=== PATIENT | male | born 1935 | race Caucasian/White ===

== ENCOUNTER 2017-01-22 19:40 | Inpatient (IN) | payer MEDICARE ==
[2017-01-22] MEDS ORDERED: IPRATROPIUM-ALBUTEROL 3 ML NEB INHALATION STA ×2 (20:59→23:43)
[2017-01-22] MEDS ORDERED: methylPREDNISolone SOD SUCCI 125 MG/2 ML VIAL IV STA (21:09)
--- NOTE | 2017-01-22 21:32 | XR ---
EXAMINATION TYPE: XR chest 2V DATE OF EXAM: 01/22/2017 COMPARISON: 09/22/2016 HISTORY: Cough and short of breath TECHNIQUE: Frontal and lateral views of the chest are obtained. FINDINGS: There is extensive diffuse interstitial pulmonary infiltrates. There is poor inspiration. Pulmonary vascularity is difficult to evaluate because of the extensive lung disease. There are chest leads. IMPRESSION: Pulmonary interstitial fibrosis. Heart failure cannot be excluded. I suspect that there is some degree of heart failure. Inspiration is slightly worse than old exam.
[2017-01-22 21:47] LABS: VBG PH 7.48 (7.31-7.41)
[2017-01-22 21:48] LABS: Anisocytosis Slight; CH 38.4; CHCM 34.3; HDW 3.75; MCH 38.2 pg (25.0-35.0); MCV 112.5 fL (80.0-100.0); Macrocytosis Marked; Poikilocytosis Slight; RBC 1.73 m/uL (4.30-5.90); RDW 16.4 % (11.5-15.5); WBC 4.4 k/uL (3.8-10.6); WBC (Perox) 4.28
[2017-01-22 21:57] LABS: INR 1.1 (<1.2); Prothrombin Time 10.8 sec (9.0-12.0)
[2017-01-22 21:58] LABS: HCT 19.4 % (39.0-53.0); HGB 6.6 gm/dL (13.0-17.5)
[2017-01-22 22:04] LABS: Partial Thromboplastin Time 22.4 sec (22.0-30.0)
[2017-01-22 22:06] LABS: Add Differential Manual Differential
[2017-01-22 22:07] LABS: Manual Review Performed
[2017-01-22 22:09] LABS: Creatine Kinase <20 U/L (55-170)
[2017-01-22 22:11] LABS: Band Neutrophils % 9 %; Metamyelocytes % 2 %; Nucleated Red Blood Cells 0 /100 WBC (0-0); Total Cells Counted 100
[2017-01-22 22:12] LABS: Polychromasia Present
[2017-01-22 22:13] LABS: ALT 27 U/L (21-72); AST 22 U/L (17-59); Alkaline Phosphatase 61 U/L (38-126); Blood Urea Nitrogen 18 mg/dL (9-20); Calcium 9.5 mg/dL (8.4-10.2); Chloride 88 mmol/L (98-107); Glucose 103 mg/dL (74-99); Magnesium 1.5 mg/dL (1.6-2.3); Non-African American GFR(MDRD) >60 (>60 ml/min/1.73 sqM); Potassium 3.8 mmol/L (3.5-5.1); Sodium 143 mmol/L (137-145); Total Bilirubin 0.9 mg/dL (0.2-1.3); Total Protein 6.1 g/dL (6.3-8.2)
[2017-01-22 22:19] LABS: Anion Gap 10 mmol/L
[2017-01-22] MEDS ORDERED: FUROSEMIDE 10 MG/ML 2 ML VIAL IV ONE (22:20)
[2017-01-22 22:21] LABS: Creatine Kinase MB 0.3 ng/mL (0.0-2.4); Troponin I <0.012 ng/mL (0.000-0.034)
[2017-01-22 22:24] LABS: Carbon Dioxide 45 mmol/L (22-30)
[2017-01-22] MEDS ORDERED: ONDANSETRON 4 MG/2 ML VIAL IVP PRN (23:13)
[2017-01-22] MEDS ORDERED: NALOXONE 0.4 MG/ML 1 ML VIAL IV PRN (23:13)
[2017-01-22] MEDS ORDERED: ACETAMINOPHEN TAB 325 MG TAB PO PRN (23:13)
[2017-01-22] MEDS ORDERED: SODIUM CHLORIDE 0.9% 1,000 ML IV SCH (23:15)
--- NOTE | 2017-01-22 23:27 | ED ---
General Adult HPI - General Chief complaint: Shortness of Breath Stated complaint: sob Time Seen by Provider: 01/22/17 21:05 Source: patient, family, RN notes reviewed, old records reviewed Mode of arrival: wheelchair Limitations: no limitations - History of Present Illness Initial comments: 82-year-old male with history of pulmonary fibrosis on home O2, hypertension, and thrombocytopenia presents with a three-day history of worsening dyspnea. Shortness of breath is worse with exertion. Patient denies any increase in his baseline cough. Denies fever. Denies chest pain. He is on 2 L home O2. He has a history of bilateral pneumonia which is what prompted his presentation for evaluation. Denies any rectal bleeding. - Related Data Home Medications Medication Instructions Recorded Confirmed Levothyroxine Sodium [Synthroid] 25 mcg PO DAILY 10/22/14 01/22/17 Simvastatin [Zocor] 40 mg PO HS 10/22/14 01/22/17 Etodolac [Lodine] 400 mg PO BID 01/22/17 01/22/17 Lisinopril-Hctz 20-25 mg 1 tab PO DAILY 01/22/17 01/22/17 [Zestoretic 20-25] Previous Rx's Medication Instructions Recorded Furosemide [Lasix] 40 mg PO DAILY #30 tab 10/28/14 Potassium Chloride ER [K-Dur 20] 40 meq PO DAILY #30 tab 10/29/14 Allergies Allergy/AdvReac Type Severity Reaction Status Date / Time No Known Allergies Allergy Verified 01/22/17 20:49 Review of Systems ROS Statement: Those systems with pertinent positive or pertinent negative responses have been documented in the HPI. ROS Other: All systems not noted in ROS Statement are negative. Past Medical History Past Medical History: Hyperlipidemia, Hypertension, Osteoarthritis (OA), Thyroid Disorder Additional Past Medical History / Comment(s): 10/22/14 Pt presented to [facility] ER via EMS. found pt unresponsive this AM and called EMS. Pt has had a cough and congestion for the past 2 weeks. [facility] [place] [facility] was given a [facility]er and mucinex. states pt was very weak last nite. EMS was unable to intubate so pt arrived to ER with bipap and was intubated here. Pt was sent immediately to the cath labfor STEMI and hypoxia. Other HX: L knee pain, hypothyroidism. Family deny hx of COPD. History of Any Multi-Drug Resistant Organisms: None Reported Past Surgical History: Heart Catheterization Additional Past Surgical History / Comment(s): 10/22/14 ccath- EF 65-70%. PTO injury to groin/perineal area with surgical repair. Past Anesthesia/Blood Transfusion Reactions: No Reported Reaction Additional Past Anesthesia/Blood Transfusion Reaction / Comment(s): Pt hs never recieved blood. Past Psychological History: No Psychological Hx Reported Smoking Status: Never smoker - Past Family History Father Family Medical History: No Reported History Additional Family Medical History / Comment(s): Father was healthy until his at age 81yrs old. Mother Family Medical History: CVA/TIA Additional Family Medical History / Comment(s): Mother at age 84yr old. She had a CVA at age 82or 83yrs. General Exam Limitations: no limitations General appearance: alert, in distress Head exam: Present: atraumatic, normocephalic Eye exam: Present: normal appearance, PERRL, other (Conjunctiva pale) ENT exam: Present: normal exam, mucous membranes moist Neck exam: Present: normal inspection. Absent: tenderness, meningismus Respiratory exam: Present: other (Good air entry, breath sounds, no wheezing). Absent: wheezes, rales Cardiovascular Exam: Present: normal rhythm, tachycardia GI/Abdominal exam: Present: soft. Absent: distended, tenderness, guarding Rectal exam: Present: normal inspection, normal rectal tone, heme (-) stool Extremities exam: Present: normal inspection Back exam: Present: normal inspection, full ROM. Absent: tenderness Neurological exam: Present: alert, oriented X3, CN II-XII intact. Absent: motor sensory deficit Psychiatric exam: Present: normal affect, normal mood Skin exam: Present: warm, dry, pallor. Absent: cyanosis, diaphoretic Course Vital Signs 01/22/17 01/22/17 01/22/17 19:44 20:41 21:22 Temperature 98.9 F Pulse Rate 104 H 105 H 96 Respiratory 24 24 17 Rate Blood Pressure 110/57 114/56 O2 Sat by Pulse 83 L 80 L 95 Oximetry 01/22/17 01/22/17 01/22/17 21:27 21:37 22:16 Temperature Pulse Rate 97 93 91 Respiratory 17 Rate Blood Pressure 135/60 O2 Sat by Pulse 93 L Oximetry - Reevaluation(s) Reevaluation #1: 01/22/17 23:21 Patient and family are updated on laboratory results EKG Findings - EKG Comments: EKG Findings:: EKG shows sinus rhythm with first-degree AV block, ventricular rate of 94. Her Voltaren 58, QRS 86, QTC is 447, Medical Decision Making - Medical Decision Making 81-year-old male presents with 3 days of worsening dyspnea. According the patient's family member his dyspnea has worsened over the past several months. Lungs reveal good air entry, no wheezing, there is tubular breath sounds present. No retractions. Patient is found to have a hemoglobin of 6.0, most recent baseline hemoglobin is 12. Denies any rectal bleeding. Patient is also found to be thrombocytopenic with a platelet count of 25. He does have known history of thrombocytopenia. Patient is severely symptomatic. He is unable to lie flat or even mildly reclined. Blood pressure and heart rate are stable. Patient will be transfused 2 units and given a dose of Lasix. Chest x-ray shows pulmonary fibrosis with some concern for pulmonary edema. Patient is on Lasix at home. He will be continued on this. EKG is nonischemic. Hematology is placed on consult. Diagnosis: Symptomatic anemia, thrombocytopenia - Lab Data Result diagrams: 01/22/17 21:30 01/22/17 21:30 Lab Results 01/22/17 01/22/17 01/22/17 Range/Units 21:30 21:30 21:30 WBC 4.4 (3.8-10.6) k/uL RBC 1.73 L (4.30-5.90) m/uL Hgb 6.6 L* (13.0-17.5) gm/dL Hct 19.4 L* (39.0-53.0) % MCV 112.5 H (80.0-100.0) fL MCH 38.2 H (25.0-35.0) pg MCHC 34.0 (31.0-37.0) g/dL RDW 16.4 H (11.5-15.5) % Plt Count 25 L* (150-450) k/uL Neutrophils % (Manual) 44 % Band Neutrophils % 9 % Lymphocytes % (Manual) 40 % Monocytes % (Manual) 5 % Metamyelocytes % 2 % Neutrophils # (Manual) 2.30 (1.3-7.7) k/uL Lymphocytes # (Manual) 1.76 (1.0-4.8) k/uL Monocytes # (Manual) 0.22 (0-1.0) k/uL Metamyelocytes # (Man) 0.09 H (0) k/uL Nucleated RBCs 0 (0-0) /100 WBC Manual Slide Review Performed Polychromasia Present Poikilocytosis Slight Anisocytosis Slight Anisocytosis (manual) Present Macrocytosis Marked PT (9.0-12.0) sec INR (<1.2) APTT (22.0-30.0) sec VBG pH (7.31-7.41) VBG pCO2 (37-51) mmHg VBG HCO3 (24-28) mmol/L Sodium 143 (137-145) mmol/L Potassium 3.8 (3.5-5.1) mmol/L Chloride 88 L (98-107) mmol/L Carbon Dioxide 45 H* (22-30) mmol/L Anion Gap 10 mmol/L BUN 18 (9-20) mg/dL Creatinine 0.70 (0.66-1.25) mg/dL Est GFR (MDRD) Af Amer >60 (>60 ml/min/1.73 sqM) Est GFR (MDRD) Non-Af >60 (>60 ml/min/1.73 sqM) Glucose 103 H (74-99) mg/dL Plasma Lactic Acid Theo (0.7-2.0) mmol/L Calcium 9.5 (8.4-10.2) mg/dL Magnesium 1.5 L (1.6-2.3) mg/dL Total Bilirubin 0.9 (0.2-1.3) mg/dL AST 22 (17-59) U/L ALT 27 (21-72) U/L Alkaline Phosphatase 61 (38-126) U/L Total Creatine Kinase <20 L (55-170) U/L CK-MB (CK-2) 0.3 (0.0-2.4) ng/mL CK-MB (CK-2) Rel Index 0.0 Troponin I <0.012 (0.000-0.034) ng/mL NT-Pro-B Natriuret Pep pg/mL Total Protein 6.1 L (6.3-8.2) g/dL Albumin 3.3 L (3.5-5.0) g/dL Stool Occult Blood (Negative) Blood Type Blood Type Recheck Antibody Screen Spec Expiration Date 01/22/17 01/22/17 01/22/17 Range/Units 21:30 21:30 21:30 WBC (3.8-10.6) k/uL RBC (4.30-5.90) m/uL Hgb (13.0-17.5) gm/dL Hct (39.0-53.0) % MCV (80.0-100.0) fL MCH (25.0-35.0) pg MCHC (31.0-37.0) g/dL RDW (11.5-15.5) % Plt Count (150-450) k/uL Neutrophils % (Manual) % Band Neutrophils % % Lymphocytes % (Manual) % Monocytes % (Manual) % Metamyelocytes % % Neutrophils # (Manual) (1.3-7.7) k/uL Lymphocytes # (Manual) (1.0-4.8) k/uL Monocytes # (Manual) (0-1.0) k/uL Metamyelocytes # (Man) (0) k/uL Nucleated RBCs (0-0) /100 WBC Manual Slide Review Polychromasia Poikilocytosis Anisocytosis Anisocytosis (manual) Macrocytosis PT 10.8 (9.0-12.0) sec INR 1.1 (<1.2) APTT 22.4 (22.0-30.0) sec VBG pH (7.31-7.41) VBG pCO2 (37-51) mmHg VBG HCO3 (24-28) mmol/L Sodium (137-145) mmol/L Potassium (3.5-5.1) mmol/L Chloride (98-107) mmol/L Carbon Dioxide (22-30) mmol/L Anion Gap mmol/L BUN (9-20) mg/dL Creatinine (0.66-1.25) mg/dL Est GFR (MDRD) Af Amer (>60 ml/min/1.73 sqM) Est GFR (MDRD) Non-Af (>60 ml/min/1.73 sqM) Glucose (74-99) mg/dL Plasma Lactic Acid Theo 1.4 (0.7-2.0) mmol/L Calcium (8.4-10.2) mg/dL Magnesium (1.6-2.3) mg/dL Total Bilirubin (0.2-1.3) mg/dL AST (17-59) U/L ALT (21-72) U/L Alkaline Phosphatase (38-126) U/L Total Creatine Kinase (55-170) U/L CK-MB (CK-2) (0.0-2.4) ng/mL CK-MB (CK-2) Rel Index Troponin I (0.000-0.034) ng/mL NT-Pro-B Natriuret Pep 322 pg/mL Total Protein (6.3-8.2) g/dL Albumin (3.5-5.0) g/dL Stool Occult Blood (Negative) Blood Type Blood Type Recheck Antibody Screen Spec Expiration Date 01/22/17 01/22/17 01/22/17 Range/Units 21:30 21:30 22:12 WBC (3.8-10.6) k/uL RBC (4.30-5.90) m/uL Hgb (13.0-17.5) gm/dL Hct (39.0-53.0) % MCV (80.0-100.0) fL MCH (25.0-35.0) pg MCHC (31.0-37.0) g/dL RDW (11.5-15.5) % Plt Count (150-450) k/uL Neutrophils % (Manual) % Band Neutrophils % % Lymphocytes % (Manual) % Monocytes % (Manual) % Metamyelocytes % % Neutrophils # (Manual) (1.3-7.7) k/uL Lymphocytes # (Manual) (1.0-4.8) k/uL Monocytes # (Manual) (0-1.0) k/uL Metamyelocytes # (Man) (0) k/uL Nucleated RBCs (0-0) /100 WBC Manual Slide Review Polychromasia Poikilocytosis Anisocytosis Anisocytosis (manual) Macrocytosis PT (9.0-12.0) sec INR (<1.2) APTT (22.0-30.0) sec VBG pH 7.48 H (7.31-7.41) VBG pCO2 68 H (37-51) mmHg VBG HCO3 49 H (24-28) mmol/L Sodium (137-145) mmol/L Potassium (3.5-5.1) mmol/L Chloride (98-107) mmol/L Carbon Dioxide (22-30) mmol/L Anion Gap mmol/L BUN (9-20) mg/dL Creatinine (0.66-1.25) mg/dL Est GFR (MDRD) Af Amer (>60 ml/min/1.73 sqM) Est GFR (MDRD) Non-Af (>60 ml/min/1.73 sqM) Glucose (74-99) mg/dL Plasma Lactic Acid Theo (0.7-2.0) mmol/L Calcium (8.4-10.2) mg/dL Magnesium (1.6-2.3) mg/dL Total Bilirubin (0.2-1.3) mg/dL AST (17-59) U/L ALT (21-72) U/L Alkaline Phosphatase (38-126) U/L Total Creatine Kinase (55-170) U/L CK-MB (CK-2) (0.0-2.4) ng/mL CK-MB (CK-2) Rel Index Troponin I (0.000-0.034) ng/mL NT-Pro-B Natriuret Pep pg/mL Total Protein (6.3-8.2) g/dL Albumin (3.5-5.0) g/dL Stool Occult Blood Negative (Negative) Blood Type A Positive Blood Type Recheck CABO Indicated Antibody Screen NEGATIVE Spec Expiration Date 01/25/20172329 Disposition Clinical Impression: Symptomatic anemia Disposition: ADMITTED IP TO THIS [facility] Condition: Stable Referrals: Adiel Benz MD [Primary Care Provider] - 1-2 days Decision to Admit Reason: Admit from EC Decision Date: 01/22/17 Decision Time: 22:41
[2017-01-23] MEDS: IPRATROPIUM-ALBUTEROL 3 ML NEB INHALATION SCH ×7 (02:50→19:55)
[2017-01-23] MEDS ORDERED: FUROSEMIDE 10 MG/ML 4 ML VIAL IV STA (05:14)
[2017-01-23 06:18] LABS: Anisocytosis Moderate; Basophils % (A) 0 %; CH 36.4; CHCM 34.2; Eosinophils % (A) 0 %; HDW 3.63; HGB 7.8 gm/dL (13.0-17.5); Luc # (Auto) 0.02; Luc % (Auto) 1; Lymphocytes # (A) 0.5 k/uL (1.0-4.8); Lymphocytes % (A) 25 %; MCH 36.3 pg (25.0-35.0); MCHC 33.8 g/dL (31.0-37.0); Macrocytosis Marked; Mean Platelet Volume 7.9; Monocytes # (A) 0.2 k/uL (0-1.0); Monocytes % (A) 9 %; Neutrophils # (A) 1.4 k/uL (1.3-7.7); Neutrophils % (A) 65 %; Poikilocytosis Slight; RBC 2.14 m/uL (4.30-5.90); RDW 20.4 % (11.5-15.5); WBC 2.2 k/uL (3.8-10.6); WBC (Perox) 2.28
[2017-01-23 06:25] LABS: ALT 26 U/L (21-72); AST 21 U/L (17-59); Alkaline Phosphatase 56 U/L (38-126); Blood Urea Nitrogen 19 mg/dL (9-20); Calcium 9.3 mg/dL (8.4-10.2); Chloride 86 mmol/L (98-107); Glucose 159 mg/dL (74-99); Non-African American GFR(MDRD) >60 (>60 ml/min/1.73 sqM); Potassium 3.5 mmol/L (3.5-5.1); Sodium 141 mmol/L (137-145); Total Bilirubin 1.5 mg/dL (0.2-1.3)
[2017-01-23 06:26] LABS: MCV 107.5 fL (80.0-100.0)
[2017-01-23 06:40] LABS: Manual Review Performed
[2017-01-23 06:46] LABS: Anion Gap 12 mmol/L; Carbon Dioxide 43 mmol/L (22-30)
[2017-01-23 08:43] LABS: Reticulocyte % 1.4 % (0.5-2.0)
[2017-01-23] MEDS: LISINOPRIL-HCTZ 20-25 MG 1 EACH TAB PO SCH ×2 (09:13→09:18)
[2017-01-23] MEDS: FUROSEMIDE 40 MG TAB PO SCH (09:13)
[2017-01-23] MEDS: LEVOTHYROXINE 25 MCG TAB PO SCH (09:13)
[2017-01-23 10:36] LABS: Iron 193 ug/dL (49-181)
[2017-01-23 10:49] LABS: Rheumatoid Factor, Qnt <9 IU/mL (<12); Total Iron Binding Capacity 199 ug/dL (261-462)
[2017-01-23] MEDS: POTASSIUM CHLORIDE ER 20 MEQ TAB.ER PO SCH (11:10)
--- NOTE | 2017-01-23 12:03 | P.CNPUL ---
History of Present Illness Consult date: 01/23/17 Reason for consult: dyspnea, cough, hypoxemia, pulmonary fibrosis, other Chief complaint: Shortness of breath, anemia History of present illness: Consult dated 01/23/2017 This is an 81-year-old male with a known history of pulmonary fibrosis. Sees my partner for his pulmonary fibrosis. Was seen a couple weeks ago was given a "" clean bill of health. The patient is chronically on home oxygen . Has a history of hypertension and chronic thrombocytopenia. He was found also be anemic. Denies any blood in his stools blood in his urine black tarry stools coughing up blood or vomiting blood. The patient does have a baseline chronic dry cough secondary to his pulmonary fibrosis. The patient has a history of hypothyroidism hyperlipidemia and degenerative joint disease and hypertension. Review of Systems 12 point review of system is positive for chronic cough and shortness of breath. Talking to his family members, the shortness of breath was worse in prior. He is always chronically short of breath because of his pulmonary fibrosis. The shortness of breath was even in addition to his baseline shortness of breath. Past Medical History Past Medical History: Hyperlipidemia, Hypertension, Osteoarthritis (OA), Thyroid Disorder Additional Past Medical History / Comment(s): 10/22/14 Pt presented to [facility] ER via EMS. found pt unresponsive this AM and called EMS. Pt has had a cough and congestion for the past 2 weeks. [facility] [place] and was given a inhaler and mucinex. states pt was very weak last nite. EMS was unable to intubate so pt arrived to ER with bipap and was intubated here. Pt was sent immediately to the cath labfor STEMI and hypoxia. Other HX: L knee pain, hypothyroidism. Family deny hx of COPD. 01/23/17 states shortness of breath ongoing for 2 days History of Any Multi-Drug Resistant Organisms: None Reported Past Surgical History: Heart Catheterization Additional Past Surgical History / Comment(s): 10/22/14 ccath- EF 65-70%. PTO injury to groin/perineal area with surgical repair. Past Anesthesia/Blood Transfusion Reactions: No Reported Reaction Additional Past Anesthesia/Blood Transfusion Reaction / Comment(s): Pt hs never recieved blood. Past Psychological History: No Psychological Hx Reported Additional Psychological History / Comment(s): Pt resides with his spouse. He is normally independent. He drives. Smoking Status: Never smoker Past Alcohol Use History: None Reported Additional Past Alcohol Use History / Comment(s): Pt chews tobacco boyle. He has been chewing tobacco since a teenager. Past Drug Use History: None Reported - Past Family History Father Family Medical History: No Reported History Additional Family Medical History / Comment(s): Father was healthy until his at age 81yrs old. Mother Family Medical History: CVA/TIA Additional Family Medical History / Comment(s): Mother at age 84yr old. She had a CVA at age 82or 83yrs. Medications and Allergies Home Medications Medication Instructions Recorded Confirmed Type Levothyroxine Sodium [Synthroid] 25 mcg PO DAILY 10/22/14 01/22/17 History Simvastatin [Zocor] 40 mg PO HS 10/22/14 01/22/17 History Allergies Allergy/AdvReac Type Severity Reaction Status Date / Time No Known Allergies Allergy Verified 01/22/17 20:49 Physical Exam Osteopathic Statement: *. No significant issues noted on an osteopathic structural exam other than those noted in the History and Physical/Consult. Vitals: Vital Signs Temp Pulse Pulse Resp BP BP Pulse Ox 01/23/17 08:38 98 01/23/17 08:27 96 91 L 01/23/17 08:00 96.6 F L 94 18 108/61 90 L 01/23/17 04:58 97.3 F L 92 18 125/70 90 L 01/23/17 04:00 97.3 F L 92 18 125/71 90 L 01/23/17 03:02 96 01/23/17 02:50 90 98 01/23/17 01:56 97.3 F L 89 18 133/70 01/23/17 01:26 97.7 F 96 18 121/68 01/23/17 01:16 97.3 F L 97 18 120/61 96 01/23/17 01:13 97.3 F L 97 18 120/61 91 L 01/23/17 00:30 96 18 01/23/17 00:16 101 H 01/23/17 00:15 93 L 01/23/17 00:05 105 H 01/22/17 23:42 97.5 F L 93 20 132/61 83 L 01/22/17 22:16 91 17 135/60 93 L 01/22/17 21:37 93 01/22/17 21:27 97 01/22/17 21:22 96 17 114/56 95 01/22/17 20:41 105 H 24 80 L 01/22/17 19:44 98.9 F 104 H 24 110/57 83 L Intake and Output 01/22/17 01/23/17 01/23/17 22:59 06:59 14:59 Intake Total 310 Balance 310 Intake: IV 0 Sodium Chloride 0.9% 1, 0 000 ml @ 20 mls/hr IV . Q24H [facility] Rx#:[id number] Blood Product 310 Rc As-1 Unit 310 [id number] Other: Voiding Method Toilet Toilet # Voids 2 1 Weight 85.729 kg 83.7 kg No acute distress, oriented 3. Wearing oxygen therapy. Family at the bedside. HEENT examination is grossly unremarkable. Mucous membranes are moist. No oral lesions. Nasal O2 in place. Supple. Full range of motion. No adenopathy or thyromegaly. Neck veins are flat. Cardiovascular examination reveals distant heart sounds. S1-S2 normal. No S3- S4 or murmur. Lungs reveal some bibasilar crackles. There are Velcro nature. They're heard throughout the mid to end inspiration. Abdomen soft bowel sounds are heard. No masses or tenderness. Extremities are intact. No cyanosis clubbing or edema. Skin without rash. Neurologic examination is nonfocal. Results - Laboratory Findings CBC and BMP: 01/23/17 05:53 01/23/17 05:50 PT/INR, D-dimer PT 10.8 sec (9.0-12.0) 01/22/17 21:30 INR 1.1 (<1.2) 01/22/17 21:30 Abnormal lab findings: Abnormal Labs 01/22/17 01/22/17 01/22/17 21:30 21:30 21:30 WBC RBC 1.73 L Hgb 6.6 L* Hct 19.4 L* MCV 112.5 H MCH 38.2 H RDW 16.4 H Plt Count 25 L* Lymphocytes # Metamyelocytes # (Man) 0.09 H VBG pH VBG pCO2 VBG HCO3 Chloride 88 L Carbon Dioxide 45 H* Creatinine Glucose 103 H Magnesium 1.5 L Iron TIBC % Saturation Ferritin Total Bilirubin Total Creatine Kinase <20 L Total Protein 6.1 L Albumin 3.3 L Crossmatch 01/22/17 01/22/17 01/23/17 21:30 21:30 05:50 WBC RBC Hgb Hct MCV MCH RDW Plt Count Lymphocytes # Metamyelocytes # (Man) VBG pH 7.48 H VBG pCO2 68 H VBG HCO3 49 H Chloride 86 L Carbon Dioxide 43 H* Creatinine 0.60 L Glucose 159 H Magnesium Iron TIBC % Saturation Ferritin Total Bilirubin 1.5 H Total Creatine Kinase Total Protein 6.0 L Albumin 3.4 L Crossmatch See Detail 01/23/17 01/23/17 05:53 05:53 WBC 2.2 L RBC 2.14 L Hgb 7.8 L Hct 23.0 L MCV 107.5 H D MCH 36.3 H RDW 20.4 H Plt Count 22 L* Lymphocytes # 0.5 L Metamyelocytes # (Man) VBG pH VBG pCO2 VBG HCO3 Chloride Carbon Dioxide Creatinine Glucose Magnesium Iron 193 H TIBC 199 L % Saturation 97.0 H Ferritin >1000 H Total Bilirubin Total Creatine Kinase Total Protein Albumin Crossmatch - Diagnostic Findings Chest x-ray: image reviewed (Chest x-rays labs and medications are all reviewed. ) Assessment and Plan (1) Hypertension Status: Acute (2) Pulmonary fibrosis Status: Acute (3) Chronic hypoxemic respiratory failure Status: Acute (4) Hyperlipidemia Status: Acute (5) Hypothyroidism Status: Acute (6) Pancytopenia Status: Acute (7) Symptomatic anemia Status: Acute (8) Hypoxia Status: Acute (9) STEMI (ST elevation myocardial infarction) Status: Acute Plan: Plan dated 01/23/2017 I think it is good that he is going to have a hematology consult. This is for pancytopenia. He may have myelodysplastic syndrome or preleukemia. He does have a history of pulmonary fibrosis and is chronically hypoxemic. He does wear oxygen 26/12. The patient otherwise is doing better. Feels better after the blood transfusion. We'll await the input from hematology. Prognosis is guarded. He denies any blood in his stools black tarry stools hematuria hematemesis or hematochezia. Time with Patient: Greater than 30
[2017-01-23 15:07] VITALS: BMI 28.0
--- NOTE | 2017-01-23 15:30 | P.HPIM ---
History of Present Illness H&P Date: 01/23/17 Chief Complaint: Difficulty breathing 79-year-old gentleman with a history of pulmonary fibrosis who is on chronic oxygen at home comes in the hospital with worsening in difficulty breathing for the last 3 days. Patient was seen in emergency room was noted to have significant anemia with other laboratory abnormalities Patient apparently was supposed to see Dr. Rico in about 2 weeks Patient was given 1 unit of PRBC. Denies having any blood in his urine dark stools in the recent times. Patient denies having any change in his appetite no weight loss in the recent times States that he was in good health until 3 days prior to admission to the hospital No recent URIs are reported. Patient also denies any change in his medication in the recent times as well Review of systems a 14 point review of systems was done nonpertinent was mentioned above. Past Medical History Past Medical History: Hyperlipidemia, Hypertension, Osteoarthritis (OA), Thyroid Disorder Additional Past Medical History / Comment(s): 10/22/14 Pt presented to [facility] ER via EMS. found pt unresponsive this AM and called EMS. Pt has had a cough and congestion for the past 2 weeks. [facility] [place] and was given a inhaler and mucinex. states pt was very weak last nite. EMS was unable to intubate so pt arrived to ER with bipap and was intubated here. Pt was sent immediately to the cath labfor STEMI and hypoxia. Other HX: L knee pain, hypothyroidism. Family deny hx of COPD. 01/23/17 states shortness of breath ongoing for 2 days History of Any Multi-Drug Resistant Organisms: None Reported Past Surgical History: Heart Catheterization Additional Past Surgical History / Comment(s): 10/22/14 ccath- EF 65-70%. PTO injury to groin/perineal area with surgical repair. Past Anesthesia/Blood Transfusion Reactions: No Reported Reaction Additional Past Anesthesia/Blood Transfusion Reaction / Comment(s): Pt hs never recieved blood. Past Psychological History: No Psychological Hx Reported Additional Psychological History / Comment(s): Pt resides with his spouse. He is normally independent. He drives. Smoking Status: Never smoker Past Alcohol Use History: None Reported Additional Past Alcohol Use History / Comment(s): Pt chews tobacco boyle. He has been chewing tobacco since a teenager. Past Drug Use History: None Reported - Past Family History Father Family Medical History: No Reported History Additional Family Medical History / Comment(s): Father was healthy until his at age 81yrs old. Mother Family Medical History: CVA/TIA Additional Family Medical History / Comment(s): Mother at age 84yr old. She had a CVA at age 82or 83yrs. Medications and Allergies Home Medications Medication Instructions Recorded Confirmed Type Levothyroxine Sodium [Synthroid] 25 mcg PO DAILY 10/22/14 01/22/17 History Simvastatin [Zocor] 40 mg PO HS 10/22/14 01/22/17 History Allergies Allergy/AdvReac Type Severity Reaction Status Date / Time No Known Allergies Allergy Verified 01/22/17 20:49 Physical Exam Vitals: Vital Signs Temp Pulse Pulse Resp BP BP Pulse Ox 01/23/17 12:49 96 01/23/17 12:39 102 H 01/23/17 12:00 96.6 F L 90 18 115/67 94 L 01/23/17 08:38 98 01/23/17 08:27 96 91 L 01/23/17 08:00 96.6 F L 94 18 108/61 90 L 01/23/17 04:58 97.3 F L 92 18 125/70 90 L 01/23/17 04:00 97.3 F L 92 18 125/71 90 L 01/23/17 03:02 96 01/23/17 02:50 90 98 01/23/17 01:56 97.3 F L 89 18 133/70 01/23/17 01:26 97.7 F 96 18 121/68 01/23/17 01:16 97.3 F L 97 18 120/61 96 01/23/17 01:13 97.3 F L 97 18 120/61 91 L 01/23/17 00:30 96 18 01/23/17 00:16 101 H 01/23/17 00:15 93 L 01/23/17 00:05 105 H 01/22/17 23:42 97.5 F L 93 20 132/61 83 L 01/22/17 22:16 91 17 135/60 93 L 01/22/17 21:37 93 01/22/17 21:27 97 01/22/17 21:22 96 17 114/56 95 01/22/17 20:41 105 H 24 80 L 01/22/17 19:44 98.9 F 104 H 24 110/57 83 L Intake and Output 01/23/17 01/23/17 01/23/17 06:59 14:59 22:59 Intake Total 310 60 Balance 310 60 Intake: IV 0 Sodium Chloride 0.9% 1, 0 000 ml @ 20 mls/hr IV . Q24H [facility] Rx#:[id number] Oral 60 Blood Product 310 Rc As-1 Unit 310 [id number] Other: Voiding Method Toilet Toilet # Voids 2 1 Weight 83.7 kg 83.7 kg Patient Weight 01/24/17 06:59 Weight 83.7 kg Physical exam Gen. appearance oriented 3 in no distress Neck is supple no JVD Lungs breath sounds coarse crackles at the bases. No rhonchi or wheezing Heart S1-S2 heard regular rate and rhythm no murmurs appreciated Abdomen is soft nontender no organomegaly bowel sounds are intact Neurologically cranial nerves II-12 grossly intact no focal motor or sensory deficits noted Skin no abnormalities appreciated Results CBC & Chem 7: 01/23/17 05:53 01/23/17 05:50 Labs: Abnormal Lab Results - Last 24 Hours (Table) 01/22/17 01/22/17 01/22/17 Range/Units 21:30 21:30 21:30 WBC (3.8-10.6) k/uL RBC 1.73 L (4.30-5.90) m/uL Hgb 6.6 L* (13.0-17.5) gm/dL Hct 19.4 L* (39.0-53.0) % MCV 112.5 H (80.0-100.0) fL MCH 38.2 H (25.0-35.0) pg RDW 16.4 H (11.5-15.5) % Plt Count 25 L* (150-450) k/uL Lymphocytes # (1.0-4.8) k/uL Metamyelocytes # (Man) 0.09 H (0) k/uL VBG pH (7.31-7.41) VBG pCO2 (37-51) mmHg VBG HCO3 (24-28) mmol/L Chloride 88 L (98-107) mmol/L Carbon Dioxide 45 H* (22-30) mmol/L Creatinine (0.66-1.25) mg/dL Glucose 103 H (74-99) mg/dL Magnesium 1.5 L (1.6-2.3) mg/dL Iron (49-181) ug/dL TIBC (261-462) ug/dL % Saturation (20-50) % Ferritin (18-464) ng/mL Total Bilirubin (0.2-1.3) mg/dL Total Creatine Kinase <20 L (55-170) U/L Total Protein 6.1 L (6.3-8.2) g/dL Albumin 3.3 L (3.5-5.0) g/dL Crossmatch 01/22/17 01/22/17 01/23/17 Range/Units 21:30 21:30 05:50 WBC (3.8-10.6) k/uL RBC (4.30-5.90) m/uL Hgb (13.0-17.5) gm/dL Hct (39.0-53.0) % MCV (80.0-100.0) fL MCH (25.0-35.0) pg RDW (11.5-15.5) % Plt Count (150-450) k/uL Lymphocytes # (1.0-4.8) k/uL Metamyelocytes # (Man) (0) k/uL VBG pH 7.48 H (7.31-7.41) VBG pCO2 68 H (37-51) mmHg VBG HCO3 49 H (24-28) mmol/L Chloride 86 L (98-107) mmol/L Carbon Dioxide 43 H* (22-30) mmol/L Creatinine 0.60 L (0.66-1.25) mg/dL Glucose 159 H (74-99) mg/dL Magnesium (1.6-2.3) mg/dL Iron (49-181) ug/dL TIBC (261-462) ug/dL % Saturation (20-50) % Ferritin (18-464) ng/mL Total Bilirubin 1.5 H (0.2-1.3) mg/dL Total Creatine Kinase (55-170) U/L Total Protein 6.0 L (6.3-8.2) g/dL Albumin 3.4 L (3.5-5.0) g/dL Crossmatch See Detail 01/23/17 01/23/17 Range/Units 05:53 05:53 WBC 2.2 L (3.8-10.6) k/uL RBC 2.14 L (4.30-5.90) m/uL Hgb 7.8 L (13.0-17.5) gm/dL Hct 23.0 L (39.0-53.0) % MCV 107.5 H D (80.0-100.0) fL MCH 36.3 H (25.0-35.0) pg RDW 20.4 H (11.5-15.5) % Plt Count 22 L* (150-450) k/uL Lymphocytes # 0.5 L (1.0-4.8) k/uL Metamyelocytes # (Man) (0) k/uL VBG pH (7.31-7.41) VBG pCO2 (37-51) mmHg VBG HCO3 (24-28) mmol/L Chloride (98-107) mmol/L Carbon Dioxide (22-30) mmol/L Creatinine (0.66-1.25) mg/dL Glucose (74-99) mg/dL Magnesium (1.6-2.3) mg/dL Iron 193 H (49-181) ug/dL TIBC 199 L (261-462) ug/dL % Saturation 97.0 H (20-50) % Ferritin 985 H (18-464) ng/mL Total Bilirubin (0.2-1.3) mg/dL Total Creatine Kinase (55-170) U/L Total Protein (6.3-8.2) g/dL Albumin (3.5-5.0) g/dL Crossmatch Assessment and Plan Plan: #1 pancytopenia suspect underlying MDS #2 history of pulmonary fibrosis. #3 acute on chronic hypoxemic respiratory failure #4 hypothyroidism #5 osteoarthritis #6 essential hypertension. #7 dyslipidemia #8 CAD. Plan Continue monitoring laboratory data Patient is asymptomatic at this time support intermittently if symptomatic May need a bone marrow biopsy depending on if all other laboratory values are negative Patient profile does not appear to have any additional answers. Patient's reticulocyte count is normal low which is suggestive of a production problem
[2017-01-23] MEDS ORDERED: Magnesium Replacement Protocol 1 EACH MISC MISCELLANE PRN (16:02)
[2017-01-23] MEDS: MAGNESIUM SULFATE-D5W PMX 1 GM in DEXTROSE/WATER 1 100ML.BAG IVPB SCH ×2 (17:13→18:04)
--- NOTE | 2017-01-23 17:43 | P.CONS ---
History of Present Illness - Reason for Consult Consult date: 01/23/17 pancytopenia Requesting physician: Tereso Jiang - Chief Complaint SOB - History of Present Illness Mr. Parker is a very pleasant male pt of [facility] who has known for several years that he has low platelets, he was told it was not severe enough to treat at the time. Pt noted that the last 2 weeks that he had less energy and stamina, did not want to do much other then sit around, his breathing became more labored and he was needing more O2 to feel comfortable. Pt denies weight loss, MS pain, joint swelling, fevers, dysphagia, nausea or vomiting, chest pain, abd pain, indigestion, dysuria, hematuria, diarrhea or constipation , bleeding, easy bruising or swelling. He dose not recall being told he had any other low blood counts. Denies recent or frequent illness. Review of Systems All systems: negative Constitutional: Reports as per HPI Past Medical History Past Medical History: Blood Disorder (thrombocytopenia, never worked up), Hyperlipidemia, Hypertension, Osteoarthritis (OA), Thyroid Disorder Additional Past Medical History / Comment(s): 10/22/14 Pt presented to [facility] ER via EMS. found pt unresponsive this AM and called EMS. Pt has had a cough and congestion for the past 2 weeks. [facility] [place] and was given a inhaler and mucinex. states pt was very weak last nite. EMS was unable to intubate so pt arrived to ER with bipap and was intubated here. Pt was sent immediately to the cath labfor STEMI and hypoxia. Other HX: L knee pain, hypothyroidism. Family deny hx of COPD. 01/23/17 states shortness of breath ongoing for 2 days History of Any Multi-Drug Resistant Organisms: None Reported Past Surgical History: Heart Catheterization Additional Past Surgical History / Comment(s): 10/22/14 ccath- EF 65-70%. PTO injury to groin/perineal area with surgical repair. Past Anesthesia/Blood Transfusion Reactions: No Reported Reaction Additional Past Anesthesia/Blood Transfusion Reaction / Comm: Pt hs never recieved blood. Past Psychological History: No Psychological Hx Reported Additional Psychological History / Comment(s): Pt resides with his spouse. He is normally independent. He drives. Smoking Status: Never smoker Past Alcohol Use History: None Reported Additional Past Alcohol Use History / Comment(s): Pt chews tobacco boyle. He has been chewing tobacco since a teenager. Past Drug Use History: None Reported - Past Family History Father Family Medical History: No Reported History Additional Family Medical History / Comment(s): Father was healthy until his at age 81yrs old. Mother Family Medical History: CVA/TIA Additional Family Medical History / Comment(s): Mother at age 84yr old. She had a CVA at age 82or 83yrs. Medications and Allergies Home Medications Medication Instructions Recorded Confirmed Type Levothyroxine Sodium [Synthroid] 25 mcg PO DAILY 10/22/14 01/22/17 History Simvastatin [Zocor] 40 mg PO HS 10/22/14 01/22/17 History Allergies Allergy/AdvReac Type Severity Reaction Status Date / Time No Known Allergies Allergy Verified 01/22/17 20:49 Physical Exam Vitals: Vital Signs Temp Pulse Pulse Resp BP BP Pulse Ox 01/23/17 15:57 97.2 F L 84 18 114/61 99 01/23/17 15:40 94 01/23/17 15:30 96 96 01/23/17 12:49 96 01/23/17 12:39 102 H 01/23/17 12:00 96.6 F L 90 18 115/67 94 L 01/23/17 08:38 98 01/23/17 08:27 96 91 L 01/23/17 08:00 96.6 F L 94 18 108/61 90 L 01/23/17 04:58 97.3 F L 92 18 125/70 90 L 01/23/17 04:00 97.3 F L 92 18 125/71 90 L 01/23/17 03:02 96 01/23/17 02:50 90 98 01/23/17 01:56 97.3 F L 89 18 133/70 01/23/17 01:26 97.7 F 96 18 121/68 01/23/17 01:16 97.3 F L 97 18 120/61 96 01/23/17 01:13 97.3 F L 97 18 120/61 91 L 01/23/17 00:30 96 18 01/23/17 00:16 101 H 01/23/17 00:15 93 L 01/23/17 00:05 105 H 01/22/17 23:42 97.5 F L 93 20 132/61 83 L 01/22/17 22:16 91 17 135/60 93 L 01/22/17 21:37 93 01/22/17 21:27 97 01/22/17 21:22 96 17 114/56 95 01/22/17 20:41 105 H 24 80 L 01/22/17 19:44 98.9 F 104 H 24 110/57 83 L Intake and Output 01/23/17 01/23/17 01/23/17 06:59 14:59 22:59 Intake Total 310 60 Balance 310 60 Intake: IV 0 Sodium Chloride 0.9% 1, 0 000 ml @ 20 mls/hr IV . [facility]H [facility] Rx#:[id number] Oral 60 Blood Product 310 Rc As-1 Unit 310 [id number] Other: Voiding Method Toilet Toilet Toilet # Voids 2 1 Weight 83.7 kg 83.7 kg Patient Weight 01/24/17 06:59 Weight 83.7 kg - Constitutional General appearance: average body habitus, cooperative, no acute distress - EENT Eyes: anicteric sclerae, EOMI, PERRLA, normal appearance ENT: normal oropharynx - Neck Neck: no lymphadenopathy - Respiratory Respiratory: bilateral: CTA - Cardiovascular Rhythm: regular Heart sounds: normal: S1, S2 leg Peripheral Edema: bilateral: None - Gastrointestinal General gastrointestinal: normal bowel sounds, soft - Integumentary Integumentary: pale - Neurologic Neurologic: CNII-XII intact - Musculoskeletal Musculoskeletal: strength equal bilaterally - Psychiatric Psychiatric: A&O x's 3, appropriate affect, intact judgment & insight Results CBC & Chem 7: 01/23/17 05:53 01/23/17 05:50 Labs: Abnormal Lab Results - Last 24 Hours (Table) 01/22/17 01/22/17 01/22/17 Range/Units 21:30 21:30 21:30 WBC (3.8-10.6) k/uL RBC 1.73 L (4.30-5.90) m/uL Hgb 6.6 L* (13.0-17.5) gm/dL Hct 19.4 L* (39.0-53.0) % MCV 112.5 H (80.0-100.0) fL MCH 38.2 H (25.0-35.0) pg RDW 16.4 H (11.5-15.5) % Plt Count 25 L* (150-450) k/uL Lymphocytes # (1.0-4.8) k/uL Metamyelocytes # (Man) 0.09 H (0) k/uL VBG pH (7.31-7.41) VBG pCO2 (37-51) mmHg VBG HCO3 (24-28) mmol/L Chloride 88 L (98-107) mmol/L Carbon Dioxide 45 H* (22-30) mmol/L Creatinine (0.66-1.25) mg/dL Glucose 103 H (74-99) mg/dL Magnesium 1.5 L (1.6-2.3) mg/dL Iron (49-181) ug/dL TIBC (261-462) ug/dL % Saturation (20-50) % Ferritin (18-464) ng/mL Total Bilirubin (0.2-1.3) mg/dL Total Creatine Kinase <20 L (55-170) U/L Total Protein 6.1 L (6.3-8.2) g/dL Albumin 3.3 L (3.5-5.0) g/dL Crossmatch 01/22/17 01/22/17 01/23/17 Range/Units 21:30 21:30 05:50 WBC (3.8-10.6) k/uL RBC (4.30-5.90) m/uL Hgb (13.0-17.5) gm/dL Hct (39.0-53.0) % MCV (80.0-100.0) fL MCH (25.0-35.0) pg RDW (11.5-15.5) % Plt Count (150-450) k/uL Lymphocytes # (1.0-4.8) k/uL Metamyelocytes # (Man) (0) k/uL VBG pH 7.48 H (7.31-7.41) VBG pCO2 68 H (37-51) mmHg VBG HCO3 49 H (24-28) mmol/L Chloride 86 L (98-107) mmol/L Carbon Dioxide 43 H* (22-30) mmol/L Creatinine 0.60 L (0.66-1.25) mg/dL Glucose 159 H (74-99) mg/dL Magnesium (1.6-2.3) mg/dL Iron (49-181) ug/dL TIBC (261-462) ug/dL % Saturation (20-50) % Ferritin (18-464) ng/mL Total Bilirubin 1.5 H (0.2-1.3) mg/dL Total Creatine Kinase (55-170) U/L Total Protein 6.0 L (6.3-8.2) g/dL Albumin 3.4 L (3.5-5.0) g/dL Crossmatch See Detail 01/23/17 01/23/17 01/23/17 Range/Units 05:53 05:53 05:53 WBC 2.2 L (3.8-10.6) k/uL RBC 2.14 L (4.30-5.90) m/uL Hgb 7.8 L (13.0-17.5) gm/dL Hct 23.0 L (39.0-53.0) % MCV 107.5 H D (80.0-100.0) fL MCH 36.3 H (25.0-35.0) pg RDW 20.4 H (11.5-15.5) % Plt Count 22 L* (150-450) k/uL Lymphocytes # 0.5 L (1.0-4.8) k/uL Metamyelocytes # (Man) (0) k/uL VBG pH (7.31-7.41) VBG pCO2 (37-51) mmHg VBG HCO3 (24-28) mmol/L Chloride (98-107) mmol/L Carbon Dioxide (22-30) mmol/L Creatinine (0.66-1.25) mg/dL Glucose (74-99) mg/dL Magnesium 1.4 L (1.6-2.3) mg/dL Iron 193 H (49-181) ug/dL TIBC 199 L (261-462) ug/dL % Saturation 97.0 H (20-50) % Ferritin 985 H (18-464) ng/mL Total Bilirubin (0.2-1.3) mg/dL Total Creatine Kinase (55-170) U/L Total Protein (6.3-8.2) g/dL Albumin (3.5-5.0) g/dL Crossmatch Chest x-ray: report reviewed Assessment and Plan (1) Pancytopenia Narrative/Plan: Pt pancytopenia is noted in labs from 10/17 admission, he was septic and required mechanical ventilation at that time so that is likely what caused pancytopenia at that time. Multiple labs have been ordered for evaluation of paraproteinemia and nutritional deficiencies. Pt gave me [facility] so I will contact them and update them on pt condition. I will have labs forwarded to them as well. Agree with transfusion to keep Hgb abound 7 with pt history of pulm disease. Platelets do not require intervention at this time-NO asa, NSAIDs, or anticoagulation. ANC 1400 which is adequate, no GCSF. Pt states no history of colonoscopy or EGD. Will see if iron deficient anemia, may have to pursue GI work up. Status: Acute
[2017-01-23] MEDS ORDERED: MAGNESIUM SULFATE-D5W PMX 1 GM in DEXTROSE/WATER 1 100ML.BAG IVPB ONE (19:00)
[2017-01-23] MEDS: ATORVASTATIN 20 MG TAB PO SCH (20:51)
[2017-01-24 06:53] LABS: Anisocytosis Slight; CH 36.8; CHCM 33.6; HCT 22.8 % (39.0-53.0); HDW 3.62; HGB 7.4 gm/dL (13.0-17.5); MCH 35.9 pg (25.0-35.0); MCHC 32.5 g/dL (31.0-37.0); MCV 110.6 fL (80.0-100.0); Macrocytosis Marked; Mean Platelet Volume 8.9; Poikilocytosis Slight; RBC 2.07 m/uL (4.30-5.90); RDW 19.9 % (11.5-15.5); WBC 2.9 k/uL (3.8-10.6)
[2017-01-24 07:00] LABS: Anion Gap 15 mmol/L; Blood Urea Nitrogen 24 mg/dL (9-20); Calcium 8.7 mg/dL (8.4-10.2); Chloride 86 mmol/L (98-107); Glucose 92 mg/dL (74-99); Magnesium 2.1 mg/dL (1.6-2.3); Non-African American GFR(MDRD) >60 (>60 ml/min/1.73 sqM); Potassium 3.9 mmol/L (3.5-5.1); Sodium 141 mmol/L (137-145)
[2017-01-24 07:10] LABS: Carbon Dioxide 53 mmol/L (22-30)
[2017-01-24] MEDS: IPRATROPIUM-ALBUTEROL 3 ML NEB INHALATION SCH ×4 (07:24→19:12)
[2017-01-24] MEDS: POTASSIUM CHLORIDE ER 20 MEQ TAB.ER PO SCH (08:42)
[2017-01-24] MEDS: FUROSEMIDE 40 MG TAB PO SCH (08:43)
[2017-01-24] MEDS: LEVOTHYROXINE 25 MCG TAB PO SCH (08:43)
--- NOTE | 2017-01-24 11:16 | CDI ---
In responding to this query, please exercise your independent professional judgment. The [facility] Coding Staff and Clinical Documentation Specialists appreciate your assistance in clarifying documentation, maintaining compliance with coding guidelines, accurately documenting patients condition and capturing severity of illness. The fact that a question is asked does not imply that any particular answer is desired or expected. Communication forms are a method of clarifying documentation and are not made part of the Legal Health Record. Thank you in advance for your clarification. Last Revision, April 2015 Anthony Flanagan [address] [facility] [place] [address] Documentation Clarification Form Date: 01/24/2017 10:38:00 AM From: Nathalygeorgina Godfrey Admit Date: 01/22/2017 11:13:00 PM Patient Name: Jibmo Parker Visit Number: [id number] Discharge Date: Dr. Tereso Ayers STEMI (ST elevation myocardial infraction) is in your assessment and plan on Patient history/risk factors: Hypertension, Chronic hypoxemic respiratory failure, Pancytopenia, STEMI (10/22/2014), Chews tobacco daily, Pulmonary fibrosis Clinical Indicators: Present with a complaint of shortness of breath and cough. Lab findings: Troponin <0.012, WBC 2.9, HGB 7.4, HCT 22.8 PLT 23 EKG: Sinus rhythm with 1st degree AV block with fusion complexes, Nonspecific T wave abnormality Vital Signs: 110/57 104 24 98.9 83 % 2/L NC Treatment: Retail Link Analyst/Telemetry per protocol In your professional opinion, can you please clarify STEMI, Acute, or History of STEMI Other Unable to determine Please document in your progress notes in order to capture severity of illness and risk of mortality. Include clinical findings that support your diagnosis. FYI: Press F11 to launch patient chart. LESLIE
--- NOTE | 2017-01-24 12:48 | P.PN ---
Subjective Progress note dated 01/24/2017 81-year-old male with a history of pulmonary fibrosis. The patient sees my partner. The patient apparently was seen about 2 weeks ago was doing well. He is on oxygen 24 7 at home. The patient has a history of hypertension chronic thrombocytopenia was also found to be recently anemic with thrombocytopenia. He denies any blood in his stools blood in his urine black tarry stools coughing up blood or vomiting blood. The patient does have a baseline chronic cough secondary to his pulmonary fibrosis as well as chronic shortness of breath on exertion. The patient also suffers from hypothyroidism hyperlipidemia and degenerative joint disease as well as hypertension. Patient is doing better today. Would like to be discharged home. I did ask hematology to see the patient to evaluate his pancytopenia as I was concerned about myelodysplastic syndrome and pre-leukemia. Objective - Vital Signs Vital signs: Vital Signs Temp 97.3 F L 01/24/17 08:00 Pulse 72 01/24/17 11:36 Resp 14 01/24/17 11:36 BP 96/56 01/24/17 08:00 Pulse Ox 93 L 01/24/17 08:00 Intake & Output 01/23/17 01/24/17 01/24/17 18:59 06:59 18:59 Intake Total 296 220 240 Output Total 600 Balance 296 220 -360 Weight 83.7 kg 81.7 kg Intake: Intake, IV Titration 220 Amount Magnesium Sulfate-D5w Pmx 100 1 gm In Dextrose/Water 1 100ml.bag @ 100 mls/hr IVPB Q1H [facility] Rx#: [id number] Sodium Chloride 0.9% 1, 120 000 ml @ 20 mls/hr IV . Q24H [facility] Rx#:[id number] Oral 296 240 Output: Urine 600 Other: Voiding Method Toilet Toilet Toilet # Voids 1 - Exam No acute distress, oriented 3, Wearing nasal O2. HEENT examination is grossly unremarkable. Mucous membranes are moist. No oral lesions. Neck supple. Full range of motion. No adenopathy or thyromegaly. Cardiovascular examination reveals regular rhythm rate. S1-S2 normal. No murmur. Lungs reveal bibasilar Velcro crackles. He is mildly mildly to moderately restricted in his breathing. Abdomen soft bowel sounds are heard. Extremities are intact. Skin without rash. Neurologic examination is nonfocal. - Labs CBC & Chem 7: 01/24/17 06:11 01/24/17 06:11 Labs: Abnormal Lab Results - Last 24 Hours (Table) 01/22/17 01/23/17 01/23/17 Range/Units 21:30 05:53 05:53 WBC (3.8-10.6) k/uL RBC (4.30-5.90) m/uL Hgb (13.0-17.5) gm/dL Hct (39.0-53.0) % MCV (80.0-100.0) fL MCH (25.0-35.0) pg RDW (11.5-15.5) % Plt Count (150-450) k/uL Chloride (98-107) mmol/L Carbon Dioxide (22-30) mmol/L BUN (9-20) mg/dL Magnesium 1.4 L (1.6-2.3) mg/dL RBC Folate 1,096 H (280 - 791) ng/mL Crossmatch See Detail 01/24/17 01/24/17 Range/Units 06:11 06:11 WBC 2.9 L (3.8-10.6) k/uL RBC 2.07 L (4.30-5.90) m/uL Hgb 7.4 L (13.0-17.5) gm/dL Hct 22.8 L (39.0-53.0) % MCV 110.6 H (80.0-100.0) fL MCH 35.9 H (25.0-35.0) pg RDW 19.9 H (11.5-15.5) % Plt Count 23 L* (150-450) k/uL Chloride 86 L (98-107) mmol/L Carbon Dioxide 53 H* (22-30) mmol/L BUN 24 H (9-20) mg/dL Magnesium (1.6-2.3) mg/dL RBC Folate (280 - 791) ng/mL Crossmatch Microbiology - Last 24 Hours (Table) 01/22/17 21:30 Blood Culture - Preliminary Blood No Growth after 24 hours Assessment and Plan (1) Hypertension Status: Acute (2) Pulmonary fibrosis Status: Acute (3) Chronic hypoxemic respiratory failure Status: Acute (4) Hyperlipidemia Status: Acute (5) Hypothyroidism Status: Acute (6) Pancytopenia Status: Acute (7) Symptomatic anemia Status: Acute (8) Hypoxia Status: Acute (9) STEMI (ST elevation myocardial infarction) Status: Acute Plan: Plan dated 01/23/2017 I think it is good that he is going to have a hematology consult. This is for pancytopenia. He may have myelodysplastic syndrome or preleukemia. He does have a history of pulmonary fibrosis and is chronically hypoxemic. He does wear oxygen 24/. The patient otherwise is doing better. Feels better after the blood transfusion. We'll await the input from hematology. Prognosis is guarded. He denies any blood in his stools black tarry stools hematuria hematemesis or hematochezia. Plan dated 01/24/2017 We'll await input from hematology. The patient may benefit from bone marrow biopsy. We'll continue to follow. Apparently hematology has seen the patient. The patient's pulmonary fibrosis as a baseline. No additional recommendations are made from the pulmonary standpoint. He should follow with my partner in the office. Time with Patient: Less than 30
[2017-01-24 15:18] LABS: Free Kappa Lt Chain Qnt, Serum 2.55 mg/dL (0.33-1.94)
[2017-01-24] MEDS: ATORVASTATIN 20 MG TAB PO SCH (21:19)
[2017-01-24 23:50] LABS: Blood Urea Nitrogen 26 mg/dL (9-20); Calcium 9.1 mg/dL (8.4-10.2); Chloride 87 mmol/L (98-107); Glucose 96 mg/dL (74-99); Magnesium 1.8 mg/dL (1.6-2.3); Non-African American GFR(MDRD) >60 (>60 ml/min/1.73 sqM); Potassium 3.9 mmol/L (3.5-5.1); Sodium 139 mmol/L (137-145)
[2017-01-24 23:57] LABS: Anion Gap 5 mmol/L; Carbon Dioxide 47 mmol/L (22-30)
[2017-01-25] MEDS: MAGNESIUM SULFATE-D5W PMX 1 GM in DEXTROSE/WATER 1 100ML.BAG IVPB SCH ×2 (01:44→03:33)
[2017-01-25 06:14] LABS: Anisocytosis Slight; CH 35.9; CHCM 33.3; HCT 21.2 % (39.0-53.0); HDW 3.59; HGB 7.1 gm/dL (13.0-17.5); MCH 36.1 pg (25.0-35.0); MCHC 33.2 g/dL (31.0-37.0); MCV 108.6 fL (80.0-100.0); Macrocytosis Marked; Mean Platelet Volume 8.1; Poikilocytosis Slight; RBC 1.95 m/uL (4.30-5.90); RDW 19.3 % (11.5-15.5); WBC 3.3 k/uL (3.8-10.6)
[2017-01-25] MEDS ORDERED: LEVOTHYROXINE 25 MCG TAB PO SCH (06:30)
[2017-01-25 07:15] LABS: Blood Urea Nitrogen 23 mg/dL (9-20); Calcium 9.1 mg/dL (8.4-10.2); Chloride 88 mmol/L (98-107); Glucose 99 mg/dL (74-99); Magnesium 2.4 mg/dL (1.6-2.3); Non-African American GFR(MDRD) >60 (>60 ml/min/1.73 sqM); Sodium 138 mmol/L (137-145)
[2017-01-25 07:35] LABS: Anion Gap 5 mmol/L
[2017-01-25 07:55] LABS: Carbon Dioxide 45 mmol/L (22-30)
[2017-01-25] MEDS: FUROSEMIDE 40 MG TAB PO SCH (08:15)
[2017-01-25] MEDS: POTASSIUM CHLORIDE ER 20 MEQ TAB.ER PO SCH (08:15)
--- NOTE | 2017-01-25 08:19 | P.PN ---
Subjective Progress note being dictated for Dr. Fofana Interval history: This is a 81-year-old gentleman with a history of pulmonary fibrosis who is on chronic oxygen at home comes in the hospital with worsening in difficulty breathing for the last 3 days. Patient was seen in emergency room was noted to have significant anemia with other laboratory abnormalities Patient apparently was supposed to see Dr. Rico in about 2 weeks Patient was given 1 unit of PRBC. Denies having any blood in his urine dark stools in the recent times. Patient denies having any change in his appetite no weight loss in the recent times States that he was in good health until 3 days prior to admission to the hospital No recent URIs are reported. Patient also denies any change in his medication in the recent times as well 01/24/2017: Hemoglobin 7.4, platelets 23, No melena, no black stools, no hematemesis no hemoptysis. Evaluated by oncology, recommendations noted. Objective - Vital Signs Vital signs: Vital Signs Temp 97 F L 01/25/17 04:00 Pulse 94 01/25/17 04:00 Resp 18 01/25/17 04:00 BP 122/61 01/25/17 04:00 Pulse Ox 93 L 01/25/17 04:00 Intake & Output 01/24/17 01/25/17 01/25/17 18:59 06:59 18:59 Intake Total 840 200 Output Total 600 Balance 240 200 Weight 81.9 kg Intake: Intake, IV Titration 200 Amount Magnesium Sulfate-D5w Pmx 200 1 gm In Dextrose/Water 1 100ml.bag @ 100 mls/hr IVPB Q1H PHIL Rx#: [id number] Oral 840 Output: Urine 600 Other: Voiding Method Toilet # Voids 4 - Exam Gen. appearance : Alert,oriented 3 in no acute distress Neck is supple no JVD, oral mucosa moist Lungs coarse crackles at the bases. No rhonchi or wheezing Heart S1-S2 heard regular rate and rhythm no murmurs, rubs or gallops Abdomen is soft nontender no organomegaly bowel sounds are intact Neurologically cranial nerves II-12 grossly intact no focal motor or sensory deficits noted Skin no abnormalities appreciated - Labs CBC & Chem 7: 01/25/17 06:00 01/25/17 05:43 Labs: Abnormal Lab Results - Last 24 Hours (Table) 01/22/17 01/23/17 01/23/17 Range/Units 21:30 05:53 05:53 WBC (3.8-10.6) k/uL RBC (4.30-5.90) m/uL Hgb (13.0-17.5) gm/dL Hct (39.0-53.0) % MCV (80.0-100.0) fL MCH (25.0-35.0) pg RDW (11.5-15.5) % Plt Count (150-450) k/uL Chloride (98-107) mmol/L Carbon Dioxide (22-30) mmol/L BUN (9-20) mg/dL Creatinine (0.66-1.25) mg/dL Magnesium (1.6-2.3) mg/dL RBC Folate (280 - 791) ng/mL IgM 32.5 L (40.0-280.0) mg/dL Free [place] LC, Quant 2.55 H (0.33-1.94) mg/dL Crossmatch See Detail 01/23/17 01/24/17 01/25/17 Range/Units 05:53 23:17 05:43 WBC (3.8-10.6) k/uL RBC (4.30-5.90) m/uL Hgb (13.0-17.5) gm/dL Hct (39.0-53.0) % MCV (80.0-100.0) fL MCH (25.0-35.0) pg RDW (11.5-15.5) % Plt Count (150-450) k/uL Chloride 87 L 88 L (98-107) mmol/L Carbon Dioxide 47 H* 45 H* (22-30) mmol/L BUN 26 H 23 H (9-20) mg/dL Creatinine 0.60 L 0.60 L (0.66-1.25) mg/dL Magnesium 2.4 H (1.6-2.3) mg/dL RBC Folate 1,096 H (280 - 791) ng/mL IgM (40.0-280.0) mg/dL Free [place] LC, Quant (0.33-1.94) mg/dL Crossmatch 01/25/17 Range/Units 06:00 WBC 3.3 L (3.8-10.6) k/uL RBC 1.95 L (4.30-5.90) m/uL Hgb 7.1 L (13.0-17.5) gm/dL Hct 21.2 L (39.0-53.0) % MCV 108.6 H (80.0-100.0) fL MCH 36.1 H (25.0-35.0) pg RDW 19.3 H (11.5-15.5) % Plt Count 24 L* (150-450) k/uL Chloride (98-107) mmol/L Carbon Dioxide (22-30) mmol/L BUN (9-20) mg/dL Creatinine (0.66-1.25) mg/dL Magnesium (1.6-2.3) mg/dL RBC Folate (280 - 791) ng/mL IgM (40.0-280.0) mg/dL Free [place] LC, Quant (0.33-1.94) mg/dL Crossmatch Microbiology - Last 24 Hours (Table) 01/22/17 21:30 Blood Culture - Preliminary Blood No Growth after 48 hours Assessment and Plan Plan: #1 pancytopenia suspect underlying MDS #2 history of pulmonary fibrosis. #3 acute on chronic hypoxemic respiratory failure #4 hypothyroidism #5 osteoarthritis #6 essential hypertension. #7 dyslipidemia #8 CAD. Plan: Continue current medication regime ,monitoring and symptomatic treatment. Follow closely with oncology. Possible bone marrow biopsy-defer to oncology. Further recommendations pending from oncology. Discharge planning in progress for tomorrow, pending oncology clearance and final recommendation. The impression and plan of care has been dictated as directed. : I performed a H&P examination of this patient and discussed the same with the dictator. I agree with the dictator's note. Any additional findings/opinions/ etc. will be noted.
[2017-01-25] MEDS: IPRATROPIUM-ALBUTEROL 3 ML NEB INHALATION SCH ×2 (08:47→13:14)
--- NOTE | 2017-01-25 14:26 | P.PN ---
Subjective Progress note dated 01/24/2017 81-year-old male with a history of pulmonary fibrosis. The patient sees my partner. The patient apparently was seen about 2 weeks ago was doing well. He is on oxygen 24 7 at home. The patient has a history of hypertension chronic thrombocytopenia was also found to be recently anemic with thrombocytopenia. He denies any blood in his stools blood in his urine black tarry stools coughing up blood or vomiting blood. The patient does have a baseline chronic cough secondary to his pulmonary fibrosis as well as chronic shortness of breath on exertion. The patient also suffers from hypothyroidism hyperlipidemia and degenerative joint disease as well as hypertension. Patient is doing better today. Would like to be discharged home. I did ask hematology to see the patient to evaluate his pancytopenia as I was concerned about myelodysplastic syndrome and pre-leukemia. Progress note dated 01/25/2017 81-year-old male with a history of pulmonary fibrosis. The patient sees my partner for his primary pulmonary care. The patient was seen about 2 weeks ago in the office and apparently was doing well. He does wear oxygen 24 7. The patient does have a history of hypertension chronic thrombocytopenia and was recently found to be anemic with thrombocytopenia and leukopenia. The patient does have a baseline chronic cough secondary to his pulmonary fibrosis and does have shortness of breath on exertion. More recently he was found to be anemic. I'm concerned about where his anemia is coming from and given the fact that he is both leukopenic and thrombocytopenic, myelodysplastic syndrome have to be considered. Objective - Vital Signs Vital signs: Vital Signs Temp 98.8 F 01/25/17 12:04 Pulse 71 01/25/17 12:04 Resp 20 01/25/17 12:04 BP 124/62 01/25/17 12:04 Pulse Ox 93 L 01/25/17 12:04 Intake & Output 01/24/17 01/25/17 01/25/17 18:59 06:59 18:59 Intake Total 840 200 760 Output Total 600 350 Balance 240 200 410 Weight 81.9 kg Intake: Intake, IV Titration 200 Amount Magnesium Sulfate-D5w Pmx 200 1 gm In Dextrose/Water 1 100ml.bag @ 100 mls/hr IVPB Q1H PHIL Rx#: [id number] Oral 840 760 Blood Product 0 Rc As-1 Unit 0 [id number] Output: Urine 600 350 Other: Voiding Method Toilet Toilet # Voids 4 2 - Exam No acute distress, oriented 3, Wearing nasal O2. HEENT examination is grossly unremarkable. Mucous membranes are moist. No oral lesions. Neck supple. Full range of motion. No adenopathy or thyromegaly. Cardiovascular examination reveals regular rhythm rate. S1-S2 normal. No murmur. Lungs reveal bibasilar Velcro crackles. He is mildly mildly to moderately restricted in his breathing. Abdomen soft bowel sounds are heard. Extremities are intact. Skin without rash. Neurologic examination is nonfocal. - Labs CBC & Chem 7: 01/25/17 06:00 01/25/17 05:43 Labs: Abnormal Lab Results - Last 24 Hours (Table) 01/22/17 01/23/17 01/23/17 Range/Units 21:30 05:53 05:53 WBC (3.8-10.6) k/uL RBC (4.30-5.90) m/uL Hgb (13.0-17.5) gm/dL Hct (39.0-53.0) % MCV (80.0-100.0) fL MCH (25.0-35.0) pg RDW (11.5-15.5) % Plt Count (150-450) k/uL Chloride (98-107) mmol/L Carbon Dioxide (22-30) mmol/L BUN (9-20) mg/dL Creatinine (0.66-1.25) mg/dL Magnesium (1.6-2.3) mg/dL Albumin (PEP) 3.43 L (3.80-4.90) g/dL IgM 32.5 L (40.0-280.0) mg/dL Free [place] LC, Quant 2.55 H (0.33-1.94) mg/dL Crossmatch See Detail 01/24/17 01/25/17 01/25/17 Range/Units : 05:43 06:00 WBC 3.3 L (3.8-10.6) k/uL RBC 1.95 L (4.30-5.90) m/uL Hgb 7.1 L (13.0-17.5) gm/dL Hct 21.2 L (39.0-53.0) % MCV 108.6 H (80.0-100.0) fL MCH 36.1 H (25.0-35.0) pg RDW 19.3 H (11.5-15.5) % Plt Count 24 L* (150-450) k/uL Chloride 87 L 88 L (98-107) mmol/L Carbon Dioxide 47 H* 45 H* (22-30) mmol/L BUN 26 H 23 H (9-20) mg/dL Creatinine 0.60 L 0.60 L (0.66-1.25) mg/dL Magnesium 2.4 H (1.6-2.3) mg/dL Albumin (PEP) (3.80-4.90) g/dL IgM (40.0-280.0) mg/dL Free [place] LC, Quant (0.33-1.94) mg/dL Crossmatch Microbiology - Last 24 Hours (Table) 01/22/17 21:30 Blood Culture - Preliminary Blood No Growth after 48 hours Assessment and Plan (1) Hypertension Status: Acute (2) Pulmonary fibrosis Status: Acute (3) Chronic hypoxemic respiratory failure Status: Acute (4) Hyperlipidemia Status: Acute (5) Hypothyroidism Status: Acute (6) Pancytopenia Status: Acute (7) Symptomatic anemia Status: Acute (8) Hypoxia Status: Acute (9) STEMI (ST elevation myocardial infarction) Status: Acute Plan: Plan dated 01/23/2017 I think it is good that he is going to have a hematology consult. This is for pancytopenia. He may have myelodysplastic syndrome or preleukemia. He does have a history of pulmonary fibrosis and is chronically hypoxemic. He does wear oxygen 26/12. The patient otherwise is doing better. Feels better after the blood transfusion. We'll await the input from hematology. Prognosis is guarded. He denies any blood in his stools black tarry stools hematuria hematemesis or hematochezia. Plan dated 01/24/2017 We'll await input from hematology. The patient may benefit from bone marrow biopsy. We'll continue to follow. Apparently hematology has seen the patient. The patient's pulmonary fibrosis as a baseline. No additional recommendations are made from the pulmonary standpoint. He should follow with my partner in the office. Plan dated 01/25/2017 Appreciate input by hematology. The patient is at baseline from his pulmonary standpoint. We'll need to be worked up for his anemia. No additional recommendations are made. The patient should follow-up with his primary court reporter after discharge. Additional recommendations suggestions are forthcoming. Time with Patient: Less than 30
--- NOTE | 2017-01-25 15:36 | P.DS ---
Providers Date of admission: 01/22/17 23:13 Expected date of discharge: 01/25/17 Attending physician: Moisés Fofana Consults: 01/22/17 23:14 Consult Physician Urgent Consulting Provider: Adiel Benz Consult Reason/Comments: Patient known to physician Do you want consulting provider notified?: Yes Consult Physician Urgent Consulting Provider: Sierra Luz Consult Reason/Comments: Anemia, thrombocytopenia Do you want consulting provider notified?: Yes, Notify in am Primary care physician: Adiel Thomas, [facility] Course: Final Diagnoses: #1 pancytopenia suspect underlying MDS #2 history of pulmonary fibrosis. #3 acute on chronic hypoxemic respiratory failure #4 hypothyroidism #5 osteoarthritis #6 essential hypertension. #7 dyslipidemia #8 CAD. Hospital course:This is a 81-year-old gentleman with a history of pulmonary fibrosis who is on chronic oxygen at home comes in the hospital with worsening in difficulty breathing for the last 3 days, significant anemia with other laboratory abnormalities. Patient apparently was supposed to see Dr. Rico in about 2 weeks. Evaluated by oncology, pulmonary. Patient was transfused with packed RBCs. Significant clinical improvement. Labs currently revealing light chain hyperglobulinemia. Reticulocyte count normal, indicative of a production problem. Workup regarding pancytopenia pending, suspect early MDS, may benefit from potential bone marrow biopsy, dependent on lab findings. Case management assisting patient with insurance forms, this patient will need to follow-up with oncology outpatient. Patient has been cleared for discharge by both consults. Patient is being discharged home in a stable condition with guarded prognosis. The impression and plan of care has been dictated as directed as a scribe. : I performed a H&P examination of this patient and discussed the same with the dictator. I agree with the dictator's note. Any additional findings/opinions/ etc. will be noted. Patient Condition at Discharge: Stable Plan - Discharge Summary New Discharge Prescriptions: New Acetaminophen Tab [Tylenol] 650 mg PO Q6HR PRN tab PRN Reason: Mild Pain Or Fever > 100.5 Continue Simvastatin [Zocor] 40 mg PO HS Levothyroxine Sodium [Synthroid] 25 mcg PO DAILY Furosemide [Lasix] 40 mg PO DAILY #30 tab Potassium Chloride ER [K-Dur 20] 40 meq PO DAILY #30 tab Discharge Medication List Levothyroxine Sodium [Synthroid] 25 mcg PO DAILY 10/22/14 [History] Simvastatin [Zocor] 40 mg PO HS 10/22/14 [History] Furosemide [Lasix] 40 mg PO DAILY #30 tab 10/28/14 [Rx] Potassium Chloride ER [K-Dur 20] 40 meq PO DAILY #30 tab 10/29/14 [Rx] Acetaminophen Tab [Tylenol] 650 mg PO Q6HR PRN tab 01/25/17 [Rx] Follow up Appointment(s)/Referral(s): [facility]Other[facility] - 3 Days (Patient will make follow up APT.) Adiel Benz MD [Primary Care Provider] - 02/14/17 3:15 pm () Sierra Luz MD [STAFF PHYSICIAN] - 1 Week (all information given to patient for follow up apt.) Ambulatory/Diagnostic Orders: Complete Blood Count w/diff [LAB.AMB] Time Frame: 3 Days, Location: Determined By Patient Activity/Diet/Wound Care/Special Instructions: 2lNC O2 No aspirin, no NSAIDs, no blood thinners
[2017-01-25 16:04] VITALS: BP 109/54; PULSE 81; RESP 18; TEMP 98.4
[2017-01-26 04:48] LABS: Methylmalonic Acid 0.22 umol/L (<0.40)
== END 2017-01-25 16:50 | disposition home or self-care (01) | DRG 811 ==
LOC: EC 19:40 → 6SEL 23:13
PROVIDERS: ADMIT Hospitalist; ATTEND Hospitalist
PROC: 30233N1 Transfusion of Nonautologous Red Blood Cells into Peripheral Vein, Percutaneous Approach (ICD-10-PCS; principal; 2017-01-23)
DX: D46.9 Myelodysplastic syndrome, unspecified (principal); J96.21 Acute and chronic respiratory failure with hypoxia; D61.818 Other pancytopenia; Z99.81 Dependence on supplemental oxygen; J84.10 Pulmonary fibrosis, unspecified; E78.5 Hyperlipidemia, unspecified; I10 Essential (primary) hypertension; R77.1 Abnormality of globulin; I44.0 Atrioventricular block, first degree; R53.1 Weakness; I25.2 Old myocardial infarction; I25.10 Atherosclerotic heart disease of native coronary artery without angina pectoris; M19.90 Unspecified osteoarthritis, unspecified site; E03.9 Hypothyroidism, unspecified; F17.220 Nicotine dependence, chewing tobacco, uncomplicated; Z79.899 Other long term (current) drug therapy; Z71.3 Dietary counseling and surveillance; Z82.3 Family history of stroke; Z86.19 Personal history of other infectious and parasitic diseases; Z87.828 Personal history of other (healed) physical injury and trauma; Z87.01 Personal history of pneumonia (recurrent)
CPT/HCPCS: 36415; 71020; 80048; 80053; 82272; 82550; 82553; 82728; 82747; 82784; 82803; 83540; 83550; 83605; 83735; 83880; 83883; 83921; 84165; 84484; 85025; 85027; 85045; 85610; 85730; 86038; 86334; 86431; 86850; 86900; 86901; 86920; 87040; 94640; 94760; 96374; 99285

== ENCOUNTER 2017-02-13 07:01 | Day surgery (SDC) | payer MEDICARE ==
[2017-02-10 09:28] VITALS: BMI 28.1
[~2017-02-13 07:01] MED LIST: LACTATED RINGERS 1,000 ML IV SCH
[2017-02-13 07:20] VITALS: RESP 20; TEMP 96.8
[2017-02-13] MEDS ORDERED: LACTATED RINGERS 1,000 ML IV ONE (07:23)
[2017-02-13] MEDS ORDERED: LIDOCAINE 2% INJ 20 MG/ML SQ ONE ×2 (07:23→07:51)
[2017-02-13] MEDS ORDERED: LIDOCAINE 1% INJ 10MG/ML (20 ML MDV) ONE (07:33)
[2017-02-13] MEDS ORDERED: PROPOFOL 10 MG/ML 20 ML VIAL IV ONE (07:33)
[2017-02-13 08:29] LABS: Anisocytosis Moderate; Basophils # (A) 0.1 k/uL (0-0.2); Basophils % (A) 1 %; CH 34.2; CHCM 33.6; Eosinophils % (A) 1 %; HCT 28.2 % (39.0-53.0); HDW 3.17; Luc # (Auto) 0.07; Luc % (Auto) 1; Lymphocytes # (A) 1.6 k/uL (1.0-4.8); Lymphocytes % (A) 31 %; MCH 33.5 pg (25.0-35.0); MCHC 32.8 g/dL (31.0-37.0); Macrocytosis Moderate; Mean Platelet Volume 8.8; Monocytes # (A) 0.5 k/uL (0-1.0); Monocytes % (A) 9 %; Neutrophils # (A) 3.1 k/uL (1.3-7.7); Neutrophils % (A) 58 %; RBC 2.77 m/uL (4.30-5.90); RDW 20.2 % (11.5-15.5); WBC 5.3 k/uL (3.8-10.6); WBC (Perox) 5.59
[2017-02-13 08:32] LABS: HGB 9.3 gm/dL (13.0-17.5)
[2017-02-13 08:33] LABS: MCV 102.1 fL (80.0-100.0)
--- NOTE | 2017-02-13 08:34 | PCN ---
PROCEDURE NOTE PROCEDURE: Bone marrow aspirate and biopsy. INDICATION: Pancytopenia. After obtaining consent from the patient, the procedure was performed in the endoscopy suite under general anesthesia performed by the anesthesia team. The patient was put in the left lateral decubitus position. The right posterior superior iliac crest was localized. Skin was prepped with ChloraPrep. Sterile procedure was followed and 2% Xylocaine was used for local anesthetic. Jamshidi needle was inserted and about 10 mL aspirate and 1.5 cm core biopsy was obtained without any difficulties. Pressure applied afterwards. There was negligible blood loss. Patient tolerated procedure very well without any immediate complications. MMODL / IJN: [id number] /
[2017-02-13 08:45] VITALS: BP 114/58; PULSE 78
== END 2017-02-13 09:09 | disposition home or self-care (01) ==
LOC: OR 07:01
PROVIDERS: ATTEND Internal Medicine Hematology & Oncology
DX: D61.818 Other pancytopenia (principal); E03.9 Hypothyroidism, unspecified; I10 Essential (primary) hypertension; J44.9 Chronic obstructive pulmonary disease, unspecified; E78.5 Hyperlipidemia, unspecified; Z80.52 Family history of malignant neoplasm of bladder; Z80.3 Family history of malignant neoplasm of breast; Z80.1 Family history of malignant neoplasm of trachea, bronchus and lung; Z79.899 Other long term (current) drug therapy
CPT/HCPCS: 85025; 38221; J2001 ×2; J2704; G0364

== ENCOUNTER 2017-02-14 18:16 | Inpatient (IN) | payer MEDICARE ==
[2017-02-14] MEDS ORDERED: IPRATROPIUM-ALBUTEROL 3 ML NEB INHALATION STA (19:06)
[2017-02-14 19:17] LABS: Anisocytosis Slight; Basophils % (A) 0 %; CH 33.7; CHCM 32.9; Eosinophils % (A) 1 %; HCT 26.9 % (39.0-53.0); HDW 3.32; HGB 8.9 gm/dL (13.0-17.5); Luc # (Auto) 0.08; Luc % (Auto) 1; Lymphocytes # (A) 1.6 k/uL (1.0-4.8); Lymphocytes % (A) 26 %; MCHC 33.1 g/dL (31.0-37.0); MCV 102.7 fL (80.0-100.0); Macrocytosis Moderate; Mean Platelet Volume 8.7; Monocytes # (A) 0.4 k/uL (0-1.0); Monocytes % (A) 6 %; Neutrophils % (A) 66 %; RBC 2.62 m/uL (4.30-5.90); RDW 19.4 % (11.5-15.5); WBC 6.2 k/uL (3.8-10.6); WBC (Perox) 6.42
[2017-02-14 19:31] LABS: Partial Thromboplastin Time 22.9 sec (22.0-30.0); Prothrombin Time 10.5 sec (9.0-12.0)
[2017-02-14 19:33] LABS: ALT 28 U/L (21-72); AST 25 U/L (17-59); Alkaline Phosphatase 57 U/L (38-126); Blood Urea Nitrogen 20 mg/dL (9-20); Calcium 8.8 mg/dL (8.4-10.2); Chloride 94 mmol/L (98-107); Glucose 115 mg/dL (74-99); Magnesium 1.6 mg/dL (1.6-2.3); Non-African American GFR(MDRD) >60 (>60 ml/min/1.73 sqM); Potassium 4.1 mmol/L (3.5-5.1); Sodium 141 mmol/L (137-145); Total Bilirubin 0.7 mg/dL (0.2-1.3); Total Protein 6.1 g/dL (6.3-8.2)
[2017-02-14 19:39] LABS: Anion Gap 7 mmol/L
[2017-02-14 19:42] LABS: Carbon Dioxide 40 mmol/L (22-30)
[2017-02-14 19:43] LABS: Creatine Kinase <20 U/L (55-170)
[2017-02-14 19:55] LABS: Creatine Kinase MB 0.5 ng/mL (0.0-2.4); Troponin I <0.012 ng/mL (0.000-0.034)
--- NOTE | 2017-02-14 19:56 | XR ---
EXAMINATION TYPE: XR chest 2V DATE OF EXAM: 02/14/2017 COMPARISON: 01/22/2017 HISTORY: Short of breath TECHNIQUE: Frontal and lateral views of the chest are obtained. FINDINGS: There is diffuse pulmonary edema. There is poor inspiration. Thoracic aorta is atheromatou s. Heart size cannot be evaluated. IMPRESSION: There is bilateral pulmonary edema and poor inspiration. This appears worse than last ex am. I would consider combined RDS and congestive heart failure.
--- NOTE | 2017-02-14 21:07 | ED ---
SOB HPI - General Chief Complaint: Shortness of Breath Stated Complaint: COLE Time Seen by Provider: 02/14/17 19:00 Source: patient, family, RN notes reviewed Mode of arrival: wheelchair Limitations: no limitations - History of Present Illness Initial Comments: This is a 1-year-old male with a history of lung disease who was brought in for evaluation for shortness of breath and anemia. He does have a history of has a having hemoglobin 6.0 he does have a history of a transfusion. Yesterday the hemoglobin was 9.3 is complaining shortness of breath though however he's had decreased oral intake. He was found on arrival here to have hypoxemia. He denies any overt chest pain fevers or chills. No chest pain with exertion or deep breathing. MD Complaint: shortness of breath - Related Data Home Medications Medication Instructions Recorded Confirmed Levothyroxine Sodium [Synthroid] 25 mcg PO DAILY 10/22/14 02/14/17 Simvastatin [Zocor] 40 mg PO HS 10/22/14 02/14/17 Furosemide [Lasix] 20 mg PO DAILY 02/08/17 02/14/17 Previous Rx's Medication Instructions Recorded Potassium Chloride ER [K-Dur 20] 40 meq PO DAILY #30 tab 10/29/14 Allergies Allergy/AdvReac Type Severity Reaction Status Date / Time No Known Allergies Allergy Verified 02/14/17 19:38 Review of Systems ROS Statement: Those systems with pertinent positive or pertinent negative responses have been documented in the HPI. ROS Other: All systems not noted in ROS Statement are negative. Past Medical History Past Medical History: Blood Disorder, Hyperlipidemia, Hypertension, Osteoarthritis (OA), Thyroid Disorder Additional Past Medical History / Comment(s): 10/22/14 Pt presented to [facility] ER via EMS. found pt unresponsive this AM and called EMS. Pt has had a cough and congestion for the past 2 weeks. [facility] [place] and was given a inhaler and mucinex. states pt was very weak last nite. EMS was unable to intubate so pt arrived to ER with bipap and was intubated here. Pt was sent immediately to the cath labfor STEMI and hypoxia. Other HX: L knee pain, hypothyroidism. Family deny hx of COPD. 01/23/17 states shortness of breath ongoing for 2 days History of Any Multi-Drug Resistant Organisms: None Reported Past Surgical History: Heart Catheterization Additional Past Surgical History / Comment(s): 10/22/14 ccath- EF 65-70%. PTO injury to groin/perineal area with surgical repair. Past Anesthesia/Blood Transfusion Reactions: No Reported Reaction Additional Past Anesthesia/Blood Transfusion Reaction / Comment(s): Pt hs never recieved blood. Past Psychological History: No Psychological Hx Reported Smoking Status: Never smoker Past Alcohol Use History: None Reported Past Drug Use History: None Reported - Past Family History Father Family Medical History: No Reported History Additional Family Medical History / Comment(s): Father was healthy until his at age 81yrs old. Mother Family Medical History: CVA/TIA Additional Family Medical History / Comment(s): Mother at age 84yr old. She had a CVA at age 82or 83yrs. General Exam - General Exam Comments Initial Comments: This is a well-developed well-nourished awake alert oriented 3 male Limitations: no limitations General appearance: alert, anxious Head exam: Present: atraumatic, normocephalic, normal inspection Eye exam: Present: normal appearance, PERRL, EOMI. Absent: scleral icterus, conjunctival injection, periorbital swelling ENT exam: Present: mucous membranes dry Neck exam: Present: normal inspection. Absent: tenderness, meningismus, lymphadenopathy Respiratory exam: Present: wheezes, rales, decreased breath sounds, other (Ms. breath sounds bilaterally with less breath sounds on the left compared to the right). Absent: respiratory distress, rhonchi, stridor Cardiovascular Exam: Present: normal rhythm, tachycardia, normal heart sounds. Absent: systolic murmur, diastolic murmur, rubs, gallop, clicks GI/Abdominal exam: Present: soft, normal bowel sounds. Absent: distended, tenderness, guarding, rebound, rigid Extremities exam: Present: normal inspection, full ROM, normal capillary refill. Absent: tenderness, pedal edema, joint swelling, calf tenderness Back exam: Present: normal inspection Neurological exam: Present: alert, oriented X3, CN II-XII intact Psychiatric exam: Present: normal affect, normal mood Skin exam: Present: warm, dry, intact, pallor. Absent: normal color, rash Course Vital Signs 02/14/17 02/14/17 02/14/17 18:41 19:09 19:26 Temperature 97.8 F Pulse Rate 126 H 114 H 110 H Respiratory 24 28 H 26 H Rate Blood Pressure 106/54 114/55 102/55 O2 Sat by Pulse 79 L 98 98 Oximetry 02/14/17 02/14/17 02/14/17 19:45 19:54 19:55 Temperature Pulse Rate 96 100 114 H Respiratory 26 H Rate Blood Pressure 124/60 O2 Sat by Pulse 99 Oximetry 02/14/17 02/14/17 02/14/17 20:25 20:39 20:55 Temperature 97.4 F L Pulse Rate 116 H 112 H 108 H Respiratory 26 H 20 26 H Rate Blood Pressure 103/57 99/55 110/58 O2 Sat by Pulse 97 96 98 Oximetry - Reevaluation(s) Reevaluation #1: 02/14/17 22:10 Reevaluation patient reveals he does feel improved his saturations improved. Medical Decision Making - Medical Decision Making I did discuss findings with patient family members. I also discussed case with the admitting service patient will be admitted with consultation by pulmonary medicine. The x-ray shows evidence of pulmonary edema though the patient does have pulmonary fibrosis and a BNP is markedly within normal limits. - Lab Data Result diagrams: 02/14/17 19:05 02/14/17 19:05 Lab Results 02/14/17 02/14/17 02/14/17 Range/Units 19:05 19:05 19:05 WBC 6.2 (3.8-10.6) k/uL RBC 2.62 L (4.30-5.90) m/uL Hgb 8.9 L (13.0-17.5) gm/dL Hct 26.9 L (39.0-53.0) % MCV 102.7 H (80.0-100.0) fL MCH 34.0 (25.0-35.0) pg MCHC 33.1 (31.0-37.0) g/dL RDW 19.4 H (11.5-15.5) % Plt Count 26 L* (150-450) k/uL Neutrophils % 66 % Lymphocytes % 26 % Monocytes % 6 % Eosinophils % 1 % Basophils % 0 % Neutrophils # 4.0 (1.3-7.7) k/uL Lymphocytes # 1.6 (1.0-4.8) k/uL Monocytes # 0.4 (0-1.0) k/uL Eosinophils # 0.0 (0-0.7) k/uL Basophils # 0.0 (0-0.2) k/uL Anisocytosis Slight Macrocytosis Moderate PT (9.0-12.0) sec INR (<1.2) APTT (22.0-30.0) sec Sodium (137-145) mmol/L Potassium (3.5-5.1) mmol/L Chloride (98-107) mmol/L Carbon Dioxide (22-30) mmol/L Anion Gap mmol/L BUN (9-20) mg/dL Creatinine (0.66-1.25) mg/dL Est GFR (MDRD) Af Amer (>60 ml/min/1.73 sqM) Est GFR (MDRD) Non-Af (>60 ml/min/1.73 sqM) Glucose (74-99) mg/dL Calcium (8.4-10.2) mg/dL Magnesium (1.6-2.3) mg/dL Total Bilirubin (0.2-1.3) mg/dL AST (17-59) U/L ALT (21-72) U/L Alkaline Phosphatase (38-126) U/L Total Creatine Kinase <20 L (55-170) U/L CK-MB (CK-2) 0.5 (0.0-2.4) ng/mL CK-MB (CK-2) Rel Index Troponin I <0.012 (0.000-0.034) ng/mL NT-Pro-B Natriuret Pep pg/mL Total Protein (6.3-8.2) g/dL Albumin (3.5-5.0) g/dL Blood Type A Positive Blood Type Recheck No Antibody Screen NEGATIVE Spec Expiration Date 02/17/2017 - 230402/14/17 02/14/17 02/14/17 Range/Units 19:05 19:05 19:05 WBC (3.8-10.6) k/uL RBC (4.30-5.90) m/uL Hgb (13.0-17.5) gm/dL Hct (39.0-53.0) % MCV (80.0-100.0) fL MCH (25.0-35.0) pg MCHC (31.0-37.0) g/dL RDW (11.5-15.5) % Plt Count (150-450) k/uL Neutrophils % % Lymphocytes % % Monocytes % % Eosinophils % % Basophils % % Neutrophils # (1.3-7.7) k/uL Lymphocytes # (1.0-4.8) k/uL Monocytes # (0-1.0) k/uL Eosinophils # (0-0.7) k/uL Basophils # (0-0.2) k/uL Anisocytosis Macrocytosis PT 10.5 (9.0-12.0) sec INR 1.0 (<1.2) APTT 22.9 (22.0-30.0) sec Sodium 141 (137-145) mmol/L Potassium 4.1 (3.5-5.1) mmol/L Chloride 94 L (98-107) mmol/L Carbon Dioxide 40 H* (22-30) mmol/L Anion Gap 7 mmol/L BUN 20 (9-20) mg/dL Creatinine 0.73 (0.66-1.25) mg/dL Est GFR (MDRD) Af Amer >60 (>60 ml/min/1.73 sqM) Est GFR (MDRD) Non-Af >60 (>60 ml/min/1.73 sqM) Glucose 115 H (74-99) mg/dL Calcium 8.8 (8.4-10.2) mg/dL Magnesium 1.6 (1.6-2.3) mg/dL Total Bilirubin 0.7 (0.2-1.3) mg/dL AST 25 (17-59) U/L ALT 28 (21-72) U/L Alkaline Phosphatase 57 (38-126) U/L Total Creatine Kinase (55-170) U/L CK-MB (CK-2) (0.0-2.4) ng/mL CK-MB (CK-2) Rel Index Troponin I (0.000-0.034) ng/mL NT-Pro-B Natriuret Pep 443 pg/mL Total Protein 6.1 L (6.3-8.2) g/dL Albumin 3.2 L (3.5-5.0) g/dL Blood Type Blood Type Recheck Antibody Screen Spec Expiration Date - EKG Data -: EKG Interpreted by Ca EKG shows normal: sinus rhythm (Tachycardia of the evidence of effusion be the rate was 1:15We'll 206 QRS 84 QT since QTC at 290/412 left exodeviation PVCs are present) - Radiology Data Radiology results: report reviewed (I did review the imaging and reports are is evidence of increased pulmonary markings pulmonary edema as suspected), image reviewed Critical Care Time Critical Care Time: Yes Critical Care Time: 31 minutes of critical care time which includes initial monitoring of the patient with history physical labs x-rays reevaluation patient response to therapy. Discussed with patient family regarding findings review of old charting that was available. Discussion with the admitting service admission orders and documentation of the above. Disposition Clinical Impression: Acute exacerbation of chronic obstructive airways disease, Adult respiratory distress syndrome, Hypoxemia, Anemia Disposition: ADMITTED IP TO THIS HOSP Condition: Stable Referrals: Gene Lucero DO [Primary Care Provider] - 1-2 days
[2017-02-14] MEDS ORDERED: methylPREDNISolone SOD SUCCI 125 MG/2 ML VIAL IV STA (22:12)
[2017-02-14] MEDS ORDERED: FUROSEMIDE 10 MG/ML 4 ML VIAL IV STA (22:17)
[2017-02-14] MEDS: SODIUM CHLORIDE 0.9% 1,000 ML IV SCH (22:37)
[2017-02-14 23:22] VITALS: BMI 28.8
[2017-02-14] MEDS: IPRATROPIUM-ALBUTEROL 3 ML NEB INHALATION SCH (23:50)
[2017-02-15] MEDS: IPRATROPIUM-ALBUTEROL 3 ML NEB INHALATION SCH ×6 (04:45→23:30)
[2017-02-15] MEDS: methylPREDNISolone SOD SUCCI 125 MG/2 ML VIAL IV SCH ×3 (06:30→17:44)
[2017-02-15 06:31] LABS: Glucose,Whole Blood 141 mg/dL (75-99)
[2017-02-15] MEDS: FUROSEMIDE 20 MG TAB PO SCH (08:58)
[2017-02-15] MEDS: LEVOTHYROXINE 25 MCG TAB PO SCH (08:58)
[2017-02-15] MEDS: INSULIN LISPRO (humaLOG) 300 UNIT/3 ML VIAL SQ SCH ×4 (09:03→21:51)
[2017-02-15 10:23] LABS: Glucose,Whole Blood 261 mg/dL (75-99)
[2017-02-15] MEDS ORDERED: RX INFO: IV CONTRAST WAS GIVEN 1 EACH MISC MISCELLANE PRN (10:42)
[2017-02-15] MEDS ORDERED: FUROSEMIDE 10 MG/ML 4 ML VIAL IV STA (10:51)
[2017-02-15 11:06] LABS: ABG PH 7.15 (7.35-7.45)
[2017-02-15 11:07] LABS: ABG HCO3 43 mmol/L (21-25); ABG PCO2 >125 mmHg (35-45); ABG PO2 99 mmHg (83-108)
[2017-02-15 11:08] LABS: ABG Base Excess 13.7 mmol/L; ABG TCO2 47 mmol/L (19-24)
--- NOTE | 2017-02-15 11:14 | CT ---
EXAMINATION TYPE: CT brain wo con for TPA DATE OF EXAM: 02/15/2017 COMPARISON: Prior CT brain 10/22/2014 HISTORY: code stroke CT DLP: 1133.30 mGycm Automated exposure control for dose reduction was used. Helical acquisition through the brain. FINDINGS: Cerebral vascular calcifications are present. There is no hemorrhage or hydrocephalus. Cortical atrop hy is present. White matter demyelination changes are present in the deep white matter and possibly w ithin the colton. Inflammatory change noted in the sphenoid sinus with some local sclerosis, correlate for chronic sphenoid sinusitis. IMPRESSION: PROBABLE CHRONIC SMALL VESSEL ISCHEMIA, AGE RELATED ATROPHY. Correlate for chronic sphenoid sinusitis .
[2017-02-15 11:32] LABS: Anisocytosis Slight; CH 33.9; CHCM 31.9; HCT 26.1 % (39.0-53.0); HDW 3.22; HGB 8.4 gm/dL (13.0-17.5); Hypochromasia Slight; MCH 34.4 pg (25.0-35.0); MCHC 32.3 g/dL (31.0-37.0); MCV 106.6 fL (80.0-100.0); Macrocytosis Marked; Mean Platelet Volume 9.9; RBC 2.45 m/uL (4.30-5.90); RDW 19.8 % (11.5-15.5); WBC 3.7 k/uL (3.8-10.6); WBC (Perox) 3.88
[2017-02-15 11:41] LABS: ALT 32 U/L (21-72); AST 34 U/L (17-59); Alkaline Phosphatase 60 U/L (38-126); Blood Urea Nitrogen 24 mg/dL (9-20); Calcium 8.7 mg/dL (8.4-10.2); Chloride 89 mmol/L (98-107); Glucose 203 mg/dL (74-99); Magnesium 1.6 mg/dL (1.6-2.3); Non-African American GFR(MDRD) >60 (>60 ml/min/1.73 sqM); Potassium 4.7 mmol/L (3.5-5.1); Sodium 141 mmol/L (137-145); Total Protein 6.2 g/dL (6.3-8.2)
--- NOTE | 2017-02-15 11:45 | CT ---
EXAMINATION TYPE: CT angio head neck DATE OF EXAM: 02/15/2017 COMPARISON: Correlation CT brain same day HISTORY: 81-year-old male with weakness, CVA TECHNIQUE: Contiguous axial scanning of the neck and head performed with IV Contrast, patient injecte d with 65 mL of Omnipaque 350. Coronal/sagittal MIP reconstructions performed. 3-D reconstructions ge nerated on a dedicated independent workstation. CT DLP: 387.6 mGycm Automated exposure control for dose reduction was used. FINDINGS: NECK: The contrast bolus is suboptimal probably due to the patient's diffuse pulmonary disease. There is en largement of the main pulmonary arteries are 3.2 cm suggesting pulmonary arterial hypertension. Distended jugular veins. There is conventional arch vessel branching anatomy. The right common carotid artery appears grossly patent. There is atelectatic calcification mildly francisca rowing the right carotid bulb. Tortuous upper cervical ICA. The left common carotid artery is tortuous but appears grossly patent. Petrous carotid calcifications minimally narrowing the left carotid bulb. Tortuous upper cervical ICA. Contrast bolus is suboptimal for adequate assessment of the vertebral arteries. Head: Suboptimal contrast bolus for adequate assessment of the intracranial vasculature. Especially the pet melissa internal carotid arteries, particularly on the left. No obvious occlusion of the M1 segments of the middle cerebral arteries or anterior cerebral arteries. The basilar artery appears patent. The left vertebral artery appears patent. Right vertebral artery n ot adequately assessed, probably nondominant. IMPRESSION: 1. Suboptimal contrast bolus and suboptimal exam. Allowing for exam limitations, there is mild athero sclerotic narrowing in the right carotid bulb and minimal on the left. No significant ICA stenosis ap preciated. 2. Suboptimal assessment of the intracranial arterial system, especially the left petrous segment ICA and right vertebral artery. 3. Suboptimal contrast bolus probably due to the patient's diffuse lung disease and pulmonary arteria l hypertension. Correlate for severe CHF.
[2017-02-15 11:47] LABS: Anion Gap 10 mmol/L
[2017-02-15 11:48] LABS: Carbon Dioxide 42 mmol/L (22-30)
[2017-02-15 11:54] LABS: Creatine Kinase <20 U/L (55-170)
[2017-02-15 12:07] LABS: Creatine Kinase MB 0.8 ng/mL (0.0-2.4); Troponin I <0.012 ng/mL (0.000-0.034)
[2017-02-15 12:19] LABS: Hemoglobin A1C 5.8 % (4.2-6.1)
[2017-02-15 12:19] LABS: INR 1.1 (<1.2); Partial Thromboplastin Time 23.6 sec (22.0-30.0); Prothrombin Time 10.6 sec (9.0-12.0)
[2017-02-15 12:29] LABS: Add Differential Manual Differential
[2017-02-15 12:53] LABS: Band Neutrophils % 6 %; Metamyelocytes % 2 %; Myelocytes % 3 %; Nucleated Red Blood Cells 0 /100 WBC (0-0); Total Cells Counted 200
[2017-02-15 12:56] LABS: Manual Review Performed
--- NOTE | 2017-02-15 13:13 | P.CNPUL ---
History of Present Illness Consult date: 02/15/17 Reason for consult: dyspnea, hypoxemia, abnormal CXR/CT, other Chief complaint: Shortness of breath History of present illness: Consult dated 02/15/2017 81-year-old patient who is a DO NOT RESUSCITATE. Has a history of chronic lung disease. Brought in for evaluation of shortness of breath and anemia. The patient apparently has a low hemoglobin of around 6. The patient complained of shortness of breath in the emergency room. Also found to be very weak with poor oral intake both food and fluids. He apparently denied any chest pain or fever or chills. Not coughing. Not producing any phlegm. The patient was evaluated in the emergency room. Earlier today, the patient was a code stroke. The patient was sent down for CT of the brain which I believe did not show anything acute. We were consulted at that time. Saturations were poor on 10 L high flow. He was quite hypercapnic and the patient has had a severe respiratory acidosis. We decided to put the patient on BiPAP at 12 and 5 and 50 %. The patient apparently has a history of hyperlipidemia hypertension hypothyroidism and a blood disorder. It mentions here in the ER raysa that the family denied any history of COPD. He apparently has no history of previous tobacco use according to the ER raysa. Review of Systems ROS unobtainable: due to mental status Past Medical History Past Medical History: Blood Disorder, Hyperlipidemia, Hypertension, Osteoarthritis (OA), Thyroid Disorder Additional Past Medical History / Comment(s): 10/22/14 Pt presented to [facility] ER via EMS. found pt unresponsive this AM and called EMS. Pt has had a cough and congestion for the past 2 weeks. [facility] [place] and was given a inhaler and mucinex. states pt was very weak last nite. EMS was unable to intubate so pt arrived to ER with bipap and was intubated here. Pt was sent immediately to the cath labfor STEMI and hypoxia. Other HX: L knee pain, hypothyroidism. Family deny hx of COPD. 01/23/17 states shortness of breath ongoing for 2 days History of Any Multi-Drug Resistant Organisms: None Reported Past Surgical History: Heart Catheterization Additional Past Surgical History / Comment(s): 10/22/14 ccath- EF 65-70%. PTO injury to groin/perineal area with surgical repair. 9/11/17 bone marrow biopsy done Past Anesthesia/Blood Transfusion Reactions: No Reported Reaction Additional Past Anesthesia/Blood Transfusion Reaction / Comment(s): Pt hs never recieved blood. Past Psychological History: No Psychological Hx Reported Additional Psychological History / Comment(s): Pt resides with his spouse. He is normally independent. He drives. Smoking Status: Never smoker Past Alcohol Use History: None Reported Additional Past Alcohol Use History / Comment(s): Pt chews tobacco boyle. He has been chewing tobacco since a teenager. Past Drug Use History: None Reported - Past Family History Father Family Medical History: No Reported History Additional Family Medical History / Comment(s): Father was healthy until his at age 81yrs old. Mother Family Medical History: CVA/TIA Additional Family Medical History / Comment(s): Mother at age 84yr old. She had a CVA at age 82or 83yrs. Medications and Allergies Home Medications Medication Instructions Recorded Confirmed Type Levothyroxine Sodium [Synthroid] 25 mcg PO DAILY 10/22/14 02/14/17 History Simvastatin [Zocor] 40 mg PO HS 10/22/14 02/14/17 History Potassium Chloride ER [K-Dur 20] 40 meq PO DAILY #30 tab 10/29/14 02/14/17 Rx Furosemide [Lasix] 20 mg PO DAILY 02/08/17 02/14/17 History Allergies Allergy/AdvReac Type Severity Reaction Status Date / Time No Known Allergies Allergy Verified 02/14/17 19:38 Physical Exam Osteopathic Statement: *. No significant issues noted on an osteopathic structural exam other than those noted in the History and Physical/Consult. Vitals: Vital Signs Temp Pulse Pulse Resp BP BP Pulse Ox 02/15/17 12:27 92 02/15/17 12:18 92 02/15/17 08:36 88 02/15/17 08:24 84 02/15/17 08:00 97.8 F 68 18 116/83 95 02/15/17 04:59 100 02/15/17 04:45 96 02/15/17 04:00 97.5 F L 84 18 114/60 97 02/15/17 00:00 98.1 F 99 18 118/72 95 02/14/17 23:58 92 02/14/17 23:50 97 02/14/17 23:46 97 02/14/17 22:27 97.6 F 101 H 20 116/57 98 02/14/17 22:26 98.1 F 99 18 118/72 98 02/14/17 21:55 104 H 26 H 114/57 95 02/14/17 21:25 104 H 26 H 111/58 96 02/14/17 20:55 108 H 26 H 110/58 98 02/14/17 20:39 97.4 F L 112 H 20 99/55 96 02/14/17 20:25 116 H 26 H 103/57 97 02/14/17 19:55 114 H 26 H 124/60 99 02/14/17 19:54 100 02/14/17 19:45 96 02/14/17 19:26 110 H 26 H 102/55 98 02/14/17 19:09 114 H 28 H 114/55 98 02/14/17 18:41 97.8 F 126 H 24 106/54 79 L Intake and Output 02/14/17 02/15/17 02/15/17 22:59 06:59 14:59 Intake Total 140 0 Output Total 600 Balance -460 0 Intake: IV 140 Sodium Chloride 0.9% 1, 140 000 ml @ 20 mls/hr IV . Q24H [facility] Rx#:[id number] Oral 0 Output: Urine 600 Other: Voiding Method Toilet Toilet Urinal Urinal # Voids 2 Weight 85.8 kg 85.8 kg No acute distress. BiPAP mask in place. The patient is lethargic and somnolent. Does not really give any history. HEENT examination is difficult to evaluate given the BiPAP device. Neck supple. Full range of motion. No adenopathy. Cardiovascular examination reveals distant heart sounds. Heart rate about 90. S1-S2 normal. No distinct murmur noted. Heart sounds are distant. Lungs reveal a few scattered rhonchi. No wheezes. No crackles. Breath sounds equal. Abdomen soft bowel sounds are heard. Extremities are intact. No edema. Skin without rash. Neurologic examination cannot be adequately evaluated. Results - Laboratory Findings CBC and BMP: 02/15/17 11:09 02/15/17 11:09 ABG ABG pH 7.15 (7.35-7.45) L* 02/15/17 10:35 ABG pCO2 >125 mmHg (35-45) H* 02/15/17 10:35 ABG pO2 99 mmHg (83-108) 02/15/17 10:35 ABG O2 Saturation 94.0 % (94-97) 02/15/17 10:35 PT/INR, D-dimer PT 10.6 sec (9.0-12.0) 02/15/17 11:09 INR 1.1 (<1.2) 02/15/17 11:09 Abnormal lab findings: Abnormal Labs 02/14/17 02/14/17 02/14/17 19:05 19:05 19:05 WBC RBC 2.62 L Hgb 8.9 L Hct 26.9 L MCV 102.7 H RDW 19.4 H Plt Count 26 L* Lymphocytes # (Manual) Metamyelocytes # (Man) Myelocytes # (Manual) ABG pH ABG pCO2 ABG HCO3 ABG Total CO2 Chloride 94 L Carbon Dioxide 40 H* BUN Glucose 115 H POC Glucose (mg/dL) Total Creatine Kinase <20 L Total Protein 6.1 L Albumin 3.2 L 02/15/17 02/15/17 02/15/17 06:30 10:22 10:35 WBC RBC Hgb Hct MCV RDW Plt Count Lymphocytes # (Manual) Metamyelocytes # (Man) Myelocytes # (Manual) ABG pH 7.15 L* ABG pCO2 >125 H* ABG HCO3 43 H* ABG Total CO2 47 H Chloride Carbon Dioxide BUN Glucose POC Glucose (mg/dL) 141 H 261 H Total Creatine Kinase Total Protein Albumin 02/15/17 02/15/17 02/15/17 11:09 11:09 11:09 WBC 3.7 L RBC 2.45 L Hgb 8.4 L Hct 26.1 L MCV 106.6 H RDW 19.8 H Plt Count 22 L* Lymphocytes # (Manual) 0.30 L Metamyelocytes # (Man) 0.07 H Myelocytes # (Manual) 0.11 H ABG pH ABG pCO2 ABG HCO3 ABG Total CO2 Chloride 89 L Carbon Dioxide 42 H* BUN 24 H Glucose 203 H POC Glucose (mg/dL) Total Creatine Kinase <20 L Total Protein 6.2 L Albumin 3.3 L - Diagnostic Findings Chest x-ray: image reviewed (Labs x-rays a medications are all reviewed.) Assessment and Plan (1) Anemia Status: Acute (2) Hypoxemia Status: Acute (3) Chronic hypoxemic respiratory failure Status: Acute (4) Hyperlipidemia Status: Acute (5) Hypertension Status: Acute (6) Hypothyroidism Status: Acute (7) Pancytopenia Status: Acute (8) Pulmonary fibrosis Status: Acute (9) STEMI (ST elevation myocardial infarction) Status: Acute (10) Symptomatic anemia Status: Acute Plan: Plan dated 02/15/2017 I gave the nurses and the respiratory therapist orders for BiPAP. His saturations are barely acceptable on 50%. Unfortunately we bump of the FiO2, the patient become more hypercarbic. The patient's BiPAP settings are 12 and 5 and 50%. We'll continue to follow. The patient is a DO NOT RESUSCITATE. Prognosis is very poor. Meds labs and x-rays are all reviewed. Time with Patient: Greater than 30
--- NOTE | 2017-02-15 15:08 | P.HPIM ---
History of Present Illness 81-year-old the gentleman with known history of hypoxic respiratory failure secondary to pulmonary fibrosis came in with complaints of shortness of breath found to be hypoxic was on BiPAP. Patient is found to have hypercapnic respiratory failure from the ABG that is often patient is anemic patient is being evaluated with a bone marrow biopsy for either myelodysplastic syndrome R chronic metastatic leukemia. And patient received 2 units of blood transfusion after which his short of breath improved patient was also given Lasix because of the CT angio of the chest findings which was suspicious for pulmonary edema although patient mostly has pulmonary fibrosis suspicion for pulmonary edema is low BNP is not very high patient previous ejection fraction is essentially within normal lives patient is feeling much better now patient that normally is a 3 to solids and now we're able to wean down to 4 L of oxygen here. Patient also has secondary pulmonary hypertension with RVSP of around 60 from his previous echocardiogram patient denied any cough denied any fever chills and chest CT is not consistent with pneumonia at this time. Pulmonary embolism was ruled out as well. Review of Systems REVIEW OF SYSTEMS: CONSTITUTIONAL: No fever, no malaise, no fatigue. HEENT: No recent visual problems or hearing problems. Denied any sore throat. CARDIOVASCULAR: No chest pain, orthopnea, PND, no palpitations, no syncope. PULMONARY: As mentioned in HPI GASTROINTESTINAL: No diarrhea, no nausea, no vomiting, no abdominal pain. Normoactive bowel sounds. NEUROLOGICAL: No headaches, no weakness, no numbness. HEMATOLOGICAL: Denies any bleeding or petechiae. GENITOURINARY: Denies any burning micturition, frequency, or urgency. MUSCULOSKELETAL/RHEUMATOLOGICAL: Denies any joint pain, swelling, or any muscle pain. ENDOCRINE: Denies any polyuria or polydipsia. The rest of the 14-point review of systems is negative. Past Medical History Past Medical History: Blood Disorder, Hyperlipidemia, Hypertension, Osteoarthritis (OA), Thyroid Disorder Additional Past Medical History / Comment(s): 10/22/14 Pt presented to [facility] ER via EMS. found pt unresponsive this AM and called EMS. Pt has had a cough and congestion for the past 2 weeks. [facility] [place] and was given a inhaler and mucinex. states pt was very weak last nite. EMS was unable to intubate so pt arrived to ER with bipap and was intubated here. Pt was sent immediately to the cath labfor STEMI and hypoxia. Other HX: L knee pain, hypothyroidism. Family deny hx of COPD. 01/23/17 states shortness of breath ongoing for 2 days History of Any Multi-Drug Resistant Organisms: None Reported Past Surgical History: Heart Catheterization Additional Past Surgical History / Comment(s): 10/22/14 ccath- EF 65-70%. PTO injury to groin/perineal area with surgical repair. 02/13/17 bone marrow biopsy done Past Anesthesia/Blood Transfusion Reactions: No Reported Reaction Additional Past Anesthesia/Blood Transfusion Reaction / Comment(s): Pt hs never recieved blood. Past Psychological History: No Psychological Hx Reported Additional Psychological History / Comment(s): Pt resides with his spouse. He is normally independent. He drives. Smoking Status: Never smoker Past Alcohol Use History: None Reported Additional Past Alcohol Use History / Comment(s): Pt chews tobacco boyle. He has been chewing tobacco since a teenager. Past Drug Use History: None Reported - Past Family History Father Family Medical History: No Reported History Additional Family Medical History / Comment(s): Father was healthy until his at age 81yrs old. Mother Family Medical History: CVA/TIA Additional Family Medical History / Comment(s): Mother at age 84yr old. She had a CVA at age 82or 83yrs. Medications and Allergies Home Medications Medication Instructions Recorded Confirmed Type Levothyroxine Sodium [Synthroid] 25 mcg PO DAILY 10/22/14 02/14/17 History Simvastatin [Zocor] 40 mg PO HS 10/22/14 02/14/17 History Potassium Chloride ER [K-Dur 20] 40 meq PO DAILY #30 tab 10/29/14 02/14/17 Rx Furosemide [Lasix] 20 mg PO DAILY 02/08/17 02/14/17 History Allergies Allergy/AdvReac Type Severity Reaction Status Date / Time No Known Allergies Allergy Verified 02/14/17 19:38 Physical Exam Vitals: Vital Signs Temp Pulse Pulse Resp BP BP Pulse Ox 02/15/17 12:27 92 02/15/17 12:18 92 02/15/17 08:36 88 02/15/17 08:24 84 02/15/17 08:00 97.8 F 68 18 116/83 95 02/15/17 04:59 100 02/15/17 04:45 96 02/15/17 04:00 97.5 F L 84 18 114/60 97 02/15/17 00:00 98.1 F 99 18 118/72 95 02/14/17 23:58 92 02/14/17 23:50 97 02/14/17 23:46 97 02/14/17 22:27 97.6 F 101 H 20 116/57 98 02/14/17 22:26 98.1 F 99 18 118/72 98 02/14/17 21:55 104 H 26 H 114/57 95 02/14/17 21:25 104 H 26 H 111/58 96 02/14/17 20:55 108 H 26 H 110/58 98 02/14/17 20:39 97.4 F L 112 H 20 99/55 96 02/14/17 20:25 116 H 26 H 103/57 97 02/14/17 19:55 114 H 26 H 124/60 99 02/14/17 19:54 100 02/14/17 19:45 96 02/14/17 19:26 110 H 26 H 102/55 98 02/14/17 19:09 114 H 28 H 114/55 98 02/14/17 18:41 97.8 F 126 H 24 106/54 79 L Intake and Output 02/15/17 02/15/17 02/15/17 06:59 14:59 22:59 Intake Total 140 0 Output Total 600 Balance -460 0 Intake: IV 140 Sodium Chloride 0.9% 1, 140 000 ml @ 20 mls/hr IV . Q24H [facility] Rx#:[id number] Oral 0 Output: Urine 600 Other: Voiding Method Toilet Toilet Urinal Urinal # Voids 2 Weight 85.8 kg PHYSICAL EXAMINATION: GENERAL: The patient is alert and oriented x3, not in any acute distress. Well developed, well nourished. HEENT: Pupils are round and equally reacting to light. EOMI. No scleral icterus. No conjunctival pallor. Normocephalic, atraumatic. No pharyngeal erythema. No thyromegaly. CARDIOVASCULAR: S1 and S2 present. No murmurs, rubs, or gallops. PULMONARY: Chest is clear to auscultation, no wheezing or crackles. ABDOMEN: Soft, nontender, nondistended, normoactive bowel sounds. No palpable organomegaly. MUSCULOSKELETAL: No joint swelling or deformity. EXTREMITIES: No cyanosis, clubbing, or pedal edema. NEUROLOGICAL: Gross neurological examination did not reveal any focal deficits. SKIN: No rashes. Results CBC & Chem 7: 02/15/17 11:09 02/15/17 11:09 Labs: Abnormal Lab Results - Last 24 Hours (Table) 02/14/17 02/14/17 02/14/17 Range/Units 19:05 19:05 19:05 WBC (3.8-10.6) k/uL RBC 2.62 L (4.30-5.90) m/uL Hgb 8.9 L (13.0-17.5) gm/dL Hct 26.9 L (39.0-53.0) % MCV 102.7 H (80.0-100.0) fL RDW 19.4 H (11.5-15.5) % Plt Count 26 L* (150-450) k/uL Lymphocytes # (Manual) (1.0-4.8) k/uL Metamyelocytes # (Man) (0) k/uL Myelocytes # (Manual) (0) k/uL ABG pH (7.35-7.45) ABG pCO2 (35-45) mmHg ABG HCO3 (21-25) mmol/L ABG Total CO2 (19-24) mmol/L Chloride 94 L (98-107) mmol/L Carbon Dioxide 40 H* (22-30) mmol/L BUN (9-20) mg/dL Glucose 115 H (74-99) mg/dL POC Glucose (mg/dL) (75-99) mg/dL Total Creatine Kinase <20 L (55-170) U/L Total Protein 6.1 L (6.3-8.2) g/dL Albumin 3.2 L (3.5-5.0) g/dL 02/15/17 02/15/17 02/15/17 Range/Units 06:30 10:22 10:35 WBC (3.8-10.6) k/uL RBC (4.30-5.90) m/uL Hgb (13.0-17.5) gm/dL Hct (39.0-53.0) % MCV (80.0-100.0) fL RDW (11.5-15.5) % Plt Count (150-450) k/uL Lymphocytes # (Manual) (1.0-4.8) k/uL Metamyelocytes # (Man) (0) k/uL Myelocytes # (Manual) (0) k/uL ABG pH 7.15 L* (7.35-7.45) ABG pCO2 >125 H* (35-45) mmHg ABG HCO3 43 H* (21-25) mmol/L ABG Total CO2 47 H (19-24) mmol/L Chloride (98-107) mmol/L Carbon Dioxide (22-30) mmol/L BUN (9-20) mg/dL Glucose (74-99) mg/dL POC Glucose (mg/dL) 141 H 261 H (75-99) mg/dL Total Creatine Kinase (55-170) U/L Total Protein (6.3-8.2) g/dL Albumin (3.5-5.0) g/dL 02/15/17 02/15/17 02/15/17 Range/Units 11:09 11:09 11:09 WBC 3.7 L (3.8-10.6) k/uL RBC 2.45 L (4.30-5.90) m/uL Hgb 8.4 L (13.0-17.5) gm/dL Hct 26.1 L (39.0-53.0) % MCV 106.6 H (80.0-100.0) fL RDW 19.8 H (11.5-15.5) % Plt Count 22 L* (150-450) k/uL Lymphocytes # (Manual) 0.30 L (1.0-4.8) k/uL Metamyelocytes # (Man) 0.07 H (0) k/uL Myelocytes # (Manual) 0.11 H (0) k/uL ABG pH (7.35-7.45) ABG pCO2 (35-45) mmHg ABG HCO3 (21-25) mmol/L ABG Total CO2 (19-24) mmol/L Chloride 89 L (98-107) mmol/L Carbon Dioxide 42 H* (22-30) mmol/L BUN 24 H (9-20) mg/dL Glucose 203 H (74-99) mg/dL POC Glucose (mg/dL) (75-99) mg/dL Total Creatine Kinase <20 L (55-170) U/L Total Protein 6.2 L (6.3-8.2) g/dL Albumin 3.3 L (3.5-5.0) g/dL Thrombosis Risk Factor Assmnt - Choose All That Apply Other Risk Factors: No Other congenital or acquired thrombophilia - If yes, enter type in comment: No Assessment and Plan Plan: #1 acute hypercapnic respiratory failure: Secondary to severe anemia and decrease the cause and carrying capacity most probably. Patient does not appear to have COPD exacerbation at this point of time. # chronic hypoxic respiratory failure: Secondary to pulmonary fibrosis patient uses 3 L of oxygen and which will be continued. Patient the present respiratory failure is multifactorial with contribution from anemia, pulmonary fibrosis and pulmonary hypertension. #3 secondary pulmonary hypertension next and #4 for fibrosis: For which patient is on systemic steroids at this point of time. #5 pancytopenia with symptomatic anemia: Pancytopenia is probably secondary to myelodysplastic syndrome are myelocytic leukemia patient underwent recent bone marrow biopsy #6 hypothyroidism: Continue with levothyroxine #7 hyperlipidemia continue with the statin. Will obtain PT and OT consultation, if patient has clinical improvement by tomorrow patient can be discharged tomorrow. Patient will not need any IV Lasix at this time.
[2017-02-15 16:36] LABS: Glucose,Whole Blood 171 mg/dL (75-99)
[2017-02-15 20:46] LABS: Glucose,Whole Blood 125 mg/dL (75-99)
[2017-02-15] MEDS: ATORVASTATIN 20 MG TAB PO SCH (21:53)
[2017-02-15 22:07] LABS: Glucose,Whole Blood 153 mg/dL (75-99)
[2017-02-15] MEDS: SODIUM CHLORIDE 0.9% 1,000 ML IV SCH (22:20)
[2017-02-15 23:39] LABS: ABG PCO2 85 mmHg (35-45); ABG PH 7.36 (7.35-7.45); ABG PO2 69 mmHg (83-108)
[2017-02-15 23:40] LABS: ABG Base Excess 20.4 mmol/L; ABG HCO3 47 mmol/L (21-25); ABG TCO2 50 mmol/L (19-24)
[2017-02-16] MEDS: methylPREDNISolone SOD SUCCI 125 MG/2 ML VIAL IV SCH ×4 (00:29→17:53)
[2017-02-16] MEDS: IPRATROPIUM-ALBUTEROL 3 ML NEB INHALATION SCH ×6 (03:21→23:39)
[2017-02-16 07:50] LABS: Glucose,Whole Blood 154 mg/dL (75-99)
[2017-02-16] MEDS: INSULIN LISPRO (humaLOG) 300 UNIT/3 ML VIAL SQ SCH ×4 (07:56→21:01)
[2017-02-16] MEDS: FUROSEMIDE 20 MG TAB PO SCH (08:03)
[2017-02-16] MEDS: LEVOTHYROXINE 25 MCG TAB PO SCH (08:03)
[2017-02-16 11:53] LABS: Glucose,Whole Blood 139 mg/dL (75-99)
--- NOTE | 2017-02-16 12:19 | XR ---
EXAMINATION TYPE: XR chest 1V DATE OF EXAM: 02/16/2017 COMPARISON: 02/14/2017 HISTORY: Shortness of breath TECHNIQUE: Single frontal view of the chest is obtained. FINDINGS: Diffuse bilateral predominantly interstitial infiltrates with elevated hemidiaphragms and reduced inspiration. Scoliotic curvature and mild degenerative change seen. Arthropathy shoulders. At herosclerotic change aorta. IMPRESSION: 1. Diffuse bilateral airspace disease is stable correlate for CHF or interstitial pneumonitis. Underl shanta pneumonia not excluded.
[2017-02-16] MEDS ORDERED: FUROSEMIDE 10 MG/ML 4 ML VIAL IV STA (14:41)
--- NOTE | 2017-02-16 14:44 | P.PN ---
Subjective 81-year-old male came in with complaints of shortness of breath etiology is multifactorial which will be discussed below. Patient's oxygen saturations are low because of which I often the chest x-ray which was suspicious for pulmonary edema because of which I'll go head and give a dose of Lasix C that he bruises respiratory status. Patient although denied any chest pain, shortness of breath, nausea, vomiting, abdominal pain. Objective - Vital Signs Vital signs: Vital Signs Temp 97.5 F L 02/16/17 08:00 Pulse 100 02/16/17 11:56 Resp 22 02/16/17 08:00 BP 113/57 02/16/17 08:00 Pulse Ox 88 L 02/16/17 08:00 Intake & Output 02/15/17 02/16/17 02/16/17 18:59 06:59 18:59 Intake Total 325 120 Output Total 400 400 300 Balance -75 -400 -180 Weight 81.1 kg Intake: Oral 325 120 Output: Urine 400 400 300 Other: Voiding Method Toilet Toilet Urinal Urinal Urinal Incontinent # Voids 3 1 - Exam PHYSICAL EXAMINATION: GENERAL: The patient is alert and oriented x3, not in any acute distress. Well developed, well nourished. HEENT: Pupils are round and equally reacting to light. EOMI. No scleral icterus. No conjunctival pallor. Normocephalic, atraumatic. No pharyngeal erythema. No thyromegaly. CARDIOVASCULAR: S1 and S2 present. No murmurs, rubs, or gallops. PULMONARY: Chest is clear to auscultation, no wheezing patient does have crackles in bilateral lower lung bases ABDOMEN: Soft, nontender, nondistended, normoactive bowel sounds. No palpable organomegaly. MUSCULOSKELETAL: No joint swelling or deformity. EXTREMITIES: No cyanosis, clubbing, or pedal edema. NEUROLOGICAL: Gross neurological examination did not reveal any focal deficits. SKIN: No rashes. - Labs CBC & Chem 7: 02/15/17 11:09 02/15/17 11:09 Labs: Abnormal Lab Results - Last 24 Hours (Table) 02/15/17 02/15/17 02/15/17 Range/Units 11:46 16:47 20:43 ABG pCO2 (35-45) mmHg ABG pO2 (83-108) mmHg ABG HCO3 (21-25) mmol/L ABG Total CO2 (19-24) mmol/L ABG O2 Saturation (94-97) % POC Glucose (mg/dL) 171 H 153 H 125 H (75-99) mg/dL 02/15/17 02/16/17 02/16/17 Range/Units 23:35 06:01 11:21 ABG pCO2 85 H* (35-45) mmHg ABG pO2 69 L (83-108) mmHg ABG HCO3 47 H* (21-25) mmol/L ABG Total CO2 50 H (19-24) mmol/L ABG O2 Saturation 91.0 L (94-97) % POC Glucose (mg/dL) 154 H 139 H (75-99) mg/dL Assessment and Plan Plan: #1 acute hypercapnic respiratory failure: Secondary to severe anemia and decrease the cause and carrying capacity most probably. Patient does not appear to have COPD exacerbation at this point of time. Patient is also on systemic steroids for pulmonary fibrosis. And giving a dose of Lasix because of bilateral crackles and worsening respiratory status # chronic hypoxic respiratory failure: Secondary to pulmonary fibrosis patient uses 3 L of oxygen and which will be continued. Patient the present respiratory failure is multifactorial with contribution from anemia, pulmonary fibrosis and pulmonary hypertension. #3 secondary pulmonary hypertension #4 pulmonary fibrosis fibrosis: For which patient is on systemic steroids at this point of time. #5 pancytopenia with symptomatic anemia: Pancytopenia is probably secondary to myelodysplastic syndrome are myelocytic leukemia patient underwent recent bone marrow biopsy, pathology reports are pending #6 hypothyroidism: Continue with levothyroxine #7 hyperlipidemia continue with the statin.
--- NOTE | 2017-02-16 15:49 | P.PN ---
Subjective 81-year-old patient who is a DO NOT RESUSCITATE. Has a history of chronic lung disease. Brought in for evaluation of shortness of breath and anemia. The patient apparently has a low hemoglobin of around 6. The patient complained of shortness of breath in the emergency room. Also found to be very weak with poor oral intake both food and fluids. He apparently denied any chest pain or fever or chills. Not coughing. Not producing any phlegm. The patient was evaluated in the emergency room. Earlier today, the patient was a code stroke. The patient was sent down for CT of the brain which I believe did not show anything acute. We were consulted at that time. Saturations were poor on 10 L high flow. He was quite hypercapnic and the patient has had a severe respiratory acidosis. We decided to put the patient on BiPAP at 12 and 5 and 50 %. The patient apparently has a history of hyperlipidemia hypertension hypothyroidism and a blood disorder. It mentions here in the [facility] that the family denied any history of COPD. He apparently has no history of previous tobacco use according to the [facility]. The patient is seen again today 02/16/2017 in follow-up in the selective care unit. He is much more awake and alert today as compared to yesterday. He did tolerate the BiPAP for quite some time. He is currently maintaining O2 saturations in the upper 80s on 4 L/m per nasal cannula. He is afebrile. Hemodynamically stable. Objective - Vital Signs Vital signs: Vital Signs Temp 97.5 F L 02/16/17 08:00 Pulse 100 02/16/17 11:56 Resp 22 02/16/17 08:00 BP 113/57 02/16/17 08:00 Pulse Ox 88 L 02/16/17 08:00 Intake & Output 02/15/17 02/16/17 02/16/17 18:59 06:59 18:59 Intake Total 325 120 Output Total 400 400 300 Balance -75 -400 -180 Weight 81.1 kg Intake: Oral 325 120 Output: Urine 400 400 300 Other: Voiding Method Toilet Toilet Urinal Urinal Urinal Incontinent # Voids 3 1 - Exam No acute distress. The patient is awake and alert today doing quite well. HEENT within normal limits. Neck supple. Full range of motion. No adenopathy. Cardiovascular examination reveals distant heart sounds. Heart rate about 90. S1-S2 normal. No distinct murmur noted. Heart sounds are distant. Lungs reveal a few scattered rhonchi. No wheezes. No crackles. Breath sounds equal. Abdomen soft bowel sounds are heard. Extremities are intact. No edema. Skin without rash. Neurologic examination cannot be adequately evaluated. - Labs CBC & Chem 7: 02/15/17 11:09 02/15/17 11:09 Labs: Abnormal Lab Results - Last 24 Hours (Table) 02/15/17 02/15/17 02/15/17 Range/Units 11:46 16:47 20:43 ABG pCO2 (35-45) mmHg ABG pO2 (83-108) mmHg ABG HCO3 (21-25) mmol/L ABG Total CO2 (19-24) mmol/L ABG O2 Saturation (94-97) % POC Glucose (mg/dL) 171 H 153 H 125 H (75-99) mg/dL 02/15/17 02/16/17 02/16/17 Range/Units 23:35 06:01 11:21 ABG pCO2 85 H* (35-45) mmHg ABG pO2 69 L (83-108) mmHg ABG HCO3 47 H* (21-25) mmol/L ABG Total CO2 50 H (19-24) mmol/L ABG O2 Saturation 91.0 L (94-97) % POC Glucose (mg/dL) 154 H 139 H (75-99) mg/dL Assessment and Plan Plan: Impression: #1 Acute on chronic hypercapnic respiratory failure in a patient found to have severe anemia, fluid volume overload, possible interstitial pneumonitis. Improved significantly following BiPAP support. #2 Acute on chronic hypoxic respiratory failure secondary to above. #3 Hyperlipidemia. #4 Hypertension. #5 Hypothyroidism. #6 Non-ST segment elevation myocardial infarction. Plan: The patient was seen and evaluated by Dr. Ayers. The patient did improve significantly following BiPAP support. Mainly hypercapnic respiratory failure. His chest x-ray was reviewed. We'll continue with his current medications. We will increase his activity as tolerated. We'll continue to follow. DNP note has been reviewed, I agree with the documented findings and plan of care. Patient was seen and examined.
[2017-02-16 17:12] LABS: Glucose,Whole Blood 134 mg/dL (75-99)
[2017-02-16 20:50] LABS: Glucose,Whole Blood 172 mg/dL (75-99)
[2017-02-16] MEDS: ATORVASTATIN 20 MG TAB PO SCH (21:01)
[2017-02-17] MEDS: SODIUM CHLORIDE 0.9% 1,000 ML IV SCH ×2 (00:11→23:03)
[2017-02-17] MEDS: methylPREDNISolone SOD SUCCI 125 MG/2 ML VIAL IV SCH ×4 (00:14→18:12)
[2017-02-17] MEDS: IPRATROPIUM-ALBUTEROL 3 ML NEB INHALATION SCH ×6 (03:37→20:32)
[2017-02-17 05:48] LABS: Glucose,Whole Blood 134 mg/dL (75-99)
[2017-02-17 06:37] LABS: Anisocytosis Moderate; CH 33.7; CHCM 33.2; HCT 21.5 % (39.0-53.0); HDW 3.18; HGB 7.3 gm/dL (13.0-17.5); MCH 34.7 pg (25.0-35.0); MCV 101.9 fL (80.0-100.0); Macrocytosis Moderate; Mean Platelet Volume 8.5; RBC 2.11 m/uL (4.30-5.90); WBC 3.9 k/uL (3.8-10.6)
[2017-02-17 06:50] LABS: Blood Urea Nitrogen 44 mg/dL (9-20); Calcium 9.1 mg/dL (8.4-10.2); Chloride 83 mmol/L (98-107); Glucose 132 mg/dL (74-99); Non-African American GFR(MDRD) >60 (>60 ml/min/1.73 sqM); Potassium 4.4 mmol/L (3.5-5.1); Sodium 136 mmol/L (137-145)
[2017-02-17 06:57] LABS: Anion Gap 4 mmol/L
[2017-02-17 07:12] LABS: Carbon Dioxide 49 mmol/L (22-30)
[2017-02-17] MEDS: INSULIN LISPRO (humaLOG) 300 UNIT/3 ML VIAL SQ SCH ×4 (07:46→22:40)
[2017-02-17] MEDS: FUROSEMIDE 20 MG TAB PO SCH (08:16)
[2017-02-17] MEDS: LEVOTHYROXINE 25 MCG TAB PO SCH (08:16)
[2017-02-17 11:42] LABS: Glucose,Whole Blood 153 mg/dL (75-99)
--- NOTE | 2017-02-17 11:44 | P.PN ---
Subjective Progress note dated 02/17/2017 This is a 81-year-old male who was initially admitted with a diagnosis of acute hypoxemic respiratory failure as well as acute on chronic hypercapnic respiratory failure. BiPAP, save the day. The patient is doing much better. Looking much better both today and yesterday. The patient also had a component of fluid overload as well as possible pneumonitis. Feeling much better. Much for awake and alert. We did encourage the patient to use of BiPAP during the daytime when he naps and certainly at nighttime for at least 4-6 hours or longer. He probably would be a good candidate for Trilogy ventilator or a average volume assured pressure support machine at home. We can discuss that with him in the future. Currently is on highly 5 L high flow. Saturations are high. Should be titrated down. In addition, his a history of hyperlipidemia hypertension hypothyroidism and non-ST segment elevation myocardial infarction. Objective - Vital Signs Vital signs: Vital Signs Temp 97.5 F L 02/17/17 08:00 Pulse 92 02/17/17 11:22 Resp 20 02/17/17 08:00 BP 115/56 02/17/17 08:00 Pulse Ox 92 L 02/17/17 08:00 Intake & Output 02/16/17 02/17/17 02/17/17 18:59 06:59 18:59 Intake Total 480 120 240 Output Total 1100 200 1 Balance -620 -80 239 Weight 79.3 kg Intake: Oral 480 120 240 Output: Urine 1100 200 1 Other: Voiding Method Urinal Urinal Incontinent # Voids 1 # Bowel Movements 1 - Exam No acute distress, oriented 3. Much more awake and alert. Nasal O2 in place. HEENT examination is grossly unremarkable. Neck supple. Full range of motion. No adenopathy. Cardiovascular examination reveals distant heart sounds. Heart rate below 100. S1-S2 normal. No murmur noted. Lungs reveal few scattered rhonchi. No wheezes or crackles. Abdomen soft. Extremities are intact. No cyanosis clubbing or edema. Skin without rash. - Labs CBC & Chem 7: 02/17/17 05:48 02/17/17 05:48 Labs: Abnormal Lab Results - Last 24 Hours (Table) 02/16/17 02/16/17 02/16/17 Range/Units 11:21 16:57 20:48 RBC (4.30-5.90) m/uL Hgb (13.0-17.5) gm/dL Hct (39.0-53.0) % MCV (80.0-100.0) fL RDW (11.5-15.5) % Plt Count (150-450) k/uL Sodium (137-145) mmol/L Chloride (98-107) mmol/L Carbon Dioxide (22-30) mmol/L BUN (9-20) mg/dL Glucose (74-99) mg/dL POC Glucose (mg/dL) 139 H 134 H 172 H (75-99) mg/dL 02/17/17 02/17/17 02/17/17 Range/Units 05:46 05:48 05:48 RBC 2.11 L (4.30-5.90) m/uL Hgb 7.3 L (13.0-17.5) gm/dL Hct 21.5 L (39.0-53.0) % MCV 101.9 H (80.0-100.0) fL RDW 20.0 H (11.5-15.5) % Plt Count 25 L* (150-450) k/uL Sodium 136 L (137-145) mmol/L Chloride 83 L (98-107) mmol/L Carbon Dioxide 49 H* (22-30) mmol/L BUN 44 H (9-20) mg/dL Glucose 132 H (74-99) mg/dL POC Glucose (mg/dL) 134 H (75-99) mg/dL Assessment and Plan (1) Anemia Status: Acute (2) Hypoxemia Status: Acute (3) Chronic hypoxemic respiratory failure Status: Acute (4) Hyperlipidemia Status: Acute (5) Hypertension Status: Acute (6) Hypothyroidism Status: Acute (7) Pancytopenia Status: Acute (8) Pulmonary fibrosis Status: Acute (9) STEMI (ST elevation myocardial infarction) Status: Acute (10) Symptomatic anemia Status: Acute (11) Hypercapnic respiratory failure Status: Acute Plan: Plan dated 02/15/2017 I gave the nurses and the respiratory therapist orders for BiPAP. His saturations are barely acceptable on 50%. Unfortunately we bump of the FiO2, the patient become more hypercarbic. The patient's BiPAP settings are 12 and 5 and 50%. We'll continue to follow. The patient is a DO NOT RESUSCITATE. Prognosis is very poor. Meds labs and x-rays are all reviewed. Plan dated 02/17/2017 We'll encourage the patient use BiPAP due to type daytime when he naps. In addition, she is use of BiPAP at nighttime at least 4-6 hours. Again, the patient should be considered for either a Trilogy ventilator at home or a AVAPS machine. This can be discussed with him in the outpatient setting. The patient 's looking much better. 5 L high flow. That should be titrated down. Saturations on him are acceptable between 88-92% and her actually preferred. This will prevent a further episode or worsening of his PaCO2 and hypercapnic respiratory failure. Time with Patient: Less than 30
[2017-02-17 16:38] LABS: Glucose,Whole Blood 127 mg/dL (75-99)
--- NOTE | 2017-02-17 19:44 | P.PN ---
Subjective Progress note being dictated for Dr. Joseph Interval history: 81-year-old male came in with complaints of shortness of breath etiology is multifactorial which will be discussed below. Patient's oxygen saturations are low because of which I often the chest x-ray which was suspicious for pulmonary edema because of which I'll go head and give a dose of Lasix C that he bruises respiratory status. Patient although denied any chest pain, shortness of breath, nausea, vomiting, abdominal pain. 02/17/2017: Maintained on Lasix IV with breathing improving. Intermittent use of BiPAP during rest /naps.Diuresed well with 24-hour I&O reflecting a negative fluid balance. Ambulating with in room, to bathroom with exertional shortness of breath. Good diet intake with no nausea vomiting or diarrhea. O2 saturations currently in the 90s on 5 L nasal cannula high flow. Discussed with staff to titrate down as patient is a CO2 retainer. Per pulmonary maintain O2 sats between 88 and 92%. Denies chest pain, palpitations. Hemoglobin down to 7.3. Objective - Vital Signs Vital signs: Vital Signs Temp 97.5 F L 02/17/17 08:00 Pulse 88 02/17/17 08:33 Resp 20 02/17/17 08:00 BP 115/56 02/17/17 08:00 Pulse Ox 92 L 02/17/17 08:00 Intake & Output 02/16/17 02/17/17 02/17/17 18:59 06:59 18:59 Intake Total 480 120 240 Output Total 1100 200 1 Balance -620 -80 239 Weight 79.3 kg Intake: Oral 480 120 240 Output: Urine 1100 200 1 Other: Voiding Method Urinal Urinal Incontinent # Voids 1 # Bowel Movements 1 - Exam GENERAL: The patient is alert and oriented x3, not in any acute distress. Well developed, well nourished. HEENT: Pupils are round and equally reacting to light. EOMI. No scleral icterus. No conjunctival pallor. Normocephalic, atraumatic. No pharyngeal erythema. No thyromegaly. CARDIOVASCULAR: S1 and S2 present. No murmurs, rubs, or gallops. PULMONARY: Chest is clear to auscultation, no wheezing patient does have crackles in bilateral lower lung bases, scattered rhonchi ABDOMEN: Soft, nontender, nondistended, normoactive bowel sounds. No palpable organomegaly. MUSCULOSKELETAL: No joint swelling or deformity. EXTREMITIES: No cyanosis, clubbing, or pedal edema. NEUROLOGICAL: Gross neurological examination did not reveal any focal deficits. SKIN: No rashes. - Labs CBC & Chem 7: 02/17/17 05:48 02/17/17 05:48 Labs: Abnormal Lab Results - Last 24 Hours (Table) 02/16/17 02/16/17 02/16/17 Range/Units 11:21 16:57 20:48 RBC (4.30-5.90) m/uL Hgb (13.0-17.5) gm/dL Hct (39.0-53.0) % MCV (80.0-100.0) fL RDW (11.5-15.5) % Plt Count (150-450) k/uL Sodium (137-145) mmol/L Chloride (98-107) mmol/L Carbon Dioxide (22-30) mmol/L BUN (9-20) mg/dL Glucose (74-99) mg/dL POC Glucose (mg/dL) 139 H 134 H 172 H (75-99) mg/dL 02/17/17 02/17/17 02/17/17 Range/Units 05:46 05:48 05:48 RBC 2.11 L (4.30-5.90) m/uL Hgb 7.3 L (13.0-17.5) gm/dL Hct 21.5 L (39.0-53.0) % MCV 101.9 H (80.0-100.0) fL RDW 20.0 H (11.5-15.5) % Plt Count 25 L* (150-450) k/uL Sodium 136 L (137-145) mmol/L Chloride 83 L (98-107) mmol/L Carbon Dioxide 49 H* (22-30) mmol/L BUN 44 H (9-20) mg/dL Glucose 132 H (74-99) mg/dL POC Glucose (mg/dL) 134 H (75-99) mg/dL Assessment and Plan Plan: #1 acute hypercapnic respiratory failure: Secondary to severe anemia.Patient does not appear to have COPD exacerbation at this point of time. Patient is also on systemic steroids for pulmonary fibrosis. And giving Lasix because of bilateral crackles and worsening respiratory status # chronic hypoxic respiratory failure: Secondary to pulmonary fibrosis patient uses 3 L of oxygen and which will be continued. Patient the present respiratory failure is multifactorial with contribution from anemia, pulmonary fibrosis and pulmonary hypertension. #3 secondary pulmonary hypertension #4 pulmonary fibrosis fibrosis: For which patient is on systemic steroids at this point of time. #5 pancytopenia with symptomatic anemia: Pancytopenia is probably secondary to myelodysplastic syndrome are myelocytic leukemia patient underwent recent bone marrow biopsy, pathology reports are pending #6 hypothyroidism: Continue with levothyroxine #7 hyperlipidemia continue with the statin. Plan: Continue on current medication regime ,monitoring and symptomatic treatment. Requesting Outpatient bone marrow biopsy/pathology report, staff attempting to retrieve. One unit of packed RBCs followed by Lasix 20 IV push. Close monitoring of CBC with Repeat labs ordered for a.m. Discharge planning in progress for tomorrow. As mentioned above oxygen needs to be titrated down. Prognosis guarded given multiple complex medical issues.. The impression and plan of care has been dictated as directed. : I performed a H&P examination of this patient and discussed the same with the dictator. I agree with the dictator's note. Any additional findings/opinions/ etc. will be noted.
[2017-02-17] MEDS ORDERED: FUROSEMIDE 10 MG/ML 2 ML VIAL IV ONE (20:13)
[2017-02-17] MEDS ORDERED: IPRATROPIUM-ALBUTEROL 3 ML NEB INHALATION PRN (20:33)
[2017-02-17] MEDS: ATORVASTATIN 20 MG TAB PO SCH (20:37)
[2017-02-17 21:09] LABS: Glucose,Whole Blood 148 mg/dL (75-99)
[2017-02-18] MEDS: methylPREDNISolone SOD SUCCI 125 MG/2 ML VIAL IV SCH ×3 (02:09→11:18)
[2017-02-18 06:05] LABS: Anisocytosis Moderate; Basophils % (A) 0 %; CH 33.8; CHCM 34.5; Eosinophils % (A) 0 %; HCT 25.8 % (39.0-53.0); HDW 3.47; HGB 8.7 gm/dL (13.0-17.5); Luc # (Auto) 0.02; Luc % (Auto) 1; Lymphocytes # (A) 0.7 k/uL (1.0-4.8); Lymphocytes % (A) 26 %; MCH 33.3 pg (25.0-35.0); MCHC 33.7 g/dL (31.0-37.0); MCV 98.7 fL (80.0-100.0); Macrocytosis Moderate; Mean Platelet Volume 7.5; Monocytes # (A) 0.2 k/uL (0-1.0); Monocytes % (A) 6 %; Neutrophils # (A) 1.8 k/uL (1.3-7.7); Neutrophils % (A) 66 %; Poikilocytosis Slight; RBC 2.61 m/uL (4.30-5.90); RDW 20.8 % (11.5-15.5); WBC 2.8 k/uL (3.8-10.6); WBC (Perox) 2.92
[2017-02-18 06:15] LABS: Blood Urea Nitrogen 47 mg/dL (9-20); Calcium 8.9 mg/dL (8.4-10.2); Chloride 82 mmol/L (98-107); Glucose 123 mg/dL (74-99); INR 1.1 (<1.2); Non-African American GFR(MDRD) >60 (>60 ml/min/1.73 sqM); Potassium 4.5 mmol/L (3.5-5.1); Prothrombin Time 11.2 sec (9.0-12.0); Sodium 139 mmol/L (137-145)
[2017-02-18 06:20] LABS: Glucose,Whole Blood 134 mg/dL (75-99)
[2017-02-18 06:22] LABS: Anion Gap 6 mmol/L
[2017-02-18 06:32] LABS: Carbon Dioxide 51 mmol/L (22-30)
[2017-02-18] MEDS: INSULIN LISPRO (humaLOG) 300 UNIT/3 ML VIAL SQ SCH ×2 (06:33→12:36)
[2017-02-18] MEDS: IPRATROPIUM-ALBUTEROL 3 ML NEB INHALATION SCH ×3 (08:03→16:32)
[2017-02-18] MEDS: LEVOTHYROXINE 25 MCG TAB PO SCH (09:32)
[2017-02-18] MEDS: FUROSEMIDE 20 MG TAB PO SCH (09:32)
[2017-02-18 12:00] LABS: Glucose,Whole Blood 131 mg/dL (75-99)
--- NOTE | 2017-02-18 12:38 | P.PN ---
Subjective Progress note dated 02/17/2017 This is a 81-year-old male who was initially admitted with a diagnosis of acute hypoxemic respiratory failure as well as acute on chronic hypercapnic respiratory failure. BiPAP, save the day. The patient is doing much better. Looking much better both today and yesterday. The patient also had a component of fluid overload as well as possible pneumonitis. Feeling much better. Much for awake and alert. We did encourage the patient to use of BiPAP during the daytime when he naps and certainly at nighttime for at least 4-6 hours or longer. He probably would be a good candidate for Trilogy ventilator or a average volume assured pressure support machine at home. We can discuss that with him in the future. Currently is on highly 5 L high flow. Saturations are high. Should be titrated down. In addition, his a history of hyperlipidemia hypertension hypothyroidism and non-ST segment elevation myocardial infarction. Progress note dated 02/18/2017 This is an 81-year-old male who was initially admitted with a diagnosis of acute hypoxemic respiratory failure acute as well as acute on chronic hypercapnic respiratory failure. The patient is doing well. He use BiPAP was able get through this episode. At one point his PaCO2 was 1 27 mmHg. There is also component of fluid overload which is been treated with diuretics. Feeling much better. Much more alert and awake. The patient has a history of hyperlipidemia hypertension hypothyroidism and non-ST segment elevation myocardial infarction. Objective - Vital Signs Vital signs: Vital Signs Temp 97.4 F L 02/18/17 08:00 Pulse 84 02/18/17 11:40 Resp 18 02/18/17 08:00 BP 112/51 02/18/17 08:00 Pulse Ox 95 02/18/17 08:00 Intake & Output 02/17/17 02/18/17 02/18/17 18:59 06:59 18:59 Intake Total 570 310 120 Output Total 576 400 Balance -6 -90 120 Weight 80.1 kg Intake: Oral 570 120 Blood Product 310 Rc As-1 Unit 310 [id number] Output: Urine 576 400 Other: Voiding Method Urinal # Voids 1 # Bowel Movements 1 - Exam No acute distress, oriented 3. Much more awake and alert. Nasal O2 in place. HEENT examination is grossly unremarkable. Neck supple. Full range of motion. No adenopathy. Cardiovascular examination reveals distant heart sounds. Heart rate below 100. S1-S2 normal. No murmur noted. Lungs reveal few scattered rhonchi. No wheezes or crackles. Abdomen soft. Extremities are intact. No cyanosis clubbing or edema. Skin without rash. Neurologic examination is brief but nonfocal. - Labs CBC & Chem 7: 02/18/17 05:33 02/18/17 05:33 Labs: Abnormal Lab Results - Last 24 Hours (Table) 02/17/17 02/17/17 02/17/17 Range/Units 16:34 20:30 21:06 WBC (3.8-10.6) k/uL RBC (4.30-5.90) m/uL Hgb (13.0-17.5) gm/dL Hct (39.0-53.0) % RDW (11.5-15.5) % Plt Count (150-450) k/uL Lymphocytes # (1.0-4.8) k/uL Chloride (98-107) mmol/L Carbon Dioxide (22-30) mmol/L BUN (9-20) mg/dL Glucose (74-99) mg/dL POC Glucose (mg/dL) 127 H 148 H (75-99) mg/dL Crossmatch See Detail 02/18/17 02/18/17 02/18/17 Range/Units 05:33 05:33 06:17 WBC 2.8 L (3.8-10.6) k/uL RBC 2.61 L (4.30-5.90) m/uL Hgb 8.7 L (13.0-17.5) gm/dL Hct 25.8 L (39.0-53.0) % RDW 20.8 H (11.5-15.5) % Plt Count 31 L* (150-450) k/uL Lymphocytes # 0.7 L (1.0-4.8) k/uL Chloride 82 L (98-107) mmol/L Carbon Dioxide 51 H* (22-30) mmol/L BUN 47 H (9-20) mg/dL Glucose 123 H (74-99) mg/dL POC Glucose (mg/dL) 134 H (75-99) mg/dL Crossmatch 02/18/17 Range/Units 11:49 WBC (3.8-10.6) k/uL RBC (4.30-5.90) m/uL Hgb (13.0-17.5) gm/dL Hct (39.0-53.0) % RDW (11.5-15.5) % Plt Count (150-450) k/uL Lymphocytes # (1.0-4.8) k/uL Chloride (98-107) mmol/L Carbon Dioxide (22-30) mmol/L BUN (9-20) mg/dL Glucose (74-99) mg/dL POC Glucose (mg/dL) 131 H (75-99) mg/dL Crossmatch Assessment and Plan (1) Anemia Status: Acute (2) Hypoxemia Status: Acute (3) Chronic hypoxemic respiratory failure Status: Acute (4) Hyperlipidemia Status: Acute (5) Hypertension Status: Acute (6) Hypothyroidism Status: Acute (7) Pancytopenia Status: Acute (8) Pulmonary fibrosis Status: Acute (9) STEMI (ST elevation myocardial infarction) Status: Acute (10) Symptomatic anemia Status: Acute (11) Hypercapnic respiratory failure Status: Acute Plan: Plan dated 02/15/2017 I gave the nurses and the respiratory therapist orders for BiPAP. His saturations are barely acceptable on 50%. Unfortunately we bump of the FiO2, the patient become more hypercarbic. The patient's BiPAP settings are 12 and 5 and 50%. We'll continue to follow. The patient is a DO NOT RESUSCITATE. Prognosis is very poor. Meds labs and x-rays are all reviewed. Plan dated 02/17/2017 We'll encourage the patient use BiPAP due to type daytime when he naps. In addition, she is use of BiPAP at nighttime at least 4-6 hours. Again, the patient should be considered for either a Trilogy ventilator at home or a AVAPS machine. This can be discussed with him in the outpatient setting. The patient 's looking much better. 5 L high flow. That should be titrated down. Saturations on him are acceptable between 88-92% and her actually preferred. This will prevent a further episode or worsening of his PaCO2 and hypercapnic respiratory failure. Plan dated 02/18/2017 We'll encourage the patient take a deep breathing coughing clearing his secretions and use of incentive spirometer every hour. In addition, we will encourage the patient use of BiPAP device during the daytime when he naps and certainly at nighttime for about 4-6 hours or longer. The patient may be a candidate for noninvasive ventilation when he gets home. We'll continue to follow. Prognosis is guarded. No additional recommendations are made. Labs x- rays a medications are all reviewed. Time with Patient: Less than 30
--- NOTE | 2017-02-18 15:01 | P.DS ---
Providers Date of admission: 02/14/17 22:13 Attending physician: Maria E Joseph Consults: 02/14/17 22:12 Consult Physician Routine Consulting Provider: Adiel Benz Consult Reason/Comments: Pulmonary fibrosis, COPD, hypoxemia Do you want consulting provider notified?: Yes Primary care physician: [facility] Course: Patient's oxygen saturations are low because of which I often the chest x-ray which was suspicious for pulmonary edema because of which I'll go head and give a dose of Lasix C that he bruises respiratory status. Patient although denied any chest pain, shortness of breath, nausea, vomiting, abdominal pain. 02/17/2017: Maintained on Lasix IV with breathing improving. Intermittent use of BiPAP during rest /naps.Diuresed well with 24-hour I&O reflecting a negative fluid balance. Ambulating with in room, to bathroom with exertional shortness of breath. Good diet intake with no nausea vomiting or diarrhea. O2 saturations currently in the 90s on 5 L nasal cannula high flow. Discussed with staff to titrate down as patient is a CO2 retainer. Per pulmonary maintain O2 sats between 88 and 92%. Denies chest pain, palpitations. Hemoglobin down to 7.3. 02/18/2017 Patient is on 4 L of oxygen, Can wean it down to 2 or 3 days before discharge and the hemoglobin is around 8.1. 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 Patient is fairly well and make is pretty status significant improved will be discharged today although his overall prognosis is poor because of pulmonary fibrosis, myelodysplasia COPD. PHYSICAL EXAMINATION: GENERAL: The patient is alert and oriented x3, not in any acute distress. Well developed, well nourished. HEENT: Pupils are round and equally reacting to light. EOMI. No scleral icterus. No conjunctival pallor. Normocephalic, atraumatic. No pharyngeal erythema. No thyromegaly. CARDIOVASCULAR: S1 and S2 present. No murmurs, rubs, or gallops. PULMONARY: Chest is clear to auscultation, no wheezing fine bibasilar crackles are appreciated probably secondary to pulmonary fibrosis ABDOMEN: Soft, nontender, nondistended, normoactive bowel sounds. No palpable organomegaly. MUSCULOSKELETAL: No joint swelling or deformity. EXTREMITIES: No cyanosis, clubbing, or pedal edema. NEUROLOGICAL: Gross neurological examination did not reveal any focal deficits. SKIN: No rashes. #1 acute hypercapnic respiratory failure: Secondary to severe anemia.Patient does not appear to have COPD exacerbation at this point of time. Patient is also on systemic steroids for pulmonary fibrosis. # chronic hypoxic respiratory failure: Secondary to pulmonary fibrosis patient uses 3 L of oxygen and which will be continued. Patient the present respiratory failure is multifactorial with contribution from anemia, pulmonary fibrosis and pulmonary hypertension. #3 secondary pulmonary hypertension #4 pulmonary fibrosis fibrosis: For which patient is on systemic steroids at this point of time. #5 pancytopenia with symptomatic anemia: Pancytopenia is probably secondary to myelodysplastic syndrome are myelocytic leukemia patient underwent recent bone marrow biopsy, pathology reports are pending #6 hypothyroidism: Continue with levothyroxine #7 hyperlipidemia continue with the statin. Patient Condition at Discharge: Stable Plan - Discharge Summary New Discharge Prescriptions: New Albuterol Inhaler [Ventolin Hfa Inhaler] 1 - 2 puff INHALATION Q6HR PRN #1 inhaler PRN Reason: Shortness Of Breath Or Wheezing predniSONE 10 mg PO DAILY #30 tab No Action Simvastatin [Zocor] 40 mg PO HS Levothyroxine Sodium [Synthroid] 25 mcg PO DAILY Potassium Chloride ER [K-Dur 20] 40 meq PO DAILY #30 tab Furosemide [Lasix] 20 mg PO DAILY Discharge Medication List Levothyroxine Sodium [Synthroid] 25 mcg PO DAILY 10/22/14 [History] Simvastatin [Zocor] 40 mg PO HS 10/22/14 [History] Potassium Chloride ER [K-Dur 20] 40 meq PO DAILY #30 tab 10/29/14 [Rx] Furosemide [Lasix] 20 mg PO DAILY 02/08/17 [History] Albuterol Inhaler [Ventolin Hfa Inhaler] 1 - 2 puff INHALATION Q6HR PRN #1 inhaler 02/18/17 [Rx] predniSONE 10 mg PO DAILY #30 tab 02/18/17 [Rx] Follow up Appointment(s)/Referral(s): Adiel Benz MD [STAFF PHYSICIAN] - 1 Week Chucky Gonzalez MD [STAFF PHYSICIAN] - 1 Week Gene Lucero DO [Primary Care Provider] - 3 Days Sierra Luz MD [STAFF PHYSICIAN] - 1 Week Discharge Disposition: HOME WITH HOME HEALTH SERVICES
[2017-02-18 15:53] VITALS: BP 116/56; PULSE 80; RESP 16; TEMP 97.9
== END 2017-02-18 16:51 | disposition home health service (06) | DRG 811 ==
LOC: EC 18:16 → 6SEL 22:13
PROVIDERS: ADMIT Internal Medicine; ATTEND Internal Medicine
PROC: 5A09457 Assistance with Respiratory Ventilation, 24-96 Consecutive Hours, Continuous Positive Airway Pressure (ICD-10-PCS; 2017-02-15)
PROC: 30230N1 Transfusion of Nonautologous Red Blood Cells into Peripheral Vein, Open Approach (ICD-10-PCS; principal; 2017-02-17)
DX: D46.9 Myelodysplastic syndrome, unspecified (principal); I21.4 Non-ST elevation (NSTEMI) myocardial infarction; J96.21 Acute and chronic respiratory failure with hypoxia; J18.9 Pneumonia, unspecified organism; J96.22 Acute and chronic respiratory failure with hypercapnia; D61.818 Other pancytopenia; I27.2 Other secondary pulmonary hypertension; J84.10 Pulmonary fibrosis, unspecified; Z99.81 Dependence on supplemental oxygen; J44.9 Chronic obstructive pulmonary disease, unspecified; E87.70 Fluid overload, unspecified; F17.220 Nicotine dependence, chewing tobacco, uncomplicated; E03.9 Hypothyroidism, unspecified; E78.5 Hyperlipidemia, unspecified; I10 Essential (primary) hypertension; M19.90 Unspecified osteoarthritis, unspecified site; R32 Unspecified urinary incontinence; Z66 Do not resuscitate; Z79.899 Other long term (current) drug therapy
CPT/HCPCS: 36415; 36600; 38221; 70450; 70496; 70498; 71010; 71020; 80048; 80053; 82550; 82553; 82805; 83036; 83735; 83880; 84484; 85025; 85027; 85610; 85730; 86850; 86900; 86901; 86920; 93005; 94640; 94660; 94760; 96374; 96375; 99291

== ENCOUNTER 2017-02-24 16:19 | Inpatient (IN) | payer MEDICARE ==
[2017-02-24] MEDS ORDERED: ALBUTEROL NEBULIZED 2.5 MG/3 ML INHALATION STA (16:31)
[2017-02-24] MEDS ORDERED: IPRATROPIUM 0.5 MG/2.5 ML NEBU INHALATION STA (16:31)
--- NOTE | 2017-02-24 16:34 | ED ---
General Adult HPI - General Stated complaint: weakness Time Seen by Provider: 02/24/17 16:23 Source: patient, EMS, RN notes reviewed, old records reviewed - History of Present Illness Initial comments: 81-year-old male presents for evaluation of increasing dyspnea. Patient has past medical history of primary fibrosis as well as anemia. The patient no known history of heart failure. Patient was never a smoker. He was recently admitted for breathing difficulties and hypoxia. His been home for approximately one week. Patient's symptoms have failed to improve at home. He is currently on steroids. He's had severe exertional dyspnea. He normally has 2 L of home O2, he has been using 3 L over the past several days. Denies chest pain. Denies fever or chills. Denies productive cough. - Related Data Home Medications Medication Instructions Recorded Confirmed Levothyroxine Sodium [Synthroid] 25 mcg PO DAILY 10/22/14 02/24/17 Furosemide [Lasix] 20 mg PO DAILY 02/08/17 02/24/17 Albuterol Inhaler [Ventolin Hfa 1 - 2 puff INHALATION RT-Q6H PRN 02/24/17 Inhaler] Simvastatin [Zocor] 40 mg PO HS 02/24/17 02/24/17 predniSONE See Taper PO DAILY 02/24/17 02/24/17 Previous Rx's Medication Instructions Recorded Potassium Chloride ER [K-Dur 20] 40 meq PO DAILY #30 tab 10/29/14 Allergies Allergy/AdvReac Type Severity Reaction Status Date / Time No Known Allergies Allergy Verified 02/24/17 16:33 Review of Systems ROS Statement: Those systems with pertinent positive or pertinent negative responses have been documented in the HPI. ROS Other: All systems not noted in ROS Statement are negative. Past Medical History Past Medical History: Blood Disorder, Hyperlipidemia, Hypertension, Osteoarthritis (OA), Thyroid Disorder Additional Past Medical History / Comment(s): 10/22/14 Pt presented to [facility] ER via EMS. found pt unresponsive this AM and called EMS. Pt has had a cough and congestion for the past 2 weeks. [facility] [place] [facility] was given a inhaler and mucinex. states pt was very weak last nite. EMS was unable to intubate so pt arrived to ER with bipap and was intubated here. Pt was sent immediately to the cath labfor STEMI and hypoxia. Other HX: L knee pain, hypothyroidism. Family deny hx of COPD. 01/23/17 states shortness of breath ongoing for 2 days History of Any Multi-Drug Resistant Organisms: None Reported Past Surgical History: Heart Catheterization Additional Past Surgical History / Comment(s): 10/22/14 ccath- EF 65-70%. PTO injury to groin/perineal area with surgical repair. 02/13/17 bone marrow biopsy done Past Anesthesia/Blood Transfusion Reactions: No Reported Reaction Additional Past Anesthesia/Blood Transfusion Reaction / Comment(s): Pt hs never recieved blood. Past Psychological History: No Psychological Hx Reported Additional Psychological History / Comment(s): Pt resides with his spouse. He is normally independent. He drives. Smoking Status: Never smoker Past Alcohol Use History: None Reported Additional Past Alcohol Use History / Comment(s): Pt chews tobacco boyle. He has been chewing tobacco since a teenager. Past Drug Use History: None Reported - Past Family History Father Family Medical History: No Reported History Additional Family Medical History / Comment(s): Father was healthy until his at age 81yrs old. Mother Family Medical History: CVA/TIA Additional Family Medical History / Comment(s): Mother at age 84yr old. She had a CVA at age 82or 83yrs. General Exam General appearance: alert, in distress Head exam: Present: atraumatic, normocephalic Eye exam: Present: normal appearance, PERRL ENT exam: Present: normal exam, mucous membranes moist Neck exam: Present: normal inspection Respiratory exam: Present: respiratory distress, rhonchi (Bilateral rhonchi and crackles), decreased breath sounds Cardiovascular Exam: Present: regular rate, normal rhythm GI/Abdominal exam: Present: soft. Absent: distended, tenderness Extremities exam: Present: normal inspection, normal capillary refill. Absent: pedal edema Back exam: Present: normal inspection, full ROM Neurological exam: Present: alert, oriented X3 Psychiatric exam: Present: normal affect, normal mood Skin exam: Present: warm, dry. 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 Patient does have history of anemia and is undergoing workup by hematology. Patient is quite dyspneic on examination. Requiring 3 L of oxygen with pulse ox ranging from 90-94. Laboratory studies are obtained, he is pancytopenic, hemoglobin 8.1 which appears stable from previous admission. Venous blood gas reveals CO2 of 54, patient does have signs of chronic CO2 retention. Troponin is negative. BNP noncontributory. Chest x-ray shows lung disease consistent with bulbar fibrosis. Patient is given albuterol Atrovent with minimal improvement. Although the patient's condition is chronic in nature. He believe he would benefit from 24 hours of contined nebulized albuterol and IV steroids. Patient and family are agreeable with this plan Diagnosis: Pulmonary fibrosis, hypoxia, pancytopenia - Lab Data Result diagrams: 02/24/17 16:45 02/24/17 16:45 Lab Results 02/24/17 02/24/17 02/24/17 Range/Units 16:45 16:45 16:45 WBC 3.4 L (3.8-10.6) k/uL RBC 2.37 L (4.30-5.90) m/uL Hgb 8.1 L (13.0-17.5) gm/dL Hct 23.9 L (39.0-53.0) % MCV 101.0 H (80.0-100.0) fL MCH 34.0 (25.0-35.0) pg MCHC 33.7 (31.0-37.0) g/dL RDW 20.1 H (11.5-15.5) % Plt Count 35 L* (150-450) k/uL Neutrophils % (Manual) 14 % Band Neutrophils % 4 % Lymphocytes % (Manual) 77 % Monocytes % (Manual) 5 % Neutrophils # (Manual) 0.60 L (1.3-7.7) k/uL Lymphocytes # (Manual) 2.62 (1.0-4.8) k/uL Monocytes # (Manual) 0.17 (0-1.0) k/uL Nucleated RBCs 0 (0-0) /100 WBC Manual Slide Review Performed Polychromasia Present Anisocytosis Moderate Macrocytosis Moderate Ovalocytes Present PT (9.0-12.0) sec INR (<1.2) APTT (22.0-30.0) sec VBG pH (7.31-7.41) VBG pCO2 (37-51) mmHg VBG HCO3 (24-28) mmol/L Sodium 137 (137-145) mmol/L Potassium 4.1 (3.5-5.1) mmol/L Chloride 94 L (98-107) mmol/L Carbon Dioxide 39 H (22-30) mmol/L Anion Gap 4 mmol/L BUN 24 H (9-20) mg/dL Creatinine 0.70 (0.66-1.25) mg/dL Est GFR (MDRD) Af Amer >60 (>60 ml/min/1.73 sqM) Est GFR (MDRD) Non-Af >60 (>60 ml/min/1.73 sqM) Glucose 85 (74-99) mg/dL Plasma Lactic Acid Theo (0.7-2.0) mmol/L Calcium 9.1 (8.4-10.2) mg/dL Magnesium 1.5 L (1.6-2.3) mg/dL Total Bilirubin 0.9 (0.2-1.3) mg/dL AST 44 (17-59) U/L ALT 80 H (21-72) U/L Alkaline Phosphatase 57 (38-126) U/L Total Creatine Kinase <20 L (55-170) U/L CK-MB (CK-2) <0.2 (0.0-2.4) ng/mL CK-MB (CK-2) Rel Index Troponin I <0.012 (0.000-0.034) ng/mL NT-Pro-B Natriuret Pep pg/mL Total Protein 5.4 L (6.3-8.2) g/dL Albumin 3.0 L (3.5-5.0) g/dL 02/24/17 02/24/17 02/24/17 Range/Units 16:45 16:45 16:45 WBC (3.8-10.6) k/uL RBC (4.30-5.90) m/uL Hgb (13.0-17.5) gm/dL Hct (39.0-53.0) % MCV (80.0-100.0) fL MCH (25.0-35.0) pg MCHC (31.0-37.0) g/dL RDW (11.5-15.5) % Plt Count (150-450) k/uL Neutrophils % (Manual) % Band Neutrophils % % Lymphocytes % (Manual) % Monocytes % (Manual) % Neutrophils # (Manual) (1.3-7.7) k/uL Lymphocytes # (Manual) (1.0-4.8) k/uL Monocytes # (Manual) (0-1.0) k/uL Nucleated RBCs (0-0) /100 WBC Manual Slide Review Polychromasia Anisocytosis Macrocytosis Ovalocytes PT 10.8 (9.0-12.0) sec INR 1.1 (<1.2) APTT 20.2 L (22.0-30.0) sec VBG pH (7.31-7.41) VBG pCO2 (37-51) mmHg VBG HCO3 (24-28) mmol/L Sodium (137-145) mmol/L Potassium (3.5-5.1) mmol/L Chloride (98-107) mmol/L Carbon Dioxide (22-30) mmol/L Anion Gap mmol/L BUN (9-20) mg/dL Creatinine (0.66-1.25) mg/dL Est GFR (MDRD) Af Amer (>60 ml/min/1.73 sqM) Est GFR (MDRD) Non-Af (>60 ml/min/1.73 sqM) Glucose (74-99) mg/dL Plasma Lactic Acid Theo 1.0 (0.7-2.0) mmol/L Calcium (8.4-10.2) mg/dL Magnesium (1.6-2.3) mg/dL Total Bilirubin (0.2-1.3) mg/dL AST (17-59) U/L ALT (21-72) U/L Alkaline Phosphatase (38-126) U/L Total Creatine Kinase (55-170) U/L CK-MB (CK-2) (0.0-2.4) ng/mL CK-MB (CK-2) Rel Index Troponin I (0.000-0.034) ng/mL NT-Pro-B Natriuret Pep 251 pg/mL Total Protein (6.3-8.2) g/dL Albumin (3.5-5.0) g/dL 02/24/17 Range/Units 16:45 WBC (3.8-10.6) k/uL RBC (4.30-5.90) m/uL Hgb (13.0-17.5) gm/dL Hct (39.0-53.0) % MCV (80.0-100.0) fL MCH (25.0-35.0) pg MCHC (31.0-37.0) g/dL RDW (11.5-15.5) % Plt Count (150-450) k/uL Neutrophils % (Manual) % Band Neutrophils % % Lymphocytes % (Manual) % Monocytes % (Manual) % Neutrophils # (Manual) (1.3-7.7) k/uL Lymphocytes # (Manual) (1.0-4.8) k/uL Monocytes # (Manual) (0-1.0) k/uL Nucleated RBCs (0-0) /100 WBC Manual Slide Review Polychromasia Anisocytosis Macrocytosis Ovalocytes PT (9.0-12.0) sec INR (<1.2) APTT (22.0-30.0) sec VBG pH 7.50 H (7.31-7.41) VBG pCO2 54 H (37-51) mmHg VBG HCO3 41 H (24-28) mmol/L Sodium (137-145) mmol/L Potassium (3.5-5.1) mmol/L Chloride (98-107) mmol/L Carbon Dioxide (22-30) mmol/L Anion Gap mmol/L BUN (9-20) mg/dL Creatinine (0.66-1.25) mg/dL Est GFR (MDRD) Af Amer (>60 ml/min/1.73 sqM) Est GFR (MDRD) Non-Af (>60 ml/min/1.73 sqM) Glucose (74-99) mg/dL Plasma Lactic Acid Theo (0.7-2.0) mmol/L Calcium (8.4-10.2) mg/dL Magnesium (1.6-2.3) mg/dL Total Bilirubin (0.2-1.3) mg/dL AST (17-59) U/L ALT (21-72) U/L Alkaline Phosphatase (38-126) U/L Total Creatine Kinase (55-170) U/L CK-MB (CK-2) (0.0-2.4) ng/mL CK-MB (CK-2) Rel Index Troponin I (0.000-0.034) ng/mL NT-Pro-B Natriuret Pep pg/mL Total Protein (6.3-8.2) g/dL Albumin (3.5-5.0) g/dL Disposition Clinical Impression: Pulmonary fibrosis, Pancytopenia Disposition: ADMITTED IP TO THIS [facility] Condition: Stable Referrals: Gene Lucero DO [Primary Care Provider] - 1-2 days Decision to Admit Reason: Admit from EC Decision Date: 02/24/17 Decision Time: 19:11
[2017-02-24 17:05] LABS: VBG PH 7.5 (7.31-7.41)
[2017-02-24 17:06] LABS: Anisocytosis Moderate; CH 33.3; CHCM 33.2; HCT 23.9 % (39.0-53.0); HDW 3.06; HGB 8.1 gm/dL (13.0-17.5); MCHC 33.7 g/dL (31.0-37.0); Macrocytosis Moderate; Mean Platelet Volume 8.3; RBC 2.37 m/uL (4.30-5.90); RDW 20.1 % (11.5-15.5); WBC 3.4 k/uL (3.8-10.6); WBC (Perox) 3.37
[2017-02-24 17:20] LABS: ALT 80 U/L (21-72); AST 44 U/L (17-59); Alkaline Phosphatase 57 U/L (38-126); Anion Gap 4 mmol/L; Blood Urea Nitrogen 24 mg/dL (9-20); Calcium 9.1 mg/dL (8.4-10.2); Carbon Dioxide 39 mmol/L (22-30); Chloride 94 mmol/L (98-107); Glucose 85 mg/dL (74-99); Magnesium 1.5 mg/dL (1.6-2.3); Non-African American GFR(MDRD) >60 (>60 ml/min/1.73 sqM); Potassium 4.1 mmol/L (3.5-5.1); Sodium 137 mmol/L (137-145); Total Bilirubin 0.9 mg/dL (0.2-1.3); Total Protein 5.4 g/dL (6.3-8.2)
[2017-02-24 17:21] LABS: INR 1.1 (<1.2); Prothrombin Time 10.8 sec (9.0-12.0)
[2017-02-24 17:24] LABS: Partial Thromboplastin Time 20.2 sec (22.0-30.0)
[2017-02-24 17:25] LABS: Creatine Kinase <20 U/L (55-170)
[2017-02-24 17:37] LABS: Add Differential Manual Differential
[2017-02-24] MEDS ORDERED: MAGNESIUM SULFATE-D5W PMX 1 GM in DEXTROSE/WATER 1 100ML.BAG IVPB ONE (17:37)
[2017-02-24 17:38] LABS: Creatine Kinase MB <0.2 ng/mL (0.0-2.4); Troponin I <0.012 ng/mL (0.000-0.034)
[2017-02-24 17:40] LABS: Band Neutrophils % 4 %; Manual Review Performed; Nucleated Red Blood Cells 0 /100 WBC (0-0); Total Cells Counted 100
[2017-02-24 17:42] LABS: Ovalocytes Present; Polychromasia Present
--- NOTE | 2017-02-24 18:50 | XR ---
EXAMINATION TYPE: XR chest 2V DATE OF EXAM: 02/24/2017 COMPARISON: 02/16/2017 HISTORY: Dyspnea TECHNIQUE: Frontal and lateral views of the chest are obtained. FINDINGS: The abnormal lung inflation pattern seen on the prior study is redemonstrated, with mild in terval improvement compared to the prior study. No new findings. No abnormal gas collections. IMPRESSION: Diffuse bilateral airspace disease is somewhat improved when compared to the prior study.
[2017-02-25] MEDS: IPRATROPIUM-ALBUTEROL 3 ML NEB INHALATION PRN ×4 (07:44→20:38)
[2017-02-25] MEDS ORDERED: predniSONE 20 MG TAB PO SCH (09:00)
[2017-02-25 09:23] LABS: Anisocytosis Slight; CH 32.7; CHCM 31.7; HDW 2.92; HGB 7.8 gm/dL (13.0-17.5); Hypochromasia Slight; Immature Gran Flag Marked; MCH 33.9 pg (25.0-35.0); MCHC 32.8 g/dL (31.0-37.0); MCV 103.4 fL (80.0-100.0); Macrocytosis Marked; Mean Platelet Volume 7.8; RBC 2.32 m/uL (4.30-5.90); RDW 19.9 % (11.5-15.5); WBC (Perox) 7.15
[2017-02-25 09:41] LABS: ALT 70 U/L (21-72); AST 32 U/L (17-59); Alkaline Phosphatase 53 U/L (38-126); Anion Gap 4 mmol/L; Blood Urea Nitrogen 23 mg/dL (9-20); Carbon Dioxide 39 mmol/L (22-30); Chloride 93 mmol/L (98-107); Glucose 80 mg/dL (74-99); Magnesium 1.5 mg/dL (1.6-2.3); Non-African American GFR(MDRD) >60 (>60 ml/min/1.73 sqM); Potassium 4.5 mmol/L (3.5-5.1); Sodium 136 mmol/L (137-145); Total Bilirubin 1.1 mg/dL (0.2-1.3); Total Protein 5.5 g/dL (6.3-8.2)
[2017-02-25 10:09] LABS: Add Differential Manual Differential
[2017-02-25 10:12] LABS: Band Neutrophils % 8 %; Metamyelocytes % 2 %; Nucleated Red Blood Cells 1 /100 WBC (0-0); Polychromasia Present; Total Cells Counted 200; WBC 6.8 k/uL (3.8-10.6)
[2017-02-25] MEDS: PIPERACILLIN-TAZOBACTAM 3.375 GM in DEXTROSE/WATER 1 50ML.BAG IVPB SCH ×2 (12:49→23:29)
[2017-02-25] MEDS: methylPREDNISolone SOD SUCCI 125 MG/2 ML VIAL IV SCH ×3 (12:49→23:29)
[2017-02-25] MEDS: LEVOFLOXACIN 500 MG TAB PO SCH (12:50)
--- NOTE | 2017-02-25 14:33 | P.CNPUL ---
History of Present Illness Consult date: 02/25/17 Reason for consult: dyspnea History of present illness: 81-year-old male patient, advanced pulmonary fibrosis with an FVC of 42% of the total lung capacity of 43% along with chronic hypoxic respiratory failure maintained on oxygen 3 L/m nasal cannula was had several hospitalizations back- to-back over the past few months. After being discharged, the patient had a recent this with his past and this occurred few days back and currently his son is back in town from [place] making arrangements. The patient meanwhile was found to have worsening shortness of breath and he was unable to tolerate breathing at home as he was having significant respiratory distress, cough and congestion and wheezing and for that reason he presented to the hospital. No chills no fever. No angina no chest pain. Denies having any productive cough. Chest x-ray is consistent with pulmonary fibrosis. Note that during his most recent hospitalization the patient was treated for acute hypoxic and hypercapnic arrest 30 failure. As such an underlying COPD is also suspected. He has also significant abnormalities in his hematologic profile with pancytopenia for which a hematology consultation was obtained and the bone marrow biopsy showed mild dysplasia. Other comorbid conditions include secondary pulmonary hypertension, hypothyroidism and hyperlipidemia. Performance and functional status is poor. Currently is resting comfortably in bed. Review of Systems Constitutional: Reports fatigue, Reports lethargy, Reports poor appetite, Reports weakness Eyes: denies blurred vision, denies bulging eye, denies decreased vision Ears: deny: decreased hearing, ear discharge, earache Ears, nose, mouth and throat: Denies headache, Denies sore throat Cardiovascular: Reports decreased exercise tolerance, Reports dyspnea on exertion, Reports shortness of breath Respiratory: Reports cough, Reports dyspnea, Reports wheezing Gastrointestinal: Denies abdominal pain, Denies diarrhea, Denies nausea, Denies vomiting Musculoskeletal: Reports gait dysfunction, Reports muscle weakness, Reports myalgias Musculoskeletal: bilateral: ankle swelling, absent: ankle pain, ankle stiffness Integumentary: Denies pruritus, Denies rash Neurological: Reports gait dysfunction, Reports numbness, Reports weakness Psychiatric: Denies anxiety, Denies depression Endocrine: Denies fatigue, Denies weight change Past Medical History Past Medical History: Blood Disorder, Hyperlipidemia, Hypertension, Osteoarthritis (OA), Thyroid Disorder Additional Past Medical History / Comment(s): Advanced pulmonary fibrosis with chronic hypoxic and hypercapnic respiratory failure, COPD, secondary pulmonary hypertension, pancytopenia, myelodysplasia, hypothyroidism, hyperlipidemia, obesity, very poor baseline performance and functional status. Osteoarthritis, difficulty mobility and gait and the patient has become profoundly weak. Coronary artery disease with previous non-ST segment elevation myocardial infarction, preserved ejection fraction of 65% with severe pulmonary hypertension based on previous echocardiogram that was done back in 2014 History of Any Multi-Drug Resistant Organisms: None Reported Past Surgical History: Heart Catheterization Additional Past Surgical History / Comment(s): 10/22/14 ccath- EF 65-70%. PTO injury to groin/perineal area with surgical repair. 02/13/17 bone marrow biopsy done Past Anesthesia/Blood Transfusion Reactions: No Reported Reaction Additional Past Anesthesia/Blood Transfusion Reaction / Comment(s): Pt hs never recieved blood. Past Psychological History: No Psychological Hx Reported Additional Psychological History / Comment(s): Spouse recently, is Monday. He is normally independent. Smoking Status: Never smoker Past Alcohol Use History: None Reported Additional Past Alcohol Use History / Comment(s): Pt chews tobacco daily. He has been chewing tobacco since a teenager. Past Drug Use History: None Reported - Past Family History Father Family Medical History: No Reported History Additional Family Medical History / Comment(s): Father was healthy until his at age 81yrs old. Mother Family Medical History: CVA/TIA Additional Family Medical History / Comment(s): Mother at age 84yr old. She had a CVA at age 82or 83yrs. Medications and Allergies Home Medications Medication Instructions Recorded Confirmed Type Levothyroxine Sodium [Synthroid] 25 mcg PO DAILY 10/22/14 02/24/17 History Potassium Chloride ER [K-Dur 20] 40 meq PO DAILY #30 tab 10/29/14 02/24/17 Rx Furosemide [Lasix] 20 mg PO DAILY 02/08/17 02/24/17 History Albuterol Inhaler [Ventolin Hfa 1 - 2 puff INHALATION RT-Q6H PRN 02/24/17 History Inhaler] Simvastatin [Zocor] 40 mg PO HS 02/24/17 02/24/17 History predniSONE See Taper PO DAILY 02/24/17 02/24/17 History Allergies Allergy/AdvReac Type Severity Reaction Status Date / Time No Known Allergies Allergy Verified 02/24/17 16:33 Physical Exam Vitals: Vital Signs Temp Pulse Pulse Resp BP BP Pulse Ox 02/25/17 12:00 20 02/25/17 11:50 104 H 02/25/17 11:35 100 02/25/17 08:00 90 20 02/25/17 07:57 108 H 02/25/17 07:45 104 H 02/25/17 07:00 98.4 F 101 H 18 115/58 87 L 02/24/17 23:50 99 02/24/17 23:30 97.4 F L 53 L 20 93/53 98 02/24/17 20:55 97.8 F 82 18 97/51 96 02/24/17 19:59 99 02/24/17 19:28 77 18 100/54 93 L 02/24/17 18:56 98.2 F 83 18 116/66 96 02/24/17 17:55 87 22 90/58 93 L 02/24/17 17:30 96 22 106/56 94 L 02/24/17 17:12 76 02/24/17 17:01 78 02/24/17 17:00 86 24 91/53 92 L 02/24/17 16:40 64 22 103/68 92 L 02/24/17 16:29 98.2 F 86 22 91/53 95 Intake and Output 02/24/17 02/25/17 02/25/17 22:59 06:59 14:59 Intake Total 400 100 Output Total 125 Balance 400 100 -125 Intake: Oral 400 100 Output: Urine 125 Other: # Voids 1 Weight 80.739 kg Obese, comfortable HEENT mild degree of respiratory distress. Elderly.Head exam was generally normal. There was no scleral icterus or corneal arcus. Mucous membranes were moist. Neck is supple and short and there is significant crowding of the posterior oropharynx. There is no goiter or neck masses. Lungs sounds revealed coarse crackles in the mid and lower lung cash bilaterally along with some scattered rhonchi and scattered expiratory wheezes. Heart sounds are regular, there is accentuation of second heart sound and there is no significant murmurs appreciated.Abdominal exam revealed normal bowel sounds. The abdomen was soft, non-tender, and without masses, organomegaly , or appreciable enlargement of the abdominal aorta. Extremities reveal trace edema and there is no cyanosis or clubbing. Neurologically is awake and alert and following commands and his exam is nonfocal. Skeletal exam shows no active arthritis or joint deformities.Examination of the skin revealed no evidence of significant rashes, suspicious appearing nevi or other concerning lesions. Results - Laboratory Findings CBC and BMP: 02/25/17 08:40 02/25/17 08:40 PT/INR, D-dimer PT 10.8 sec (9.0-12.0) 02/24/17 16:45 INR 1.1 (<1.2) 02/24/17 16:45 D-Dimer 1.11 mg/L FEU (<0.60) H 02/25/17 08:40 Abnormal lab findings: Abnormal Labs 02/24/17 02/24/17 02/24/17 16:45 16:45 16:45 WBC 3.4 L RBC 2.37 L Hgb 8.1 L Hct 23.9 L MCV 101.0 H RDW 20.1 H Plt Count 35 L* Neutrophils # (Manual) 0.60 L Metamyelocytes # (Man) Nucleated RBCs APTT D-Dimer VBG pH VBG pCO2 VBG HCO3 Sodium Chloride 94 L Carbon Dioxide 39 H BUN 24 H Magnesium 1.5 L ALT 80 H Total Creatine Kinase <20 L Total Protein 5.4 L Albumin 3.0 L 02/24/17 02/24/17 02/25/17 16:45 16:45 08:40 WBC RBC 2.32 L Hgb 7.8 L Hct 24.0 L MCV 103.4 H RDW 19.9 H Plt Count 33 L* Neutrophils # (Manual) Metamyelocytes # (Man) 0.14 H Nucleated RBCs 1 H APTT 20.2 L D-Dimer VBG pH 7.50 H VBG pCO2 54 H VBG HCO3 41 H Sodium Chloride Carbon Dioxide BUN Magnesium ALT Total Creatine Kinase Total Protein Albumin 02/25/17 02/25/17 08:40 08:40 WBC RBC Hgb Hct MCV RDW Plt Count Neutrophils # (Manual) Metamyelocytes # (Man) Nucleated RBCs APTT D-Dimer 1.11 H VBG pH VBG pCO2 VBG HCO3 Sodium 136 L Chloride 93 L Carbon Dioxide 39 H BUN 23 H Magnesium 1.5 L ALT Total Creatine Kinase Total Protein 5.5 L Albumin 3.0 L - Diagnostic Findings Chest x-ray: image reviewed Assessment and Plan Plan: Assessment 1 severe pulmonary fibrosis with severe restrictive lung disease based on his baseline pulmonary function test 2 COPD 3 chronic hypoxic and hypercapnic respiratory failure 4 chronic dyspnea with interval worsening shortness of breath. The exact cause is not clear. Rule out superimposed pneumonia. Rule out superimposed CHF 5 pancytopenia related to mild dysplasia 6 coronary artery disease with previous non-ST segment elevation myocardial infarction 7 severe pulmonary hypertension probably related to his chronic lung disease 8 hypertension 9 hypothyroidism 10 obesity 11 impaired performance and functional status secondary to above-mentioned comorbidities. Plan Put the patient on DuoNeb about treatments around the clock. IV Zosyn. IV Solu -Medrol. 40 mg of Lasix IV push 1. Repeat echocardiogram. Performance and functional status is extremely poor. May need placement to a jail. Based on my assessment, the patient's lung disease is quite advanced if not end- stage. We'll follow. SCD for DVT prophylaxis.
[2017-02-25] MEDS ORDERED: FUROSEMIDE 10 MG/ML 4 ML VIAL IV STA (14:37)
[2017-02-25 15:22] LABS: Glucose,Whole Blood 131 mg/dL (75-99)
[2017-02-25] MEDS ORDERED: HEPARIN SODIUM,PORCINE 5,000 UNIT/ML 1 ML VIAL SQ SCH (16:00)
[2017-02-25 17:07] LABS: Glucose,Whole Blood 132 mg/dL (75-99)
[2017-02-25] MEDS: INSULIN LISPRO (humaLOG) 300 UNIT/3 ML VIAL SQ SCH ×2 (17:30→21:45)
[2017-02-25 17:33] LABS: Hemoglobin A1C 5.9 % (4.2-6.1)
--- NOTE | 2017-02-25 19:32 | HP ---
HISTORY AND PHYSICAL CHIEF COMPLAINT: Weakness. HISTORY OF PRESENT ILLNESS: This 81-year-old, gentleman with a past medical history of multiple medical problems such as COPD, pulmonary fibrosis, hypothyroidism, recently admitted with acute hypercapnic respiratory failure. The patient was sent home with home health but subsequently patient readmitted with shortness of breath and multiple other medical issues. Apparently the recently after suffering a fall also. The patient has significant respiratory distress and also had complaints of weakness also. There is no history of fever, rigors. No headache, loss of consciousness or seizures. PAST MEDICAL HISTORY: History of pulmonary fibrosis, history hypertension, hyperlipidemia, history of DJD. MEDICATIONS: Prior to admission include home medications are: 1. Prednisone taper. 2. Zocor 40 mg q.h.s. 3. K-Dur 40 mg p.o. daily. 4. Synthroid 25 mcg. 5. Lasix 20 mg p.o. daily. 6. Ventolin HFA 1 to 2 puffs q.6 p.r.n. ALLERGIES: Allergies are none. FAMILY HISTORY: No history of heart disease or strokes in the family. SOCIAL HISTORY: No history of smoking. No history of alcohol intake. REVIEW OF SYSTEMS: ENT: Diminished hearing and vision. CARDIOVASCULAR: No angina. RESPIRATORY: As mentioned earlier. GI: No nausea. : No dysuria. NERVOUS SYSTEM: No numbness or weakness. Generalized weakness. ALLERGY/IMMUNOLOGY: No asthma or hayfever. MUSCULOSKELETAL: As mentioned earlier. HEMATOLOGY/ONCOLOGY: No history of anemia. ENDOCRINE: No history of diabetes or hypothyroidism. CONSTITUTIONAL: As mentioned earlier. DERMATOLOGY: Negative. RHEUMATOLOGY: Negative. PSYCHIATRY: As mentioned earlier. PHYSICAL EXAMINATION: Alert and oriented x3. Pulse 90, blood pressure 77/42, respirations 16, temperature 97.9, pulse ox 99% on 3 L. HEENT: Conjunctivae normal. Oral mucosa moist. NECK: No jugular venous distention. No carotid bruit. No lymph node enlargement. CARDIOVASCULAR: S1, S2. No S3, no S4. RESPIRATORY: Breath sounds diminished at the bases. A few scattered rhonchi and crackles and expiratory wheezing also present. ABDOMEN: Soft, nontender. No mass palpable. LEGS: No edema. No swelling. NERVOUS SYSTEM: Higher functions as mentioned earlier. Moves all four limbs. No focal deficits. LYMPHATICS: No lymphadenopathy in the neck, axillae or groin. SKIN: No rash, ulcer bleeding. LABS: At this time shows WBC 6.8, hemoglobin 7.8, and platelets are 33. d-dimer is 1.1. ASSESSMENT: 1. Acute hypoxic respiratory failure with acute on chronic changes secondary to pulmonary fibrosis acute exacerbation. 2. Chronic obstructive pulmonary disease. 3. Anemia. 4. Thrombocytopenia. 5. Hyponatremia. 6. Gait dysfunction. 7. History of hyperlipidemia. 8. Hypertension. 9. Hypothyroidism. 10.History of degenerative joint disease. RECOMMENDATIONS AND DISCUSSION: In this 81-year-old gentleman who presented with multiple complex medical issues, will monitor the patient closely. Continue the current management and symptomatic treatment. Will optimize bronchodilator treatment. Consult Dr. Richardson. Monitor blood pressure closely. Otherwise repeat labs. PT, OT evaluation. Possible ECF rehab. We will also discuss with the son over the phone regarding the home situation. Guarded prognosis. Further recommendations to follow. CHANDLER / JOSEN: [id number] /
[2017-02-25] MEDS: HEPARIN SODIUM,PORCINE 5,000 UNIT/ML 1 ML VIAL SQ SCH (21:42)
[2017-02-25] MEDS: ATORVASTATIN 20 MG TAB PO SCH (21:42)
[2017-02-25 22:00] LABS: Glucose,Whole Blood 179 mg/dL (75-99)
[2017-02-26 01:47] LABS: Appearance,Urine Clear (Clear); Bilirubin,Urine Negative (Negative); Glucose,Urine (UA) Negative (Negative); Ketones,Urine Trace (Negative); Leukocyte Esterase,Urine Negative (Negative); Nitrite,Urine Negative (Negative); Protein,Urine Negative (Negative); Specific Gravity,Urine 1.025 (1.001-1.035); UA Billing (MACRO vs. MICRO) CHEM; Urobilinogen,Urine <2.0 mg/dL (<2.0)
[2017-02-26] MEDS: LEVOTHYROXINE 25 MCG TAB PO SCH (05:21)
[2017-02-26] MEDS: methylPREDNISolone SOD SUCCI 125 MG/2 ML VIAL IV SCH ×3 (05:21→17:51)
[2017-02-26 07:29] LABS: Glucose,Whole Blood 144 mg/dL (75-99)
[2017-02-26] MEDS: POTASSIUM CHLORIDE ER 20 MEQ TAB.ER PO SCH (07:47)
[2017-02-26] MEDS: LEVOFLOXACIN 500 MG TAB PO SCH (07:47)
[2017-02-26] MEDS: INSULIN LISPRO (humaLOG) 300 UNIT/3 ML VIAL SQ SCH ×4 (07:47→21:20)
[2017-02-26] MEDS: PIPERACILLIN-TAZOBACTAM 3.375 GM in DEXTROSE/WATER 1 50ML.BAG IVPB SCH ×3 (07:47→15:29)
[2017-02-26] MEDS: HEPARIN SODIUM,PORCINE 5,000 UNIT/ML 1 ML VIAL SQ SCH ×2 (07:47→21:20)
[2017-02-26] MEDS: IPRATROPIUM-ALBUTEROL 3 ML NEB INHALATION PRN (07:50)
[2017-02-26 09:26] LABS: Anion Gap 8 mmol/L; Blood Urea Nitrogen 30 mg/dL (9-20); Calcium 9.2 mg/dL (8.4-10.2); Carbon Dioxide 34 mmol/L (22-30); Chloride 93 mmol/L (98-107); Glucose 210 mg/dL (74-99); Non-African American GFR(MDRD) >60 (>60 ml/min/1.73 sqM); Potassium 4.2 mmol/L (3.5-5.1); Sodium 135 mmol/L (137-145)
[2017-02-26 09:29] LABS: Anisocytosis Moderate; Basophils % (A) 0 %; CH 32.9; CHCM 31.8; Eosinophils % (A) 0 %; HCT 24.8 % (39.0-53.0); HDW 2.88; HGB 8.1 gm/dL (13.0-17.5); Hypochromasia Slight; Luc # (Auto) 0.02; Luc % (Auto) 0; Lymphocytes # (A) 0.9 k/uL (1.0-4.8); Lymphocytes % (A) 11 %; MCH 33.8 pg (25.0-35.0); MCHC 32.5 g/dL (31.0-37.0); MCV 103.9 fL (80.0-100.0); Macrocytosis Marked; Mean Platelet Volume 8.1; Monocytes # (A) 0.5 k/uL (0-1.0); Monocytes % (A) 6 %; Neutrophils # (A) 6.9 k/uL (1.3-7.7); Neutrophils % (A) 83 %; RBC 2.39 m/uL (4.30-5.90); RDW 20.1 % (11.5-15.5); WBC 8.3 k/uL (3.8-10.6); WBC (Perox) 8.42
[2017-02-26 12:34] LABS: Glucose,Whole Blood 123 mg/dL (75-99)
--- NOTE | 2017-02-26 13:24 | P.PN ---
Subjective 81-year-old male patient, advanced pulmonary fibrosis with an FVC of 42% of the total lung capacity of 43% along with chronic hypoxic respiratory failure maintained on oxygen 3 L/m nasal cannula was had several hospitalizations back- to-back over the past few months. After being discharged, the patient had a recent this with his past and this occurred few days back and currently his son is back in town from [place] making arrangements. The patient meanwhile was found to have worsening shortness of breath and he was unable to tolerate breathing at home as he was having significant respiratory distress, cough and congestion and wheezing and for that reason he presented to the hospital. No chills no fever. No angina no chest pain. Denies having any productive cough. Chest x-ray is consistent with pulmonary fibrosis. Note that during his most recent hospitalization the patient was treated for acute hypoxic and hypercapnic arrest 30 failure. As such an underlying COPD is also suspected. He has also significant abnormalities in his hematologic profile with pancytopenia for which a hematology consultation was obtained and the bone marrow biopsy showed mild dysplasia. Other comorbid conditions include secondary pulmonary hypertension, hypothyroidism and hyperlipidemia. Performance and functional status is poor. Currently is resting comfortably in bed. On the patient is doing better compared to yesterday. Less short of breath. His breathing is less congested and he has limited cough. No chest pain no significant swelling lower extremities. He is able to speak in full sentences and there is been significant improvement in his condition over the past 24 hours. I covered this patient IV Solu-Medrol in addition to bronchodilators. I also covered him with empiric antibiotic and the patient is currently on IV Zosyn and Levaquin. Objective - Vital Signs Vital signs: Vital Signs Temp 96.3 F L 02/26/17 07:00 Pulse 88 02/26/17 07:50 Resp 16 02/26/17 07:00 BP 89/53 02/26/17 07:00 Pulse Ox 98 02/26/17 07:00 Intake & Output 02/25/17 02/26/17 02/26/17 18:59 06:59 18:59 Intake Total 300 Output Total 225 250 200 Balance -225 50 -200 Intake: Oral 300 Output: Urine 225 250 200 Other: Voiding Method Urinal # Voids 1 1 - Exam Obese, comfortable and he is in not in any form of respiratory distress. Elderly.Head exam was generally normal. There was no scleral icterus or corneal arcus. Mucous membranes were moist. Neck is supple and short and there is significant crowding of the posterior oropharynx. There is no goiter or neck masses. Lungs sounds revealed coarse crackles in the mid and lower lung cash bilaterally along with some scattered rhonchi and scattered expiratory wheezes. Heart sounds are regular, there is accentuation of second heart sound and there is no significant murmurs appreciated.Abdominal exam revealed normal bowel sounds. The abdomen was soft, non-tender, and without masses, organomegaly , or appreciable enlargement of the abdominal aorta. Extremities reveal trace edema and there is no cyanosis or clubbing. Neurologically is awake and alert and following commands and his exam is nonfocal. Skeletal exam shows no active arthritis or joint deformities.Examination of the skin revealed no evidence of significant rashes, suspicious appearing nevi or other concerning lesions. - Labs CBC & Chem 7: 02/26/17 08:53 02/26/17 08:53 Labs: Abnormal Lab Results - Last 24 Hours (Table) 02/25/17 02/25/17 02/25/17 Range/Units 15:02 16:55 21:45 RBC (4.30-5.90) m/uL Hgb (13.0-17.5) gm/dL Hct (39.0-53.0) % MCV (80.0-100.0) fL RDW (11.5-15.5) % Plt Count (150-450) k/uL Lymphocytes # (1.0-4.8) k/uL Sodium (137-145) mmol/L Chloride (98-107) mmol/L Carbon Dioxide (22-30) mmol/L BUN (9-20) mg/dL Glucose (74-99) mg/dL POC Glucose (mg/dL) 131 H 132 H 179 H (75-99) mg/dL Urine Ketones (Negative) 02/26/17 02/26/17 02/26/17 Range/Units 01:36 06:57 08:53 RBC 2.39 L (4.30-5.90) m/uL Hgb 8.1 L (13.0-17.5) gm/dL Hct 24.8 L (39.0-53.0) % MCV 103.9 H (80.0-100.0) fL RDW 20.1 H (11.5-15.5) % Plt Count 31 L* (150-450) k/uL Lymphocytes # 0.9 L (1.0-4.8) k/uL Sodium (137-145) mmol/L Chloride (98-107) mmol/L Carbon Dioxide (22-30) mmol/L BUN (9-20) mg/dL Glucose (74-99) mg/dL POC Glucose (mg/dL) 144 H (75-99) mg/dL Urine Ketones Trace H (Negative) 02/26/17 02/26/17 Range/Units 08:53 12:25 RBC (4.30-5.90) m/uL Hgb (13.0-17.5) gm/dL Hct (39.0-53.0) % MCV (80.0-100.0) fL RDW (11.5-15.5) % Plt Count (150-450) k/uL Lymphocytes # (1.0-4.8) k/uL Sodium 135 L (137-145) mmol/L Chloride 93 L (98-107) mmol/L Carbon Dioxide 34 H (22-30) mmol/L BUN 30 H (9-20) mg/dL Glucose 210 H (74-99) mg/dL POC Glucose (mg/dL) 123 H (75-99) mg/dL Urine Ketones (Negative) Assessment and Plan Plan: Assessment 1 severe pulmonary fibrosis with severe restrictive lung disease based on his baseline pulmonary function test 2 COPD 3 chronic hypoxic and hypercapnic respiratory failure 4 chronic dyspnea with interval worsening shortness of breath. The exact cause is not clear. Rule out superimposed pneumonia. Rule out superimposed CHF 5 pancytopenia related to myelodysplasia 6 coronary artery disease with previous non-ST segment elevation myocardial infarction 7 severe pulmonary hypertension probably related to his chronic lung disease 8 hypertension 9 hypothyroidism 10 obesity 11 impaired performance and functional status secondary to above-mentioned comorbidities. Plan Continue same treatment. The patient is improving. Monitor hematologic profile as the patient has an underlying component of myelodysplasia. May leave the hospital briefly to attend his his 's tomorrow. He will need placement monitor the patient's pulmonary fibrosis quite advanced and he will not be able to live independently based on his advanced lung disease and poor performance and functional status. No need for any further diuretics at this point.
[2017-02-26 17:02] LABS: Glucose,Whole Blood 149 mg/dL (75-99)
--- NOTE | 2017-02-26 19:12 | PN ---
PROGRESS NOTE DATE OF SERVICE: 02/26/2017 INTERVAL HISTORY: This 31 -year-old gentleman who was admitted with acute hypoxic respiratory failure secondary to pulmonary fibrosis acute exacerbation being closely monitored. Apparently the patient's also recently tragically after a fall in the parking lot. The is tomorrow. The patient on broad-spectrum IV antibiotics. Also discussed at length with the son over the phone. The patient has significant issues with home situation also. PT/OT as well as public health social worker and showcase trimmer asked to evaluate the patient for possible ECF rehab also at this time. PAST MEDICAL HISTORY: Reviewed. REVIEW OF SYSTEMS: Cardio system: No angina or palpitations. Respiration: As mentioned. GI: As mentioned earlier. : No dysuria, retention. Central nervous system: As mentioned earlier. CURRENT MEDICATIONS: Reviewed and include: 1. DuoNeb q.i.d. and p.r.n. 2. Lipitor 20 mg q.h.s. 3. Heparin 5000 subcu b.i.d. 4. Humalog scale. 5. Levaquin 500 mg daily. 6. Synthroid. 7. Zosyn 3.375 IV q.8h. 8. K-Dur 40 mg p.o. daily. PHYSICAL EXAM: Patient is alert, oriented times two. Pulse 87, blood pressure 119/54, respirations 16, temperature 97.2, pulse ox 97% on 3 L. HEENT: Conjunctivae normal. Oral mucosa moist. Neck is no jugular venous distention. No carotid bruit. No lymph node enlargement. Cardiovascular: S1, S2 muffled. Respiratory: Breath sounds diminished in the bases. A few scattered rhonchi and crackles. Emphysematous. ABDOMEN: Soft, nontender. No mass palpable. Legs no edema. Nervous system: Higher functions as mentioned earlier. Moves all four limbs. No focal motor or sensory deficits. Lymphatics: No lymph nodes palpable in the neck, axillae or groin. Skin: No ulcer, rash, bleeding. LABS: At this time shows WBC 8.2, hemoglobin is 8.1, platelets 131, sodium 135. ASSESSMENT: 1. Acute hypoxic respiratory failure with acute on chronic changes secondary to pulmonary fibrosis acute exacerbation. 2. Chronic obstructive pulmonary disease. 3. Anemia. 4. Thrombocytopenia. 5. Gait dysfunction. 6. History of hyperlipidemia. 7. Hypertension essential. 8. Hypothyroidism. 9. History of degenerative joint disease. RECOMMENDATIONS AND DISCUSSION: Recommend to continue current medications. Continue with monitoring and symptomatic treatment. Otherwise at this time I recommend PT/OT evaluation. Possible ECF rehab. Prognosis guarded which I discussed at length with Zeferino, the son over the phone who understands and agrees. Further recommendations to follow. See orders for details. MMODL / IJN: [id number] /
[2017-02-26 20:20] LABS: Glucose,Whole Blood 146 mg/dL (75-99)
[2017-02-26] MEDS: ATORVASTATIN 20 MG TAB PO SCH (21:19)
[2017-02-27] MEDS: methylPREDNISolone SOD SUCCI 125 MG/2 ML VIAL IV SCH ×4 (00:23→20:54)
[2017-02-27] MEDS: PIPERACILLIN-TAZOBACTAM 3.375 GM in DEXTROSE/WATER 1 50ML.BAG IVPB SCH ×3 (00:23→16:21)
[2017-02-27] MEDS: LEVOTHYROXINE 25 MCG TAB PO SCH (06:06)
[2017-02-27 07:04] LABS: Glucose,Whole Blood 132 mg/dL (75-99)
[2017-02-27] MEDS: INSULIN LISPRO (humaLOG) 300 UNIT/3 ML VIAL SQ SCH ×4 (09:44→20:56)
[2017-02-27] MEDS: HEPARIN SODIUM,PORCINE 5,000 UNIT/ML 1 ML VIAL SQ SCH ×2 (09:44→20:54)
[2017-02-27] MEDS: LEVOFLOXACIN 500 MG TAB PO SCH (09:45)
[2017-02-27] MEDS: POTASSIUM CHLORIDE ER 20 MEQ TAB.ER PO SCH (09:45)
[2017-02-27 09:48] LABS: Anisocytosis Moderate; Basophils % (A) 0 %; CH 33.6; CHCM 32.6; Eosinophils % (A) 0 %; HCT 22.1 % (39.0-53.0); HDW 2.91; HGB 7.1 gm/dL (13.0-17.5); Luc # (Auto) 0.02; Luc % (Auto) 0; Lymphocytes # (A) 0.4 k/uL (1.0-4.8); Lymphocytes % (A) 10 %; MCH 33.3 pg (25.0-35.0); MCHC 32.1 g/dL (31.0-37.0); MCV 103.6 fL (80.0-100.0); Macrocytosis Marked; Mean Platelet Volume 8.5; Monocytes # (A) 0.2 k/uL (0-1.0); Monocytes % (A) 5 %; Neutrophils # (A) 3.5 k/uL (1.3-7.7); Neutrophils % (A) 84 %; RBC 2.13 m/uL (4.30-5.90); RDW 21.2 % (11.5-15.5); WBC 4.2 k/uL (3.8-10.6); WBC (Perox) 4.56
[2017-02-27 10:12] LABS: Anion Gap 4 mmol/L; Blood Urea Nitrogen 31 mg/dL (9-20); Carbon Dioxide 38 mmol/L (22-30); Chloride 95 mmol/L (98-107); Glucose 157 mg/dL (74-99); Non-African American GFR(MDRD) >60 (>60 ml/min/1.73 sqM); Potassium 4.2 mmol/L (3.5-5.1); Sodium 137 mmol/L (137-145)
[2017-02-27 11:26] LABS: Manual Review Performed
[2017-02-27 11:27] LABS: Toxic Granulation Present
--- NOTE | 2017-02-27 16:36 | P.PN ---
Subjective Principal diagnosis: severe pulmonary fibrosis with severe restrictive lung disease based on his baseline pulmonary function test, chronic dyspnea with interval worsening shortness of breath. 81-year-old male patient, advanced pulmonary fibrosis with an FVC of 42% of the total lung capacity of 43% along with chronic hypoxic respiratory failure maintained on oxygen 3 L/m nasal cannula was had several hospitalizations back- to-back over the past few months. After being discharged, the patient had a recent this with his past and this occurred few days back and currently his son is back in town from [place] making arrangements. The patient meanwhile was found to have worsening shortness of breath and he was unable to tolerate breathing at home as he was having significant respiratory distress, cough and congestion and wheezing and for that reason he presented to the hospital. No chills no fever. No angina no chest pain. Denies having any productive cough. Chest x-ray is consistent with pulmonary fibrosis. Note that during his most recent hospitalization the patient was treated for acute hypoxic and hypercapnic arrest 30 failure. As such an underlying COPD is also suspected. He has also significant abnormalities in his hematologic profile with pancytopenia for which a hematology consultation was obtained and the bone marrow biopsy showed mild dysplasia. Other comorbid conditions include secondary pulmonary hypertension, hypothyroidism and hyperlipidemia. Performance and functional status is poor. Currently is resting comfortably in bed. On the patient is doing better compared to yesterday. Less short of breath. His breathing is less congested and he has limited cough. No chest pain no significant swelling lower extremities. He is able to speak in full sentences and there is been significant improvement in his condition over the past 24 hours. I covered this patient IV Solu-Medrol in addition to bronchodilators. I also covered him with empiric antibiotic and the patient is currently on IV Zosyn and Levaquin. 02/27/2017 the patient is being seen in follow-up. He is resting in bed with no signs of acute respiratory distress. He attended his 's today. Patient denies chest pain, chest congestion. On examination lung sounds coarse rales over posterior bases, left greater than the right. He is on 3 L oxygen per nasal cannula, maintaining sats from 91-98%. Afebrile, hemodynamically stable. Continues on IV Zosyn and Levaquin, no significant sputum production. Objective - Vital Signs Vital signs: Vital Signs Temp 96.8 F L 02/27/17 15:00 Pulse 74 02/27/17 15:00 Resp 18 02/27/17 15:00 BP 107/58 02/27/17 15:00 Pulse Ox 97 02/27/17 15:00 Intake & Output 02/26/17 02/27/17 02/27/17 18:59 06:59 18:59 Output Total 400 600 450 Balance -400 -600 -450 Output: Urine 400 600 450 Other: Voiding Method Urinal Urinal # Voids 1 2 # Bowel Movements 1 - Exam Obese, comfortable and he is in not in any form of respiratory distress. Elderly. Head exam was generally normal. There was no scleral icterus or corneal arcus. Mucous membranes were moist. Neck is supple and short and there is significant crowding of the posterior oropharynx. There is no goiter or neck masses. Lungs sounds revealed coarse crackles in the mid and lower lung cash bilaterally along with some scattered rhonchi and scattered expiratory wheezes. Heart sounds are regular, there is accentuation of second heart sound and there is no significant murmurs appreciated. Abdominal exam revealed normal bowel sounds. The abdomen was soft, non-tender, and without masses, organomegaly, or appreciable enlargement of the abdominal aorta. Extremities reveal trace edema and there is no cyanosis or clubbing. Neurologically is awake and alert and following commands and his exam is nonfocal. Skeletal exam shows no active arthritis or joint deformities.Examination of the skin revealed no evidence of significant rashes, suspicious appearing nevi or other concerning lesions. Psychiatric: Affect appropriate. - Labs CBC & Chem 7: 02/27/17 09:27 02/27/17 09:27 Labs: Abnormal Lab Results - Last 24 Hours (Table) 02/26/17 02/26/17 02/27/17 Range/Units 16:58 20:19 07:02 RBC (4.30-5.90) m/uL Hgb (13.0-17.5) gm/dL Hct (39.0-53.0) % MCV (80.0-100.0) fL RDW (11.5-15.5) % Plt Count (150-450) k/uL Lymphocytes # (1.0-4.8) k/uL Chloride (98-107) mmol/L Carbon Dioxide (22-30) mmol/L BUN (9-20) mg/dL Glucose (74-99) mg/dL POC Glucose (mg/dL) 149 H 146 H 132 H (75-99) mg/dL 02/27/17 02/27/17 Range/Units 09:27 09:27 RBC 2.13 L (4.30-5.90) m/uL Hgb 7.1 L (13.0-17.5) gm/dL Hct 22.1 L (39.0-53.0) % MCV 103.6 H (80.0-100.0) fL RDW 21.2 H (11.5-15.5) % Plt Count 32 L* (150-450) k/uL Lymphocytes # 0.4 L (1.0-4.8) k/uL Chloride 95 L (98-107) mmol/L Carbon Dioxide 38 H (22-30) mmol/L BUN 31 H (9-20) mg/dL Glucose 157 H (74-99) mg/dL POC Glucose (mg/dL) (75-99) mg/dL Assessment and Plan Plan: Assessment 1 severe pulmonary fibrosis with severe restrictive lung disease based on his baseline pulmonary function test 2 COPD 3 chronic hypoxic and hypercapnic respiratory failure 4 chronic dyspnea with interval worsening shortness of breath. The exact cause is not clear. Rule out superimposed pneumonia. 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 Plan Continue same treatment. The patient is improving. Monitor hematologic profile as the patient has an underlying component of myelodysplasia. He will need placement monitor the patient's pulmonary fibrosis quite advanced and he will not be able to live independently based on his advanced lung disease and poor performance and functional status. No need for any further diuretics at this point. I performed a history & physical examination of the patient and discussed their management with my nurse practitioner, Katharina Crisostomo. I reviewed the nurse practitioner's note and agree with the documented findings and plan of care.
[2017-02-27 17:19] LABS: Glucose,Whole Blood 155 mg/dL (75-99)
--- NOTE | 2017-02-27 18:15 | P.PN ---
Subjective Date of service 02/27/2017. Progress note being dictated for Dr. Delgado. Interval history: This is a 81-year-old gentleman admitted with acute hypoxic respiratory failure, pulmonary fibrosis and multiple other medical issues. Maintained on IV antibiotics of Zosyn and Levaquin, steroids and nebulized bronchodilators. Breathing improving. Patient attending 's today. PT OT evaluation noted including poor functional endurance, possible subacute rehab at discharge. Denies chest pain, palpitations or increasing shortness of breath. Afebrile. Maintaining O2 sats in the 90s on 3 L nasal cannula. Objective - Vital Signs Vital signs: Vital Signs Temp 96.8 F L 02/27/17 15:00 Pulse 74 02/27/17 15:00 Resp 18 02/27/17 15:00 BP 107/58 02/27/17 15:00 Pulse Ox 97 02/27/17 15:00 Intake & Output 02/26/17 02/27/17 02/27/17 18:59 06:59 18:59 Output Total 400 600 450 Balance -400 -600 -450 Output: Urine 400 600 450 Other: Voiding Method Urinal Urinal # Voids 1 2 # Bowel Movements 1 - Exam PHYSICAL EXAM: VITAL SIGNS: As above GENERAL: Sitting up in bed, no acute distress HEENT: Conjunctivae normal. eyes normal. NECK: No JVD. No thyroid enlargement. No LNs CARDIOVASCULAR: S1, S2 muffled. No murmur RESPIRATION: Breath sounds diminished in the bases. Fine scattered rhonchi and crackles. Emphysematous ABDOMEN: Soft, nontender . No guarding. no masses palpable. No ascites, No hepatosplenomegaly.Bowel sounds heard. LEGS: No edema. no swelling PSYCHIATRY: Alert and oriented -3, mood and affect normal. NERVOUS SYSTEM: Cranial N 2-12 grossly normal. Moves all 4 limbs. Diffuse weakness No focal deficits. No sensory deficit. No signs of cerebellar dysfucntion. Skin: no ulcer no rash Joints: No active swelling. No inflammation. Lymphatic system. No LN neck axilla or groin. - Labs CBC & Chem 7: 02/27/17 09:27 02/27/17 09:27 Labs: Abnormal Lab Results - Last 24 Hours (Table) 02/26/17 02/27/17 02/27/17 Range/Units 20:19 07:02 09:27 RBC 2.13 L (4.30-5.90) m/uL Hgb 7.1 L (13.0-17.5) gm/dL Hct 22.1 L (39.0-53.0) % MCV 103.6 H (80.0-100.0) fL RDW 21.2 H (11.5-15.5) % Plt Count 32 L* (150-450) k/uL Lymphocytes # 0.4 L (1.0-4.8) k/uL Chloride (98-107) mmol/L Carbon Dioxide (22-30) mmol/L BUN (9-20) mg/dL Glucose (74-99) mg/dL POC Glucose (mg/dL) 146 H 132 H (75-99) mg/dL 02/27/17 02/27/17 Range/Units 09:27 17:11 RBC (4.30-5.90) m/uL Hgb (13.0-17.5) gm/dL Hct (39.0-53.0) % MCV (80.0-100.0) fL RDW (11.5-15.5) % Plt Count (150-450) k/uL Lymphocytes # (1.0-4.8) k/uL Chloride 95 L (98-107) mmol/L Carbon Dioxide 38 H (22-30) mmol/L BUN 31 H (9-20) mg/dL Glucose 157 H (74-99) mg/dL POC Glucose (mg/dL) 155 H (75-99) mg/dL Assessment and Plan Plan: 1. [ Acute hypoxic respiratory failure with acute on chronic changes secondary to pulmonary fibrosis acute exacerbation]. 2. [ COPD]. 3. [ Gait dysfunction, degenerative joint disease]. 4. [ Anemia]. 5. [ Essential hypertension]. 6. [ Thrombocytopenia]. Plan: Continue on current medication regime , nebulized bronchodilators, steroids, antibiotics ,monitoring and symptomatic treatment. PT/OT. subacute rehab. At discharge.Follow closely with pulmonary. Further recommendations to follow. The impression and plan of care has been dictated as directed. : I performed a H&P examination of this patient and discussed the same with the dictator. I agree with the dictator's note. Any additional findings/opinions/ etc. will be noted.
[2017-02-27 20:38] LABS: Glucose,Whole Blood 149 mg/dL (75-99)
[2017-02-27] MEDS: ATORVASTATIN 20 MG TAB PO SCH (20:54)
--- NOTE | 2017-02-28 00:20 | P.CONS ---
History of Present Illness - Reason for Consult Consult date: 02/27/17 - History of Present Illness Mr Parker is an 81 ur old WM, who was initially evaluated as inpatient in for pancytopenia and severe anemia,required blood transfusion,on ,his hemoglobin was 6.6gm/dl,MCV 112.5,total wbc were 2.2K and platelets counts were 22K,his serum ferritin was 985,iron saturation of 97%,serum iron 193 ,SPEP and immunofixation revealed hypoalbuninemia,no evidence of monocloncal protein.High RBC folate level,methylmalonic acid was normal,0.22. He had an echocardiogram in which revealed pulmonary hypertension. CBC from 11/26/2014 had revealed macrocytosis,MCV 105.3,hemoglobin was 12.0gm/dl, total wbc,platelets counts were 127K. He had been feeling progressively tired over the last few months,lost about 20 pounds within the last few months,significant exertional dyspnea,has been on home O2 since he was discharged from hospital,no GI or bleed,no epistaxis, has some bruises on both hands.No known history of liver disorders,no ETOH He was seen by Dr Luz for outpt f/u and had a bone marrow on 02/13/17. The patient has known pulmonary fibrosis, and shortness of breath at baseline. He was admitted because of worsening shortness of breath. Consult was placed for further evaluation and recommendations. Review of Systems Constitutional: Reports poor appetite, Reports weakness, Reports weight loss Eyes: denies blurred vision, denies pain Ears: deny: decreased hearing, ear discharge, earache, tinnitus Ears, nose, mouth and throat: Denies headache, Denies sore throat Cardiovascular: Reports dyspnea on exertion Respiratory: Reports dyspnea, Reports home oxygen Gastrointestinal: Denies abdominal pain, Denies diarrhea, Denies nausea, Denies vomiting Genitourinary: Reports urinary frequency Musculoskeletal: Reports muscle weakness Integumentary: Denies pruritus, Denies rash Neurological: Reports weakness Psychiatric: Denies anxiety, Denies depression Endocrine: Reports fatigue, Reports weight change Hematologic/Lymphatic: Reports as per HPI Past Medical History Past Medical History: Blood Disorder, Hyperlipidemia, Hypertension, Osteoarthritis (OA), Thyroid Disorder Additional Past Medical History / Comment(s): Advanced pulmonary fibrosis with chronic hypoxic and hypercapnic respiratory failure, COPD, secondary pulmonary hypertension, pancytopenia, myelodysplasia, hypothyroidism, hyperlipidemia, obesity, very poor baseline performance and functional status. Osteoarthritis, difficulty mobility and gait and the patient has become profoundly weak. Coronary artery disease with previous non-ST segment elevation myocardial infarction, preserved ejection fraction of 65% with severe pulmonary hypertension based on previous echocardiogram that was done back in 2014 History of Any Multi-Drug Resistant Organisms: None Reported Past Surgical History: Heart Catheterization Additional Past Surgical History / Comment(s): 10/22/14 ccath- EF 65-70%. PTO injury to groin/perineal area with surgical repair. 02/13/17 bone marrow biopsy done Past Anesthesia/Blood Transfusion Reactions: No Reported Reaction Additional Past Anesthesia/Blood Transfusion Reaction / Comm: Pt hs never recieved blood. Past Psychological History: No Psychological Hx Reported Additional Psychological History / Comment(s): Spouse recently, is Monday. He is normally independent. Smoking Status: Never smoker Past Alcohol Use History: None Reported Additional Past Alcohol Use History / Comment(s): Pt chews tobacco daily. He has been chewing tobacco since a teenager. Past Drug Use History: None Reported - Past Family History Father Family Medical History: No Reported History Additional Family Medical History / Comment(s): Father was healthy until his at age 81yrs old. Mother Family Medical History: CVA/TIA Additional Family Medical History / Comment(s): Mother at age 84yr old. She had a CVA at age 82or 83yrs. Medications and Allergies Home Medications Medication Instructions Recorded Confirmed Type Levothyroxine Sodium [Synthroid] 25 mcg PO DAILY 10/22/14 02/24/17 History Potassium Chloride ER [K-Dur 20] 40 meq PO DAILY #30 tab 10/29/14 02/24/17 Rx Furosemide [Lasix] 20 mg PO DAILY 02/08/17 02/24/17 History Albuterol Inhaler [Ventolin Hfa 1 - 2 puff INHALATION RT-Q6H PRN 02/24/17 History Inhaler] Simvastatin [Zocor] 40 mg PO HS 02/24/17 02/24/17 History predniSONE See Taper PO DAILY 02/24/17 02/24/17 History Allergies Allergy/AdvReac Type Severity Reaction Status Date / Time No Known Allergies Allergy Verified 02/24/17 16:33 Physical Exam Vitals: Vital Signs Temp Pulse Resp BP BP Pulse Ox 02/27/17 07:00 96.7 F L 77 16 96/62 85/44 100 02/26/17 23:00 96.9 F L 85 22 99/50 91 L 02/26/17 15:00 97.2 F L 87 16 108/54 90 L Intake and Output 02/26/17 02/27/17 02/27/17 22:59 06:59 14:59 Output Total 200 400 450 Balance -200 -400 -450 Output: Urine 200 400 450 Other: Voiding Method Urinal Urinal # Voids 1 1 # Bowel Movements 1 - Constitutional General appearance: mild distress - EENT Eyes: EOMI, PERRLA ENT: hearing grossly normal, normal oropharynx - Neck Neck: no lymphadenopathy - Respiratory Respiratory: bilateral: diminished, prolonged expiration - Cardiovascular Rhythm: regular Heart sounds: normal: S1, S2 - Gastrointestinal General gastrointestinal: normal bowel sounds, soft - Integumentary Integumentary: normal - Neurologic Neurologic: CNII-XII intact - Musculoskeletal Musculoskeletal: generalized weakness, strength equal bilaterally - Psychiatric Psychiatric: A&O x's 3, appropriate affect Results CBC & Chem 7: 02/27/17 09:27 02/27/17 09:27 Labs: Abnormal Lab Results - Last 24 Hours (Table) 02/26/17 02/26/17 02/27/17 Range/Units 16:58 20:19 07:02 RBC (4.30-5.90) m/uL Hgb (13.0-17.5) gm/dL Hct (39.0-53.0) % MCV (80.0-100.0) fL RDW (11.5-15.5) % Plt Count (150-450) k/uL Lymphocytes # (1.0-4.8) k/uL Chloride (98-107) mmol/L Carbon Dioxide (22-30) mmol/L BUN (9-20) mg/dL Glucose (74-99) mg/dL POC Glucose (mg/dL) 149 H 146 H 132 H (75-99) mg/dL 02/27/17 02/27/17 Range/Units 09:27 09:27 RBC 2.13 L (4.30-5.90) m/uL Hgb 7.1 L (13.0-17.5) gm/dL Hct 22.1 L (39.0-53.0) % MCV 103.6 H (80.0-100.0) fL RDW 21.2 H (11.5-15.5) % Plt Count 32 L* (150-450) k/uL Lymphocytes # 0.4 L (1.0-4.8) k/uL Chloride 95 L (98-107) mmol/L Carbon Dioxide 38 H (22-30) mmol/L BUN 31 H (9-20) mg/dL Glucose 157 H (74-99) mg/dL POC Glucose (mg/dL) (75-99) mg/dL Chest x-ray: report reviewed Assessment and Plan (1) Pancytopenia Narrative/Plan: The patient has a recent bone marrow aspiration and biopsy. This showed some hyperplasia, with rare dysplastic and megaloblastic changes. No obvious malignancy was seen . This appears to be most consistent with with an early myelodysplasia. The bone marrow results were discussed with the patient. At this time counts are all in a safe range. He will follow with Dr. Luz in the outpatient setting to discuss treatment options. If his counts are in a safe range, he potentially would be followed with observation. However he has had significant drops in hemoglobin intermittently. Therefore it is likely that he may need some treatment. Status: Acute (2) Acute exacerbation of chronic obstructive airways disease Narrative/Plan: The patient is somewhat improved with ongoing treatment. Defer to the admitting service and other consultants for management of this problem. From our standpoint he can be discharged home whenever felt to be okay with the admitting service and other consultants Status: Acute
[2017-02-28] MEDS: methylPREDNISolone SOD SUCCI 125 MG/2 ML VIAL IV SCH ×3 (00:52→12:02)
[2017-02-28] MEDS: PIPERACILLIN-TAZOBACTAM 3.375 GM in DEXTROSE/WATER 1 50ML.BAG IVPB SCH ×2 (00:52→08:54)
[2017-02-28] MEDS: LEVOTHYROXINE 25 MCG TAB PO SCH (06:26)
[2017-02-28 08:25] LABS: Glucose,Whole Blood 114 mg/dL (75-99)
[2017-02-28] MEDS: INSULIN LISPRO (humaLOG) 300 UNIT/3 ML VIAL SQ SCH ×4 (08:32→21:42)
[2017-02-28] MEDS: POTASSIUM CHLORIDE ER 20 MEQ TAB.ER PO SCH (08:54)
[2017-02-28] MEDS: HEPARIN SODIUM,PORCINE 5,000 UNIT/ML 1 ML VIAL SQ SCH ×2 (08:54→21:42)
[2017-02-28] MEDS: LEVOFLOXACIN 500 MG TAB PO SCH (08:54)
--- NOTE | 2017-02-28 08:54 | US ---
EXAMINATION TYPE: US abdomen complete DATE OF EXAM: 02/28/2017 COMPARISON: NONE CLINICAL HISTORY: Evaluate liver and spleen. Pancytopenia. . Difficult and limited exam. Patient will not allow me to lay him down as he has difficulty breathing. Patient unable to take a deep breath in and hold it. EXAM MEASUREMENTS: Liver Length: 15.6 cm Gallbladder Wall: 0.7 cm CBD: 0.3 cm Spleen: 8.6 cm Right Kidney: 10.9 x 5.9 x 5.2 cm Left Kidney: 10.5 x 6.7 x 7.0 cm Pancreas: Obscured by bowel gas Liver: Limited visualization. Visualized portions are heterogeneous Gallbladder: Gallbladder wall is thickened. Pericholecystic fluid visualized. No shadowing stones vi sualized Evidence for sonographic Mendoza's sign: No CBD: wnl as visualized, distal portion obscured by bowel gas Spleen: wnl Right Kidney: Multiple hypoechoic areas visualized, largest in mid pole measuring 2.3 x 1.7 x 1.4 cm Left Kidney: Hypoechoic area visualized upper pole measuring 2.7 x 2.0 x 2.7 cm. Upper IVC: wnl Abd Aorta: Atherosclerotic changes visualized IMPRESSION: 1. Heterogeneous pattern of liver is nonspecific as hepatitis, hepatocellular disease, or fatty infil tration. 2. Gallbladder wall is thickened with no gallstone. Correlate for acalculous cholecystitis. 3. Multiple hypoechoic lesions within the kidneys do not meet the criteria of simple cyst this may be technical. Granger to most likely represent renal cyst be correlated with CT scan.
[2017-02-28 10:06] LABS: Anion Gap 5 mmol/L; Blood Urea Nitrogen 34 mg/dL (9-20); Calcium 8.9 mg/dL (8.4-10.2); Carbon Dioxide 34 mmol/L (22-30); Chloride 98 mmol/L (98-107); Glucose 172 mg/dL (74-99); Non-African American GFR(MDRD) >60 (>60 ml/min/1.73 sqM); Potassium 4.2 mmol/L (3.5-5.1); Sodium 137 mmol/L (137-145)
[2017-02-28 10:09] LABS: Anisocytosis Moderate; CH 33.3; CHCM 32.4; HCT 22.5 % (39.0-53.0); HDW 2.91; HGB 7.3 gm/dL (13.0-17.5); MCH 33.6 pg (25.0-35.0); MCHC 32.4 g/dL (31.0-37.0); MCV 103.6 fL (80.0-100.0); Macrocytosis Marked; Mean Platelet Volume 8.5; RBC 2.18 m/uL (4.30-5.90); RDW 21.3 % (11.5-15.5); WBC 2.4 k/uL (3.8-10.6)
[2017-02-28 11:06] LABS: Add Differential Manual Differential
[2017-02-28 11:10] LABS: Band Neutrophils % 2 %; Manual Review Performed; Nucleated Red Blood Cells 0 /100 WBC (0-0); Total Cells Counted 100
[2017-02-28 12:26] LABS: Glucose,Whole Blood 158 mg/dL (75-99)
--- NOTE | 2017-02-28 14:40 | P.PN ---
Subjective Principal diagnosis: severe pulmonary fibrosis with severe restrictive lung disease based on his baseline pulmonary function test, chronic dyspnea with interval worsening shortness of breath. 81-year-old male patient, advanced pulmonary fibrosis with an FVC of 42% of the total lung capacity of 43% along with chronic hypoxic respiratory failure maintained on oxygen 3 L/m nasal cannula was had several hospitalizations back- to-back over the past few months. After being discharged, the patient had a recent this with his past and this occurred few days back and currently his son is back in town from [place] making arrangements. The patient meanwhile was found to have worsening shortness of breath and he was unable to tolerate breathing at home as he was having significant respiratory distress, cough and congestion and wheezing and for that reason he presented to the hospital. No chills no fever. No angina no chest pain. Denies having any productive cough. Chest x-ray is consistent with pulmonary fibrosis. Note that during his most recent hospitalization the patient was treated for acute hypoxic and hypercapnic arrest 30 failure. As such an underlying COPD is also suspected. He has also significant abnormalities in his hematologic profile with pancytopenia for which a hematology consultation was obtained and the bone marrow biopsy showed mild dysplasia. Other comorbid conditions include secondary pulmonary hypertension, hypothyroidism and hyperlipidemia. Performance and functional status is poor. Currently is resting comfortably in bed. On the patient is doing better compared to yesterday. Less short of breath. His breathing is less congested and he has limited cough. No chest pain no significant swelling lower extremities. He is able to speak in full sentences and there is been significant improvement in his condition over the past 24 hours. I covered this patient IV Solu-Medrol in addition to bronchodilators. I also covered him with empiric antibiotic and the patient is currently on IV Zosyn and Levaquin. 02/27/2017 the patient is being seen in follow-up. He is resting in bed with no signs of acute respiratory distress. He attended his 's today. Patient denies chest pain, chest congestion. On examination lung sounds coarse rales over posterior bases, left greater than the right. He is on 3 L oxygen per nasal cannula, maintaining sats from 91-98%. Afebrile, hemodynamically stable. Continues on IV Zosyn and Levaquin, no significant sputum production. On 02/28/2017 patient continues to improve from a respiratory standpoint. He is less short of breath, he has been ambulating in the room and oxygen with no significant distress. He continues on 2 L oxygen per high flow nasal cannula, he thinks he could ambulate longer distances with portable oxygen. Lung sounds are diminished, with coarse respiratory crackles over the left lower base, no cough, no wheezing, no chest congestion. Continues on IV Zosyn and Levaquin. Dr. Gonzalez has seen the patient for evaluation of pancytopenia. The results of a recent bone marrow aspiration and biopsy showed some hyperplasia with rare dysplastic and megaloblastic changes, but no obvious malignancy. The patient may follow up with him on an outpatient basis. Today's hemoglobin is up to 7.3 with a platelet count at 32. Patient's respiratory status is slowly improving, increase activity as tolerated with portable oxygen and supervision. No significant sputum production, afebrile. Objective - Vital Signs Vital signs: Vital Signs Temp 96.0 F L 02/28/17 07:00 Pulse 71 02/28/17 07:00 Resp 16 02/28/17 07:00 BP 101/60 02/28/17 07:00 Pulse Ox 94 L 02/28/17 07:00 Intake & Output 02/27/17 02/28/17 02/28/17 18:59 06:59 18:59 Output Total 450 400 300 Balance -450 -400 -300 Output: Urine 450 400 300 Other: Voiding Method Urinal # Voids 2 3 # Bowel Movements 1 - Exam Obese, comfortable and he is in not in any form of respiratory distress. Elderly. Head exam was generally normal. There was no scleral icterus or corneal arcus. Mucous membranes were moist. Neck is supple and short and there is significant crowding of the posterior oropharynx. There is no goiter or neck masses. Lungs sounds revealed coarse crackles in the mid and lower lung cash bilaterally along with some scattered rhonchi and scattered expiratory wheezes. Heart sounds are regular, there is accentuation of second heart sound and there is no significant murmurs appreciated. Abdominal exam revealed normal bowel sounds. The abdomen was soft, non-tender, and without masses, organomegaly, or appreciable enlargement of the abdominal aorta. Extremities reveal trace edema and there is no cyanosis or clubbing. Neurologically is awake and alert and following commands and his exam is nonfocal. Skeletal exam shows no active arthritis or joint deformities.Examination of the skin revealed no evidence of significant rashes, suspicious appearing nevi or other concerning lesions. Psychiatric: Affect appropriate. - Labs CBC & Chem 7: 02/28/17 09:12 02/28/17 09:12 Labs: Abnormal Lab Results - Last 24 Hours (Table) 02/27/17 02/27/17 02/28/17 Range/Units 17:11 20:37 08:23 WBC (3.8-10.6) k/uL RBC (4.30-5.90) m/uL Hgb (13.0-17.5) gm/dL Hct (39.0-53.0) % MCV (80.0-100.0) fL RDW (11.5-15.5) % Plt Count (150-450) k/uL Lymphocytes # (Manual) (1.0-4.8) k/uL Carbon Dioxide (22-30) mmol/L BUN (9-20) mg/dL Glucose (74-99) mg/dL POC Glucose (mg/dL) 155 H 149 H 114 H (75-99) mg/dL 02/28/17 02/28/17 02/28/17 Range/Units 09:12 09:12 12:24 WBC 2.4 L (3.8-10.6) k/uL RBC 2.18 L (4.30-5.90) m/uL Hgb 7.3 L (13.0-17.5) gm/dL Hct 22.5 L (39.0-53.0) % MCV 103.6 H (80.0-100.0) fL RDW 21.3 H (11.5-15.5) % Plt Count 32 L* (150-450) k/uL Lymphocytes # (Manual) 0.41 L (1.0-4.8) k/uL Carbon Dioxide 34 H (22-30) mmol/L BUN 34 H (9-20) mg/dL Glucose 172 H (74-99) mg/dL POC Glucose (mg/dL) 158 H (75-99) mg/dL Assessment and Plan Plan: Assessment 1 severe pulmonary fibrosis with severe restrictive lung disease based on his baseline pulmonary function test 2 COPD 3 chronic hypoxic and hypercapnic respiratory failure 4 chronic dyspnea with interval worsening shortness of breath. The exact cause is not clear. Rule out superimposed pneumonia. 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 Plan Continue same treatment. The patient is improving. Monitor hematologic profile as the patient has an underlying component of myelodysplasia. He will need placement for rehabilitation to monitor the patient's pulmonary fibrosis as it is quite advanced and he will not be able to live independently based on his advanced lung disease and poor performance and functional status. No need for any further diuretics at this point. I performed a history & physical examination of the patient and discussed their management with my nurse practitioner, Katharina Crisostomo. I reviewed the nurse practitioner's note and agree with the documented findings and plan of care.
[2017-02-28] MEDS: predniSONE 10 MG TAB PO SCH (15:56)
--- NOTE | 2017-02-28 16:38 | P.PN ---
Subjective Progress note being dictated for Dr. Delgado. 02/27/2017.Interval history: This is a 81-year-old gentleman admitted with acute hypoxic respiratory failure, pulmonary fibrosis and multiple other medical issues. Maintained on IV antibiotics of Zosyn and Levaquin, steroids and nebulized bronchodilators. Breathing improving. Patient attending 's today. PT OT evaluation noted including poor functional endurance, possible subacute rehab at discharge. Denies chest pain, palpitations or increasing shortness of breath. Afebrile. Maintaining O2 sats in the 90s on 3 L nasal cannula. 02/28/2017 Breathing continues to improve on Levaquin and Zosyn. Maintaining O2 sats in the mid 90s on 3 L nasal cannula. Evaluated by oncology/hematology. Recent bone marrow biopsy suggestive of early myleodysplasia, without obvious malignancy. Platelets 32, hemoglobin 7.3. Afebrile. Objective - Vital Signs Vital signs: Vital Signs Temp 97.5 F L 02/28/17 15:00 Pulse 73 02/28/17 15:00 Resp 18 02/28/17 15:00 BP 119/76 02/28/17 15:00 Pulse Ox 94 L 02/28/17 07:00 Intake & Output 02/27/17 02/28/17 02/28/17 18:59 06:59 18:59 Output Total 450 400 300 Balance -450 -400 -300 Output: Urine 450 400 300 Other: Voiding Method Urinal # Voids 2 3 # Bowel Movements 1 - Exam PHYSICAL EXAM: VITAL SIGNS: As above GENERAL: Sitting up in bed, no acute distress HEENT: Conjunctivae normal. eyes normal. NECK: No JVD. No thyroid enlargement. No LNs CARDIOVASCULAR: S1, S2 muffled. No murmur RESPIRATION: Breath sounds diminished in the bases. Fine scattered rhonchi and crackles. Emphysematous ABDOMEN: Soft, nontender . No guarding. no masses palpable. No ascites, No hepatosplenomegaly.Bowel sounds heard. LEGS: No edema. no swelling PSYCHIATRY: Alert and oriented -3, mood and affect normal. NERVOUS SYSTEM: Cranial N 2-12 grossly normal. Moves all 4 limbs. Diffuse weakness No focal deficits. No sensory deficit. No signs of cerebellar dysfucntion. Skin: no ulcer no rash Joints: No active swelling. No inflammation. - Labs CBC & Chem 7: 02/28/17 09:12 02/28/17 09:12 Labs: Abnormal Lab Results - Last 24 Hours (Table) 02/27/17 02/27/17 02/28/17 Range/Units 17:11 20:37 08:23 WBC (3.8-10.6) k/uL RBC (4.30-5.90) m/uL Hgb (13.0-17.5) gm/dL Hct (39.0-53.0) % MCV (80.0-100.0) fL RDW (11.5-15.5) % Plt Count (150-450) k/uL Lymphocytes # (Manual) (1.0-4.8) k/uL Carbon Dioxide (22-30) mmol/L BUN (9-20) mg/dL Glucose (74-99) mg/dL POC Glucose (mg/dL) 155 H 149 H 114 H (75-99) mg/dL 02/28/17 02/28/17 02/28/17 Range/Units 09:12 09:12 12:24 WBC 2.4 L (3.8-10.6) k/uL RBC 2.18 L (4.30-5.90) m/uL Hgb 7.3 L (13.0-17.5) gm/dL Hct 22.5 L (39.0-53.0) % MCV 103.6 H (80.0-100.0) fL RDW 21.3 H (11.5-15.5) % Plt Count 32 L* (150-450) k/uL Lymphocytes # (Manual) 0.41 L (1.0-4.8) k/uL Carbon Dioxide 34 H (22-30) mmol/L BUN 34 H (9-20) mg/dL Glucose 172 H (74-99) mg/dL POC Glucose (mg/dL) 158 H (75-99) mg/dL Assessment and Plan Plan: 1. [ Acute hypoxic respiratory failure with acute on chronic changes secondary to pulmonary fibrosis acute exacerbation]. 2. [ COPD]. 3. [ Gait dysfunction, degenerative joint disease]. 4. [ Anemia]. 5. [ Essential hypertension]. 6. 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 Plan: Continue on current medication regime , nebulized bronchodilators, steroids, antibiotics ,monitoring and symptomatic treatment. PT/OT. Discharge planning in progress for subacute rehab tomorrow. Patient to follow-up with Dr. Luz outpatient. The impression and plan of care has been dictated as directed. : I performed a H&P examination of this patient and discussed the same with the dictator. I agree with the dictator's note. Any additional findings/opinions/ etc. will be noted.
[2017-02-28 17:20] LABS: Glucose,Whole Blood 195 mg/dL (75-99)
[2017-02-28] MEDS: ATORVASTATIN 20 MG TAB PO SCH (21:42)
[2017-02-28 21:44] LABS: Glucose,Whole Blood 130 mg/dL (75-99)
[2017-03-01] MEDS: LEVOTHYROXINE 25 MCG TAB PO SCH (06:29)
[2017-03-01 07:21] VITALS: BP 106/61; PULSE 74; RESP 18; TEMP 97.2
[2017-03-01] MEDS: INSULIN LISPRO (humaLOG) 300 UNIT/3 ML VIAL SQ SCH ×2 (07:40→12:24)
[2017-03-01] MEDS: POTASSIUM CHLORIDE ER 20 MEQ TAB.ER PO SCH (07:42)
[2017-03-01] MEDS: HEPARIN SODIUM,PORCINE 5,000 UNIT/ML 1 ML VIAL SQ SCH (07:42)
[2017-03-01] MEDS: LEVOFLOXACIN 500 MG TAB PO SCH (07:43)
[2017-03-01] MEDS: predniSONE 10 MG TAB PO SCH (07:43)
[2017-03-01 07:54] LABS: Glucose,Whole Blood 84 mg/dL (75-99)
[2017-03-01 09:27] LABS: Anisocytosis Moderate; Basophils % (A) 0 %; CH 33.5; CHCM 32.1; Eosinophils % (A) 0 %; HDW 2.93; HGB 7.3 gm/dL (13.0-17.5); Luc # (Auto) 0.01; Luc % (Auto) 1; Lymphocytes # (A) 0.8 k/uL (1.0-4.8); Lymphocytes % (A) 37 %; MCH 33.3 pg (25.0-35.0); MCHC 31.7 g/dL (31.0-37.0); MCV 104.9 fL (80.0-100.0); Macrocytosis Marked; Monocytes # (A) 0.1 k/uL (0-1.0); Monocytes % (A) 3 %; Neutrophils # (A) 1.2 k/uL (1.3-7.7); Neutrophils % (A) 59 %; RBC 2.19 m/uL (4.30-5.90); RDW 21.3 % (11.5-15.5); WBC 2.1 k/uL (3.8-10.6); WBC (Perox) 2.11
[2017-03-01 10:20] LABS: Anion Gap 1 mmol/L; Blood Urea Nitrogen 29 mg/dL (9-20); Calcium 9.1 mg/dL (8.4-10.2); Carbon Dioxide 39 mmol/L (22-30); Chloride 99 mmol/L (98-107); Glucose 72 mg/dL (74-99); Non-African American GFR(MDRD) >60 (>60 ml/min/1.73 sqM); Potassium 4.4 mmol/L (3.5-5.1); Sodium 139 mmol/L (137-145)
[2017-03-01 12:05] LABS: Glucose,Whole Blood 115 mg/dL (75-99)
--- NOTE | 2017-03-01 12:33 | P.DS ---
Providers Date of admission: 02/26/17 16:15 Attending physician: Maria E Joseph Consults: 02/24/17 19:22 Consult Physician Routine Consulting Provider: Adiel Benz Consult Reason/Comments: Pulmonary fibrosis Do you want consulting provider notified?: Yes, Notify in am 02/26/17 12:57 Consult Physician Routine Consulting Provider: Chucky Gonzalez Consult Reason/Comments: low platelets Do you want consulting provider notified?: Yes Primary care physician: [facility] Course: This 81-year-old gentleman with a past medical history multiple medical problems was admitted with the pulmonary fibrosis acute exacerbation as well as acute hypoxic respiratory failure to [facility]. Patient was treated with bronchodilators antibiotics and steroids. Patient improved significantly. Patient was seen by Dr. Richardson and as well as Dr. Medley. Patient has also significant weakness and gait dysfunction also. PTOT was evaluated. [facility] rehab is recommended. Patient be discharged in a stable condition with guarded prognosis to [facility] for further evaluation treatment under the care of Dr. Francisco. Total time taken 35 minutes. Patient is also asked to follow-up with the primary physician after discharge from ECF. On exam vitals are stable. Cardio S1 and S2 normal. Respirator system bilateral E crackles in the bases present. Abdomen soft nontender no mass palpable carpal. Nervous system mild diffuse weakness and wasting. Final diagnosis 1. Acute hypoxic respiratory failure with acute on chronic changes secondary to pulmonary fibrosis acute exacerbation. 2. COPD 3. Gait dysfunction DJD. 4. Anemia of chronic disease. 5. Essential hypertension. 6. 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 7. No code no CPR no event Patient Condition at Discharge: Stable Plan - Discharge Summary New Discharge Prescriptions: New Ipratropium-Albuterol Nebulize [Duoneb 0.5 mg-3 mg/3 ml Soln] 3 ml INHALATION QID neb Levofloxacin [Levaquin] 500 mg PO DAILY #5 tab predniSONE 10 mg PO DIRECTED #30 tab traMADol HCL [Ultram] 50 mg PO Q6HR PRN #20 tab PRN Reason: Pain INSULIN LISPRO (HumaLOG) [humaLOG] 0 unit SQ ACHS #1 vial Continue Levothyroxine Sodium [Synthroid] 25 mcg PO DAILY Potassium Chloride ER [K-Dur 20] 40 meq PO DAILY #30 tab Furosemide [Lasix] 20 mg PO DAILY Simvastatin [Zocor] 40 mg PO HS Albuterol Inhaler [Ventolin Hfa Inhaler] 1 - 2 puff INHALATION RT-Q6H PRN PRN Reason: Shortness Of Breath Or Wheezing Discontinued predniSONE See Taper PO DAILY Discharge Medication List Levothyroxine Sodium [Synthroid] 25 mcg PO DAILY 10/22/14 [History] Potassium Chloride ER [K-Dur 20] 40 meq PO DAILY #30 tab 10/29/14 [Rx] Furosemide [Lasix] 20 mg PO DAILY 02/08/17 [History] Albuterol Inhaler [Ventolin Hfa Inhaler] 1 - 2 puff INHALATION RT-Q6H PRN [History] Simvastatin [Zocor] 40 mg PO HS 02/24/17 [History] Ipratropium-Albuterol Nebulize [Duoneb 0.5 mg-3 mg/3 ml Soln] 3 ml INHALATION QID neb 02/28/17 [Rx] Levofloxacin [Levaquin] 500 mg PO DAILY #5 tab 02/28/17 [Rx] predniSONE 10 mg PO DIRECTED #30 tab 02/28/17 [Rx] traMADol HCL [Ultram] 50 mg PO Q6HR PRN #20 tab 02/28/17 [Rx] INSULIN LISPRO (HumaLOG) [humaLOG] 0 unit SQ ACHS #1 vial 03/01/17 [Rx] Follow up Appointment(s)/Referral(s): Adiel Benz MD [STAFF PHYSICIAN] - 1 Week Onesimo Guevara MD [STAFF PHYSICIAN] - 3 Days (at ECF) Gene Lucero DO [Primary Care Provider] - 3 Days Sierra Luz MD [STAFF PHYSICIAN] - 1 Week Activity/Diet/Wound Care/Special Instructions: ECF: CBC,BMP in 3 Days Discharge Disposition: TRANSFER TO SNF/ECF
--- NOTE | 2017-03-01 12:49 | P.PN ---
Subjective Principal diagnosis: severe pulmonary fibrosis with severe restrictive lung disease based on his baseline pulmonary function test, chronic dyspnea with interval worsening shortness of breath. 81-year-old male patient, advanced pulmonary fibrosis with an FVC of 42% of the total lung capacity of 43% along with chronic hypoxic respiratory failure maintained on oxygen 3 L/m nasal cannula was had several hospitalizations back- to-back over the past few months. After being discharged, the patient had a recent this with his past and this occurred few days back and currently his son is back in town from [place] making arrangements. The patient meanwhile was found to have worsening shortness of breath and he was unable to tolerate breathing at home as he was having significant respiratory distress, cough and congestion and wheezing and for that reason he presented to the hospital. No chills no fever. No angina no chest pain. Denies having any productive cough. Chest x-ray is consistent with pulmonary fibrosis. Note that during his most recent hospitalization the patient was treated for acute hypoxic and hypercapnic arrest 30 failure. As such an underlying COPD is also suspected. He has also significant abnormalities in his hematologic profile with pancytopenia for which a hematology consultation was obtained and the bone marrow biopsy showed mild dysplasia. Other comorbid conditions include secondary pulmonary hypertension, hypothyroidism and hyperlipidemia. Performance and functional status is poor. Currently is resting comfortably in bed. On the patient is doing better compared to yesterday. Less short of breath. His breathing is less congested and he has limited cough. No chest pain no significant swelling lower extremities. He is able to speak in full sentences and there is been significant improvement in his condition over the past 24 hours. I covered this patient IV Solu-Medrol in addition to bronchodilators. I also covered him with empiric antibiotic and the patient is currently on IV Zosyn and Levaquin. 02/27/2017 the patient is being seen in follow-up. He is resting in bed with no signs of acute respiratory distress. He attended his 's today. Patient denies chest pain, chest congestion. On examination lung sounds coarse rales over posterior bases, left greater than the right. He is on 3 L oxygen per nasal cannula, maintaining sats from 91-98%. Afebrile, hemodynamically stable. Continues on IV Zosyn and Levaquin, no significant sputum production. On 02/28/2017 patient continues to improve from a respiratory standpoint. He is less short of breath, he has been ambulating in the room and oxygen with no significant distress. He continues on 2 L oxygen per high flow nasal cannula, he thinks he could ambulate longer distances with portable oxygen. Lung sounds are diminished, with coarse respiratory crackles over the left lower base, no cough, no wheezing, no chest congestion. Continues on IV Zosyn and Levaquin. Dr. Gonzalez has seen the patient for evaluation of pancytopenia. The results of a recent bone marrow aspiration and biopsy showed some hyperplasia with rare dysplastic and megaloblastic changes, but no obvious malignancy. The patient may follow up with him on an outpatient basis. Today's hemoglobin is up to 7.3 with a platelet count at 32. Patient's respiratory status is slowly improving, increase activity as tolerated with portable oxygen and supervision. No significant sputum production, afebrile. On 03/01/2017 patient continues to improve. No significant events overnight. Afebrile, vital signs are stable. He has been ambulating with his oxygen. Lung sounds are coarse inspiratory crackles over posterior lower bases. Continues on IV Zosyn and Levaquin. Patient will be discharged tomorrow would for a short term rehab. Follow-up with Dr. Medley in 1-2 weeks Objective - Vital Signs Vital signs: Vital Signs Temp 97.2 F L 03/01/17 08:01 Pulse 74 03/01/17 08:01 Resp 18 03/01/17 08:01 BP 106/61 03/01/17 08:01 Pulse Ox 97 03/01/17 08:01 Intake & Output 02/28/17 03/01/17 03/01/17 18:59 06:59 18:59 Intake Total 300 Output Total 300 Balance -300 300 Intake: Oral 300 Output: Urine 300 Other: Voiding Method Urinal # Voids 3 2 # Bowel Movements 1 - Exam Obese, comfortable and he is in not in any form of respiratory distress. Elderly. Head exam was generally normal. There was no scleral icterus or corneal arcus. Mucous membranes were moist. Neck is supple and short and there is significant crowding of the posterior oropharynx. There is no goiter or neck masses. Lungs sounds revealed coarse crackles in the mid and lower lung cash bilaterally along with some scattered rhonchi and scattered expiratory wheezes. Heart sounds are regular, there is accentuation of second heart sound and there is no significant murmurs appreciated. Abdominal exam revealed normal bowel sounds. The abdomen was soft, non-tender, and without masses, organomegaly, or appreciable enlargement of the abdominal aorta. Extremities reveal trace edema and there is no cyanosis or clubbing. Neurologically is awake and alert and following commands and his exam is nonfocal. Skeletal exam shows no active arthritis or joint deformities.Examination of the skin revealed no evidence of significant rashes, suspicious appearing nevi or other concerning lesions. Psychiatric: Affect appropriate. - Labs CBC & Chem 7: 03/01/17 08:00 03/01/17 08:00 Labs: Abnormal Lab Results - Last 24 Hours (Table) 02/28/17 02/28/17 03/01/17 Range/Units : 21:13 08:00 WBC 2.1 L (3.8-10.6) k/uL RBC 2.19 L (4.30-5.90) m/uL Hgb 7.3 L (13.0-17.5) gm/dL Hct 23.0 L (39.0-53.0) % MCV 104.9 H (80.0-100.0) fL RDW 21.3 H (11.5-15.5) % Plt Count 32 L* (150-450) k/uL Neutrophils # 1.2 L (1.3-7.7) k/uL Lymphocytes # 0.8 L (1.0-4.8) k/uL Carbon Dioxide (22-30) mmol/L BUN (9-20) mg/dL Glucose (74-99) mg/dL POC Glucose (mg/dL) 195 H 130 H (75-99) mg/dL 03/01/17 03/01/17 Range/Units 08:00 12:03 WBC (3.8-10.6) k/uL RBC (4.30-5.90) m/uL Hgb (13.0-17.5) gm/dL Hct (39.0-53.0) % MCV (80.0-100.0) fL RDW (11.5-15.5) % Plt Count (150-450) k/uL Neutrophils # (1.3-7.7) k/uL Lymphocytes # (1.0-4.8) k/uL Carbon Dioxide 39 H (22-30) mmol/L BUN 29 H (9-20) mg/dL Glucose 72 L (74-99) mg/dL POC Glucose (mg/dL) 115 H (75-99) mg/dL Assessment and Plan Plan: Assessment 1 severe pulmonary fibrosis with severe restrictive lung disease based on his baseline pulmonary function test 2 COPD 3 chronic hypoxic and hypercapnic respiratory failure 4 chronic dyspnea with interval worsening shortness of breath. The exact cause is not clear. Rule out superimposed pneumonia. 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 Plan Continue same treatment. The patient is improving. Monitor hematologic profile as the patient has an underlying component of myelodysplasia. He is being discharged to the rehabilitation center today. Follow-up Dr. Benz in the office in 1-2 weeks I performed a history & physical examination of the patient and discussed their management with my nurse practitioner, Katharina Crisostomo. I reviewed the nurse practitioner's note and agree with the documented findings and plan of care.
== END 2017-03-01 15:13 | DRG 196 ==
LOC: EC 16:19 → 4MS4W 19:22 → OBSVTOIN 02-26 16:15
PROVIDERS: ADMIT Internal Medicine; ATTEND Internal Medicine
DX: J84.10 Pulmonary fibrosis, unspecified (principal); J96.21 Acute and chronic respiratory failure with hypoxia; J96.22 Acute and chronic respiratory failure with hypercapnia; D61.818 Other pancytopenia; E87.1 Hypo-osmolality and hyponatremia; J44.1 Chronic obstructive pulmonary disease with (acute) exacerbation; D46.9 Myelodysplastic syndrome, unspecified; I27.2 Other secondary pulmonary hypertension; R26.9 Unspecified abnormalities of gait and mobility; F17.220 Nicotine dependence, chewing tobacco, uncomplicated; I10 Essential (primary) hypertension; E03.9 Hypothyroidism, unspecified; E66.9 Obesity, unspecified; E78.5 Hyperlipidemia, unspecified; I25.10 Atherosclerotic heart disease of native coronary artery without angina pectoris; I25.2 Old myocardial infarction; M19.90 Unspecified osteoarthritis, unspecified site; Z79.899 Other long term (current) drug therapy; Z99.81 Dependence on supplemental oxygen
CPT/HCPCS: 36415; 71020; 76700; 80048; 80053; 81003; 82550; 82553; 82803; 83036; 83605; 83735; 83880; 84484; 85025; 85379; 85610; 85730; 93005; 94640; 94760; 96365; 99285

== ENCOUNTER 2017-03-03 13:31 | Inpatient (IN) | payer MEDICARE ==
[2017-03-03 14:04] LABS: Anisocytosis Moderate; Basophils % (A) 1 %; CH 33.1; CHCM 31.9; Eosinophils % (A) 1 %; HCT 22.7 % (39.0-53.0); HDW 3.06; HGB 7.3 gm/dL (13.0-17.5); Hypochromasia Slight; Luc # (Auto) 0.02; Luc % (Auto) 1; Lymphocytes # (A) 0.5 k/uL (1.0-4.8); Lymphocytes % (A) 22 %; MCH 33.6 pg (25.0-35.0); MCHC 32.2 g/dL (31.0-37.0); MCV 104.2 fL (80.0-100.0); Macrocytosis Marked; Mean Platelet Volume 8.5; Monocytes # (A) 0.1 k/uL (0-1.0); Monocytes % (A) 3 %; Neutrophils # (A) 1.7 k/uL (1.3-7.7); Neutrophils % (A) 73 %; RBC 2.18 m/uL (4.30-5.90); RDW 20.6 % (11.5-15.5); WBC 2.4 k/uL (3.8-10.6); WBC (Perox) 2.38
--- NOTE | 2017-03-03 14:10 | ED ---
Recheck HPI - General Chief Complaint: Recheck/Abnormal Lab/Rx Stated Complaint: LOW HEMOGLOBIN Time Seen by Provider: 03/03/17 13:31 Source: patient, family, EMS, RN notes reviewed, old records reviewed Mode of arrival: EMS Limitations: no limitations - History of Present Illness Initial Comments: This is a 81-year-old male who [facility] for evaluation for anemia. Is reported to have a hemoglobin 6.4. No bleeding is reported. Patient has recently been worked up for mild dysplasia and did have a bone marrow evaluation done recently in the results are pending. Patient denies any headache dizziness blurry vision he has had some shortness of breath he does have a history of pulmonary fibrosis. He denies any abdominal pain chest pain he does state he has some swelling to his lower extremities. No pain in his legs however. No other complaints at this time MD Complaint: abnormal lab - Related Data Home Medications Medication Instructions Recorded Confirmed Levothyroxine Sodium [Synthroid] 25 mcg PO DAILY@0600 10/22/14 03/03/17 Albuterol Inhaler [Ventolin Hfa 1 - 2 puff INHALATION RT-Q6H PRN 02/24/17 Inhaler] Simvastatin [Zocor] 40 mg PO HS@2100 02/24/17 03/03/17 Bisacodyl [Dulcolax] 10 mg RECTAL DAILY PRN 03/03/17 03/03/17 Furosemide [Lasix] 20 mg PO DAILY@0800 03/03/17 03/03/17 INSULIN LISPRO (HumaLOG) [humaLOG] See Protocol SQ ACHS 03/03/17 03/03/17 Ipratropium-Albuterol Nebulize 3 ml INHALATION RT-Q4H PRN 03/03/17 03/03/17 [Duoneb 0.5 mg-3 mg/3 ml Soln] Ipratropium-Albuterol Nebulize 3 ml INHALATION RT-QID@,,,03/03/1703/03 [Duoneb 0.5 mg-3 mg/3 ml Soln] Magnesium Hydroxide [Milk of 2,400 mg PO DAILY PRN 03/03/17 03/03/17 Magnesia] Na Phos,M-B/Na Phos,Di-Ba [Fleet 133 ml RECTAL DAILY PRN 03/03/17 03/03/17 Adult] Potassium Chloride ER [K-Dur 20] 40 meq PO DAILY@1700 03/03/17 03/03/17 predniSONE See Taper PO DAILY@0800 03/03/17 03/03/17 traMADol HCL [Ultram] 50 mg PO Q4HR PRN 03/03/17 03/03/17 Previous Rx's Medication Instructions Recorded Levofloxacin [Levaquin] 500 mg PO DAILY #5 tab 02/28/17 Allergies Allergy/AdvReac Type Severity Reaction Status Date / Time No Known Allergies Allergy Verified 03/03/17 14:39 Review of Systems ROS Statement: Those systems with pertinent positive or pertinent negative responses have been documented in the HPI. ROS Other: All systems not noted in ROS Statement are negative. 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 Osteoarthritis, difficulty mobility and gait and the patient has become profoundly weak. Coronary artery disease with previous non-ST segment elevation myocardial infarction, preserved ejection fraction of 65% with severe pulmonary hypertension based on previous echocardiogram that was done back in 2014 History of Any Multi-Drug Resistant Organisms: None Reported Past Surgical History: Heart Catheterization Additional Past Surgical History / Comment(s): 10/22/14 ccath- EF 65-70%. PTO injury to groin/perineal area with surgical repair. 02/13/17 bone marrow biopsy done Past Anesthesia/Blood Transfusion Reactions: No Reported Reaction Additional Past Anesthesia/Blood Transfusion Reaction / Comment(s): Pt hs never recieved blood. Past Psychological History: No Psychological Hx Reported Smoking Status: Never smoker Past Alcohol Use History: None Reported Past Drug Use History: None Reported - Past Family History Father Family Medical History: No Reported History Additional Family Medical History / Comment(s): Father was healthy until his at age 81yrs old. Mother Family Medical History: CVA/TIA Additional Family Medical History / Comment(s): Mother at age 84yr old. She had a CVA at age 82or 83yrs. General Exam - General Exam Comments Initial Comments: This is a well-developed well-nourished awake alert oriented 3 male Limitations: no limitations General appearance: alert, in no apparent distress Head exam: Present: atraumatic, normocephalic, normal inspection Eye exam: Present: normal appearance, PERRL, EOMI. Absent: scleral icterus, conjunctival injection, periorbital swelling ENT exam: Present: normal exam, mucous membranes moist Neck exam: Present: normal inspection. Absent: tenderness, meningismus, lymphadenopathy Respiratory exam: Present: normal lung sounds bilaterally. Absent: respiratory distress, wheezes, rales, rhonchi, stridor Cardiovascular Exam: Present: regular rate, normal rhythm, normal heart sounds. Absent: systolic murmur, diastolic murmur, rubs, gallop, clicks GI/Abdominal exam: Present: soft, normal bowel sounds. Absent: distended, tenderness, guarding, rebound, rigid Rectal exam: Present: deferred Extremities exam: Present: normal inspection, full ROM, normal capillary refill. Absent: tenderness, pedal edema, joint swelling, calf tenderness Back exam: Present: normal inspection Neurological exam: Present: alert, oriented X3, CN II-XII intact Psychiatric exam: Present: normal affect, normal mood Skin exam: Present: warm, dry, intact, pallor. Absent: rash Course Vital Signs 03/03/17 03/03/17 03/03/17 13:38 14:41 15:54 Temperature 96.9 F L 97.2 F L Pulse Rate 91 74 73 Respiratory 18 18 16 Rate Blood Pressure 98/57 107/50 100/54 O2 Sat by Pulse 95 100 98 Oximetry 03/03/17 16:06 Temperature 97.0 F L Pulse Rate 71 Respiratory 18 Rate Blood Pressure 104/53 O2 Sat by Pulse 98 Oximetry Medical Decision Making - Medical Decision Making I did discuss findings with the patient family members. Patient will be admitted for blood transfusion and rehydration. - Lab Data Result diagrams: 03/03/17 13:47 03/03/17 13:47 Lab Results 03/03/17 03/03/17 03/03/17 Range/Units 13:47 13:47 13:47 WBC 2.4 L (3.8-10.6) k/uL RBC 2.18 L (4.30-5.90) m/uL Hgb 7.3 L (13.0-17.5) gm/dL Hct 22.7 L (39.0-53.0) % MCV 104.2 H (80.0-100.0) fL MCH 33.6 (25.0-35.0) pg MCHC 32.2 (31.0-37.0) g/dL RDW 20.6 H (11.5-15.5) % Plt Count 31 L* (150-450) k/uL Neutrophils % 73 % Lymphocytes % 22 % Monocytes % 3 % Eosinophils % 1 % Basophils % 1 % Neutrophils # 1.7 (1.3-7.7) k/uL Lymphocytes # 0.5 L (1.0-4.8) k/uL Monocytes # 0.1 (0-1.0) k/uL Eosinophils # 0.0 (0-0.7) k/uL Basophils # 0.0 (0-0.2) k/uL Hypochromasia Slight Anisocytosis Moderate Macrocytosis Marked PT 10.5 (9.0-12.0) sec INR 1.0 (<1.2) APTT 20.3 L (22.0-30.0) sec Sodium 137 (137-145) mmol/L Potassium 4.2 (3.5-5.1) mmol/L Chloride 94 L (98-107) mmol/L Carbon Dioxide 39 H (22-30) mmol/L Anion Gap 4 mmol/L BUN 24 H (9-20) mg/dL Creatinine 0.64 L (0.66-1.25) mg/dL Est GFR (MDRD) Af Amer >60 (>60 ml/min/1.73 sqM) Est GFR (MDRD) Non-Af >60 (>60 ml/min/1.73 sqM) Glucose 111 H (74-99) mg/dL Calcium 8.4 (8.4-10.2) mg/dL Total Bilirubin 0.7 (0.2-1.3) mg/dL AST 29 (17-59) U/L ALT 67 (21-72) U/L Alkaline Phosphatase 45 (38-126) U/L Total Protein 5.2 L (6.3-8.2) g/dL Albumin 2.9 L (3.5-5.0) g/dL Blood Type Blood Type Recheck Antibody Screen Crossmatch Spec Expiration Date 03/03/17 Range/Units 14:12 WBC (3.8-10.6) k/uL RBC (4.30-5.90) m/uL Hgb (13.0-17.5) gm/dL Hct (39.0-53.0) % MCV (80.0-100.0) fL MCH (25.0-35.0) pg MCHC (31.0-37.0) g/dL RDW (11.5-15.5) % Plt Count (150-450) k/uL Neutrophils % % Lymphocytes % % Monocytes % % Eosinophils % % Basophils % % Neutrophils # (1.3-7.7) k/uL Lymphocytes # (1.0-4.8) k/uL Monocytes # (0-1.0) k/uL Eosinophils # (0-0.7) k/uL Basophils # (0-0.2) k/uL Hypochromasia Anisocytosis Macrocytosis PT (9.0-12.0) sec INR (<1.2) APTT (22.0-30.0) sec Sodium (137-145) mmol/L Potassium (3.5-5.1) mmol/L Chloride (98-107) mmol/L Carbon Dioxide (22-30) mmol/L Anion Gap mmol/L BUN (9-20) mg/dL Creatinine (0.66-1.25) mg/dL Est GFR (MDRD) Af Amer (>60 ml/min/1.73 sqM) Est GFR (MDRD) Non-Af (>60 ml/min/1.73 sqM) Glucose (74-99) mg/dL Calcium (8.4-10.2) mg/dL Total Bilirubin (0.2-1.3) mg/dL AST (17-59) U/L ALT (21-72) U/L Alkaline Phosphatase (38-126) U/L Total Protein (6.3-8.2) g/dL Albumin (3.5-5.0) g/dL Blood Type A Positive Blood Type Recheck No Antibody Screen NEGATIVE Crossmatch See Detail Spec Expiration Date 03/06/2017 - 0877 - EKG Data -: EKG Interpreted by Mn EKG shows normal: sinus rhythm (Sinus rhythm rate of 81. Interval 196 QRS 88 QT /QTC of 350/46 and will also criteria for LVH occasional PVCs noted.) Disposition Clinical Impression: Symptomatic anemia, Dehydration Disposition: ADMITTED IP TO THIS HOSP Condition: Stable Referrals: Onesimo Guevara MD [Primary Care Provider] - 1-2 days
[2017-03-03 14:11] LABS: Prothrombin Time 10.5 sec (9.0-12.0)
[2017-03-03 14:12] LABS: ALT 67 U/L (21-72); AST 29 U/L (17-59); Alkaline Phosphatase 45 U/L (38-126); Anion Gap 4 mmol/L; Blood Urea Nitrogen 24 mg/dL (9-20); Calcium 8.4 mg/dL (8.4-10.2); Carbon Dioxide 39 mmol/L (22-30); Chloride 94 mmol/L (98-107); Glucose 111 mg/dL (74-99); Non-African American GFR(MDRD) >60 (>60 ml/min/1.73 sqM); Potassium 4.2 mmol/L (3.5-5.1); Sodium 137 mmol/L (137-145); Total Bilirubin 0.7 mg/dL (0.2-1.3); Total Protein 5.2 g/dL (6.3-8.2)
[2017-03-03 14:15] LABS: Partial Thromboplastin Time 20.3 sec (22.0-30.0)
[2017-03-03] MEDS ORDERED: NALOXONE 0.4 MG/ML 1 ML VIAL IV PRN (16:21)
[2017-03-03] MEDS ORDERED: ALBUTEROL NEBULIZED 2.5 MG/3 ML INHALATION PRN (16:23)
[2017-03-03] MEDS ORDERED: IPRATROPIUM-ALBUTEROL 3 ML NEB INHALATION PRN (16:23)
[2017-03-03] MEDS ORDERED: traMADol 50 MG TAB PO PRN (16:23)
[2017-03-03] MEDS ORDERED: BISACODYL 10 MG SUPP RECTAL PRN (16:23)
[2017-03-03] MEDS ORDERED: MAGNESIUM HYDROXIDE 2,400 MG/10 ML CUP PO PRN (16:23)
[2017-03-03] MEDS ORDERED: NA PHOS,M-B/NA PHOS,DI-BA 133 ML ENEMA RECTAL PRN (16:23)
[2017-03-03] MEDS ORDERED: POTASSIUM CHLORIDE ER 20 MEQ TAB.ER PO SCH (17:00)
[2017-03-03 18:12] VITALS: BMI 28.1
[2017-03-03] MEDS ORDERED: FUROSEMIDE 10 MG/ML 4 ML VIAL IV STA (19:19)
[2017-03-03] MEDS: IPRATROPIUM-ALBUTEROL 3 ML NEB INHALATION SCH (20:20)
[2017-03-03 20:34] LABS: Glucose,Whole Blood 143 mg/dL (75-99)
[2017-03-03] MEDS ORDERED: ATORVASTATIN 20 MG TAB PO SCH (21:00)
[2017-03-03 21:12] LABS: Appearance,Urine Clear (Clear); Bilirubin,Urine Negative (Negative); Glucose,Urine (UA) Negative (Negative); Ketones,Urine Negative (Negative); Leukocyte Esterase,Urine Negative (Negative); Nitrite,Urine Negative (Negative); PH, Urine 5.5 (5.0-8.0); Protein,Urine Negative (Negative); Specific Gravity,Urine 1.017 (1.001-1.035); UA Billing (MACRO vs. MICRO) CHEM; Urobilinogen,Urine <2.0 mg/dL (<2.0)
--- NOTE | 2017-03-03 21:17 | HP ---
HISTORY AND PHYSICAL DATE OF SERVICE: 03/03/2017 CHIEF COMPLAINT: Anemia. HISTORY OF PRESENT ILLNESS: This 81-year-old gentleman with a past medical history of multiple medical problems, including significant pulmonary fibrosis, was admitted with acute hypoxic respiratory failure. The patient was treated symptomatically. Patient went to [facility] under the care of Dr. Guevara. The patient was followed by Dr. Lucero in the outpatient setting. The patient also was recently diagnosed to have myelodysplastic syndrome as per bone marrow biopsy from Dr. Mcgregor. The hemoglobin was found to be 6.4 and the patient was taken to [facility]. The repeat hemoglobin was found to be 7.3. The most recent hemoglobin during the last admission was 7.3 also. The patient is being transfused 1 unit and is being monitored closely. There is no history of any fever, rigor or chills. No history of headache, loss of consciousness, seizures. PAST MEDICAL HISTORY: 1. History of recent admission for respiratory failure. 2. Hyperlipidemia. 3. Hypertension. 4. Myelodysplastic syndrome. HOME MEDICATIONS: 1. Ultram 50 mg q.4 p.r.n. 2. Prednisone taper daily. 3. Zocor 40 mg at bedtime. 4. K-Dur 40 mEq p.o. daily. 5. Fleet p.r.n. 6. Milk of Magnesia 2.4 daily p.r.n. 7. Synthroid 25 mcg p.o. daily. 8. Levaquin 500 mg p.o. daily. 9. DuoNeb q.i.d. and p.r.n. 10.Humalog before meals and at bedtime. 11.Lasix 20 mg daily. 12.Dulcolax 10 mg daily p.r.n. 13.Ventolin HFA 1-2 puffs q.6 p.r.n. ALLERGIES: 1. NONE. FAMILY HISTORY: No history of heart disease or strokes in the family. SOCIAL HISTORY: No history of smoking. No history of alcohol intake. REVIEW OF SYSTEMS: ENT: Diminished hearing. Diminished vision. CARDIOVASCULAR SYSTEM: As mentioned earlier. RESPIRATORY SYSTEM: As mentioned earlier. GI: No nausea, vomiting. : No dysuria or retention. NERVOUS SYSTEM: No numbness, weakness. ALLERGY/IMMUNOLOGY: No asthma, hayfever. MUSCULOSKELETAL: As mentioned earlier. HEMATOLOGY/ONCOLOGY: No history of anemia. ENDOCRINE: Hypothyroidism. CONSTITUTIONAL: As mentioned earlier. DERMATOLOGY: Negative. RHEUMATOLOGY: Negative. PSYCHIATRY: As mentioned earlier. PHYSICAL EXAMINATION: Patient is alert and oriented x3. Pulse is 71, blood pressure 104/53, respiration 18, temperature 97 degrees, pulse ox 98% on 3 L. HEENT: Conjunctivae pale. NECK: No jugular venous distention. No carotid bruit. No lymph node enlargement. CARDIOVASCULAR: S1, S2 muffled. No S3. No S4. RESPIRATORY: Breath sounds diminished at the bases. Bilateral scattered rhonchi and basal crackles. ABDOMEN: Soft, nontender. LEGS: No edema. No swelling. NERVOUS SYSTEM: Higher functions as mentioned earlier. Moves all 4 limbs. No focal motor or sensory deficit. LYMPHATICS: No lymph node palpable in neck, axillae or groin. SKIN: No ulcer, rash, bleeding. moist. Neck is no jugular venous distention. No carotid no lymph nodes LABS: WBC 2.8, hemoglobin 7.3. Platelets are 31. ASSESSMENT: 1. Acute on chronic anemia secondary to myelodysplastic syndrome. 2. Pancytopenia secondary to myelodysplastic syndrome. 3. History of recent acute respiratory failure secondary to pulmonary fibrosis exacerbation. 4. Chronic obstructive pulmonary disease. 5. Gait dysfunction. 6. Hypertension. 7. NO CODE, NO CPR, NO VENT. RECOMMENDATIONS AND DISCUSSION: In this 81-year-old gentleman who presented with multiple complex medical issues., we will monitor the patient closely, continue the current medications, continue with symptomatic treatment. I would recommend 1 unit transfusion with the Lasix and repeat labs in the morning. Resume the home medications. Continue with PT/OT evaluation. Prognosis is guarded because of multiple complex medical issues. Further recommendations to follow. We will also provide Accu-Cheks as well as insulin scale. Continue with PT/OT with rehab also. Discussed with the patient. MMODL / IJN: [id number] / LESLIE
[2017-03-03] MEDS: INSULIN LISPRO (humaLOG) 300 UNIT/3 ML VIAL SQ SCH (21:19)
[2017-03-04 00:08] VITALS: RESP 16
[2017-03-04] MEDS ORDERED: LEVOTHYROXINE 25 MCG TAB PO SCH (06:00)
[2017-03-04 07:29] LABS: Anisocytosis Slight; Basophils % (A) 0 %; CH 33.1; Eosinophils % (A) 1 %; HCT 23.5 % (39.0-53.0); HDW 3.32; HGB 7.6 gm/dL (13.0-17.5); Hypochromasia Slight; Luc # (Auto) 0.03; Luc % (Auto) 2; Lymphocytes % (A) 63 %; MCH 33.6 pg (25.0-35.0); MCHC 32.4 g/dL (31.0-37.0); MCV 103.7 fL (80.0-100.0); Macrocytosis Moderate; Mean Platelet Volume 7.3; Monocytes # (A) 0.1 k/uL (0-1.0); Monocytes % (A) 7 %; Neutrophils # (A) 0.5 k/uL (1.3-7.7); Neutrophils % (A) 27 %; RBC 2.27 m/uL (4.30-5.90); RDW 19.6 % (11.5-15.5)
[2017-03-04] MEDS: IPRATROPIUM-ALBUTEROL 3 ML NEB INHALATION SCH ×2 (07:29→11:44)
[2017-03-04 07:54] LABS: Blood Urea Nitrogen 23 mg/dL (9-20); Calcium 8.3 mg/dL (8.4-10.2); Chloride 91 mmol/L (98-107); Glucose 70 mg/dL (74-99); Non-African American GFR(MDRD) >60 (>60 ml/min/1.73 sqM); Potassium 4.3 mmol/L (3.5-5.1); Sodium 136 mmol/L (137-145)
[2017-03-04] MEDS ORDERED: predniSONE 10 MG TAB PO SCH (08:00)
[2017-03-04 08:01] LABS: Anion Gap 3 mmol/L
[2017-03-04 08:07] LABS: Carbon Dioxide 42 mmol/L (22-30)
[2017-03-04 08:28] LABS: WBC 1.7 k/uL (3.8-10.6)
[2017-03-04 08:51] LABS: Glucose,Whole Blood 89 mg/dL (75-99)
[2017-03-04] MEDS ORDERED: LEVOFLOXACIN 500 MG TAB PO SCH (09:00)
[2017-03-04] MEDS: INSULIN LISPRO (humaLOG) 300 UNIT/3 ML VIAL SQ SCH ×2 (09:01→14:28)
[2017-03-04] MEDS: FUROSEMIDE 20 MG TAB PO SCH ×2 (09:03→09:04)
[2017-03-04 09:07] VITALS: BP 104/54; TEMP 97.4
[2017-03-04 10:09] LABS: Manual Review Performed
[2017-03-04 12:02] VITALS: PULSE 63
[2017-03-04 12:26] LABS: Glucose,Whole Blood 106 mg/dL (75-99)
--- NOTE | 2017-03-04 13:52 | P.DS ---
Providers Date of admission: 03/03/17 16:25 Attending physician: Moisés Delgado Primary care physician: Onesimo Guevara [facility] Course: This 81-year-old gentleman with a past medical history multiple medical problems including pulmonary fibrosis and the pancytopenia possibly secondary to myelodysplastic syndrome was recently admitted to [facility] for rehab under Dr. Guevara. The patient was found to have hemoglobin of 6.4. The patient was transferred to [facility]. Patient transfused. Hemoglobin improved to 7.6. Patient is stable at this time. Patient does have an appointment with Dr. Rico for further follow-up with the myelodysplastic syndrome. Anemia is thought to be mainly secondary to myelodysplastic syndrome. I recommended close follow-up in the outpatient setting and as well as some periodic hemoglobin and the transfusions on a when necessary basis. Stable at this time. Overall prognosis guarded. Discussed with family and the patient understands and agrees. Patient be discharged in a stable condition with guarded prognosis and back to [facility] today. Total time taken 35 minutes. On exam vitals stable. Cardio S1 and S2 normal. Respiratory system few scattered rhonchi and crackles suggestive of pulmonary fibrosis. Abdomen soft obese. Nervous system mild diffuse weakness. Final diagnosis 1. Acute on chronic anemia secondary to myelodysplastic syndrome. 2. Pancytopenia secondary to myelodysplastic syndrome. 3. History of recent acute respiratory failure secondary to pulmonary fibrosis exacerbation. 4. COPD. 5. Gait dysfunction. 6. Hypertension. 7. No code no CPR no event. Patient Condition at Discharge: Stable Plan - Discharge Summary New Discharge Prescriptions: Continue Levothyroxine Sodium [Synthroid] 25 mcg PO DAILY@0600 Simvastatin [Zocor] 40 mg PO HS@2100 Albuterol Inhaler [Ventolin Hfa Inhaler] 1 - 2 puff INHALATION RT-Q6H PRN PRN Reason: Shortness Of Breath Or Wheezing Levofloxacin [Levaquin] 500 mg PO DAILY #5 tab Bisacodyl [Dulcolax] 10 mg RECTAL DAILY PRN PRN Reason: Constipation Furosemide [Lasix] 20 mg PO DAILY@0800 INSULIN LISPRO (HumaLOG) [humaLOG] See Protocol SQ ACHS Ipratropium-Albuterol Nebulize [Duoneb 0.5 mg-3 mg/3 ml Soln] 3 ml INHALATION RT-Q4H PRN PRN Reason: Shortness Of Breath Ipratropium-Albuterol Nebulize [Duoneb 0.5 mg-3 mg/3 ml Soln] 3 ml INHALATION RT-QID@,,, Magnesium Hydroxide [Milk of Magnesia] 2,400 mg PO DAILY PRN PRN Reason: Constipation Na Phos,M-B/Na Phos,Di-Ba [Fleet Adult] 133 ml RECTAL DAILY PRN PRN Reason: Constipation Potassium Chloride ER [K-Dur 20] 40 meq PO DAILY@1700 predniSONE See Taper PO DAILY@0800 traMADol HCL [Ultram] 50 mg PO Q4HR PRN PRN Reason: Pain Discharge Medication List Levothyroxine Sodium [Synthroid] 25 mcg PO DAILY@0600 10/22/14 [History] Albuterol Inhaler [Ventolin Hfa Inhaler] 1 - 2 puff INHALATION RT-Q6H PRN [History] Simvastatin [Zocor] 40 mg PO HS@2100 02/24/17 [History] Levofloxacin [Levaquin] 500 mg PO DAILY #5 tab 02/28/17 [Rx] Bisacodyl [Dulcolax] 10 mg RECTAL DAILY PRN 03/03/17 [History] Furosemide [Lasix] 20 mg PO DAILY@0800 03/03/17 [History] INSULIN LISPRO (HumaLOG) [humaLOG] See Protocol SQ ACHS 03/03/17 [History] Ipratropium-Albuterol Nebulize [Duoneb 0.5 mg-3 mg/3 ml Soln] 3 ml INHALATION RT -Q4H PRN 03/03/17 [History] Ipratropium-Albuterol Nebulize [Duoneb 0.5 mg-3 mg/3 ml Soln] 3 ml INHALATION RT -QID@,,,03/03/17 [History] Magnesium Hydroxide [Milk of Magnesia] 2,400 mg PO DAILY PRN 03/03/17 [History] Na Phos,M-B/Na Phos,Di-Ba [Fleet Adult] 133 ml RECTAL DAILY PRN 03/03/17 [ History] Potassium Chloride ER [K-Dur 20] 40 meq PO DAILY@1700 03/03/17 [History] predniSONE See Taper PO DAILY@0800 03/03/17 [History] traMADol HCL [Ultram] 50 mg PO Q4HR PRN 03/03/17 [History] Follow up Appointment(s)/Referral(s): Onesimo Guevara MD [Primary Care Provider] - 1-2 days Sierra Luz MD [STAFF PHYSICIAN] - 1 Week Discharge Disposition: TRANSFER TO SNF/ECF
== END 2017-03-04 15:47 | DRG 812 ==
LOC: EC 13:31 → 5MS5E 16:25
PROVIDERS: ADMIT Hospitalist; ATTEND Hospitalist
PROC: 30233N1 Transfusion of Nonautologous Red Blood Cells into Peripheral Vein, Percutaneous Approach (ICD-10-PCS; principal; 2017-03-03)
DX: D46.9 Myelodysplastic syndrome, unspecified (principal); D61.818 Other pancytopenia; J84.10 Pulmonary fibrosis, unspecified; J44.9 Chronic obstructive pulmonary disease, unspecified; D63.8 Anemia in other chronic diseases classified elsewhere; E66.9 Obesity, unspecified; E78.5 Hyperlipidemia, unspecified; I10 Essential (primary) hypertension; Z79.899 Other long term (current) drug therapy; I25.10 Atherosclerotic heart disease of native coronary artery without angina pectoris; I25.2 Old myocardial infarction; E86.0 Dehydration; E03.9 Hypothyroidism, unspecified
CPT/HCPCS: 36415; 80048; 80053; 81003; 83036; 85025; 85610; 85730; 86850; 86900; 86901; 86920; 93005; 94640; 99285

== ENCOUNTER 2017-03-21 14:05 | Inpatient (IN) | payer MEDICARE ==
[2017-03-21] MEDS ORDERED: IPRATROPIUM 0.5 MG/2.5 ML NEBU INHALATION STA (14:43)
[2017-03-21] MEDS ORDERED: ALBUTEROL NEBULIZED 2.5 MG/3 ML INHALATION STA (14:43)
--- NOTE | 2017-03-21 14:48 | ED ---
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 Patient most recently had blood transfusion 5 days ago. Patient has also noted bilateral lower extremity swelling. Patient does admit having cough which is productive. According to the patient's family he has had a slightly elevated temperature over the past several days as well. Patient denies chest pain. Denies nausea or vomiting. Denies diarrhea. Denies rectal bleeding. - Related Data Home Medications Medication Instructions Recorded Confirmed Levothyroxine Sodium [Synthroid] 25 mcg PO DAILY@0600 10/22/14 03/21/17 Albuterol Inhaler [Ventolin Hfa 1 - 2 puff INHALATION RT-Q6H PRN 02/24/17 Inhaler] Simvastatin [Zocor] 40 mg PO HS@2100 02/24/17 03/21/17 Furosemide [Lasix] 20 mg PO DAILY@0800 03/03/17 03/21/17 Potassium Chloride ER [K-Dur 20] 40 meq PO DAILY@1700 03/03/17 03/21/17 Allergies Allergy/AdvReac Type Severity Reaction Status Date / Time No Known Allergies Allergy Verified 03/21/17 14:48 Review of Systems ROS Statement: Those systems with pertinent positive or pertinent negative responses have been documented in the HPI. ROS Other: All systems not noted in ROS Statement are negative. 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 Osteoarthritis, difficulty mobility and gait and the patient has become profoundly weak. Coronary artery disease with previous non-ST segment elevation myocardial infarction, preserved ejection fraction of 65% with severe pulmonary hypertension based on previous echocardiogram that was done back in 2014 History of Any Multi-Drug Resistant Organisms: None Reported Past Surgical History: Heart Catheterization Additional Past Surgical History / Comment(s): 10/22/14 ccath- EF 65-70%. PTO injury to groin/perineal area with surgical repair. 02/13/17 bone marrow biopsy done Past Anesthesia/Blood Transfusion Reactions: No Reported Reaction Additional Past Anesthesia/Blood Transfusion Reaction / Comment(s): Pt hs never recieved blood. Past Psychological History: No Psychological Hx Reported Smoking Status: Never smoker Past Alcohol Use History: None Reported Past Drug Use History: None Reported - Past Family History Father Family Medical History: No Reported History Additional Family Medical History / Comment(s): Father was healthy until his at age 81yrs old. Mother Family Medical History: CVA/TIA Additional Family Medical History / Comment(s): Mother at age 84yr old. She had a CVA at age 82or 83yrs. General Exam Limitations: no limitations General appearance: alert, in no apparent distress Head exam: Present: atraumatic, normocephalic Eye exam: Present: normal appearance, PERRL Neck exam: Present: normal inspection. Absent: tenderness Respiratory exam: Present: normal lung sounds bilaterally, respiratory distress Cardiovascular Exam: Present: normal rhythm, tachycardia GI/Abdominal exam: Present: soft. Absent: distended, tenderness Extremities exam: Present: normal capillary refill, pedal edema (2+ pitting edema bilaterally.) Neurological exam: Present: alert, oriented X3. Absent: motor sensory deficit Psychiatric exam: Present: normal affect, normal mood Skin exam: Present: warm, dry, intact. Absent: cyanosis, diaphoretic Course Vital Signs 03/21/17 03/21/17 03/21/17 14:08 15:00 15:03 Temperature 99.2 F Pulse Rate 99 100 Respiratory 24 24 Rate Blood Pressure 112/56 O2 Sat by Pulse 75 L Oximetry 03/21/17 03/21/17 03/21/17 15:11 15:12 15:13 Temperature Pulse Rate 106 H 100 100 Respiratory 24 Rate Blood Pressure 108/55 O2 Sat by Pulse 100 Oximetry 03/21/17 03/21/17 15:25 16:07 Temperature 99.4 F Pulse Rate 115 H 108 H Respiratory 20 Rate Blood Pressure 107/53 O2 Sat by Pulse Oximetry EKG Findings - EKG Comments: EKG Findings:: EKG shows sinus tachycardia with first-degree AV block, ventricular 104, OR interval 236, QRS duration 72, QTC 420, no ST segment elevation or depression Medical Decision Making - Medical Decision Making 81-year-old male with history of ulnar fibrosis and 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 Patient has had a direct of cough for the past days, according to family members he has had an elevated temperature as well on examination patient has scattered end expiratory wheezes as well as rhonchi, he also has 1-2+ pitting edema in the lower extremities. Chest x-ray shows concern for multifocal pneumonia versus pulmonary edema. With blood cell count 2.1, hemoglobin is improved at 8.1. Platelet count is 20. These findings are consistent with pancytopenia. Venous blood gas reveals pCO2 of 72, patient does have chronic CO2 retention. Albumin low at 3.0, creatinine normal 0.60. Patient requires of low oxygen while the emergency department. This is improved with nonrebreather, 100%. Patient will be admitted for diuresis as well as treatment for healthcare associated pneumonia. - Lab Data Result diagrams: 03/21/17 14:40 03/21/17 14:40 Lab Results 03/21/17 03/21/17 03/21/17 Range/Units 14:40 14:40 14:40 WBC 2.1 L (3.8-10.6) k/uL RBC 2.38 L (4.30-5.90) m/uL Hgb 8.1 L D (13.0-17.5) gm/dL Hct 24.7 L (39.0-53.0) % MCV 103.8 H (80.0-100.0) fL MCH 33.9 (25.0-35.0) pg MCHC 32.6 (31.0-37.0) g/dL RDW 19.6 H (11.5-15.5) % Plt Count 20 L* (150-450) k/uL Neutrophils % (Manual) 27 % Band Neutrophils % 22 % Lymphocytes % (Manual) 45 % Monocytes % (Manual) 5 % Eosinophils % (Manual) 1 % Metamyelocytes % 2 % Neutrophils # (Manual) 1.00 L (1.3-7.7) k/uL Lymphocytes # (Manual) 0.95 L (1.0-4.8) k/uL Monocytes # (Manual) 0.11 (0-1.0) k/uL Eosinophils # (Manual) 0.02 (0-0.7) k/uL Metamyelocytes # (Man) 0.04 H (0) k/uL Nucleated RBCs 0 (0-0) /100 WBC Manual Slide Review Performed Reactive Lymphocytes Present Toxic Vacuolation Present Anisocytosis Slight Anisocytosis (manual) Present Macrocytosis Moderate PT (9.0-12.0) sec INR (<1.2) APTT (22.0-30.0) sec VBG pH (7.31-7.41) VBG pCO2 (37-51) mmHg VBG HCO3 (24-28) mmol/L Sodium 139 (137-145) mmol/L Potassium 4.5 (3.5-5.1) mmol/L Chloride 90 L (98-107) mmol/L Carbon Dioxide 45 H* (22-30) mmol/L Anion Gap 4 mmol/L BUN 16 (9-20) mg/dL Creatinine 0.60 L (0.66-1.25) mg/dL Est GFR (MDRD) Af Amer >60 (>60 ml/min/1.73 sqM) Est GFR (MDRD) Non-Af >60 (>60 ml/min/1.73 sqM) Glucose 102 H (74-99) mg/dL Plasma Lactic Acid Theo (0.7-2.0) mmol/L Calcium 9.0 (8.4-10.2) mg/dL Magnesium 1.6 (1.6-2.3) mg/dL Total Bilirubin 0.9 (0.2-1.3) mg/dL AST 25 (17-59) U/L ALT 44 (21-72) U/L Alkaline Phosphatase 55 (38-126) U/L Total Creatine Kinase <20 L (55-170) U/L CK-MB (CK-2) 0.8 (0.0-2.4) ng/mL CK-MB (CK-2) Rel Index Troponin I <0.012 (0.000-0.034) ng/mL Total Protein 5.4 L (6.3-8.2) g/dL Albumin 3.0 L (3.5-5.0) g/dL 03/21/17 03/21/17 03/21/17 Range/Units 14:40 14:40 14:40 WBC (3.8-10.6) k/uL RBC (4.30-5.90) m/uL Hgb (13.0-17.5) gm/dL Hct (39.0-53.0) % MCV (80.0-100.0) fL MCH (25.0-35.0) pg MCHC (31.0-37.0) g/dL RDW (11.5-15.5) % Plt Count (150-450) k/uL Neutrophils % (Manual) % Band Neutrophils % % Lymphocytes % (Manual) % Monocytes % (Manual) % Eosinophils % (Manual) % Metamyelocytes % % Neutrophils # (Manual) (1.3-7.7) k/uL Lymphocytes # (Manual) (1.0-4.8) k/uL Monocytes # (Manual) (0-1.0) k/uL Eosinophils # (Manual) (0-0.7) k/uL Metamyelocytes # (Man) (0) k/uL Nucleated RBCs (0-0) /100 WBC Manual Slide Review Reactive Lymphocytes Toxic Vacuolation Anisocytosis Anisocytosis (manual) Macrocytosis PT 9.9 (9.0-12.0) sec INR 1.0 (<1.2) APTT 23.0 (22.0-30.0) sec VBG pH 7.42 H (7.31-7.41) VBG pCO2 72 H* (37-51) mmHg VBG HCO3 46 H (24-28) mmol/L Sodium (137-145) mmol/L Potassium (3.5-5.1) mmol/L Chloride (98-107) mmol/L Carbon Dioxide (22-30) mmol/L Anion Gap mmol/L BUN (9-20) mg/dL Creatinine (0.66-1.25) mg/dL Est GFR (MDRD) Af Amer (>60 ml/min/1.73 sqM) Est GFR (MDRD) Non-Af (>60 ml/min/1.73 sqM) Glucose (74-99) mg/dL Plasma Lactic Acid Theo 1.8 (0.7-2.0) mmol/L Calcium (8.4-10.2) mg/dL Magnesium (1.6-2.3) mg/dL Total Bilirubin (0.2-1.3) mg/dL AST (17-59) U/L ALT (21-72) U/L Alkaline Phosphatase (38-126) U/L Total Creatine Kinase (55-170) U/L CK-MB (CK-2) (0.0-2.4) ng/mL CK-MB (CK-2) Rel Index Troponin I (0.000-0.034) ng/mL Total Protein (6.3-8.2) g/dL Albumin (3.5-5.0) g/dL Disposition Clinical Impression: Healthcare-associated pneumonia, Pulmonary fibrosis, Pancytopenia Disposition: ADMITTED IP TO THIS [facility] Condition: Stable Referrals: Gene Lucero DO [Primary Care Provider] - 1-2 days Decision to Admit Reason: Admit from [facility] Decision Date: 03/21/17 Decision Time: 16:37
[2017-03-21 15:14] LABS: Anisocytosis Slight; CH 33.6; CHCM 32.5; HCT 24.7 % (39.0-53.0); MCH 33.9 pg (25.0-35.0); MCHC 32.6 g/dL (31.0-37.0); MCV 103.8 fL (80.0-100.0); Macrocytosis Moderate; Mean Platelet Volume 8.1; RBC 2.38 m/uL (4.30-5.90); RDW 19.6 % (11.5-15.5); WBC 2.1 k/uL (3.8-10.6); WBC (Perox) 2.09
[2017-03-21 15:16] LABS: Prothrombin Time 9.9 sec (9.0-12.0)
[2017-03-21 15:18] LABS: ALT 44 U/L (21-72); AST 25 U/L (17-59); Alkaline Phosphatase 55 U/L (38-126); Blood Urea Nitrogen 16 mg/dL (9-20); Chloride 90 mmol/L (98-107); Glucose 102 mg/dL (74-99); Magnesium 1.6 mg/dL (1.6-2.3); Non-African American GFR(MDRD) >60 (>60 ml/min/1.73 sqM); Potassium 4.5 mmol/L (3.5-5.1); Sodium 139 mmol/L (137-145); Total Bilirubin 0.9 mg/dL (0.2-1.3); Total Protein 5.4 g/dL (6.3-8.2)
[2017-03-21 15:19] LABS: HGB 8.1 gm/dL (13.0-17.5)
[2017-03-21 15:22] LABS: VBG PH 7.42 (7.31-7.41)
[2017-03-21 15:24] LABS: Anion Gap 4 mmol/L
[2017-03-21 15:27] LABS: Creatine Kinase <20 U/L (55-170)
[2017-03-21 15:28] LABS: Add Differential Manual Differential
[2017-03-21 15:30] LABS: Carbon Dioxide 45 mmol/L (22-30)
[2017-03-21 15:40] LABS: Band Neutrophils % 22 %; Creatine Kinase MB 0.8 ng/mL (0.0-2.4); Manual Review Performed; Metamyelocytes % 2 %; Nucleated Red Blood Cells 0 /100 WBC (0-0); Reactive Lymphocytes Present; Total Cells Counted 200; Toxic Vacuolation Present; Troponin I <0.012 ng/mL (0.000-0.034)
--- NOTE | 2017-03-21 16:01 | XR ---
EXAMINATION TYPE: XR chest 2V DATE OF EXAM: 03/21/2017 COMPARISON: 02/22/2017 HISTORY: Shortness of breath and hypoxemia. History of COPD and heart catheterization. Prior NM TECHNIQUE: Frontal and lateral views of the chest are obtained. FINDINGS: There are multifocal opacities most confluent within the right midlung and retrocardiac ai rspace with low lung volumes and chronic left hemidiaphragm elevation. Cardia mediastinal silhouette is obscured but appears enlarged. Moderate pulmonary vascular congestion and interstitial edema is ag ain appreciated, progressed from the prior. Mild degenerative changes of the thoracic spine and acrom ioclavicular joints are noted. IMPRESSION: Multifocal airspace disease and may represent confluent pulmonary edema in the setting o f moderate pulmonary vascular congestion favored to represent cardiogenic fluid overload. Alternative ly multifocal pneumonia is a possibility in the appropriate clinical setting.
[2017-03-21] MEDS ORDERED: FUROSEMIDE 10 MG/ML 2 ML VIAL IV ONE (16:05)
[2017-03-21] MEDS ORDERED: IV VANCOMYCIN PER PHARMACY 1 EACH MISC MISCELLANE PRN (16:10)
[2017-03-21] MEDS ORDERED: CEFEPIME 2 GM in SODIUM CHLORIDE 0.9% 50 ML IVPB ONE (16:15)
[2017-03-21] MEDS: VANCOMYCIN 1,500 MG in SODIUM CHLORIDE 0.9% 250 ML IVPB SCH (17:45)
[2017-03-21] MEDS: IPRATROPIUM-ALBUTEROL 3 ML NEB INHALATION PRN (20:34)
[2017-03-21] MEDS: FUROSEMIDE 10 MG/ML 2 ML VIAL IV SCH (21:10)
[2017-03-21 21:12] LABS: Glucose,Whole Blood 184 mg/dL (75-99)
--- NOTE | 2017-03-21 22:17 | P.HPIM ---
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 Patient most recently had blood transfusion 5 days ago. Patient has also noted bilateral lower extremity swelling. Patient does admit having cough which is productive. According to the patient's family he has had a slightly elevated temperature over the past several days as well. Patient denies chest pain. Denies nausea or vomiting. Denies diarrhea. Denies rectal bleeding. Pulse ox was 75 percent on nasal cannula on admission. Chest x-ray showed multifocal pneumonia and may represent confluent pulmonary edema Patient was pancytopenic. Patient is a chronic CO2 retainer. Review of Systems Constitutional: Patient denies any fever or chills . No generalized weakness or weight loss. Abdomen: Patient denied nausea vomiting and diarrhea and abdominal pain. Cardiovascular: Patient denies any chest pain . Patient does have shortness of breath and leg swelling. Orthopnea. Respiratory: Patient does have cough with whitish sputum production and shortness of breath. Neurologic: Patient denied any numbness or tingling headache. Musculoskeletal: Patient denies any complaints of joint swelling or deformity. Skin: Negative Psychiatric: Negative Endocrine: No heat or cold intolerance. No recent weight gain. Genitourinary: No dysuria or hematuria. 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 Osteoarthritis, difficulty mobility and gait and the patient has become profoundly weak. Coronary artery disease with previous non-ST segment elevation myocardial infarction, preserved ejection fraction of 65% with severe pulmonary hypertension based on previous echocardiogram that was done back in 2014, O2 2- 3 LITERS ATC History of Any Multi-Drug Resistant Organisms: None Reported Past Surgical History: Heart Catheterization Additional Past Surgical History / Comment(s): 10/22/14 ccath- EF 65-70%. PTO injury to groin/perineal area with surgical repair. 02/13/17 bone marrow biopsy done Past Anesthesia/Blood Transfusion Reactions: No Reported Reaction Additional Past Anesthesia/Blood Transfusion Reaction / Comment(s): Pt hs never recieved blood. Smoking Status: Never smoker - Past Family History Father Family Medical History: No Reported History Additional Family Medical History / Comment(s): Father was healthy until his at age 81yrs old. Mother Family Medical History: CVA/TIA Additional Family Medical History / Comment(s): Mother at age 84yr old. She had a CVA at age 82or 83yrs. Medications and Allergies Home Medications Medication Instructions Recorded Confirmed Type Levothyroxine Sodium [Synthroid] 25 mcg PO DAILY@0600 10/22/14 03/21/17 History Albuterol Inhaler [Ventolin Hfa 1 - 2 puff INHALATION RT-Q6H PRN 02/24/17 History Inhaler] Simvastatin [Zocor] 40 mg PO HS@2100 02/24/17 03/21/17 History Furosemide [Lasix] 20 mg PO DAILY@0800 03/03/17 03/21/17 History Potassium Chloride ER [K-Dur 20] 40 meq PO DAILY@1700 03/03/17 03/21/17 History Allergies Allergy/AdvReac Type Severity Reaction Status Date / Time No Known Allergies Allergy Verified 03/21/17 14:48 Physical Exam Vitals: Vital Signs Temp Pulse Pulse Resp BP BP Pulse Ox 03/21/17 20:50 115 H 03/21/17 20:29 108 H 03/21/17 18:53 106 H 18 03/21/17 17:30 96.8 F L 106 H 18 117/54 93 L 03/21/17 16:41 98.5 F 102 H 22 121/58 96 03/21/17 16:07 99.4 F 108 H 20 107/53 03/21/17 15:25 115 H 03/21/17 15:13 100 03/21/17 15:12 100 03/21/17 15:11 106 H 24 108/55 100 03/21/17 15:03 100 03/21/17 15:00 24 03/21/17 14:08 99.2 F 99 24 112/56 75 L Intake and Output 03/21/17 03/21/17 03/21/17 06:59 14:59 22:59 Other: Weight 83.007 kg Patient Weight 03/22/17 06:59 Weight 83.007 kg PHYSICAL EXAMINATION: Patient is lying in the bed comfortably, mild acute distress, awake alert and oriented.. HEENT: Normocephalic. Neck is supple. Pupils reactive. Nostrils clear. Oral cavity is moist. Ears reveal no drainage. Neck reveals no JVD, carotid bruits, or thyromegaly. CHEST EXAMINATION: Trachea is central. Symmetrical expansion. Bilateral diffuse rhonchi and expiratory wheezing positive. CARDIAC: Normal S1, S2 with no gallops. No murmurs tachycardia ABDOMEN: Soft. Obese. Bowel sounds normal. No organomegaly. No abdominal bruits. Extremities: 2+ edema. No clubbing or cyanosis Neurologically awake, alert, oriented x3 with well-coordinated movements. No focal deficits noted Skin: No rash or skin lesions. Psychiatric: Operative. Nonsuicidal Musculoskeletal: No joint swelling or deformity. Normal range of motion. Results CBC & Chem 7: 03/21/17 14:40 03/21/17 14:40 Labs: Abnormal Lab Results - Last 24 Hours (Table) 03/21/17 03/21/17 03/21/17 Range/Units 14:40 14:40 14:40 WBC 2.1 L (3.8-10.6) k/uL RBC 2.38 L (4.30-5.90) m/uL Hgb 8.1 L D (13.0-17.5) gm/dL Hct 24.7 L (39.0-53.0) % MCV 103.8 H (80.0-100.0) fL RDW 19.6 H (11.5-15.5) % Plt Count 20 L* (150-450) k/uL Neutrophils # (Manual) 1.00 L (1.3-7.7) k/uL Lymphocytes # (Manual) 0.95 L (1.0-4.8) k/uL Metamyelocytes # (Man) 0.04 H (0) k/uL VBG pH (7.31-7.41) VBG pCO2 (37-51) mmHg VBG HCO3 (24-28) mmol/L Chloride 90 L (98-107) mmol/L Carbon Dioxide 45 H* (22-30) mmol/L Creatinine 0.60 L (0.66-1.25) mg/dL Glucose 102 H (74-99) mg/dL POC Glucose (mg/dL) (75-99) mg/dL Total Creatine Kinase <20 L (55-170) U/L Total Protein 5.4 L (6.3-8.2) g/dL Albumin 3.0 L (3.5-5.0) g/dL 03/21/17 03/21/17 Range/Units 14:40 20:39 WBC (3.8-10.6) k/uL RBC (4.30-5.90) m/uL Hgb (13.0-17.5) gm/dL Hct (39.0-53.0) % MCV (80.0-100.0) fL RDW (11.5-15.5) % Plt Count (150-450) k/uL Neutrophils # (Manual) (1.3-7.7) k/uL Lymphocytes # (Manual) (1.0-4.8) k/uL Metamyelocytes # (Man) (0) k/uL VBG pH 7.42 H (7.31-7.41) VBG pCO2 72 H* (37-51) mmHg VBG HCO3 46 H (24-28) mmol/L Chloride (98-107) mmol/L Carbon Dioxide (22-30) mmol/L Creatinine (0.66-1.25) mg/dL Glucose (74-99) mg/dL POC Glucose (mg/dL) 184 H (75-99) mg/dL Total Creatine Kinase (55-170) U/L Total Protein (6.3-8.2) g/dL Albumin (3.5-5.0) g/dL Thrombosis Risk Factor Assmnt - DVT/VTE Prophylaxis DVT/VTE Prophylaxis: Pharmacologic Prophylaxis ordered Assessment and Plan Assessment: #1 acute hypoxic and hypercapnic respiratory failure due to multifactorial etiology due to CHF and pulmonary fibrosis and pneumonia #2 healthcare associated pneumonia #2 acute COPD exacerbation with history of pulmonary fibrosis #2 acute on chronic CHF with diastolic dysfunction #4 chronic hypoxic and hypercapnic respiratory failure due to pulmonary fibrosis #5 obesity with BMI 27.8 #6 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 Continue with breathing treatments along with steroids and IV diuresis with Lasix as blood pressure tolerates. Continue to monitor CBC and transfuse as needed. No signs of active bleeding. Hemoglobin is at 8.1. We will continue to follow closely. Prognosis is guarded with multiple medical problems and comorbid conditions. Further recommendations based on the clinical course.
[2017-03-21] MEDS: CEFEPIME 2 GM in SODIUM CHLORIDE 0.9% 50 ML IVPB SCH (23:41)
[2017-03-22 05:55] LABS: Glucose,Whole Blood 104 mg/dL (75-99)
[2017-03-22 06:23] LABS: Anisocytosis Slight; Basophils % (A) 0 %; CH 32.7; Eosinophils % (A) 1 %; HDW 3.11; HGB 7.7 gm/dL (13.0-17.5); Hypochromasia Slight; Luc # (Auto) 0.08; Luc % (Auto) 4; Lymphocytes # (A) 0.7 k/uL (1.0-4.8); Lymphocytes % (A) 35 %; MCH 32.6 pg (25.0-35.0); MCHC 31.8 g/dL (31.0-37.0); MCV 102.4 fL (80.0-100.0); Macrocytosis Moderate; Mean Platelet Volume 6.8; Monocytes # (A) 0.1 k/uL (0-1.0); Monocytes % (A) 5 %; Neutrophils # (A) 1.1 k/uL (1.3-7.7); Neutrophils % (A) 55 %; RBC 2.35 m/uL (4.30-5.90); RDW 18.6 % (11.5-15.5); WBC 2.1 k/uL (3.8-10.6); WBC (Perox) 2.23
[2017-03-22] MEDS: VANCOMYCIN 1,500 MG in SODIUM CHLORIDE 0.9% 250 ML IVPB SCH ×2 (06:30→21:10)
[2017-03-22] MEDS: LEVOTHYROXINE 25 MCG TAB PO SCH (06:31)
[2017-03-22 06:34] LABS: Blood Urea Nitrogen 17 mg/dL (9-20); Calcium 8.8 mg/dL (8.4-10.2); Chloride 87 mmol/L (98-107); Glucose 106 mg/dL (74-99); Non-African American GFR(MDRD) >60 (>60 ml/min/1.73 sqM); Potassium 4.1 mmol/L (3.5-5.1); Sodium 138 mmol/L (137-145)
[2017-03-22 06:41] LABS: Anion Gap 4 mmol/L
[2017-03-22 06:55] LABS: Carbon Dioxide 47 mmol/L (22-30)
[2017-03-22] MEDS: IPRATROPIUM-ALBUTEROL 3 ML NEB INHALATION PRN (08:03)
[2017-03-22] MEDS: predniSONE 20 MG TAB PO SCH (08:03)
[2017-03-22] MEDS: FUROSEMIDE 10 MG/ML 2 ML VIAL IV SCH ×2 (08:03→21:10)
[2017-03-22] MEDS: CEFEPIME 2 GM in SODIUM CHLORIDE 0.9% 50 ML IVPB SCH ×3 (09:22→23:40)
--- NOTE | 2017-03-22 10:23 | P.CNPUL ---
History of Present Illness Consult date: 03/22/17 Requesting physician: Kemar Park Reason for consult: dyspnea, abnormal CXR/CT Chief complaint: Shortness of breath History of present illness: This is a pleasant 81-year-old gentleman who has a significant past medical history of myelodysplasia with pancytopenia and anemia. He was recently discharged from here on 03/04/2017 to [facility] for inpatient rehabilitation. He also has a history of advanced pulmonary fibrosis with FVC of 42% and a total lung capacity of 43% with chronic hypoxic and hypercapnic respiratory failure, chronic obstructive pulmonary disease with secondary pulmonary hypertension. He is oxygen dependent maintained on 3 L/m per nasal cannula in the outpatient setting. He follows with our group for the same. He also has a history of hypothyroidism, hyperlipidemia, osteoarthritis with gait mobility issues, coronary artery disease. He has very poor overall functional performance based on his multiple comorbidities. He was readmitted again yesterday with increasing shortness of breath cough and congestion. He had bilateral lower extremity edema as well. The patient had received a blood transfusion approximately 5-6 days ago. The patient's chest x-ray does reveal evidence of fluid volume overload. There is also some patchy opacities that were similar compared to the previous one in February. White count 2.1. Hemoglobin 7.7. Platelet count 21,000. Creatinine 0.62. CO2 level 47 and it is noted the patient runs in the high 30s to low 40s on previous admissions as well. He is currently maintaining O2 saturations in the high 90s on 4 L/m per nasal cannula. He is afebrile. Hemodynamically stable. He has been initiated on bronchodilators, prednisone along with cefepime and vancomycin. He is being diuresed with Lasix 20 mg IV every 12 hours. He is seen today in consultation on the selective care unit. Currently he is awake and alert in no acute distress. He is somewhat of a poor historian unclear as to why he is here. He does admit to having some shortness of breath with exertion. Loose nonproductive cough. Review of Systems 14 point review of system was conducted. All negative other than as mentioned in the HPI. 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 Osteoarthritis, difficulty mobility and gait and the patient has become profoundly weak. Coronary artery disease with previous non-ST segment elevation myocardial infarction, preserved ejection fraction of 65% with severe pulmonary hypertension based on previous echocardiogram that was done back in 2014, O2 2- 3 LITERS ATC History of Any Multi-Drug Resistant Organisms: None Reported Past Surgical History: Heart Catheterization Additional Past Surgical History / Comment(s): 10/22/14 ccath- EF 65-70%. PTO injury to groin/perineal area with surgical repair. 02/13/17 bone marrow biopsy done Past Anesthesia/Blood Transfusion Reactions: No Reported Reaction Additional Past Anesthesia/Blood Transfusion Reaction / Comment(s): Pt hs never recieved blood. Smoking Status: Never smoker - Past Family History Father Family Medical History: No Reported History Additional Family Medical History / Comment(s): Father was healthy until his at age 81yrs old. Mother Family Medical History: CVA/TIA Additional Family Medical History / Comment(s): Mother at age 84yr old. She had a CVA at age 82or 83yrs. Medications and Allergies Home Medications Medication Instructions Recorded Confirmed Type Levothyroxine Sodium [Synthroid] 25 mcg PO DAILY@0600 10/22/14 03/21/17 History Albuterol Inhaler [Ventolin Hfa 1 - 2 puff INHALATION RT-Q6H PRN 02/24/17 History Inhaler] Simvastatin [Zocor] 40 mg PO HS@2100 02/24/17 03/21/17 History Furosemide [Lasix] 20 mg PO DAILY@0800 03/03/17 03/21/17 History Potassium Chloride ER [K-Dur 20] 40 meq PO DAILY@1700 03/03/17 03/21/17 History Allergies Allergy/AdvReac Type Severity Reaction Status Date / Time No Known Allergies Allergy Verified 03/21/17 14:48 Physical Exam Vitals: Vital Signs Temp Pulse Pulse Resp BP BP Pulse Ox 03/22/17 08:15 100 03/22/17 08:05 97 99 03/22/17 08:00 97.4 F L 96 22 133/61 99 03/22/17 04:00 97.3 F L 110 H 20 116/53 96 03/22/17 00:00 98 22 116/58 97 03/21/17 20:50 115 H 03/21/17 20:29 108 H 03/21/17 20:00 97.2 F L 110 H 22 116/59 97 03/21/17 18:53 106 H 18 03/21/17 17:30 96.8 F L 106 H 18 117/54 93 L 03/21/17 16:41 98.5 F 102 H 22 121/58 96 03/21/17 16:07 99.4 F 108 H 20 107/53 03/21/17 15:25 115 H 03/21/17 15:13 100 03/21/17 15:12 100 03/21/17 15:11 106 H 24 108/55 100 03/21/17 15:03 100 03/21/17 15:00 24 03/21/17 14:08 99.2 F 99 24 112/56 75 L Intake and Output 03/21/17 03/22/17 03/22/17 22:59 06:59 14:59 Output Total 600 Balance -600 Output: Urine 600 Other: Voiding Method Urinal Urinal Weight 82.3 kg GENERAL EXAM: Alert, comfortable in no apparent distress. HEAD: Normocephalic. EYES: Normal reaction of pupils, equal size. NOSE: Clear with pink turbinates. THROAT: No erythema or exudates. NECK: No masses, slight JVD. CHEST: No chest wall deformity. LUNGS: Equal air entry with scattered rhonchi, crackles in the posterior bases. Diminished.. CVS: S1 and S2 normal with no audible murmur, regular rhythm. ABDOMEN: No hepatosplenomegaly, normal bowel sounds, no guarding or rigidity. SPINE: No scoliosis or deformity SKIN: No rashes CENTRAL NERVOUS SYSTEM: No focal deficits, tone is normal in all 4 extremities. EXTREMITIES: There is 1+ peripheral edema. No clubbing, no cyanosis. Peripheral pulses are intact. Results - Laboratory Findings CBC and BMP: 03/22/17 05:26 03/22/17 05:26 PT/INR, D-dimer PT 9.9 sec (9.0-12.0) 03/21/17 14:40 INR 1.0 (<1.2) 03/21/17 14:40 Abnormal lab findings: Abnormal Labs 03/21/17 03/21/17 03/21/17 14:40 14:40 14:40 WBC 2.1 L RBC 2.38 L Hgb 8.1 L D Hct 24.7 L MCV 103.8 H RDW 19.6 H Plt Count 20 L* Neutrophils # Neutrophils # (Manual) 1.00 L Lymphocytes # Lymphocytes # (Manual) 0.95 L Metamyelocytes # (Man) 0.04 H VBG pH VBG pCO2 VBG HCO3 Chloride 90 L Carbon Dioxide 45 H* Creatinine 0.60 L Glucose 102 H POC Glucose (mg/dL) Total Creatine Kinase <20 L Total Protein 5.4 L Albumin 3.0 L 03/21/17 03/21/17 03/22/17 14:40 20:39 05:26 WBC RBC Hgb Hct MCV RDW Plt Count Neutrophils # Neutrophils # (Manual) Lymphocytes # Lymphocytes # (Manual) Metamyelocytes # (Man) VBG pH 7.42 H VBG pCO2 72 H* VBG HCO3 46 H Chloride 87 L Carbon Dioxide 47 H* Creatinine 0.62 L Glucose 106 H POC Glucose (mg/dL) 184 H Total Creatine Kinase Total Protein Albumin 03/22/17 03/22/17 05:26 05:53 WBC 2.1 L RBC 2.35 L Hgb 7.7 L Hct 24.0 L MCV 102.4 H RDW 18.6 H Plt Count 21 L* Neutrophils # 1.1 L Neutrophils # (Manual) Lymphocytes # 0.7 L Lymphocytes # (Manual) Metamyelocytes # (Man) VBG pH VBG pCO2 VBG HCO3 Chloride Carbon Dioxide Creatinine Glucose POC Glucose (mg/dL) 104 H Total Creatine Kinase Total Protein Albumin - Diagnostic Findings Chest x-ray: image reviewed Assessment and Plan Assessment: Impression: #1 Acute exacerbation of severe oxygen dependent chronic obstructive pulmonary disease. #2 Acute exacerbation of severe pulmonary fibrosis with restrictive lung disease with a forced vital capacity 42%, total lung capacity 43%. #3 Severe pulmonary hypertension secondary to chronic lung disease with RVSP 60 mmHg. #4 Acute on chronic diastolic congestive heart failure. #5 Acute on chronic hypoxic respiratory failure secondary to above. #6 Acute on chronic hypercapnic respiratory failure secondary to above. #7 Pancytopenia secondary to myelodysplasia. #8 History of coronary disease with previous non-ST segment elevation myocardial infarction. #9 Hypertension. #10 Hyperlipidemia. #11 Overall poor functional performance based on the above-mentioned comorbidities. Plan: The patient was seen and evaluated by Dr. Benz. His chest x-ray and labs were reviewed. We'll continue with his current treatment including IV diuretics , bronchodilators, steroids, antibiotics. Await culture results. We will repeat his chest x-ray in the a.m. The patient's overall prognosis remains quite poor. We will continue to follow and make further recommendations based on his clinical status. I, the cosigning physician, have performed a history and physical examination on the patient. Lung sounds with scattered rhonchi, crackles in the posterior bases. Diminished throughout. I have discussed the assessment and plan of care with my nurse practitioner, Sheyla Leyva. I attest the above documented note as dictated by her. Time with Patient: Greater than 30
[2017-03-22 12:14] LABS: Glucose,Whole Blood 115 mg/dL (75-99)
[2017-03-22 16:42] LABS: Glucose,Whole Blood 137 mg/dL (75-99)
[2017-03-22] MEDS: POTASSIUM CHLORIDE ER 20 MEQ TAB.ER PO SCH (16:52)
[2017-03-22 17:41] LABS: Cholesterol 140 mg/dL (<200); HDL Cholesterol 52 mg/dL (40-60)
--- NOTE | 2017-03-22 18:30 | CT ---
EXAMINATION TYPE: CT brain wo con DATE OF EXAM: 03/22/2017 COMPARISON: 02/15/2017 HISTORY: Patient poor historian; mental status changes. CT DLP: 1317 mGycm Automated exposure control for dose reduction was used. FINDINGS: There is no fracture or hemorrhage. No mass or mass effect or definite new attenuation defect. Orbits are negative. Visualized paranasal sinuses and middle ear cavities and mastoid sinus air cells are c lear. IMPRESSION: NO ACUTE PROCESS.
[2017-03-22 20:55] LABS: Glucose,Whole Blood 184 mg/dL (75-99)
[2017-03-22] MEDS: ATORVASTATIN 20 MG TAB PO SCH (21:09)
--- NOTE | 2017-03-22 23:21 | P.CNNES ---
History of Present Illness Consult date: 03/22/17 Reason for Consult: Patient with altered mental status and confusion. History of Present Illness: This patient is a 81-year-old right-handed white male who was admitted to hospital for evaluation and treatment as severe or shortness of breath. Patient has a history of moderate to severe pulmonary fibrosis as well as chronic hypoxic and hypercapnic respiratory failure. 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 He was having increasing shortness of breath for 2 days and was admitted to Hospital. Today he showed signs of increasing confusion. He was sent for a computed tomography scan of the brain which revealed no acute abnormalities. He is resting comfortably and does have nasal oxygen on at this time. He is being treated for his acute respiratory failure and is on several bronchodilators and inhalers. The patient is able to follow simple commands. He is currently being maintained on 3 L nasal cannula with fairly good response. The patient is able to answer all questions appropriately. He can name the name of the hospital as well as his mailing address and telephone number at home. He does seem to be appropriate in terms of his mental status is evening. Neurology is now been consulted for further evaluation and recommendations. Review of Systems Constitutional: Denies chills, Denies fever Eyes: denies blurred vision, denies pain Ears, nose, mouth and throat: Denies headache, Denies sore throat Cardiovascular: Denies chest pain, Denies shortness of breath Respiratory: Denies cough Gastrointestinal: Denies abdominal pain, Denies diarrhea, Denies nausea, Denies vomiting Musculoskeletal: Denies myalgias Integumentary: Denies pruritus, Denies rash Neurological: Reports change in mentation, Reports confusion, Reports memory loss, Denies numbness, Denies weakness Psychiatric: Denies anxiety, Denies depression Endocrine: Denies fatigue, Denies weight change Past Medical History Past Medical History: Blood Disorder, Hyperlipidemia, Hypertension, Osteoarthritis (OA), Thyroid Disorder Additional Past Medical History / Comment(s): Advanced pulmonary fibrosis with chronic hypoxic and hypercapnic respiratory failure, COPD, secondary pulmonary hypertension, pancytopenia, myelodysplasia, hypothyroidism, hyperlipidemia, obesity, very poor baseline performance and functional status. Osteoarthritis, difficulty mobility and gait and the patient has become profoundly weak. Coronary artery disease with previous non-ST segment elevation myocardial infarction, preserved ejection fraction of 65% with severe pulmonary hypertension based on previous echocardiogram that was done back in 2014, O2 2- 3 LITERS ATC History of Any Multi-Drug Resistant Organisms: None Reported Past Surgical History: Heart Catheterization Additional Past Surgical History / Comment(s): 10/22/14 ccath- EF 65-70%. PTO injury to groin/perineal area with surgical repair. 02/13/17 bone marrow biopsy done Past Anesthesia/Blood Transfusion Reactions: No Reported Reaction Additional Past Anesthesia/Blood Transfusion Reaction / Comment(s): Pt hs never recieved blood. Smoking Status: Never smoker - Past Family History Father Family Medical History: No Reported History Additional Family Medical History / Comment(s): Father was healthy until his at age 81yrs old. Mother Family Medical History: CVA/TIA Additional Family Medical History / Comment(s): Mother at age 84yr old. She had a CVA at age 82or 83yrs. Medications and Allergies Home Medications Medication Instructions Recorded Confirmed Type Levothyroxine Sodium [Synthroid] 25 mcg PO DAILY@0600 10/22/14 03/21/17 History Albuterol Inhaler [Ventolin Hfa 1 - 2 puff INHALATION RT-Q6H PRN 02/24/17 History Inhaler] Simvastatin [Zocor] 40 mg PO HS@2100 02/24/17 03/21/17 History Furosemide [Lasix] 20 mg PO DAILY@0800 03/03/17 03/21/17 History Potassium Chloride ER [K-Dur 20] 40 meq PO DAILY@1700 03/03/17 03/21/17 History Allergies Allergy/AdvReac Type Severity Reaction Status Date / Time No Known Allergies Allergy Verified 03/21/17 14:48 Physical Examination - Vital Signs Vital Signs: Vital Signs Temp Pulse Pulse Resp BP Pulse Ox 03/22/17 16:02 18 98 03/22/17 15:23 97.4 F L 90 139/75 03/22/17 11:30 98.3 F 103 H 20 141/73 96 03/22/17 08:15 100 03/22/17 08:05 97 99 03/22/17 08:00 97.4 F L 96 22 133/61 99 03/22/17 04:00 97.3 F L 110 H 20 116/53 96 03/22/17 00:00 98 22 116/58 97 03/21/17 20:50 115 H 03/21/17 20:29 108 H Intake and Output 03/22/17 03/22/17 03/22/17 06:59 14:59 22:59 Intake Total 330 250 Output Total 600 700 Balance -600 -370 250 Intake: Intake, IV Titration 50 250 Amount Cefepime 2 gm In Sodium 50 Chloride 0.9% 50 ml @ 100 mls/hr IVPB ONCE ONE Rx# :[id number] Cefepime 2 gm In Sodium 0 Chloride 0.9% 50 ml @ 100 mls/hr IVPB Q8HR ON LICENSE OF [facility] Rx# :[id number] Vancomycin 1,500 mg In 250 Sodium Chloride 0.9% 250 ml @ 125 mls/hr IVPB BID ON LICENSE OF [facility] Rx#:[id number] Oral 280 Output: Urine 600 700 Other: Voiding Method Urinal Urinal Weight 82.3 kg - Constitutional General appearance: average body habitus, cooperative - EENT EENT: PERRL, mucous membranes moist - Respiratory Respiratory: lungs clear, normal breath sounds - Cardiovascular Cardiovascular: regular rate, normal S1, normal S2 Extremities: no peripheral edema bilaterally - Gastrointestinal Gastrointestinal: normoactive bowel sounds - Integumentary Integumentary: normal - Neurologic Cranial nerve examination: PERRL, EOMI, VFF, V1/V2/V3 grossly intact, face symmetric, tongue midline, intact gag reflex, intact corneal reflex, normal palatal elevation Speech examination: intact Sensorimotor examination: intact Motor examination - right side: 4/5: biceps, triceps, wrist flexion, wrist extension, end finder forming department, hip flexors, knee extensors, dorsiflexion, toe extension (EHL) , plantarflexion Motor examination - left side: 4/5: biceps, triceps, wrist flexion, wrist extension, end finder forming department, hip flexors, knee extensors, dorsiflexion, toe extension (EHL) , plantarflexion Detailed sensory examination: intact Reflex and gait examination: intact Reflexes: 1+: ankle, bicep, knee, tricep - Musculoskeletal Musculoskeletal: no pain - Psychiatric Psychiatric: mood/affect appropriate, cooperative Results - Laboratory Findings CBC and BMP: 03/22/17 05:26 03/22/17 05:26 Abnormal Lab Findings: Abnormal Labs 03/21/17 03/21/17 03/21/17 14:40 14:40 14:40 WBC 2.1 L RBC 2.38 L Hgb 8.1 L D Hct 24.7 L MCV 103.8 H RDW 19.6 H Plt Count 20 L* Neutrophils # Neutrophils # (Manual) 1.00 L Lymphocytes # Lymphocytes # (Manual) 0.95 L Metamyelocytes # (Man) 0.04 H VBG pH VBG pCO2 VBG HCO3 Chloride 90 L Carbon Dioxide 45 H* Creatinine 0.60 L Glucose 102 H POC Glucose (mg/dL) Total Creatine Kinase <20 L Total Protein 5.4 L Albumin 3.0 L 03/21/17 03/21/17 03/22/17 14:40 20:39 05:26 WBC RBC Hgb Hct MCV RDW Plt Count Neutrophils # Neutrophils # (Manual) Lymphocytes # Lymphocytes # (Manual) Metamyelocytes # (Man) VBG pH 7.42 H VBG pCO2 72 H* VBG HCO3 46 H Chloride 87 L Carbon Dioxide 47 H* Creatinine 0.62 L Glucose 106 H POC Glucose (mg/dL) 184 H Total Creatine Kinase Total Protein Albumin 03/22/17 03/22/17 03/22/17 05:26 05:53 11:45 WBC 2.1 L RBC 2.35 L Hgb 7.7 L Hct 24.0 L MCV 102.4 H RDW 18.6 H Plt Count 21 L* Neutrophils # 1.1 L Neutrophils # (Manual) Lymphocytes # 0.7 L Lymphocytes # (Manual) Metamyelocytes # (Man) VBG pH VBG pCO2 VBG HCO3 Chloride Carbon Dioxide Creatinine Glucose POC Glucose (mg/dL) 104 H 115 H Total Creatine Kinase Total Protein Albumin 03/22/17 16:24 WBC RBC Hgb Hct MCV RDW Plt Count Neutrophils # Neutrophils # (Manual) Lymphocytes # Lymphocytes # (Manual) Metamyelocytes # (Man) VBG pH VBG pCO2 VBG HCO3 Chloride Carbon Dioxide Creatinine Glucose POC Glucose (mg/dL) 137 H Total Creatine Kinase Total Protein Albumin Assessment and Plan (1) Hypoxic encephalopathy Current Visit: Yes Status: Acute SNOMED Code(s): 991264715 (2) Pancytopenia Current Visit: Yes Status: Acute SNOMED Code(s): 496800639 (3) Anemia Current Visit: No Status: Acute SNOMED Code(s): 260810593 (4) Chronic hypoxemic respiratory failure Current Visit: No Status: Acute SNOMED Code(s): 823657036 (5) Pulmonary fibrosis Current Visit: No Status: Acute SNOMED Code(s): 92763982 Plan: This patient is a 81-year-old male with history of chronic pulmonary fibrosis and chronic hypoxic and hypercapnic respiratory failure. He was admitted to hospital with increasing shortness of breath. He was showing increased mental status changes earlier today and for this reason neurology was consulted. He underwent a computed tomography scan of the brain which was negative for any acute changes. He is able to follow simple commands at this time. His recent mental status changes are felt to be secondary to his severe respiratory difficulties from pulmonary fibrosis and hypoxic and hypercapnic respiratory failure. We will obtain a routine EEG for further evaluation for this patient. He is to continue with all current treatment plans as per pulmonary medicine. His overall prognosis at this time remains very guarded. We will continue close neurological follow-up for this patient during this admission. Time with Patient: Greater than 30
--- NOTE | 2017-03-23 00:03 | P.PN ---
Subjective Progress Note Date: 03/22/17 Principal diagnosis: Acute hypoxic and hypercapnic respiratory failure 81-year-old male with history of pulmonary fibrosis, chronic hypoxic and hypercapnic respiratory failure, anemia secondary to bone marrow failure, pancytopenia presents with 2 days of worsening dyspnea. Patient most recently had blood transfusion 5 days ago. Patient has also noted bilateral lower extremity swelling. Patient does admit having cough which is productive. According to the patient's family he has had a slightly elevated temperature over the past several days as well. Patient denies chest pain. Denies nausea or vomiting. Denies diarrhea. Denies rectal bleeding. Pulse ox was 75 percent on nasal cannula on admission. Chest x-ray showed multifocal pneumonia and may represent confluent pulmonary edema Patient was pancytopenic. Patient is a chronic CO2 retainer. On 03/22/2017 Patient did improve symptomatically. Patient still hypercarbic. No complaints of chest pain. Mental status improved as well patient still feels drowsy. No fever overnight. No acute issues at this time. All other review of systems negative except the above Current medications reviewed Objective - Vital Signs Vital signs: Vital Signs Temp 97.4 F L 03/22/17 15:23 Pulse 90 03/22/17 15:23 Resp 18 03/22/17 16:02 BP 139/75 03/22/17 15:23 Pulse Ox 98 03/22/17 16:02 Intake & Output 03/22/17 03/22/17 03/23/17 06:59 18:59 06:59 Intake Total 580 Output Total 600 700 25 Balance -600 -120 -25 Weight 82.3 kg Intake: Intake, IV Titration 300 Amount Cefepime 2 gm In Sodium 50 Chloride 0.9% 50 ml @ 100 mls/hr IVPB ONCE ONE Rx# :[id number] Cefepime 2 gm In Sodium 0 Chloride 0.9% 50 ml @ 100 mls/hr IVPB Q8HR [facility] Rx# :[id number] Vancomycin 1,500 mg In 250 Sodium Chloride 0.9% 250 ml @ 125 mls/hr IVPB BID [facility] Rx#:[id number] Oral 280 Output: Urine 600 700 25 Other: Voiding Method Urinal Urinal # Voids 1 - Exam Patient is lying in the bed comfortably, mild acute distress, awake alert and oriented.. HEENT: Normocephalic. Neck is supple. Pupils reactive. Nostrils clear. Oral cavity is moist. Ears reveal no drainage. Neck reveals no JVD, carotid bruits, or thyromegaly. CHEST EXAMINATION: Trachea is central. Symmetrical expansion. Bilateral diffuse rhonchi and minimal wheezing positive. CARDIAC: Normal S1, S2 with no gallops. No murmurs tachycardia ABDOMEN: Soft. Obese. Bowel sounds normal. No organomegaly. No abdominal bruits. Extremities: 2+ edema. No clubbing or cyanosis Neurologically awake, alert, oriented x3 with well-coordinated movements. No focal deficits noted Skin: No rash or skin lesions. Psychiatric: Operative. Nonsuicidal Musculoskeletal: No joint swelling or deformity. Normal range of motion. - Labs CBC & Chem 7: 03/22/17 05:26 03/22/17 05:26 Labs: Abnormal Lab Results - Last 24 Hours (Table) 03/22/17 03/22/17 03/22/17 Range/Units 05:26 05:26 05:53 WBC 2.1 L (3.8-10.6) k/uL RBC 2.35 L (4.30-5.90) m/uL Hgb 7.7 L (13.0-17.5) gm/dL Hct 24.0 L (39.0-53.0) % MCV 102.4 H (80.0-100.0) fL RDW 18.6 H (11.5-15.5) % Plt Count 21 L* (150-450) k/uL Neutrophils # 1.1 L (1.3-7.7) k/uL Lymphocytes # 0.7 L (1.0-4.8) k/uL Chloride 87 L (98-107) mmol/L Carbon Dioxide 47 H* (22-30) mmol/L Creatinine 0.62 L (0.66-1.25) mg/dL Glucose 106 H (74-99) mg/dL POC Glucose (mg/dL) 104 H (75-99) mg/dL 03/22/17 03/22/17 03/22/17 Range/Units 11:45 16:24 20:50 WBC (3.8-10.6) k/uL RBC (4.30-5.90) m/uL Hgb (13.0-17.5) gm/dL Hct (39.0-53.0) % MCV (80.0-100.0) fL RDW (11.5-15.5) % Plt Count (150-450) k/uL Neutrophils # (1.3-7.7) k/uL Lymphocytes # (1.0-4.8) k/uL Chloride (98-107) mmol/L Carbon Dioxide (22-30) mmol/L Creatinine (0.66-1.25) mg/dL Glucose (74-99) mg/dL POC Glucose (mg/dL) 115 H 137 H 184 H (75-99) mg/dL Microbiology - Last 24 Hours (Table) 03/21/17 14:40 Blood Culture - Preliminary Blood No Growth after 24 hours Assessment and Plan Assessment: #1 acute hypoxic and hypercapnic respiratory failure due to multifactorial etiology due to CHF and pulmonary fibrosis and pneumonia #2 healthcare associated pneumonia #2 acute COPD exacerbation with history of pulmonary fibrosis #2 acute on chronic CHF with diastolic dysfunction #4 chronic hypoxic and hypercapnic respiratory failure due to pulmonary fibrosis #5 obesity with BMI 27.8 #6 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 Improved CT negative Plan: Patient will be continued on broad-spectrum antibiotics in the form of vancomycin and cefepime. Continue with breathing treatments along with steroids and IV diuresis with Lasix as blood pressure tolerates. Continue to monitor CBC and transfuse as needed. No signs of active bleeding. Hemoglobin is at 8.1. We will continue to follow closely. Prognosis is guarded with multiple medical problems and comorbid conditions. Further recommendations based on the clinical course.
[2017-03-23] MEDS ORDERED: FUROSEMIDE 10 MG/ML 4 ML VIAL IV STA (02:15)
[2017-03-23] MEDS: IPRATROPIUM-ALBUTEROL 3 ML NEB INHALATION PRN ×3 (02:19→20:09)
[2017-03-23] MEDS: LEVOTHYROXINE 25 MCG TAB PO SCH (05:57)
[2017-03-23 06:05] LABS: Glucose,Whole Blood 101 mg/dL (75-99)
[2017-03-23] MEDS: INSULIN LISPRO (humaLOG) 300 UNIT/3 ML VIAL SQ SCH ×4 (06:06→21:13)
[2017-03-23 06:20] LABS: Anisocytosis Slight; CH 34.1; CHCM 33.1; HCT 21.9 % (39.0-53.0); HDW 3.08; HGB 7.1 gm/dL (13.0-17.5); Immature Gran Flag Moderate; MCH 33.5 pg (25.0-35.0); MCHC 32.4 g/dL (31.0-37.0); MCV 103.4 fL (80.0-100.0); Macrocytosis Moderate; Mean Platelet Volume 7.7; RBC 2.12 m/uL (4.30-5.90); RDW 19.9 % (11.5-15.5); WBC (Perox) 1.77
[2017-03-23 06:24] LABS: WBC 1.7 k/uL (3.8-10.6)
[2017-03-23 06:34] LABS: Blood Urea Nitrogen 21 mg/dL (9-20); Calcium 8.8 mg/dL (8.4-10.2); Chloride 82 mmol/L (98-107); Glucose 96 mg/dL (74-99); Non-African American GFR(MDRD) >60 (>60 ml/min/1.73 sqM); Potassium 3.6 mmol/L (3.5-5.1); Sodium 137 mmol/L (137-145)
[2017-03-23 06:41] LABS: Anion Gap 2 mmol/L
[2017-03-23 06:50] LABS: Add Differential Manual Differential
[2017-03-23 06:57] LABS: Band Neutrophils % 19 %; Manual Review Performed; Metamyelocytes % 1 %; Nucleated Red Blood Cells 0 /100 WBC (0-0); Total Cells Counted 200
[2017-03-23 07:00] LABS: Carbon Dioxide 53 mmol/L (22-30)
[2017-03-23] MEDS ORDERED: FUROSEMIDE 10 MG/ML 2 ML VIAL IV ONE (07:19)
[2017-03-23 07:48] LABS: Hemoglobin A1C 5.9 % (4.2-6.1)
[2017-03-23] MEDS: predniSONE 20 MG TAB PO SCH (08:23)
[2017-03-23] MEDS: FUROSEMIDE 10 MG/ML 2 ML VIAL IV SCH ×2 (08:23→20:12)
[2017-03-23] MEDS: CEFEPIME 2 GM in SODIUM CHLORIDE 0.9% 50 ML IVPB SCH ×3 (08:28→23:14)
[2017-03-23] MEDS: VANCOMYCIN 1,500 MG in SODIUM CHLORIDE 0.9% 250 ML IVPB SCH ×2 (09:44→20:17)
--- NOTE | 2017-03-23 11:04 | P.PN ---
Subjective Progress Note Date: 03/23/17 Principal diagnosis: This is a pleasant 81-year-old gentleman who has a significant past medical history of myelodysplasia with pancytopenia and anemia. He was recently discharged from here on 03/04/2017 to [facility] for inpatient rehabilitation. He also has a history of advanced pulmonary fibrosis with FVC of 42% and a total lung capacity of 43% with chronic hypoxic and hypercapnic respiratory failure, chronic obstructive pulmonary disease with secondary pulmonary hypertension. He is oxygen dependent maintained on 3 L/m per nasal cannula in the outpatient setting. He follows with our group for the same. He also has a history of hypothyroidism, hyperlipidemia, osteoarthritis with gait mobility issues, coronary artery disease. He has very poor overall functional performance based on his multiple comorbidities. He was readmitted again yesterday with increasing shortness of breath cough and congestion. He had bilateral lower extremity edema as well. The patient had received a blood transfusion approximately 5-6 days ago. The patient's chest x-ray does reveal evidence of fluid volume overload. There is also some patchy opacities that were similar compared to the previous one in February. White count 2.1. Hemoglobin 7.7. Platelet count 21,000. Creatinine 0.62. CO2 level 47 and it is noted the patient runs in the high 30s to low 40s on previous admissions as well. He is currently maintaining O2 saturations in the high 90s on 4 L/m per nasal cannula. He is afebrile. Hemodynamically stable. He has been initiated on bronchodilators, prednisone along with cefepime and vancomycin. He is being diuresed with Lasix 20 mg IV every 12 hours. He is seen today in consultation on the selective care unit. Currently he is awake and alert in no acute distress. He is somewhat of a poor historian unclear as to why he is here. He does admit to having some shortness of breath with exertion. Loose nonproductive cough. The patient was seen again today 03/23/2017 in follow-up on the selective care unit. He is currently maintaining O2 saturations in the mid 90s on 5 L/m per nasal cannula. He's been afebrile. He has a loose nonproductive cough. He remains on vancomycin and cefepime. He did have issues with low saturations last evening. He was given additional Lasix 40 mg IV push. He is more awake and alert today as compared to yesterday. He did have issues with mental status changes last evening as well and neurology has been consulted. A computed tomography scan of the brain revealed no acute process. EEG is pending. Current white count 1.7, hemoglobin 7.1, platelet count 19,000. He is due for 1 unit of packed red blood cells today. Objective - Vital Signs Vital signs: Vital Signs Temp 97.1 F L 03/23/17 08:23 Pulse 97 03/23/17 08:23 Resp 20 03/23/17 08:23 BP 108/50 03/23/17 08:23 Pulse Ox 96 03/23/17 08:23 Intake & Output 03/22/17 03/23/17 03/23/17 18:59 06:59 18:59 Intake Total 580 700 240 Output Total 700 750 Balance -120 -50 240 Weight 81.5 kg Intake: Intake, IV Titration 300 300 Amount Cefepime 2 gm In Sodium 50 Chloride 0.9% 50 ml @ 100 mls/hr IVPB ONCE ONE Rx# :[id number] Cefepime 2 gm In Sodium 0 50 Chloride 0.9% 50 ml @ 100 mls/hr IVPB Q8HR [facility] Rx# :[id number] Vancomycin 1,500 mg In 250 250 Sodium Chloride 0.9% 250 ml @ 125 mls/hr IVPB BID [facility] Rx#:[id number] Oral 280 400 240 Output: Urine 700 750 Other: Voiding Method Urinal Urinal Urinal # Voids 1 - Exam GENERAL EXAM: More alert today, comfortable in no apparent distress. HEAD: Normocephalic. EYES: Normal reaction of pupils, equal size. NOSE: Clear with pink turbinates. THROAT: No erythema or exudates. NECK: No masses, no JVD. CHEST: No chest wall deformity. LUNGS: Equal air entry with us in the bilateral posterior bases. Diminished. CVS: S1 and S2 normal with no audible murmur, regular rhythm. ABDOMEN: No hepatosplenomegaly, normal bowel sounds, no guarding or rigidity. SPINE: Kyphoscoliosis. SKIN: No rashes CENTRAL NERVOUS SYSTEM: No focal deficits, tone is normal in all 4 extremities. EXTREMITIES: There is no peripheral edema. No clubbing, no cyanosis. Peripheral pulses are intact. - Labs CBC & Chem 7: 03/23/17 05:17 03/23/17 05:17 Labs: Abnormal Lab Results - Last 24 Hours (Table) 03/22/17 03/22/17 03/22/17 Range/Units 11:45 16:24 20:50 WBC (3.8-10.6) k/uL RBC (4.30-5.90) m/uL Hgb (13.0-17.5) gm/dL Hct (39.0-53.0) % MCV (80.0-100.0) fL RDW (11.5-15.5) % Plt Count (150-450) k/uL Neutrophils # (Manual) (1.3-7.7) k/uL Lymphocytes # (Manual) (1.0-4.8) k/uL Metamyelocytes # (Man) (0) k/uL Chloride (98-107) mmol/L Carbon Dioxide (22-30) mmol/L BUN (9-20) mg/dL Creatinine (0.66-1.25) mg/dL POC Glucose (mg/dL) 115 H 137 H 184 H (75-99) mg/dL Crossmatch 03/23/17 03/23/17 03/23/17 Range/Units 05:17 05:17 06:03 WBC 1.7 L* (3.8-10.6) k/uL RBC 2.12 L (4.30-5.90) m/uL Hgb 7.1 L (13.0-17.5) gm/dL Hct 21.9 L (39.0-53.0) % MCV 103.4 H (80.0-100.0) fL RDW 19.9 H (11.5-15.5) % Plt Count 19 L* (150-450) k/uL Neutrophils # (Manual) 0.90 L (1.3-7.7) k/uL Lymphocytes # (Manual) 0.39 L (1.0-4.8) k/uL Metamyelocytes # (Man) 0.02 H (0) k/uL Chloride 82 L (98-107) mmol/L Carbon Dioxide 53 H* (22-30) mmol/L BUN 21 H (9-20) mg/dL Creatinine 0.56 L (0.66-1.25) mg/dL POC Glucose (mg/dL) 101 H (75-99) mg/dL Crossmatch 03/23/17 Range/Units 07:37 WBC (3.8-10.6) k/uL RBC (4.30-5.90) m/uL Hgb (13.0-17.5) gm/dL Hct (39.0-53.0) % MCV (80.0-100.0) fL RDW (11.5-15.5) % Plt Count (150-450) k/uL Neutrophils # (Manual) (1.3-7.7) k/uL Lymphocytes # (Manual) (1.0-4.8) k/uL Metamyelocytes # (Man) (0) k/uL Chloride (98-107) mmol/L Carbon Dioxide (22-30) mmol/L BUN (9-20) mg/dL Creatinine (0.66-1.25) mg/dL POC Glucose (mg/dL) (75-99) mg/dL Crossmatch See Detail Microbiology - Last 24 Hours (Table) 03/21/17 14:40 Blood Culture - Preliminary Blood No Growth after 24 hours Assessment and Plan Assessment: Impression: #1 Acute exacerbation of severe oxygen dependent chronic obstructive pulmonary disease. #2 Acute exacerbation of severe pulmonary fibrosis with restrictive lung disease with a forced vital capacity 42%, total lung capacity 43%. #3 Severe pulmonary hypertension secondary to chronic lung disease with RVSP 60 mmHg. #4 Acute on chronic diastolic congestive heart failure. #5 Acute on chronic hypoxic respiratory failure secondary to above. #6 Acute on chronic hypercapnic respiratory failure secondary to above. #7 Pancytopenia secondary to myelodysplasia. #8 History of coronary disease with previous non-ST segment elevation myocardial infarction. #9 Hypertension. #10 Hyperlipidemia. #11 Overall poor functional performance based on the above-mentioned comorbidities. Plan: The patient was seen and evaluated by Dr. Benz. We'll continue with his current treatment including IV diuretics, bronchodilators, steroids, antibiotics. Await culture results. Chest x-ray is pending. He may benefit from BiPAP in the evenings if he has recurrent issues with low O2 saturations at night. The patient's overall prognosis remains quite poor. He is a DO NOT RESUSCITATE/DO NOT INTUBATE CODE STATUS We will continue to follow and make further recommendations based on his clinical status. I, the cosigning physician, have performed a history and physical examination on the patient. Lung sounds with scattered rhonchi, crackles in the posterior bases. Diminished throughout. I have discussed the assessment and plan of care with my nurse practitioner, Sheyla Leyva. I attest the above documented note as dictated by her.
[2017-03-23 11:49] LABS: Glucose,Whole Blood 145 mg/dL (75-99)
[2017-03-23 16:38] LABS: Glucose,Whole Blood 152 mg/dL (75-99)
[2017-03-23] MEDS: POTASSIUM CHLORIDE ER 20 MEQ TAB.ER PO SCH (16:50)
--- NOTE | 2017-03-23 17:02 | XR ---
EXAMINATION TYPE: XR chest 2V DATE OF EXAM: 03/23/2017 COMPARISON: 03/21/2017 HISTORY: 81-year-old male with lung congestion TECHNIQUE: Frontal and lateral views FINDINGS: Low lung volumes with elevation of the hemidiaphragms obscuring the base of the heart making accurate assessment of cardiac size difficult. Continued perihilar and diffuse interstitial and airspace opac ities. No significant pleural effusion seen. Appearance not significantly changed from prior. IMPRESSION: Hypoventilatory changes with continued diffuse interstitial and airspace disease. No significant pleu ral effusion seen on the lateral view. Correlate for possible etiologies including atypical infection s, interstitial pneumonitis, DAH, and cardiogenic/noncardiogenic pulmonary edema. ARDS considered les s likely as the patient is not intubated.
[2017-03-23] MEDS: ATORVASTATIN 20 MG TAB PO SCH (20:10)
[2017-03-23 21:08] LABS: Glucose,Whole Blood 108 mg/dL (75-99)
[2017-03-23] MEDS: acetaZOLAMIDE 250 MG TAB PO SCH ×2 (21:48→22:00)
--- NOTE | 2017-03-23 22:26 | EEG ---
ELECTROENCEPHALOGRAM REPORT INTERPRETING PHYSICIAN: Brittny Glasgow INDICATION FOR EXAMINATION: This patient is an 81-year-old male being evaluated for altered mental status and hypoxemia. AGE: 81. EEG FINDINGS: A routine 21-channel awake digital EEG recording was accomplished utilizing the 10-20 international system with bipolar and referential montages. The background activity in the most alert resting state consists of a low to medium amplitude, poorly developed and poorly sustained 5-6 Hertz activity over the posterior head regions. This posterior rhythm attenuates minimally to eye opening. There is a moderate amount of low amplitude 18-20 Hertz beta activity seen in a generalized fashion. Muscle and movement artifact was observed on a few occasions during the tracing. Hyperventilation was not performed. Photic stimulation at flash frequencies of 2-30 Hertz produced a minimal occipital driving response. No epileptiform discharges were seen. IMPRESSION: This EEG gives evidence of a severe widespread diffuse disturbance in cerebral function. The EEG failed to reveal any focal, lateralized, or epileptiform abnormalities. Clinical correlation is recommended. MMSANTANAL / JOSEN: [id number] /
--- NOTE | 2017-03-23 23:54 | P.PN ---
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 Patient most recently had blood transfusion 5 days ago. Patient has also noted bilateral lower extremity swelling. Patient does admit having cough which is productive. According to the patient's family he has had a slightly elevated temperature over the past several days as well. Patient denies chest pain. Denies nausea or vomiting. Denies diarrhea. Denies rectal bleeding. Pulse ox was 75 percent on nasal cannula on admission. Chest x-ray showed multifocal pneumonia and may represent confluent pulmonary edema Patient was pancytopenic. Patient is a chronic CO2 retainer. On 03/22/2017 Patient did improve symptomatically. Patient still hypercarbic. No complaints of chest pain. Mental status improved as well patient still feels drowsy. No fever overnight. No acute issues at this time. On 03/23/2017 Patient had worsening short of breath this morning and was given extra dose of Lasix. Patient was confused last night and neurology was consulted. CT head showed no acute process. Patient is still having significant hypercapnia. Increased bicarbonate level could be due to diuresis as well. Hemoglobin dropped to 7.1 today and is getting 1 unit of PRBC. Currently saturating well on file at another cannula. No fever no chills. Patient still seems to be confused and lethargic. Planning for starting on BiPAP. All other review of systems negative except the above. Current medications reviewed Objective - Vital Signs Vital signs: Vital Signs Temp 97.6 F 03/23/17 20:00 Pulse 88 03/23/17 20:20 Resp 24 03/23/17 20:00 BP 107/54 03/23/17 20:00 Pulse Ox 98 03/23/17 20:10 Intake & Output 03/23/17 03/23/17 03/24/17 06:59 18:59 06:59 Intake Total 700 675 Output Total 750 495 200 Balance -50 180 -200 Weight 81.5 kg Intake: Intake, IV Titration 300 Amount Cefepime 2 gm In Sodium 50 Chloride 0.9% 50 ml @ 100 mls/hr IVPB Q8HR [facility] Rx# :[id number] Vancomycin 1,500 mg In 250 Sodium Chloride 0.9% 250 ml @ 125 mls/hr IVPB BID [facility] Rx#:[id number] Oral 400 365 Blood Product 310 Rc As-1 Unit 310 [id number] Output: Urine 750 495 200 Other: Voiding Method Urinal Urinal # Voids 1 2 1 # Bowel Movements 2 - Exam Patient is lying in the bed comfortably, mild acute distress, awake alert and oriented.. HEENT: Normocephalic. Neck is supple. Pupils reactive. Nostrils clear. Oral cavity is moist. Ears reveal no drainage. Neck reveals no JVD, carotid bruits, or thyromegaly. CHEST EXAMINATION: Trachea is central. Symmetrical expansion. Bilateral diffuse rhonchi and minimal wheezing positive. CARDIAC: Normal S1, S2 with no gallops. No murmurs tachycardia ABDOMEN: Soft. Obese. Bowel sounds normal. No organomegaly. No abdominal bruits. Extremities: 2+ edema. No clubbing or cyanosis Neurologically awake, alert, oriented x3 with well-coordinated movements. No focal deficits noted Skin: No rash or skin lesions. Psychiatric: Operative. Nonsuicidal Musculoskeletal: No joint swelling or deformity. Normal range of motion. - Labs CBC & Chem 7: 03/23/17 05:17 03/23/17 05:17 Labs: Abnormal Lab Results - Last 24 Hours (Table) 03/23/17 03/23/17 03/23/17 Range/Units 05:17 05:17 06:03 WBC 1.7 L* (3.8-10.6) k/uL RBC 2.12 L (4.30-5.90) m/uL Hgb 7.1 L (13.0-17.5) gm/dL Hct 21.9 L (39.0-53.0) % MCV 103.4 H (80.0-100.0) fL RDW 19.9 H (11.5-15.5) % Plt Count 19 L* (150-450) k/uL Neutrophils # (Manual) 0.90 L (1.3-7.7) k/uL Lymphocytes # (Manual) 0.39 L (1.0-4.8) k/uL Metamyelocytes # (Man) 0.02 H (0) k/uL Chloride 82 L (98-107) mmol/L Carbon Dioxide 53 H* (22-30) mmol/L BUN 21 H (9-20) mg/dL Creatinine 0.56 L (0.66-1.25) mg/dL POC Glucose (mg/dL) 101 H (75-99) mg/dL Crossmatch 03/23/17 03/23/17 03/23/17 Range/Units 07:37 11:42 16:36 WBC (3.8-10.6) k/uL RBC (4.30-5.90) m/uL Hgb (13.0-17.5) gm/dL Hct (39.0-53.0) % MCV (80.0-100.0) fL RDW (11.5-15.5) % Plt Count (150-450) k/uL Neutrophils # (Manual) (1.3-7.7) k/uL Lymphocytes # (Manual) (1.0-4.8) k/uL Metamyelocytes # (Man) (0) k/uL Chloride (98-107) mmol/L Carbon Dioxide (22-30) mmol/L BUN (9-20) mg/dL Creatinine (0.66-1.25) mg/dL POC Glucose (mg/dL) 145 H 152 H (75-99) mg/dL Crossmatch See Detail 03/23/17 Range/Units 21:05 WBC (3.8-10.6) k/uL RBC (4.30-5.90) m/uL Hgb (13.0-17.5) gm/dL Hct (39.0-53.0) % MCV (80.0-100.0) fL RDW (11.5-15.5) % Plt Count (150-450) k/uL Neutrophils # (Manual) (1.3-7.7) k/uL Lymphocytes # (Manual) (1.0-4.8) k/uL Metamyelocytes # (Man) (0) k/uL Chloride (98-107) mmol/L Carbon Dioxide (22-30) mmol/L BUN (9-20) mg/dL Creatinine (0.66-1.25) mg/dL POC Glucose (mg/dL) 108 H (75-99) mg/dL Crossmatch Microbiology - Last 24 Hours (Table) 03/21/17 14:40 Blood Culture - Preliminary Blood No Growth after 48 hours Assessment and Plan Assessment: #1 acute hypoxic and hypercapnic respiratory failure due to multifactorial etiology due to CHF and pulmonary fibrosis and pneumonia #2 healthcare associated pneumonia #2 acute COPD exacerbation with history of pulmonary fibrosis #2 acute on chronic CHF with diastolic dysfunction #4 chronic hypoxic and hypercapnic respiratory failure due to pulmonary fibrosis #5 obesity with BMI 27.8 #6 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 Improved CT negative Plan: Patient will be continued on broad-spectrum antibiotics in the form of vancomycin and cefepime. Continue with breathing treatments along with steroids and IV diuresis with Lasix as blood pressure tolerates. Continue to monitor CBC and transfuse as needed. No signs of active bleeding. Hemoglobin is at 8.1. We will continue to follow closely. Prognosis is guarded with multiple medical problems and comorbid conditions. Further recommendations based on the clinical course. Time with Patient: Greater than 30
--- NOTE | 2017-03-24 00:20 | P.PN ---
Subjective Progress Note Date: 03/23/17 This patient is a 81 year old being followed of mental status changes secondary to respiratory difficulties. The patient has a history of advanced pulmonary fibrosis. He was started on BiPAP this evening for further treatment of this underlying condition. He was able to complete a routine EEG today which is reviewed and is moderately slow. According to the nursing staff he is also been lethargic and slow in his activities today. As noted he has a chronic hypercapnic respiratory failure. Pulmonary medicine is monitoring him closely. He also has underlying COPD and is oxygen dependent. He also has underlying myelodysplasia as well. His overall prognosis remains poor. He has been made a DO NOT RESUSCITATE and we will need to continue close monitoring. His overall prognosis at this time remains guarded. Objective - Vital Signs Vital signs: Vital Signs Temp 98.1 F 03/23/17 14:30 Pulse 103 H 03/23/17 14:30 Resp 20 03/23/17 14:30 BP 123/61 03/23/17 14:30 Pulse Ox 95 03/23/17 14:30 Intake & Output 03/22/17 03/23/17 03/23/17 18:59 06:59 18:59 Intake Total 580 700 365 Output Total 700 750 495 Balance -120 -50 -130 Weight 81.5 kg Intake: Intake, IV Titration 300 300 Amount Cefepime 2 gm In Sodium 50 Chloride 0.9% 50 ml @ 100 mls/hr IVPB ONCE ONE Rx# :[id number] Cefepime 2 gm In Sodium 0 50 Chloride 0.9% 50 ml @ 100 mls/hr IVPB Q8HR [facility] Rx# :[id number] Vancomycin 1,500 mg In 250 250 Sodium Chloride 0.9% 250 ml @ 125 mls/hr IVPB BID [facility] Rx#:[id number] Oral 280 400 365 Blood Product 0 Rc As-1 Unit 0 [id number] Output: Urine 700 750 495 Other: Voiding Method Urinal Urinal Urinal # Voids 1 2 # Bowel Movements 2 - Exam Physical examination: PHYSICAL EXAMINATION: Patient is resting comfortably in bed. VITAL SIGNS: Blood pressure is [119/64]. Heart rate is [98]. Respiration is [18] . Temperature is [97.3]. HEENT: Head is atraumatic, neck is supple, there were no carotid bruits. CHEST: Lungs are clear to auscultation and percussion. CARDIAC: S1, S2 normal rate and rhythm. There is no murmur. ABDOMEN: Soft and nontender. Bowel sounds are present. EXTREMITIES: There is no pedal edema. Peripheral pulses are present. Neurological examination: Patient's neurological examination is unchanged from yesterday. He is currently resting with BiPAP on and is slightly lethargic but arousable. - Labs CBC & Chem 7: 03/23/17 05:17 03/23/17 05:17 Labs: Abnormal Lab Results - Last 24 Hours (Table) 03/22/17 03/22/17 03/23/17 Range/Units 16:24 20:50 05:17 WBC (3.8-10.6) k/uL RBC (4.30-5.90) m/uL Hgb (13.0-17.5) gm/dL Hct (39.0-53.0) % MCV (80.0-100.0) fL RDW (11.5-15.5) % Plt Count (150-450) k/uL Neutrophils # (Manual) (1.3-7.7) k/uL Lymphocytes # (Manual) (1.0-4.8) k/uL Metamyelocytes # (Man) (0) k/uL Chloride 82 L (98-107) mmol/L Carbon Dioxide 53 H* (22-30) mmol/L BUN 21 H (9-20) mg/dL Creatinine 0.56 L (0.66-1.25) mg/dL POC Glucose (mg/dL) 137 H 184 H (75-99) mg/dL Crossmatch 03/23/17 03/23/17 03/23/17 Range/Units 05:17 06:03 07:37 WBC 1.7 L* (3.8-10.6) k/uL RBC 2.12 L (4.30-5.90) m/uL Hgb 7.1 L (13.0-17.5) gm/dL Hct 21.9 L (39.0-53.0) % MCV 103.4 H (80.0-100.0) fL RDW 19.9 H (11.5-15.5) % Plt Count 19 L* (150-450) k/uL Neutrophils # (Manual) 0.90 L (1.3-7.7) k/uL Lymphocytes # (Manual) 0.39 L (1.0-4.8) k/uL Metamyelocytes # (Man) 0.02 H (0) k/uL Chloride (98-107) mmol/L Carbon Dioxide (22-30) mmol/L BUN (9-20) mg/dL Creatinine (0.66-1.25) mg/dL POC Glucose (mg/dL) 101 H (75-99) mg/dL Crossmatch See Detail 03/23/17 Range/Units 11:42 WBC (3.8-10.6) k/uL RBC (4.30-5.90) m/uL Hgb (13.0-17.5) gm/dL Hct (39.0-53.0) % MCV (80.0-100.0) fL RDW (11.5-15.5) % Plt Count (150-450) k/uL Neutrophils # (Manual) (1.3-7.7) k/uL Lymphocytes # (Manual) (1.0-4.8) k/uL Metamyelocytes # (Man) (0) k/uL Chloride (98-107) mmol/L Carbon Dioxide (22-30) mmol/L BUN (9-20) mg/dL Creatinine (0.66-1.25) mg/dL POC Glucose (mg/dL) 145 H (75-99) mg/dL Crossmatch Microbiology - Last 24 Hours (Table) 03/21/17 14:40 Blood Culture - Preliminary Blood No Growth after 24 hours Assessment and Plan (1) Hypoxic encephalopathy Current Visit: Yes Status: Acute SNOMED Code(s): 230974836 (2) Pancytopenia Current Visit: Yes Status: Acute SNOMED Code(s): 337939453 (3) Anemia Current Visit: No Status: Acute SNOMED Code(s): 435221869 (4) Chronic hypoxemic respiratory failure Current Visit: No Status: Acute SNOMED Code(s): 221248941 (5) Pulmonary fibrosis Current Visit: No Status: Acute SNOMED Code(s): 36884496 Plan: This patient is a 81-year-old male with history of chronic pulmonary fibrosis and chronic hypoxic and hypercapnic respiratory failure. He was admitted to hospital with increasing shortness of breath. He was showing increased mental status changes earlier today and for this reason neurology was consulted. He underwent a computed tomography scan of the brain which was negative for any acute changes. He is able to follow simple commands at this time. His recent mental status changes are felt to be secondary to his severe respiratory difficulties from pulmonary fibrosis and hypoxic and hypercapnic respiratory failure. We will obtain a routine EEG for further evaluation for this patient. He is to continue with all current treatment plans as per pulmonary medicine. Patient has been started on BiPAP this evening. He was able to complete a routine EEG which was moderately slow. He has evidence suggesting a diffuse metabolic encephalopathy producing his mild confusional state as well. His overall prognosis at this time remains very guarded. We will continue close neurological follow-up for this patient during this admission.
[2017-03-24] MEDS: LORazepam 2 MG/ML INJ IV PRN ×2 (00:59→03:25)
[2017-03-24 05:59] LABS: Glucose,Whole Blood 88 mg/dL (75-99)
[2017-03-24] MEDS: INSULIN LISPRO (humaLOG) 300 UNIT/3 ML VIAL SQ SCH ×4 (06:04→20:46)
[2017-03-24] MEDS: LEVOTHYROXINE 25 MCG TAB PO SCH (06:12)
[2017-03-24] MEDS: IPRATROPIUM-ALBUTEROL 3 ML NEB INHALATION PRN ×4 (07:20→19:09)
[2017-03-24] MEDS ORDERED: VANCOMYCIN TROUGH DUE 1 EACH MISC MISCELLANE ONE (08:00)
[2017-03-24 08:50] LABS: Anisocytosis Slight; Basophils % (A) 0 %; CH 32.1; CHCM 32.6; Eosinophils % (A) 1 %; HCT 24.8 % (39.0-53.0); HDW 3.19; HGB 7.9 gm/dL (13.0-17.5); Luc # (Auto) 0.04; Luc % (Auto) 2; Lymphocytes # (A) 1.1 k/uL (1.0-4.8); Lymphocytes % (A) 53 %; MCH 31.3 pg (25.0-35.0); MCHC 31.7 g/dL (31.0-37.0); MCV 98.9 fL (80.0-100.0); Macrocytosis Moderate; Mean Platelet Volume 7.1; Monocytes # (A) 0.2 k/uL (0-1.0); Monocytes % (A) 8 %; Neutrophils # (A) 0.7 k/uL (1.3-7.7); Neutrophils % (A) 36 %; RBC 2.51 m/uL (4.30-5.90); RDW 19.6 % (11.5-15.5); WBC (Perox) 2.13
[2017-03-24 09:00] LABS: Blood Urea Nitrogen 30 mg/dL (9-20); Calcium 8.9 mg/dL (8.4-10.2); Chloride 84 mmol/L (98-107); Glucose 99 mg/dL (74-99); Non-African American GFR(MDRD) >60 (>60 ml/min/1.73 sqM); Potassium 3.5 mmol/L (3.5-5.1); Sodium 140 mmol/L (137-145)
[2017-03-24 09:08] LABS: Anion Gap 2 mmol/L
[2017-03-24] MEDS: CEFEPIME 2 GM in SODIUM CHLORIDE 0.9% 50 ML IVPB SCH ×2 (09:10→16:56)
[2017-03-24 09:12] LABS: Carbon Dioxide 54 mmol/L (22-30)
[2017-03-24] MEDS: acetaZOLAMIDE 250 MG TAB PO SCH ×2 (09:40→20:46)
[2017-03-24] MEDS: predniSONE 20 MG TAB PO SCH (09:41)
[2017-03-24 10:43] LABS: Manual Review Performed; Toxic Granulation Present
[2017-03-24] MEDS: VANCOMYCIN 1,500 MG in SODIUM CHLORIDE 0.9% 250 ML IVPB SCH ×2 (11:05→22:18)
[2017-03-24 11:41] LABS: Glucose,Whole Blood 149 mg/dL (75-99)
--- NOTE | 2017-03-24 13:34 | P.PN ---
Subjective Progress Note Date: 03/24/17 Principal diagnosis: Acute on chronic hypoxic respiratory failure secondary to COPD and underlying pulmonary fibrosis and pulmonary hypertension. This is a pleasant 81-year-old gentleman who has a significant past medical history of myelodysplasia with pancytopenia and anemia. He was recently discharged from here on 03/04/2017 to [facility] for inpatient rehabilitation. He also has a history of advanced pulmonary fibrosis with FVC of 42% and a total lung capacity of 43% with chronic hypoxic and hypercapnic respiratory failure, chronic obstructive pulmonary disease with secondary pulmonary hypertension. He is oxygen dependent maintained on 3 L/m per nasal cannula in the outpatient setting. He follows with our group for the same. He also has a history of hypothyroidism, hyperlipidemia, osteoarthritis with gait mobility issues, coronary artery disease. He has very poor overall functional performance based on his multiple comorbidities. He was readmitted again yesterday with increasing shortness of breath cough and congestion. He had bilateral lower extremity edema as well. The patient had received a blood transfusion approximately 5-6 days ago. The patient's chest x-ray does reveal evidence of fluid volume overload. There is also some patchy opacities that were similar compared to the previous one in February. White count 2.1. Hemoglobin 7.7. Platelet count 21,000. Creatinine 0.62. CO2 level 47 and it is noted the patient runs in the high 30s to low 40s on previous admissions as well. He is currently maintaining O2 saturations in the high 90s on 4 L/m per nasal cannula. He is afebrile. Hemodynamically stable. He has been initiated on bronchodilators, prednisone along with cefepime and vancomycin. He is being diuresed with Lasix 20 mg IV every 12 hours. He is seen today in consultation on the selective care unit. Currently he is awake and alert in no acute distress. He is somewhat of a poor historian unclear as to why he is here. He does admit to having some shortness of breath with exertion. Loose nonproductive cough. The patient was seen again today 03/23/2017 in follow-up on the selective care unit. He is currently maintaining O2 saturations in the mid 90s on 5 L/m per nasal cannula. He's been afebrile. He has a loose nonproductive cough. He remains on vancomycin and cefepime. He did have issues with low saturations last evening. He was given additional Lasix 40 mg IV push. He is more awake and alert today as compared to yesterday. He did have issues with mental status changes last evening as well and neurology has been consulted. A computed tomography scan of the brain revealed no acute process. EEG is pending. Current white count 1.7, hemoglobin 7.1, platelet count 19,000. He is due for 1 unit of packed red blood cells today. Reevaluated today on , patient remains on the same medications, he required to be placed on BiPAP last night, however he is presently on nasal cannula at 3 L per minute. Remains on broad-spectrum antibiotics, bronchodilators, intermittent diuretics, seems to be doing well, comfortable, in no distress. Patient is being followed by neurology for mental status change felt to be most likely secondary to hypoxic encephalopathy with pancytopenia and chronic hypoxic respiratory failure. Objective - Vital Signs Vital signs: Vital Signs Temp 97.1 F L 03/24/17 11:12 Pulse 92 03/24/17 11:38 Resp 22 03/24/17 11:12 BP 123/63 03/24/17 11:12 Pulse Ox 99 03/24/17 11:12 Intake & Output 03/23/17 03/24/17 03/24/17 18:59 06:59 18:59 Intake Total 675 118 Output Total 495 900 Balance 180 -900 118 Weight 81 kg Intake: Oral 365 118 Blood Product 310 Rc As-1 Unit 310 [id number] Output: Urine 495 900 Other: Voiding Method Urinal Urinal Urinal # Voids 2 1 1 # Bowel Movements 2 1 - Exam GENERAL EXAM: More alert today, comfortable in no apparent distress. HEAD: Normocephalic. EYES: Normal reaction of pupils, equal size. NOSE: Clear with pink turbinates. THROAT: No erythema or exudates. NECK: No masses, no JVD. CHEST: No chest wall deformity. LUNGS: Equal air entry with us in the bilateral posterior bases. Diminished. CVS: S1 and S2 normal with no audible murmur, regular rhythm. ABDOMEN: No hepatosplenomegaly, normal bowel sounds, no guarding or rigidity. SPINE: Kyphoscoliosis. SKIN: No rashes CENTRAL NERVOUS SYSTEM: No focal deficits, tone is normal in all 4 extremities. EXTREMITIES: There is no peripheral edema. No clubbing, no cyanosis. Peripheral pulses are intact. - Labs CBC & Chem 7: 03/24/17 08:08 03/24/17 08:08 Labs: Abnormal Lab Results - Last 24 Hours (Table) 03/23/17 03/23/17 03/23/17 Range/Units 07:37 16:36 21:05 WBC (3.8-10.6) k/uL RBC (4.30-5.90) m/uL Hgb (13.0-17.5) gm/dL Hct (39.0-53.0) % RDW (11.5-15.5) % Plt Count (150-450) k/uL Neutrophils # (1.3-7.7) k/uL Chloride (98-107) mmol/L Carbon Dioxide (22-30) mmol/L BUN (9-20) mg/dL POC Glucose (mg/dL) 152 H 108 H (75-99) mg/dL Crossmatch See Detail 03/24/17 03/24/17 03/24/17 Range/Units 08:08 08:08 11:40 WBC 2.0 L* (3.8-10.6) k/uL RBC 2.51 L (4.30-5.90) m/uL Hgb 7.9 L (13.0-17.5) gm/dL Hct 24.8 L (39.0-53.0) % RDW 19.6 H (11.5-15.5) % Plt Count 26 L* (150-450) k/uL Neutrophils # 0.7 L (1.3-7.7) k/uL Chloride 84 L (98-107) mmol/L Carbon Dioxide 54 H* (22-30) mmol/L BUN 30 H (9-20) mg/dL POC Glucose (mg/dL) 149 H (75-99) mg/dL Crossmatch Microbiology - Last 24 Hours (Table) 03/21/17 14:40 Blood Culture - Preliminary Blood No Growth after 48 hours Assessment and Plan Assessment: #1 Acute exacerbation of severe oxygen dependent chronic obstructive pulmonary disease. #2 Acute exacerbation of severe pulmonary fibrosis with restrictive lung disease with a forced vital capacity 42%, total lung capacity 43%. #3 Severe pulmonary hypertension secondary to chronic lung disease with RVSP 60 mmHg. #4 Acute on chronic diastolic congestive heart failure. #5 Acute on chronic hypoxic respiratory failure secondary to above. #6 Acute on chronic hypercapnic respiratory failure secondary to above. #7 Pancytopenia secondary to myelodysplasia. #8 History of coronary disease with previous non-ST segment elevation myocardial infarction. #9 Hypertension. #10 Hyperlipidemia. #11 Overall poor functional performance based on the above-mentioned comorbidities. Recommendation: Continue present supportive care measures including oxygen, bronchodilators, steroids, antibiotics, and diuretics. Continue to use BiPAP intermittently as needed, overall prognosis remains poor and guarded, patient is DO NOT RESUSCITATE at this point. We'll continue to follow closely. Time with Patient: Less than 30
[2017-03-24] MEDS: POTASSIUM CHLORIDE ER 20 MEQ TAB.ER PO SCH (16:56)
[2017-03-24] MEDS: FUROSEMIDE 10 MG/ML 2 ML VIAL IV SCH ×2 (16:56→20:47)
[2017-03-24 17:01] LABS: Glucose,Whole Blood 194 mg/dL (75-99)
[2017-03-24 20:14] LABS: Glucose,Whole Blood 178 mg/dL (75-99)
[2017-03-24] MEDS: ATORVASTATIN 20 MG TAB PO SCH (20:46)
--- NOTE | 2017-03-25 00:01 | P.PN ---
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 Patient most recently had blood transfusion 5 days ago. Patient has also noted bilateral lower extremity swelling. Patient does admit having cough which is productive. According to the patient's family he has had a slightly elevated temperature over the past several days as well. Patient denies chest pain. Denies nausea or vomiting. Denies diarrhea. Denies rectal bleeding. Pulse ox was 75 percent on nasal cannula on admission. Chest x-ray showed multifocal pneumonia and may represent confluent pulmonary edema Patient was pancytopenic. Patient is a chronic CO2 retainer. On 03/22/2017 Patient did improve symptomatically. Patient still hypercarbic. No complaints of chest pain. Mental status improved as well patient still feels drowsy. No fever overnight. No acute issues at this time. On 03/23/2017 Patient had worsening short of breath this morning and was given extra dose of Lasix. Patient was confused last night and neurology was consulted. CT head showed no acute process. Patient is still having significant hypercapnia. Increased bicarbonate level could be due to diuresis as well. Hemoglobin dropped to 7.1 today and is getting 1 unit of PRBC. Currently saturating well on file at another cannula. No fever no chills. Patient still seems to be confused and lethargic. Planning for starting on BiPAP. 03/24/2017 Patient's mental status is slightly improved. More awake and oriented. Still very drowsy and lethargic. Patient did have used BiPAP last night. No fever no chills. Pulmonary and neurology is following. No acute overnight issues. All other review of systems negative except the above. Current medications reviewed Objective - Vital Signs Vital signs: Vital Signs Temp 97.1 F L 03/24/17 15:40 Pulse 97 03/24/17 19:21 Resp 22 03/24/17 15:40 BP 127/54 03/24/17 15:40 Pulse Ox 91 L 03/24/17 19:21 Intake & Output 03/24/17 03/24/17 03/25/17 06:59 18:59 06:59 Intake Total 354 Output Total 900 Balance -900 354 Weight 81 kg Intake: Oral 354 Output: Urine 900 Other: Voiding Method Urinal Urinal # Voids 1 1 # Bowel Movements 1 - Exam Patient is lying in the bed comfortably, mild acute distress, awake alert and oriented.. HEENT: Normocephalic. Neck is supple. Pupils reactive. Nostrils clear. Oral cavity is moist. Ears reveal no drainage. Neck reveals no JVD, carotid bruits, or thyromegaly. CHEST EXAMINATION: Trachea is central. Symmetrical expansion. Bilateral diffuse rhonchi and minimal wheezing positive. CARDIAC: Normal S1, S2 with no gallops. No murmurs tachycardia ABDOMEN: Soft. Obese. Bowel sounds normal. No organomegaly. No abdominal bruits. Extremities: 2+ edema. No clubbing or cyanosis Neurologically awake, alert, oriented x3 with well-coordinated movements. No focal deficits noted Skin: No rash or skin lesions. Psychiatric: Operative. Nonsuicidal Musculoskeletal: No joint swelling or deformity. Normal range of motion. - Labs CBC & Chem 7: 03/24/17 08:08 03/24/17 08:08 Labs: Abnormal Lab Results - Last 24 Hours (Table) 03/23/17 03/24/17 03/24/17 Range/Units 21:05 08:08 08:08 WBC 2.0 L* (3.8-10.6) k/uL RBC 2.51 L (4.30-5.90) m/uL Hgb 7.9 L (13.0-17.5) gm/dL Hct 24.8 L (39.0-53.0) % RDW 19.6 H (11.5-15.5) % Plt Count 26 L* (150-450) k/uL Neutrophils # 0.7 L (1.3-7.7) k/uL Chloride 84 L (98-107) mmol/L Carbon Dioxide 54 H* (22-30) mmol/L BUN 30 H (9-20) mg/dL POC Glucose (mg/dL) 108 H (75-99) mg/dL 03/24/17 03/24/17 Range/Units 11:40 16:43 WBC (3.8-10.6) k/uL RBC (4.30-5.90) m/uL Hgb (13.0-17.5) gm/dL Hct (39.0-53.0) % RDW (11.5-15.5) % Plt Count (150-450) k/uL Neutrophils # (1.3-7.7) k/uL Chloride (98-107) mmol/L Carbon Dioxide (22-30) mmol/L BUN (9-20) mg/dL POC Glucose (mg/dL) 149 H 194 H (75-99) mg/dL Microbiology - Last 24 Hours (Table) 03/21/17 14:40 Blood Culture - Preliminary Blood No Growth after 72 hours Assessment and Plan Assessment: #1 acute hypoxic and hypercapnic respiratory failure due to multifactorial etiology due to CHF and pulmonary fibrosis and pneumonia #2 healthcare associated pneumonia #2 acute COPD exacerbation with history of pulmonary fibrosis #2 acute on chronic CHF with diastolic dysfunction #4 chronic hypoxic and hypercapnic respiratory failure due to pulmonary fibrosis #5 obesity with BMI 27.8 #6 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 Improved CT negative Plan: Patient will be continued on broad-spectrum antibiotics in the form of vancomycin and cefepime. Continue with breathing treatments along with steroids and IV diuresis with Lasix as blood pressure tolerates. Continue to monitor CBC and transfuse as needed. No signs of active bleeding. Hemoglobin is at 8.1. We will continue to follow closely. Prognosis is guarded with multiple medical problems and comorbid conditions. Further recommendations based on the clinical course.
[2017-03-25] MEDS: CEFEPIME 2 GM in SODIUM CHLORIDE 0.9% 50 ML IVPB SCH ×4 (00:47→23:56)
[2017-03-25] MEDS: LEVOTHYROXINE 25 MCG TAB PO SCH (06:19)
[2017-03-25] MEDS: INSULIN LISPRO (humaLOG) 300 UNIT/3 ML VIAL SQ SCH ×4 (06:19→21:15)
[2017-03-25 06:39] LABS: Glucose,Whole Blood 97 mg/dL (75-99)
[2017-03-25 06:43] LABS: Blood Urea Nitrogen 25 mg/dL (9-20); Chloride 89 mmol/L (98-107); Glucose 92 mg/dL (74-99); Non-African American GFR(MDRD) >60 (>60 ml/min/1.73 sqM); Potassium 3.7 mmol/L (3.5-5.1); Sodium 142 mmol/L (137-145)
[2017-03-25 06:50] LABS: Anion Gap 4 mmol/L
[2017-03-25 06:58] LABS: Carbon Dioxide 49 mmol/L (22-30)
[2017-03-25] MEDS: IPRATROPIUM-ALBUTEROL 3 ML NEB INHALATION PRN ×5 (08:09→19:10)
[2017-03-25] MEDS: FUROSEMIDE 10 MG/ML 2 ML VIAL IV SCH (08:18)
[2017-03-25] MEDS: VANCOMYCIN 1,500 MG in SODIUM CHLORIDE 0.9% 250 ML IVPB SCH ×2 (09:33→21:15)
--- NOTE | 2017-03-25 10:11 | P.PN ---
Subjective Progress Note Date: 03/25/17 Principal diagnosis: Acute on chronic hypoxic respiratory failure secondary to COPD and underlying pulmonary fibrosis and pulmonary hypertension. This is a pleasant 81-year-old gentleman who has a significant past medical history of myelodysplasia with pancytopenia and anemia. He was recently discharged from here on 03/04/2017 to [facility] for inpatient rehabilitation. He also has a history of advanced pulmonary fibrosis with FVC of 42% and a total lung capacity of 43% with chronic hypoxic and hypercapnic respiratory failure, chronic obstructive pulmonary disease with secondary pulmonary hypertension. He is oxygen dependent maintained on 3 L/m per nasal cannula in the outpatient setting. He follows with our group for the same. He also has a history of hypothyroidism, hyperlipidemia, osteoarthritis with gait mobility issues, coronary artery disease. He has very poor overall functional performance based on his multiple comorbidities. He was readmitted again yesterday with increasing shortness of breath cough and congestion. He had bilateral lower extremity edema as well. The patient had received a blood transfusion approximately 5-6 days ago. The patient's chest x-ray does reveal evidence of fluid volume overload. There is also some patchy opacities that were similar compared to the previous one in February. White count 2.1. Hemoglobin 7.7. Platelet count 21,000. Creatinine 0.62. CO2 level 47 and it is noted the patient runs in the high 30s to low 40s on previous admissions as well. He is currently maintaining O2 saturations in the high 90s on 4 L/m per nasal cannula. He is afebrile. Hemodynamically stable. He has been initiated on bronchodilators, prednisone along with cefepime and vancomycin. He is being diuresed with Lasix 20 mg IV every 12 hours. He is seen today in consultation on the selective care unit. Currently he is awake and alert in no acute distress. He is somewhat of a poor historian unclear as to why he is here. He does admit to having some shortness of breath with exertion. Loose nonproductive cough. The patient was seen again today 03/23/2017 in follow-up on the selective care unit. He is currently maintaining O2 saturations in the mid 90s on 5 L/m per nasal cannula. He's been afebrile. He has a loose nonproductive cough. He remains on vancomycin and cefepime. He did have issues with low saturations last evening. He was given additional Lasix 40 mg IV push. He is more awake and alert today as compared to yesterday. He did have issues with mental status changes last evening as well and neurology has been consulted. A computed tomography scan of the brain revealed no acute process. EEG is pending. Current white count 1.7, hemoglobin 7.1, platelet count 19,000. He is due for 1 unit of packed red blood cells today. Reevaluated today on , patient remains on the same medications, he required to be placed on BiPAP last night, however he is presently on nasal cannula at 3 L per minute. Remains on broad-spectrum antibiotics, bronchodilators, intermittent diuretics, seems to be doing well, comfortable, in no distress. Patient is being followed by neurology for mental status change felt to be most likely secondary to hypoxic encephalopathy with pancytopenia and chronic hypoxic respiratory failure. Reevaluated today on 03/25/2017, patient is presently on BiPAP, comfortable, in no form of respiratory distress, a bit lethargic, but arousable and seems to be appropriate, he recognized my name. Not sore all reviewed, labs were reviewed including his basic metabolic profile bicarb today is 49. Renal profile remains normal. Patient remains on diuretics. And he is also on Diamox. Objective - Vital Signs Vital signs: Vital Signs Temp 97.4 F L 03/25/17 08:00 Pulse 82 03/25/17 08:29 Resp 26 H 03/25/17 08:00 BP 112/52 03/25/17 08:00 Pulse Ox 94 L 03/25/17 08:00 Intake & Output 03/24/17 03/25/17 03/25/17 18:59 06:59 18:59 Intake Total 354 300 0 Output Total 1160 Balance 354 -860 0 Weight 83 kg Intake: IV 300 Cefepime 2 gm In Sodium 50 Chloride 0.9% 50 ml @ 100 mls/hr IVPB Q8HR PHIL Rx# :[id number] Vancomycin 1,500 mg In 250 Sodium Chloride 0.9% 250 ml @ 125 mls/hr IVPB BID PHIL Rx#:[id number] Oral 354 0 Output: Urine 1160 Other: Voiding Method Urinal Urinal Urinal # Voids 1 1 # Bowel Movements 1 1 - Exam GENERAL EXAM: More alert today, comfortable in no apparent distress. HEAD: Normocephalic. EYES: Normal reaction of pupils, equal size. NOSE: Clear with pink turbinates. THROAT: No erythema or exudates. NECK: No masses, no JVD. CHEST: No chest wall deformity. LUNGS: Equal air entry crackles at the bases noted bilaterally CVS: S1 and S2 normal with no audible murmur, regular rhythm. ABDOMEN: No hepatosplenomegaly, normal bowel sounds, no guarding or rigidity. SPINE: Kyphoscoliosis. SKIN: No rashes CENTRAL NERVOUS SYSTEM: No focal deficits, tone is normal in all 4 extremities. EXTREMITIES: There is no peripheral edema. No clubbing, no cyanosis. Peripheral pulses are intact. - Labs CBC & Chem 7: 03/24/17 08:08 03/25/17 05:19 Labs: Abnormal Lab Results - Last 24 Hours (Table) 03/24/17 03/24/17 03/24/17 Range/Units 08:08 11:40 16:43 WBC 2.0 L* (3.8-10.6) k/uL RBC 2.51 L (4.30-5.90) m/uL Hgb 7.9 L (13.0-17.5) gm/dL Hct 24.8 L (39.0-53.0) % RDW 19.6 H (11.5-15.5) % Plt Count 26 L* (150-450) k/uL Neutrophils # 0.7 L (1.3-7.7) k/uL Chloride (98-107) mmol/L Carbon Dioxide (22-30) mmol/L BUN (9-20) mg/dL POC Glucose (mg/dL) 149 H 194 H (75-99) mg/dL 03/24/17 03/25/17 Range/Units 20:09 05:19 WBC (3.8-10.6) k/uL RBC (4.30-5.90) m/uL Hgb (13.0-17.5) gm/dL Hct (39.0-53.0) % RDW (11.5-15.5) % Plt Count (150-450) k/uL Neutrophils # (1.3-7.7) k/uL Chloride 89 L (98-107) mmol/L Carbon Dioxide 49 H* (22-30) mmol/L BUN 25 H (9-20) mg/dL POC Glucose (mg/dL) 178 H (75-99) mg/dL Microbiology - Last 24 Hours (Table) 03/21/17 14:40 Blood Culture - Preliminary Blood No Growth after 72 hours Assessment and Plan Assessment: #1 Acute exacerbation of severe oxygen dependent chronic obstructive pulmonary disease. #2 Acute exacerbation of severe pulmonary fibrosis with restrictive lung disease with a forced vital capacity 42%, total lung capacity 43%. #3 Severe pulmonary hypertension secondary to chronic lung disease with RVSP 60 mmHg. #4 Acute on chronic diastolic congestive heart failure. #5 Acute on chronic hypoxic respiratory failure secondary to above. #6 Acute on chronic hypercapnic respiratory failure secondary to above. #7 Pancytopenia secondary to myelodysplasia. #8 History of coronary disease with previous non-ST segment elevation myocardial infarction. #9 Hypertension. #10 Hyperlipidemia. #11 Overall poor functional performance based on the above-mentioned comorbidities. Recommendation: Continue present supportive care measures including oxygen, bronchodilators, steroids, antibiotics, and diuretics. Continue to use BiPAP intermittently as needed, overall prognosis remains poor and guarded, patient is DO NOT RESUSCITATE at this point. Consider discharge planning to a rehab facility on Monday. Time with Patient: Less than 30
--- NOTE | 2017-03-25 10:44 | P.PN ---
Subjective Progress Note Date: 03/24/17 This patient is a 81 year old being followed of mental status changes secondary to respiratory difficulties. The patient has a history of advanced pulmonary fibrosis. He was started on BiPAP this evening for further treatment of this underlying condition. He was able to complete a routine EEG today which is reviewed and is moderately slow. According to the nursing staff he is also been lethargic and slow in his activities today. As noted he has a chronic hypercapnic respiratory failure. Pulmonary medicine is monitoring him closely. He also has underlying COPD and is oxygen dependent. He also has underlying myelodysplasia as well. His overall prognosis remains poor. He has been made a DO NOT RESUSCITATE and we will need to continue close monitoring. The patient has been using nasal cannula oxygen today but yesterday did require BiPAP use. His overall respiratory status with chronic hypoxic and hypercapnic respiratory failure seems to wax and wane. Patient is easily arousable this evening. He is able to follow simple commands. We will continue close neurological follow-up of this patient during this admission. His overall prognosis at this time remains guarded. Objective - Vital Signs Vital signs: Vital Signs Temp 97.1 F L 03/24/17 11:12 Pulse 92 03/24/17 11:38 Resp 22 03/24/17 11:12 BP 123/63 03/24/17 11:12 Pulse Ox 99 03/24/17 11:12 Intake & Output 03/23/17 03/24/17 03/24/17 18:59 06:59 18:59 Intake Total 675 118 Output Total 495 900 Balance 180 -900 118 Weight 81 kg Intake: Oral 365 118 Blood Product 310 Rc As-1 Unit 310 [id number] Output: Urine 495 900 Other: Voiding Method Urinal Urinal Urinal # Voids 2 1 1 # Bowel Movements 2 1 - Exam Physical examination: PHYSICAL EXAMINATION: Patient is resting comfortably in bed. VITAL SIGNS: Blood pressure is [126/63]. Heart rate is [95]. Respiration is [18] . Temperature is [97.8]. HEENT: Head is atraumatic, neck is supple, there were no carotid bruits. CHEST: Lungs are clear to auscultation and percussion. CARDIAC: S1, S2 normal rate and rhythm. There is no murmur. ABDOMEN: Soft and nontender. Bowel sounds are present. EXTREMITIES: There is no pedal edema. Peripheral pulses are present. Neurological examination: Patient's neurological examination is unchanged from yesterday. He is currently resting with BiPAP on and is slightly lethargic but arousable. - Labs CBC & Chem 7: 03/24/17 08:08 03/25/17 05:19 Labs: Abnormal Lab Results - Last 24 Hours (Table) 03/23/17 03/23/17 03/23/17 Range/Units 07:37 16:36 21:05 WBC (3.8-10.6) k/uL RBC (4.30-5.90) m/uL Hgb (13.0-17.5) gm/dL Hct (39.0-53.0) % RDW (11.5-15.5) % Plt Count (150-450) k/uL Neutrophils # (1.3-7.7) k/uL Chloride (98-107) mmol/L Carbon Dioxide (22-30) mmol/L BUN (9-20) mg/dL POC Glucose (mg/dL) 152 H 108 H (75-99) mg/dL Crossmatch See Detail 03/24/17 03/24/17 03/24/17 Range/Units 08:08 08:08 11:40 WBC 2.0 L* (3.8-10.6) k/uL RBC 2.51 L (4.30-5.90) m/uL Hgb 7.9 L (13.0-17.5) gm/dL Hct 24.8 L (39.0-53.0) % RDW 19.6 H (11.5-15.5) % Plt Count 26 L* (150-450) k/uL Neutrophils # 0.7 L (1.3-7.7) k/uL Chloride 84 L (98-107) mmol/L Carbon Dioxide 54 H* (22-30) mmol/L BUN 30 H (9-20) mg/dL POC Glucose (mg/dL) 149 H (75-99) mg/dL Crossmatch Microbiology - Last 24 Hours (Table) 03/21/17 14:40 Blood Culture - Preliminary Blood No Growth after 48 hours Assessment and Plan (1) Hypoxic encephalopathy Current Visit: Yes Status: Acute SNOMED Code(s): 728400563 (2) Pancytopenia Current Visit: Yes Status: Acute SNOMED Code(s): 556130506 (3) Anemia Current Visit: No Status: Acute SNOMED Code(s): 230108690 (4) Chronic hypoxemic respiratory failure Current Visit: No Status: Acute SNOMED Code(s): 708790387 (5) Pulmonary fibrosis Current Visit: No Status: Acute SNOMED Code(s): 33198618 Plan: This patient is a 81-year-old male with history of chronic pulmonary fibrosis and chronic hypoxic and hypercapnic respiratory failure. He was admitted to hospital with increasing shortness of breath. He was showing increased mental status changes earlier today and for this reason neurology was consulted. He underwent a computed tomography scan of the brain which was negative for any acute changes. He is able to follow simple commands at this time. His recent mental status changes are felt to be secondary to his severe respiratory difficulties from pulmonary fibrosis and hypoxic and hypercapnic respiratory failure. We will obtain a routine EEG for further evaluation for this patient. He is to continue with all current treatment plans as per pulmonary medicine. Patient has been started on BiPAP this evening. He was able to complete a routine EEG which was moderately slow. He has evidence suggesting a diffuse metabolic encephalopathy producing his mild confusional state as well. The patient is now able to use nasal oxygen at a setting of 3 L. He continues to have waxing and waning of his overall respiratory status. We will await further recommendations from pulmonary medicine regarding his conditio His overall prognosis at this time remains very guarded. His overall neurological status is consistent with a diffuse metabolic encephalopathy secondary to his respiratory failure. We will continue close neurological follow-up for this patient during this admission.
[2017-03-25 11:50] LABS: Glucose,Whole Blood 91 mg/dL (75-99)
[2017-03-25] MEDS: acetaZOLAMIDE 250 MG TAB PO SCH ×2 (11:51→21:15)
[2017-03-25] MEDS: predniSONE 20 MG TAB PO SCH (11:51)
[2017-03-25] MEDS: FUROSEMIDE 20 MG TAB PO SCH (15:43)
[2017-03-25 17:05] LABS: Glucose,Whole Blood 127 mg/dL (75-99)
[2017-03-25] MEDS: POTASSIUM CHLORIDE ER 20 MEQ TAB.ER PO SCH (17:06)
[2017-03-25 20:39] LABS: Glucose,Whole Blood 171 mg/dL (75-99)
[2017-03-25] MEDS: ATORVASTATIN 20 MG TAB PO SCH (21:15)
--- NOTE | 2017-03-25 23:54 | P.PN ---
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 Patient most recently had blood transfusion 5 days ago. Patient has also noted bilateral lower extremity swelling. Patient does admit having cough which is productive. According to the patient's family he has had a slightly elevated temperature over the past several days as well. Patient denies chest pain. Denies nausea or vomiting. Denies diarrhea. Denies rectal bleeding. Pulse ox was 75 percent on nasal cannula on admission. Chest x-ray showed multifocal pneumonia and may represent confluent pulmonary edema Patient was pancytopenic. Patient is a chronic CO2 retainer. On 03/22/2017 Patient did improve symptomatically. Patient still hypercarbic. No complaints of chest pain. Mental status improved as well patient still feels drowsy. No fever overnight. No acute issues at this time. On 03/23/2017 Patient had worsening short of breath this morning and was given extra dose of Lasix. Patient was confused last night and neurology was consulted. CT head showed no acute process. Patient is still having significant hypercapnia. Increased bicarbonate level could be due to diuresis as well. Hemoglobin dropped to 7.1 today and is getting 1 unit of PRBC. Currently saturating well on file at another cannula. No fever no chills. Patient still seems to be confused and lethargic. Planning for starting on BiPAP. 03/24/2017 Patient's mental status is slightly improved. More awake and oriented. Still very drowsy and lethargic. Patient did have used BiPAP last night. No fever no chills. Pulmonary and neurology is following. No acute overnight issues. 03/25/2017 Patient is still lethargic. Bicarb level improved to 49 today. Continues to be on BiPAP machine. No fever no chills. Mental status slightly improved. Otherwise no acute overnight issues. All other review of systems negative except the above. Current medications reviewed Objective - Vital Signs Vital signs: Vital Signs Temp 97.8 F 03/25/17 15:31 Pulse 76 03/25/17 19:21 Resp 21 03/25/17 15:31 BP 109/51 03/25/17 15:31 Pulse Ox 96 03/25/17 15:31 Intake & Output 03/25/17 03/25/17 03/26/17 06:59 18:59 06:59 Intake Total 300 656 Output Total 1160 1650 Balance -860 -994 Weight 83 kg Intake: IV 300 120 .9 @ 10 120 Cefepime 2 gm In Sodium 50 Chloride 0.9% 50 ml @ 100 mls/hr IVPB Q8HR [facility] Rx# :[id number] Vancomycin 1,500 mg In 250 Sodium Chloride 0.9% 250 ml @ 125 mls/hr IVPB BID [facility] Rx#:[id number] Intake, IV Titration 300 Amount Cefepime 2 gm In Sodium 50 Chloride 0.9% 50 ml @ 100 mls/hr IVPB Q8HR [facility] Rx# :[id number] Vancomycin 1,500 mg In 250 Sodium Chloride 0.9% 250 ml @ 125 mls/hr IVPB BID [facility] Rx#:[id number] Oral 236 Output: Urine 1160 1650 Other: Voiding Method Urinal Urinal # Voids 1 1 # Bowel Movements 1 - Exam Patient is lying in the bed comfortably, mild acute distress, awake alert and oriented.. HEENT: Normocephalic. Neck is supple. Pupils reactive. Nostrils clear. Oral cavity is moist. Ears reveal no drainage. Neck reveals no JVD, carotid bruits, or thyromegaly. CHEST EXAMINATION: Trachea is central. Symmetrical expansion. Bilateral diffuse rhonchi and minimal wheezing positive. CARDIAC: Normal S1, S2 with no gallops. No murmurs tachycardia ABDOMEN: Soft. Obese. Bowel sounds normal. No organomegaly. No abdominal bruits. Extremities: 2+ edema. No clubbing or cyanosis Neurologically awake, alert, oriented x3 with well-coordinated movements. No focal deficits noted Skin: No rash or skin lesions. Psychiatric: Operative. Nonsuicidal Musculoskeletal: No joint swelling or deformity. Normal range of motion. - Labs CBC & Chem 7: 03/24/17 08:08 03/25/17 18:44 Labs: Abnormal Lab Results - Last 24 Hours (Table) 03/24/17 03/25/17 03/25/17 Range/Units 20:09 05:19 16:44 Chloride 89 L (98-107) mmol/L Carbon Dioxide 49 H* (22-30) mmol/L BUN 25 H (9-20) mg/dL POC Glucose (mg/dL) 178 H 127 H (75-99) mg/dL 03/25/17 Range/Units 18:44 Chloride (98-107) mmol/L Carbon Dioxide 44 H* (22-30) mmol/L BUN (9-20) mg/dL POC Glucose (mg/dL) (75-99) mg/dL Microbiology - Last 24 Hours (Table) 03/21/17 14:40 Blood Culture - Preliminary Blood No Growth after 96 hours Assessment and Plan Assessment: #1 acute hypoxic and hypercapnic respiratory failure due to multifactorial etiology due to CHF and pulmonary fibrosis and pneumonia #2 healthcare associated pneumonia #2 acute COPD exacerbation with history of pulmonary fibrosis #2 acute on chronic CHF with diastolic dysfunction #4 chronic hypoxic and hypercapnic respiratory failure due to pulmonary fibrosis #5 obesity with BMI 27.8 #6 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 Improved CT negative Plan: Patient will be continued on broad-spectrum antibiotics in the form of vancomycin and cefepime. Continue with breathing treatments along with steroids and IV diuresis with Lasix as blood pressure tolerates. Continue to monitor CBC and transfuse as needed. No signs of active bleeding. Hemoglobin is at 8.1. We will continue to follow closely. Prognosis is guarded with multiple medical problems and comorbid conditions. Further recommendations based on the clinical course. Time with Patient: Greater than 30
[2017-03-26 06:03] LABS: Glucose,Whole Blood 70 mg/dL (75-99)
[2017-03-26] MEDS: INSULIN LISPRO (humaLOG) 300 UNIT/3 ML VIAL SQ SCH ×4 (06:10→21:18)
[2017-03-26] MEDS: LEVOTHYROXINE 25 MCG TAB PO SCH (06:10)
[2017-03-26 06:26] LABS: Anisocytosis Slight; Basophils % (A) 0 %; CH 31.8; CHCM 31.5; Eosinophils % (A) 1 %; HCT 25.3 % (39.0-53.0); HDW 3.17; HGB 7.9 gm/dL (13.0-17.5); Hypochromasia Slight; Luc # (Auto) 0.04; Luc % (Auto) 2; Lymphocytes # (A) 1.1 k/uL (1.0-4.8); Lymphocytes % (A) 54 %; MCH 31.6 pg (25.0-35.0); MCHC 31.2 g/dL (31.0-37.0); MCV 101.3 fL (80.0-100.0); Macrocytosis Moderate; Mean Platelet Volume 7.6; Monocytes # (A) 0.2 k/uL (0-1.0); Monocytes % (A) 11 %; Neutrophils # (A) 0.6 k/uL (1.3-7.7); Neutrophils % (A) 32 %; RBC 2.49 m/uL (4.30-5.90); RDW 18.8 % (11.5-15.5); WBC (Perox) 2.04
[2017-03-26 06:50] LABS: Blood Urea Nitrogen 27 mg/dL (9-20); Calcium 9.3 mg/dL (8.4-10.2); Chloride 94 mmol/L (98-107); Glucose 80 mg/dL (74-99); Non-African American GFR(MDRD) >60 (>60 ml/min/1.73 sqM); Potassium 4.4 mmol/L (3.5-5.1); Sodium 138 mmol/L (137-145)
[2017-03-26 06:58] LABS: Anion Gap 5 mmol/L; Carbon Dioxide 39 mmol/L (22-30)
[2017-03-26] MEDS: IPRATROPIUM-ALBUTEROL 3 ML NEB INHALATION PRN ×4 (07:35→18:51)
[2017-03-26] MEDS: CEFEPIME 2 GM in SODIUM CHLORIDE 0.9% 50 ML IVPB SCH ×3 (07:40→23:04)
[2017-03-26] MEDS: FUROSEMIDE 20 MG TAB PO SCH ×2 (07:41→16:00)
[2017-03-26] MEDS: predniSONE 20 MG TAB PO SCH (07:41)
[2017-03-26] MEDS: acetaZOLAMIDE 250 MG TAB PO SCH ×2 (07:41→20:08)
[2017-03-26 07:42] LABS: Polychromasia Present
[2017-03-26] MEDS: VANCOMYCIN 1,500 MG in SODIUM CHLORIDE 0.9% 250 ML IVPB SCH ×2 (08:47→20:06)
--- NOTE | 2017-03-26 11:05 | P.PN ---
Subjective Progress Note Date: 03/25/17 This patient is a 81 year old being followed of mental status changes secondary to respiratory difficulties. The patient has a history of advanced pulmonary fibrosis. He was started on BiPAP this evening for further treatment of this underlying condition. He was able to complete a routine EEG today which is reviewed and is moderately slow. According to the nursing staff he is also been lethargic and slow in his activities today. As noted he has a chronic hypercapnic respiratory failure. Pulmonary medicine is monitoring him closely. He also has underlying COPD and is oxygen dependent. He also has underlying myelodysplasia as well. His overall prognosis remains poor. He has been made a DO NOT RESUSCITATE and we will need to continue close monitoring. The patient has been placed back on BiPAP today due to his respiratory status. His overall respiratory status with chronic hypoxic and hypercapnic respiratory failure seems to wax and wane. Patient is easily arousable this evening. He is able to follow simple commands. We will continue close neurological follow- up of this patient during this admission. We will await further recommendations from pulmonary medicine regarding his overall respiratory status. Neurologically he remains intact with no focal motor deficit. He does have a mild encephalopathy secondary to his poor respiratory status and hypoxemia. His overall prognosis at this time remains guarded. Objective - Vital Signs Vital signs: Vital Signs Temp 97.3 F L 03/25/17 11:23 Pulse 72 03/25/17 11:34 Resp 33 H 03/25/17 11:24 BP 99/46 03/25/17 11:23 Pulse Ox 98 03/25/17 11:23 Intake & Output 03/24/17 03/25/17 03/25/17 18:59 06:59 18:59 Intake Total 354 300 420 Output Total 1160 450 Balance 354 -860 -30 Weight 83 kg Intake: IV 300 120 .9 @ 10 120 Cefepime 2 gm In Sodium 50 Chloride 0.9% 50 ml @ 100 mls/hr IVPB Q8HR [facility] Rx# :[id number] Vancomycin 1,500 mg In 250 Sodium Chloride 0.9% 250 ml @ 125 mls/hr IVPB BID [facility] Rx#:[id number] Intake, IV Titration 300 Amount Cefepime 2 gm In Sodium 50 Chloride 0.9% 50 ml @ 100 mls/hr IVPB Q8HR [facility] Rx# :[id number] Vancomycin 1,500 mg In 250 Sodium Chloride 0.9% 250 ml @ 125 mls/hr IVPB BID [facility] Rx#:[id number] Oral 354 0 Output: Urine 1160 450 Other: Voiding Method Urinal Urinal Urinal # Voids 1 1 2 # Bowel Movements 1 1 - Exam Physical examination: PHYSICAL EXAMINATION: Patient is resting comfortably in bed. VITAL SIGNS: Blood pressure is [109/51]. Heart rate is [73]. Respiration is [21] . Temperature is [97.8]. HEENT: Head is atraumatic, neck is supple, there were no carotid bruits. CHEST: Lungs are clear to auscultation and percussion. CARDIAC: S1, S2 normal rate and rhythm. There is no murmur. ABDOMEN: Soft and nontender. Bowel sounds are present. EXTREMITIES: There is no pedal edema. Peripheral pulses are present. Neurological examination: Patient's neurological examination is unchanged from yesterday. He is currently resting with BiPAP on and is slightly lethargic but arousable. - Labs CBC & Chem 7: 03/26/17 05:40 03/26/17 05:36 Labs: Abnormal Lab Results - Last 24 Hours (Table) 03/24/17 03/24/17 03/24/17 Range/Units 11:40 16:43 20:09 Chloride (98-107) mmol/L Carbon Dioxide (22-30) mmol/L BUN (9-20) mg/dL POC Glucose (mg/dL) 149 H 194 H 178 H (75-99) mg/dL 03/25/17 Range/Units 05:19 Chloride 89 L (98-107) mmol/L Carbon Dioxide 49 H* (22-30) mmol/L BUN 25 H (9-20) mg/dL POC Glucose (mg/dL) (75-99) mg/dL Microbiology - Last 24 Hours (Table) 03/21/17 14:40 Blood Culture - Preliminary Blood No Growth after 72 hours Assessment and Plan (1) Hypoxic encephalopathy Current Visit: Yes Status: Acute SNOMED Code(s): 942299723 (2) Pancytopenia Current Visit: Yes Status: Acute SNOMED Code(s): 083469460 (3) Anemia Current Visit: No Status: Acute SNOMED Code(s): 415757865 (4) Chronic hypoxemic respiratory failure Current Visit: No Status: Acute SNOMED Code(s): 779145676 (5) Pulmonary fibrosis Current Visit: No Status: Acute SNOMED Code(s): 49855739 Plan: This patient is a 81-year-old male with history of chronic pulmonary fibrosis and chronic hypoxic and hypercapnic respiratory failure. He was admitted to hospital with increasing shortness of breath. He was showing increased mental status changes earlier today and for this reason neurology was consulted. He underwent a computed tomography scan of the brain which was negative for any acute changes. He is able to follow simple commands at this time. His recent mental status changes are felt to be secondary to his severe respiratory difficulties from pulmonary fibrosis and hypoxic and hypercapnic respiratory failure. We will obtain a routine EEG for further evaluation for this patient. He is to continue with all current treatment plans as per pulmonary medicine. Patient has been started on BiPAP this evening. He was able to complete a routine EEG which was moderately slow. He has evidence suggesting a diffuse metabolic encephalopathy producing his mild confusional state as well. The patient has been placed back on BiPAP for further management of his poor respiratory status. There is been no significant change in his overall mental status. We will await further recommendations from pulmonary medicine regarding his further management of his respiratory disease. He continues to have waxing and waning of his overall respiratory status. We will await further recommendations from pulmonary medicine regarding his conditio His overall prognosis at this time remains very guarded. His overall neurological status is consistent with a diffuse metabolic encephalopathy secondary to his respiratory failure. We will continue close neurological follow-up for this patient during this admission.
[2017-03-26 11:41] LABS: Glucose,Whole Blood 139 mg/dL (75-99)
--- NOTE | 2017-03-26 12:48 | P.PN ---
Subjective Progress Note Date: 03/26/17 Principal diagnosis: Acute on chronic hypoxic respiratory failure secondary to COPD and underlying pulmonary fibrosis and pulmonary hypertension. This is a pleasant 81-year-old gentleman who has a significant past medical history of myelodysplasia with pancytopenia and anemia. He was recently discharged from here on 03/04/2017 to [facility] for inpatient rehabilitation. He also has a history of advanced pulmonary fibrosis with FVC of 42% and a total lung capacity of 43% with chronic hypoxic and hypercapnic respiratory failure, chronic obstructive pulmonary disease with secondary pulmonary hypertension. He is oxygen dependent maintained on 3 L/m per nasal cannula in the outpatient setting. He follows with our group for the same. He also has a history of hypothyroidism, hyperlipidemia, osteoarthritis with gait mobility issues, coronary artery disease. He has very poor overall functional performance based on his multiple comorbidities. He was readmitted again yesterday with increasing shortness of breath cough and congestion. He had bilateral lower extremity edema as well. The patient had received a blood transfusion approximately 5-6 days ago. The patient's chest x-ray does reveal evidence of fluid volume overload. There is also some patchy opacities that were similar compared to the previous one in February. White count 2.1. Hemoglobin 7.7. Platelet count 21,000. Creatinine 0.62. CO2 level 47 and it is noted the patient runs in the high 30s to low 40s on previous admissions as well. He is currently maintaining O2 saturations in the high 90s on 4 L/m per nasal cannula. He is afebrile. Hemodynamically stable. He has been initiated on bronchodilators, prednisone along with cefepime and vancomycin. He is being diuresed with Lasix 20 mg IV every 12 hours. He is seen today in consultation on the selective care unit. Currently he is awake and alert in no acute distress. He is somewhat of a poor historian unclear as to why he is here. He does admit to having some shortness of breath with exertion. Loose nonproductive cough. The patient was seen again today 03/23/2017 in follow-up on the selective care unit. He is currently maintaining O2 saturations in the mid 90s on 5 L/m per nasal cannula. He's been afebrile. He has a loose nonproductive cough. He remains on vancomycin and cefepime. He did have issues with low saturations last evening. He was given additional Lasix 40 mg IV push. He is more awake and alert today as compared to yesterday. He did have issues with mental status changes last evening as well and neurology has been consulted. A computed tomography scan of the brain revealed no acute process. EEG is pending. Current white count 1.7, hemoglobin 7.1, platelet count 19,000. He is due for 1 unit of packed red blood cells today. Reevaluated today on , patient remains on the same medications, he required to be placed on BiPAP last night, however he is presently on nasal cannula at 3 L per minute. Remains on broad-spectrum antibiotics, bronchodilators, intermittent diuretics, seems to be doing well, comfortable, in no distress. Patient is being followed by neurology for mental status change felt to be most likely secondary to hypoxic encephalopathy with pancytopenia and chronic hypoxic respiratory failure. Reevaluated today on 03/25/2017, patient is presently on BiPAP, comfortable, in no form of respiratory distress, a bit lethargic, but arousable and seems to be appropriate, he recognized my name. Not sore all reviewed, labs were reviewed including his basic metabolic profile bicarb today is 49. Renal profile remains normal. Patient remains on diuretics. And he is also on Diamox. Patient was reevaluated today on 03/26/2017, presently on nasal cannula, awake, alert, oriented 3, in no form of respiratory distress, patient slept well last night, and he seems to be very appropriate. Denies any cough or wheezing or shortness of breath. Patient remains on multiple meds including antibiotics bronchodilators steroids and diuretics. Patient could be considered possibly for discharge planning in the next 24 hours to a rehab facility, although I talked to his daughter who actually is thinking of taking him home because that what he wishes. Patient has a son who is willing to take care of his dad. Labs were reviewed, WBC count is 2.0 hemoglobin is 7.5 platelets remain low. Patient has myelodysplasia. His basic metabolic profile is relatively normal, bicarb is down to 39 after he was placed on Diamox. Objective - Vital Signs Vital signs: Vital Signs Temp 97.3 F L 03/26/17 11:18 Pulse 72 03/26/17 11:21 Resp 20 03/26/17 11:18 BP 113/59 03/26/17 11:18 Pulse Ox 100 03/26/17 11:18 Intake & Output 03/25/17 03/26/17 03/26/17 18:59 06:59 18:59 Intake Total 656 400 180 Output Total 1650 640 150 Balance -994 -240 30 Weight 80.5 kg Intake: IV 120 400 .9 @ 10 120 100 Cefepime 2 gm In Sodium 50 Chloride 0.9% 50 ml @ 100 mls/hr IVPB Q8HR PHIL Rx# :[id number] Vancomycin 1,500 mg In 250 Sodium Chloride 0.9% 250 ml @ 125 mls/hr IVPB BID PHIL Rx#:[id number] Intake, IV Titration 300 Amount Cefepime 2 gm In Sodium 50 Chloride 0.9% 50 ml @ 100 mls/hr IVPB Q8HR PHIL Rx# :[id number] Vancomycin 1,500 mg In 250 Sodium Chloride 0.9% 250 ml @ 125 mls/hr IVPB BID PHIL Rx#:[id number] Oral 236 180 Output: Urine 1650 640 150 Other: Voiding Method Urinal Urinal Urinal Diaper Incontinent # Voids 1 1 1 - Exam GENERAL EXAM: More alert today, comfortable in no apparent distress. Presently on nasal cannula. HEAD: Normocephalic. Atraumatic. EYES: Normal reaction of pupils, equal size. NOSE: Clear with pink turbinates. THROAT: No erythema or exudates. NECK: No masses, no JVD. CHEST: No chest wall deformity. LUNGS: Equal air entry crackles at the bases noted bilaterally CVS: S1 and S2 normal with no audible murmur, regular rhythm. ABDOMEN: No hepatosplenomegaly, normal bowel sounds, no guarding or rigidity. SPINE: Kyphoscoliosis. SKIN: No rashes CENTRAL NERVOUS SYSTEM: No focal deficits, tone is normal in all 4 extremities. EXTREMITIES: There is no peripheral edema. No clubbing, no cyanosis. Peripheral pulses are intact. - Labs CBC & Chem 7: 03/26/17 05:40 03/26/17 05:36 Labs: Abnormal Lab Results - Last 24 Hours (Table) 03/25/17 03/25/17 03/25/17 Range/Units 16:44 18:44 20:36 WBC (3.8-10.6) k/uL RBC (4.30-5.90) m/uL Hgb (13.0-17.5) gm/dL Hct (39.0-53.0) % MCV (80.0-100.0) fL RDW (11.5-15.5) % Plt Count (150-450) k/uL Neutrophils # (1.3-7.7) k/uL Chloride (98-107) mmol/L Carbon Dioxide 44 H* (22-30) mmol/L BUN (9-20) mg/dL POC Glucose (mg/dL) 127 H 171 H (75-99) mg/dL 03/26/17 03/26/17 03/26/17 Range/Units 05:36 05:40 05:59 WBC 2.0 L* (3.8-10.6) k/uL RBC 2.49 L (4.30-5.90) m/uL Hgb 7.9 L (13.0-17.5) gm/dL Hct 25.3 L (39.0-53.0) % MCV 101.3 H (80.0-100.0) fL RDW 18.8 H (11.5-15.5) % Plt Count 28 L* (150-450) k/uL Neutrophils # 0.6 L (1.3-7.7) k/uL Chloride 94 L (98-107) mmol/L Carbon Dioxide 39 H (22-30) mmol/L BUN 27 H (9-20) mg/dL POC Glucose (mg/dL) 70 L (75-99) mg/dL 03/26/17 Range/Units 11:31 WBC (3.8-10.6) k/uL RBC (4.30-5.90) m/uL Hgb (13.0-17.5) gm/dL Hct (39.0-53.0) % MCV (80.0-100.0) fL RDW (11.5-15.5) % Plt Count (150-450) k/uL Neutrophils # (1.3-7.7) k/uL Chloride (98-107) mmol/L Carbon Dioxide (22-30) mmol/L BUN (9-20) mg/dL POC Glucose (mg/dL) 139 H (75-99) mg/dL Microbiology - Last 24 Hours (Table) 03/21/17 14:40 Blood Culture - Preliminary Blood No Growth after 96 hours Assessment and Plan Assessment: #1 Acute exacerbation of severe oxygen dependent chronic obstructive pulmonary disease. #2 Acute exacerbation of severe pulmonary fibrosis with restrictive lung disease with a forced vital capacity 42%, total lung capacity 43%. #3 Severe pulmonary hypertension secondary to chronic lung disease with RVSP 60 mmHg. #4 Acute on chronic diastolic congestive heart failure. #5 Acute on chronic hypoxic respiratory failure secondary to above. #6 Acute on chronic hypercapnic respiratory failure secondary to above. #7 Pancytopenia secondary to myelodysplasia. #8 History of coronary disease with previous non-ST segment elevation myocardial infarction. #9 Hypertension. #10 Hyperlipidemia. #11 Overall poor functional performance based on the above-mentioned comorbidities. Recommendation: Continue present supportive care measures including oxygen, bronchodilators, steroids, antibiotics, and diuretics. Continue to use BiPAP intermittently as needed, overall prognosis remains poor and guarded, patient is DO NOT RESUSCITATE at this point. Consider discharge planning in the next 24 hours. Patient can see me on outpatient basis post discharge Time with Patient: Less than 30
[2017-03-26 16:54] LABS: Glucose,Whole Blood 253 mg/dL (75-99)
[2017-03-26] MEDS: POTASSIUM CHLORIDE ER 20 MEQ TAB.ER PO SCH (17:47)
[2017-03-26] MEDS: ATORVASTATIN 20 MG TAB PO SCH (20:08)
[2017-03-26 20:59] LABS: Glucose,Whole Blood 117 mg/dL (75-99)
[2017-03-27 05:53] LABS: Glucose,Whole Blood 94 mg/dL (75-99)
[2017-03-27] MEDS: LEVOTHYROXINE 25 MCG TAB PO SCH (05:57)
[2017-03-27] MEDS: INSULIN LISPRO (humaLOG) 300 UNIT/3 ML VIAL SQ SCH ×4 (05:58→21:39)
[2017-03-27] MEDS ORDERED: VANCOMYCIN TROUGH DUE 1 EACH MISC MISCELLANE ONE (08:00)
[2017-03-27] MEDS: FUROSEMIDE 20 MG TAB PO SCH ×2 (08:06→15:50)
[2017-03-27] MEDS: CEFEPIME 2 GM in SODIUM CHLORIDE 0.9% 50 ML IVPB SCH ×2 (08:06→15:51)
[2017-03-27] MEDS: acetaZOLAMIDE 250 MG TAB PO SCH ×2 (08:07→21:38)
[2017-03-27] MEDS: predniSONE 20 MG TAB PO SCH (08:07)
[2017-03-27 08:17] LABS: Anisocytosis Slight; CH 32.8; CHCM 32.2; HCT 23.1 % (39.0-53.0); HDW 3.11; HGB 7.2 gm/dL (13.0-17.5); Hypochromasia Slight; MCHC 31.3 g/dL (31.0-37.0); MCV 102.2 fL (80.0-100.0); Macrocytosis Moderate; Mean Platelet Volume 8.8; RBC 2.26 m/uL (4.30-5.90); RDW 19.9 % (11.5-15.5)
[2017-03-27 08:24] LABS: Anion Gap 6 mmol/L; Blood Urea Nitrogen 29 mg/dL (9-20); Calcium 9.3 mg/dL (8.4-10.2); Chloride 94 mmol/L (98-107); Glucose 86 mg/dL (74-99); Magnesium 1.9 mg/dL (1.6-2.3); Non-African American GFR(MDRD) >60 (>60 ml/min/1.73 sqM); Potassium 3.9 mmol/L (3.5-5.1); Sodium 140 mmol/L (137-145)
[2017-03-27 08:26] LABS: WBC 1.6 k/uL (3.8-10.6)
[2017-03-27 08:44] LABS: Carbon Dioxide 44 mmol/L (22-30)
[2017-03-27] MEDS: VANCOMYCIN 1,500 MG in SODIUM CHLORIDE 0.9% 250 ML IVPB SCH (08:59)
[2017-03-27 12:01] LABS: Glucose,Whole Blood 130 mg/dL (75-99)
--- NOTE | 2017-03-27 14:05 | P.PN ---
Subjective Progress Note Date: 03/27/17 Progress note dated 03/27/2017 Patient seemed be doing relatively well. Resting comfortably in a chair next to his bed. Still on nasal O2 at 3 L. The patient's saturations are 99%. I did tell the nurse to titrate down the FiO2 as except saturations in the high 80s low 90s. The patient does have a history of pulmonary fibrosis. Apparently was is being [facility] for evaluation at another [facility]. The patient did not like the [facility] which I [facility] was [facility]. The patient's history included that of COPD, severe pulmonary fibrosis, pulmonary hypertension, diastolic CHF, hypoxia make respiratory failure, hypercapnic respiratory failure, myelodysplasia, history of CAD with previous ST segment elevation myocardial infarction, hypertension, and hyperlipidemia. He is a DO NOT RESUSCITATE. He is at high risk for further deterioration and I expressed that to the nurse. He will need to be monitored very closely and a saturation she never be allowed to rise much above 93-94%. In addition, the nurses were every he goes must be very prudent and careful with any sedatives hypnotics narcotics or tranquilizers all of which could depress his respiratory system and cause worsening hypercapnic respiratory failure. Objective - Vital Signs Vital signs: Vital Signs Temp 98.3 F 03/27/17 11:47 Pulse 80 03/27/17 11:48 Resp 20 03/27/17 11:48 BP 112/49 03/27/17 11:47 Pulse Ox 99 03/27/17 11:47 Intake & Output 03/26/17 03/27/17 03/27/17 18:59 06:59 18:59 Intake Total 1080 360 760 Output Total 780 825 200 Balance 300 -465 560 Weight 81.2 kg Intake: IV 420 360 420 .9 @ 10 120 60 120 Cefepime 2 gm In Sodium 50 50 50 Chloride 0.9% 50 ml @ 100 mls/hr IVPB Q8HR PHIL Rx# :[id number] Vancomycin 1,500 mg In 250 250 250 Sodium Chloride 0.9% 250 ml @ 125 mls/hr IVPB BID PHIL Rx#:[id number] Oral 660 340 Output: Urine 780 825 200 Other: Voiding Method Urinal Urinal Urinal Diaper Diaper Diaper Incontinent Incontinent Incontinent # Voids 1 2 1 # Bowel Movements 1 1 - Exam No acute distress, oriented 3. HEENT examination is grossly unremarkable. Mucous membranes are moist. No oral lesions. Neck supple. Full range of motion. No adenopathy thyromegaly or neck vein distention. Cardiovascular examination reveals regular rhythm rate. S1-S2 normal. No S3 or S4. No discernible murmur noted. Lungs reveal bibasilar crackles. There are Velcro nature. Likely consistent with underlying pulmonary fibrosis although heart failure may also be a contributing factor.. Abdomen soft bowel sounds are heard. No masses or tenderness. Extremities are intact. No cyanosis clubbing . Slight edema. Skin is without rash or lesion. Neurologic examination is brief but nonfocal. - Labs CBC & Chem 7: 03/27/17 07:40 03/27/17 07:40 Labs: Abnormal Lab Results - Last 24 Hours (Table) 03/26/17 03/26/17 03/27/17 Range/Units 16:38 20:58 07:40 WBC 1.6 L* (3.8-10.6) k/uL RBC 2.26 L (4.30-5.90) m/uL Hgb 7.2 L (13.0-17.5) gm/dL Hct 23.1 L (39.0-53.0) % MCV 102.2 H (80.0-100.0) fL RDW 19.9 H (11.5-15.5) % Plt Count 29 L* (150-450) k/uL Chloride (98-107) mmol/L Carbon Dioxide (22-30) mmol/L BUN (9-20) mg/dL POC Glucose (mg/dL) 253 H 117 H (75-99) mg/dL 03/27/17 03/27/17 Range/Units 07:40 11:51 WBC (3.8-10.6) k/uL RBC (4.30-5.90) m/uL Hgb (13.0-17.5) gm/dL Hct (39.0-53.0) % MCV (80.0-100.0) fL RDW (11.5-15.5) % Plt Count (150-450) k/uL Chloride 94 L (98-107) mmol/L Carbon Dioxide 44 H* (22-30) mmol/L BUN 29 H (9-20) mg/dL POC Glucose (mg/dL) 130 H (75-99) mg/dL Microbiology - Last 24 Hours (Table) 03/21/17 14:40 Blood Culture - Preliminary Blood No Growth after 120 hours Assessment and Plan (1) Healthcare-associated pneumonia Current Visit: Yes Status: Acute Code(s): J18.9 - PNEUMONIA, UNSPECIFIED ORGANISM SNOMED Code(s): 423785683 (2) Pancytopenia Current Visit: Yes Status: Acute Code(s): D61.818 - OTHER PANCYTOPENIA SNOMED Code(s): 994421087 (3) Pulmonary fibrosis Current Visit: Yes Status: Acute Code(s): J84.10 - PULMONARY FIBROSIS, UNSPECIFIED SNOMED Code(s): 58576018 (4) Acute exacerbation of chronic obstructive airways disease Current Visit: No Status: Acute Code(s): J44.1 - CHRONIC OBSTRUCTIVE PULMONARY DISEASE W (ACUTE) EXACERBATION SNOMED Code(s): 239956034 (5) Adult respiratory distress syndrome Current Visit: No Status: Acute Code(s): J80 - ACUTE RESPIRATORY DISTRESS SYNDROME SNOMED Code(s): 28908988 (6) Anemia Current Visit: No Status: Acute Code(s): D64.9 - ANEMIA, UNSPECIFIED SNOMED Code(s): 464186659 (7) Chronic hypoxemic respiratory failure Current Visit: No Status: Acute Code(s): J96.11 - CHRONIC RESPIRATORY FAILURE WITH HYPOXIA SNOMED Code(s): 494765772 (8) Hypercapnic respiratory failure Current Visit: No Status: Acute Code(s): J96.92 - RESPIRATORY FAILURE, UNSPECIFIED WITH HYPERCAPNIA SNOMED Code(s): 426390260 (9) Hyperlipidemia Current Visit: No Status: Acute Code(s): E78.5 - HYPERLIPIDEMIA, UNSPECIFIED SNOMED Code(s): 74269896 (10) Hypertension Current Visit: No Status: Acute Code(s): I10 - ESSENTIAL (PRIMARY) HYPERTENSION SNOMED Code(s): 50863856 (11) Hypothyroidism Current Visit: No Status: Acute Code(s): E03.9 - HYPOTHYROIDISM, UNSPECIFIED SNOMED Code(s): 19962883 (12) Hypoxemia Current Visit: No Status: Acute Code(s): R09.02 - HYPOXEMIA SNOMED Code(s) : 235850482 (13) Pulmonary fibrosis Current Visit: No Status: Acute Code(s): J84.10 - PULMONARY FIBROSIS, UNSPECIFIED SNOMED Code(s): 55519415 (14) STEMI (ST elevation myocardial infarction) Current Visit: No Status: Acute Code(s): I21.3 - ST ELEVATION (STEMI) MYOCARDIAL INFARCTION OF [facility] SITE SNOMED Code(s): 537032993 (15) Symptomatic anemia Current Visit: No Status: Acute Code(s): D64.9 - ANEMIA, UNSPECIFIED SNOMED Code(s): 756786356 Plan: Plan dated 03/27/2017 We'll continue supportive measures. This would include oxygen breathing treatments antibiotic steroids, etc. We'll have to be careful to avoid highs oxygen saturations, which may depress his respiratory status. Additionally, sedatives hypnotics narcotics and tranquilizers should be avoided at all cost. The patient is a DO NOT RESUSCITATE. Currently being evaluated for possible placement at [facility]. Time with Patient: Greater than 30
[2017-03-27 17:09] LABS: Glucose,Whole Blood 125 mg/dL (75-99)
[2017-03-27] MEDS: POTASSIUM CHLORIDE ER 20 MEQ TAB.ER PO SCH (18:08)
[2017-03-27 21:01] LABS: Glucose,Whole Blood 123 mg/dL (75-99)
[2017-03-27] MEDS: VANCOMYCIN 1,250 MG in SODIUM CHLORIDE 0.9% 250 ML IVPB SCH (21:35)
[2017-03-27] MEDS: ATORVASTATIN 20 MG TAB PO SCH (21:38)
--- NOTE | 2017-03-27 21:44 | P.PN ---
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 Patient most recently had blood transfusion 5 days ago. Patient has also noted bilateral lower extremity swelling. Patient does admit having cough which is productive. According to the patient's family he has had a slightly elevated temperature over the past several days as well. Patient denies chest pain. Denies nausea or vomiting. Denies diarrhea. Denies rectal bleeding. Pulse ox was 75 percent on nasal cannula on admission. Chest x-ray showed multifocal pneumonia and may represent confluent pulmonary edema Patient was pancytopenic. Patient is a chronic CO2 retainer. On 03/22/2017 Patient did improve symptomatically. Patient still hypercarbic. No complaints of chest pain. Mental status improved as well patient still feels drowsy. No fever overnight. No acute issues at this time. On 03/23/2017 Patient had worsening short of breath this morning and was given extra dose of Lasix. Patient was confused last night and neurology was consulted. CT head showed no acute process. Patient is still having significant hypercapnia. Increased bicarbonate level could be due to diuresis as well. Hemoglobin dropped to 7.1 today and is getting 1 unit of PRBC. Currently saturating well on file at another cannula. No fever no chills. Patient still seems to be confused and lethargic. Planning for starting on BiPAP. 03/24/2017 Patient's mental status is slightly improved. More awake and oriented. Still very drowsy and lethargic. Patient did have used BiPAP last night. No fever no chills. Pulmonary and neurology is following. No acute overnight issues. 03/25/2017 Patient is still lethargic. Bicarb level improved to 49 today. Continues to be on BiPAP machine. No fever no chills. Mental status slightly improved. Otherwise no acute overnight issues. 03/27/2017 Patient is currently sitting in a chair and comfortable. Saturating well on nasal cannula. No acute overnight issues. Sedatives and narcotic pain medications will be avoided. Patient is awaiting for transfer to rehab All other review of systems negative except the above. Current medications reviewed Objective - Vital Signs Vital signs: Vital Signs Temp 98.0 F 03/26/17 20:00 Pulse 78 03/26/17 20:00 Resp 20 03/26/17 20:00 BP 117/51 03/26/17 20:00 Pulse Ox 99 03/26/17 20:00 Intake & Output 03/26/17 03/26/17 03/27/17 06:59 18:59 06:59 Intake Total 400 1080 Output Total 640 780 Balance -240 300 Weight 80.5 kg Intake: IV 400 420 .9 @ 10 100 120 Cefepime 2 gm In Sodium 50 50 Chloride 0.9% 50 ml @ 100 mls/hr IVPB Q8HR PHIL Rx# :[id number] Vancomycin 1,500 mg In 250 250 Sodium Chloride 0.9% 250 ml @ 125 mls/hr IVPB BID PHIL Rx#:[id number] Oral 660 Output: Urine 640 780 Other: Voiding Method Urinal Urinal Urinal Diaper Diaper Incontinent Incontinent # Voids 1 1 # Bowel Movements 1 - Exam Patient is lying in the bed comfortably, mild acute distress, awake alert and oriented.. HEENT: Normocephalic. Neck is supple. Pupils reactive. Nostrils clear. Oral cavity is moist. Ears reveal no drainage. Neck reveals no JVD, carotid bruits, or thyromegaly. CHEST EXAMINATION: Trachea is central. Symmetrical expansion. Bilateral diffuse rhonchi and minimal wheezing positive. CARDIAC: Normal S1, S2 with no gallops. No murmurs tachycardia ABDOMEN: Soft. Obese. Bowel sounds normal. No organomegaly. No abdominal bruits. Extremities: 2+ edema. No clubbing or cyanosis Neurologically awake, alert, oriented x3 with well-coordinated movements. No focal deficits noted Skin: No rash or skin lesions. Psychiatric: Operative. Nonsuicidal Musculoskeletal: No joint swelling or deformity. Normal range of motion. - Labs CBC & Chem 7: 03/27/17 07:40 03/27/17 07:40 Labs: Abnormal Lab Results - Last 24 Hours (Table) 03/26/17 03/26/17 03/26/17 Range/Units 05:36 05:40 05:59 WBC 2.0 L* (3.8-10.6) k/uL RBC 2.49 L (4.30-5.90) m/uL Hgb 7.9 L (13.0-17.5) gm/dL Hct 25.3 L (39.0-53.0) % MCV 101.3 H (80.0-100.0) fL RDW 18.8 H (11.5-15.5) % Plt Count 28 L* (150-450) k/uL Neutrophils # 0.6 L (1.3-7.7) k/uL Chloride 94 L (98-107) mmol/L Carbon Dioxide 39 H (22-30) mmol/L BUN 27 H (9-20) mg/dL POC Glucose (mg/dL) 70 L (75-99) mg/dL 03/26/17 03/26/17 03/26/17 Range/Units 11:31 16:38 20:58 WBC (3.8-10.6) k/uL RBC (4.30-5.90) m/uL Hgb (13.0-17.5) gm/dL Hct (39.0-53.0) % MCV (80.0-100.0) fL RDW (11.5-15.5) % Plt Count (150-450) k/uL Neutrophils # (1.3-7.7) k/uL Chloride (98-107) mmol/L Carbon Dioxide (22-30) mmol/L BUN (9-20) mg/dL POC Glucose (mg/dL) 139 H 253 H 117 H (75-99) mg/dL Microbiology - Last 24 Hours (Table) 03/21/17 14:40 Blood Culture - Preliminary Blood No Growth after 120 hours Assessment and Plan Assessment: #1 acute hypoxic and hypercapnic respiratory failure due to multifactorial etiology due to CHF and pulmonary fibrosis and pneumonia #2 healthcare associated pneumonia #2 acute COPD exacerbation with history of pulmonary fibrosis #2 acute on chronic CHF with diastolic dysfunction #4 chronic hypoxic and hypercapnic respiratory failure due to pulmonary fibrosis #5 obesity with BMI 27.8 #6 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 Improved CT negative Plan: Patient will be continued on broad-spectrum antibiotics in the form of vancomycin and cefepime. Continue with breathing treatments along with steroids and diuresis with Lasix as blood pressure tolerates. Continue to monitor CBC and transfuse as needed. No signs of active bleeding. Hemoglobin is at 8.1--7.2. We will continue to follow closely. Prognosis is guarded with multiple medical problems and comorbid conditions. Further recommendations based on the clinical course. CODE STATUS DO NOT RESUSCITATE/DO NOT INTUBATE Time with Patient: Greater than 30
[2017-03-28] MEDS: CEFEPIME 2 GM in SODIUM CHLORIDE 0.9% 50 ML IVPB SCH ×3 (00:18→16:58)
--- NOTE | 2017-03-28 00:24 | P.PN ---
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 Patient most recently had blood transfusion 5 days ago. Patient has also noted bilateral lower extremity swelling. Patient does admit having cough which is productive. According to the patient's family he has had a slightly elevated temperature over the past several days as well. Patient denies chest pain. Denies nausea or vomiting. Denies diarrhea. Denies rectal bleeding. Pulse ox was 75 percent on nasal cannula on admission. Chest x-ray showed multifocal pneumonia and may represent confluent pulmonary edema Patient was pancytopenic. Patient is a chronic CO2 retainer. On 03/22/2017 Patient did improve symptomatically. Patient still hypercarbic. No complaints of chest pain. Mental status improved as well patient still feels drowsy. No fever overnight. No acute issues at this time. On 03/23/2017 Patient had worsening short of breath this morning and was given extra dose of Lasix. Patient was confused last night and neurology was consulted. CT head showed no acute process. Patient is still having significant hypercapnia. Increased bicarbonate level could be due to diuresis as well. Hemoglobin dropped to 7.1 today and is getting 1 unit of PRBC. Currently saturating well on file at another cannula. No fever no chills. Patient still seems to be confused and lethargic. Planning for starting on BiPAP. 03/24/2017 Patient's mental status is slightly improved. More awake and oriented. Still very drowsy and lethargic. Patient did have used BiPAP last night. No fever no chills. Pulmonary and neurology is following. No acute overnight issues. 03/25/2017 Patient is still lethargic. Bicarb level improved to 49 today. Continues to be on BiPAP machine. No fever no chills. Mental status slightly improved. Otherwise no acute overnight issues. 03/27/2017 Patient is currently sitting in a chair and comfortable. Saturating well on nasal cannula. No acute overnight issues. Sedatives and narcotic pain medications will be avoided. Patient is awaiting for transfer to rehab All other review of systems negative except the above. Current medications reviewed Objective - Vital Signs Vital signs: Vital Signs Temp 98.6 F 03/27/17 16:00 Pulse 86 03/27/17 16:00 Resp 18 03/27/17 16:00 BP 119/60 03/27/17 16:00 Pulse Ox 94 L 03/27/17 21:59 Intake & Output 03/27/17 03/27/17 03/28/17 06:59 18:59 06:59 Intake Total 360 1060 Output Total 825 850 Balance -465 210 Weight 81.2 kg Intake: IV 360 420 .9 @ 10 60 120 Cefepime 2 gm In Sodium 50 50 Chloride 0.9% 50 ml @ 100 mls/hr IVPB Q8HR PHIL Rx# :[id number] Vancomycin 1,500 mg In 250 250 Sodium Chloride 0.9% 250 ml @ 125 mls/hr IVPB BID PHIL Rx#:[id number] Oral 640 Output: Urine 825 850 Other: Voiding Method Urinal Urinal Diaper Diaper Incontinent Incontinent # Voids 2 3 # Bowel Movements 1 - Exam Patient is lying in the bed comfortably, mild acute distress, awake alert and oriented.. HEENT: Normocephalic. Neck is supple. Pupils reactive. Nostrils clear. Oral cavity is moist. Ears reveal no drainage. Neck reveals no JVD, carotid bruits, or thyromegaly. CHEST EXAMINATION: Trachea is central. Symmetrical expansion. Bilateral diffuse rhonchi and minimal wheezing positive. CARDIAC: Normal S1, S2 with no gallops. No murmurs tachycardia ABDOMEN: Soft. Obese. Bowel sounds normal. No organomegaly. No abdominal bruits. Extremities: 2+ edema. No clubbing or cyanosis Neurologically awake, alert, oriented x3 with well-coordinated movements. No focal deficits noted Skin: No rash or skin lesions. Psychiatric: Operative. Nonsuicidal Musculoskeletal: No joint swelling or deformity. Normal range of motion. - Labs CBC & Chem 7: 03/27/17 07:40 03/27/17 07:40 Labs: Abnormal Lab Results - Last 24 Hours (Table) 03/27/17 03/27/17 03/27/17 Range/Units 07:40 07:40 11:51 WBC 1.6 L* (3.8-10.6) k/uL RBC 2.26 L (4.30-5.90) m/uL Hgb 7.2 L (13.0-17.5) gm/dL Hct 23.1 L (39.0-53.0) % MCV 102.2 H (80.0-100.0) fL RDW 19.9 H (11.5-15.5) % Plt Count 29 L* (150-450) k/uL Chloride 94 L (98-107) mmol/L Carbon Dioxide 44 H* (22-30) mmol/L BUN 29 H (9-20) mg/dL POC Glucose (mg/dL) 130 H (75-99) mg/dL 03/27/17 03/27/17 Range/Units 17:00 20:59 WBC (3.8-10.6) k/uL RBC (4.30-5.90) m/uL Hgb (13.0-17.5) gm/dL Hct (39.0-53.0) % MCV (80.0-100.0) fL RDW (11.5-15.5) % Plt Count (150-450) k/uL Chloride (98-107) mmol/L Carbon Dioxide (22-30) mmol/L BUN (9-20) mg/dL POC Glucose (mg/dL) 125 H 123 H (75-99) mg/dL Microbiology - Last 24 Hours (Table) 03/21/17 14:40 Blood Culture - Final Blood No Growth after 144 hours Assessment and Plan Assessment: #1 acute hypoxic and hypercapnic respiratory failure due to multifactorial etiology due to CHF and pulmonary fibrosis and pneumonia #2 healthcare associated pneumonia #2 acute COPD exacerbation with history of pulmonary fibrosis #2 acute on chronic CHF with diastolic dysfunction #4 chronic hypoxic and hypercapnic respiratory failure due to pulmonary fibrosis #5 obesity with BMI 27.8 #6 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 Improved CT negative Plan: Patient will be continued on broad-spectrum antibiotics in the form of vancomycin and cefepime. Continue with breathing treatments along with steroids and diuresis with Lasix as blood pressure tolerates. Continue to monitor CBC and transfuse as needed. No signs of active bleeding. Hemoglobin is at 8.1--7.2. We will continue to follow closely. Prognosis is guarded with multiple medical problems and comorbid conditions. Further recommendations based on the clinical course. CODE STATUS DO NOT RESUSCITATE/DO NOT INTUBATE
--- NOTE | 2017-03-28 01:08 | P.PN ---
Subjective Progress Note Date: 03/26/17 This patient is a 81 year old being followed of mental status changes secondary to respiratory difficulties. The patient has a history of advanced pulmonary fibrosis. He was started on BiPAP this evening for further treatment of this underlying condition. He was able to complete a routine EEG today which is reviewed and is moderately slow. According to the nursing staff he is also been lethargic and slow in his activities today. As noted he has a chronic hypercapnic respiratory failure. Pulmonary medicine is monitoring him closely. He also has underlying COPD and is oxygen dependent. He also has underlying myelodysplasia as well. His overall prognosis remains poor. He has been made a DO NOT RESUSCITATE and we will need to continue close monitoring. The patient has been placed back on BiPAP today due to his respiratory status. His overall respiratory status with chronic hypoxic and hypercapnic respiratory failure seems to wax and wane. Patient is easily arousable this evening. He is able to follow simple commands. We will continue close neurological follow- up of this patient during this admission. We will await further recommendations from pulmonary medicine regarding his overall respiratory status. Neurologically he remains intact with no focal motor deficit. He does have a mild encephalopathy secondary to his poor respiratory status and hypoxemia. His overall prognosis at this time remains guarded. Objective - Vital Signs Vital signs: Vital Signs Temp 96.9 F L 03/26/17 15:23 Pulse 78 03/26/17 15:26 Resp 20 03/26/17 15:25 BP 114/59 03/26/17 15:23 Pulse Ox 100 03/26/17 15:23 Intake & Output 03/25/17 03/26/17 03/26/17 18:59 06:59 18:59 Intake Total 853 116 9035 Output Total 1650 640 780 Balance -994 -240 300 Weight 80.5 kg Intake: IV 120 400 420 .9 @ 10 120 100 120 Cefepime 2 gm In Sodium 50 50 Chloride 0.9% 50 ml @ 100 mls/hr IVPB Q8HR PHIL Rx# :[id number] Vancomycin 1,500 mg In 250 250 Sodium Chloride 0.9% 250 ml @ 125 mls/hr IVPB BID PHIL Rx#:[id number] Intake, IV Titration 300 Amount Cefepime 2 gm In Sodium 50 Chloride 0.9% 50 ml @ 100 mls/hr IVPB Q8HR PHIL Rx# :[id number] Vancomycin 1,500 mg In 250 Sodium Chloride 0.9% 250 ml @ 125 mls/hr IVPB BID PHIL Rx#:[id number] Oral 236 660 Output: Urine 1650 640 780 Other: Voiding Method Urinal Urinal Urinal Diaper Incontinent # Voids 1 1 1 # Bowel Movements 1 - Exam Physical examination: PHYSICAL EXAMINATION: Patient is resting comfortably in bed. VITAL SIGNS: Blood pressure is [114/59]. Heart rate is [97]. Respiration is [20] . Temperature is [97.0]. HEENT: Head is atraumatic, neck is supple, there were no carotid bruits. CHEST: Lungs are clear to auscultation and percussion. CARDIAC: S1, S2 normal rate and rhythm. There is no murmur. ABDOMEN: Soft and nontender. Bowel sounds are present. EXTREMITIES: There is no pedal edema. Peripheral pulses are present. Neurological examination: Patient's neurological examination is unchanged from yesterday. He is currently resting with BiPAP on and is slightly lethargic but arousable. - Labs CBC & Chem 7: 03/27/17 07:40 03/27/17 07:40 Labs: Abnormal Lab Results - Last 24 Hours (Table) 03/25/17 03/25/17 03/26/17 Range/Units 18:44 20:36 05:36 WBC (3.8-10.6) k/uL RBC (4.30-5.90) m/uL Hgb (13.0-17.5) gm/dL Hct (39.0-53.0) % MCV (80.0-100.0) fL RDW (11.5-15.5) % Plt Count (150-450) k/uL Neutrophils # (1.3-7.7) k/uL Chloride 94 L (98-107) mmol/L Carbon Dioxide 44 H* 39 H (22-30) mmol/L BUN 27 H (9-20) mg/dL POC Glucose (mg/dL) 171 H (75-99) mg/dL 03/26/17 03/26/17 03/26/17 Range/Units 05:40 05:59 11:31 WBC 2.0 L* (3.8-10.6) k/uL RBC 2.49 L (4.30-5.90) m/uL Hgb 7.9 L (13.0-17.5) gm/dL Hct 25.3 L (39.0-53.0) % MCV 101.3 H (80.0-100.0) fL RDW 18.8 H (11.5-15.5) % Plt Count 28 L* (150-450) k/uL Neutrophils # 0.6 L (1.3-7.7) k/uL Chloride (98-107) mmol/L Carbon Dioxide (22-30) mmol/L BUN (9-20) mg/dL POC Glucose (mg/dL) 70 L 139 H (75-99) mg/dL 03/26/17 Range/Units 16:38 WBC (3.8-10.6) k/uL RBC (4.30-5.90) m/uL Hgb (13.0-17.5) gm/dL Hct (39.0-53.0) % MCV (80.0-100.0) fL RDW (11.5-15.5) % Plt Count (150-450) k/uL Neutrophils # (1.3-7.7) k/uL Chloride (98-107) mmol/L Carbon Dioxide (22-30) mmol/L BUN (9-20) mg/dL POC Glucose (mg/dL) 253 H (75-99) mg/dL Microbiology - Last 24 Hours (Table) 03/21/17 14:40 Blood Culture - Preliminary Blood No Growth after 120 hours Assessment and Plan (1) Hypoxic encephalopathy Current Visit: Yes Status: Acute SNOMED Code(s): 164532968 (2) Pancytopenia Current Visit: Yes Status: Acute SNOMED Code(s): 693413539 (3) Anemia Current Visit: No Status: Acute SNOMED Code(s): 934828110 (4) Chronic hypoxemic respiratory failure Current Visit: No Status: Acute SNOMED Code(s): 630901095 (5) Pulmonary fibrosis Current Visit: No Status: Acute SNOMED Code(s): 08386210 Plan: This patient is a 81-year-old male with history of chronic pulmonary fibrosis and chronic hypoxic and hypercapnic respiratory failure. He was admitted to hospital with increasing shortness of breath. He was showing increased mental status changes earlier today and for this reason neurology was consulted. He underwent a computed tomography scan of the brain which was negative for any acute changes. He is able to follow simple commands at this time. His recent mental status changes are felt to be secondary to his severe respiratory difficulties from pulmonary fibrosis and hypoxic and hypercapnic respiratory failure. We will obtain a routine EEG for further evaluation for this patient. He is to continue with all current treatment plans as per pulmonary medicine. Patient has been started on BiPAP this evening. He was able to complete a routine EEG which was moderately slow. He has evidence suggesting a diffuse metabolic encephalopathy producing his mild confusional state as well. The patient has been placed back on BiPAP for further management of his poor respiratory status. There is been no significant change in his overall mental status. We will await further recommendations from pulmonary medicine regarding his further management of his respiratory disease. He continues to have waxing and waning of his overall respiratory status. We will await further recommendations from pulmonary medicine regarding his conditio His overall prognosis at this time remains very guarded. His overall neurological status is consistent with a diffuse metabolic encephalopathy secondary to his respiratory failure. this patient continues to make slow progress in terms of improvement in his overall respiratory status. He has continued to have to use the BiPAP at night when sleeping. We will await further recommendations from pulmonary medicine. We will continue close neurological follow-up for this patient during this admission.
--- NOTE | 2017-03-28 01:14 | P.PN ---
Subjective Progress Note Date: 03/27/17 This patient is a 81 year old being followed of mental status changes secondary to respiratory difficulties. The patient has a history of advanced pulmonary fibrosis. He was started on BiPAP this evening for further treatment of this underlying condition. He was able to complete a routine EEG today which is reviewed and is moderately slow. According to the nursing staff he is also been lethargic and slow in his activities today. As noted he has a chronic hypercapnic respiratory failure. Pulmonary medicine is monitoring him closely. He also has underlying COPD and is oxygen dependent. He also has underlying myelodysplasia as well. His overall prognosis remains poor. He has been made a DO NOT RESUSCITATE and we will need to continue close monitoring. The patient has been placed back on BiPAP today due to his respiratory status. His overall respiratory status with chronic hypoxic and hypercapnic respiratory failure seems to wax and wane. Patient is easily arousable this evening. He is able to follow simple commands. We will continue close neurological follow- up of this patient during this admission. We will await further recommendations from pulmonary medicine regarding his overall respiratory status. Neurologically he remains intact with no focal motor deficit. He does have a mild encephalopathy secondary to his poor respiratory status and hypoxemia. His overall prognosis at this time remains guarded. Objective - Vital Signs Vital signs: Vital Signs Temp 98.6 F 03/27/17 16:00 Pulse 86 03/27/17 16:00 Resp 18 03/27/17 16:00 BP 119/60 03/27/17 16:00 Pulse Ox 94 L 03/27/17 21:59 Intake & Output 03/27/17 03/27/17 03/28/17 06:59 18:59 06:59 Intake Total 360 1060 Output Total 825 850 Balance -465 210 Weight 81.2 kg Intake: IV 360 420 .9 @ 10 60 120 Cefepime 2 gm In Sodium 50 50 Chloride 0.9% 50 ml @ 100 mls/hr IVPB Q8HR PHIL Rx# :[id number] Vancomycin 1,500 mg In 250 250 Sodium Chloride 0.9% 250 ml @ 125 mls/hr IVPB BID PHIL Rx#:[id number] Oral 640 Output: Urine 825 850 Other: Voiding Method Urinal Urinal Diaper Diaper Incontinent Incontinent # Voids 2 3 # Bowel Movements 1 - Exam Physical examination: PHYSICAL EXAMINATION: Patient is resting comfortably in bed. VITAL SIGNS: Blood pressure is [119/60]. Heart rate is [86]. Respiration is [18] . Temperature is [98.7]. HEENT: Head is atraumatic, neck is supple, there were no carotid bruits. CHEST: Lungs are clear to auscultation and percussion. CARDIAC: S1, S2 normal rate and rhythm. There is no murmur. ABDOMEN: Soft and nontender. Bowel sounds are present. EXTREMITIES: There is no pedal edema. Peripheral pulses are present. Neurological examination: Patient's neurological examination is unchanged from yesterday. He is currently resting with BiPAP on and is slightly lethargic but arousable. - Labs CBC & Chem 7: 03/27/17 07:40 03/27/17 07:40 Labs: Abnormal Lab Results - Last 24 Hours (Table) 03/27/17 03/27/17 03/27/17 Range/Units 07:40 07:40 11:51 WBC 1.6 L* (3.8-10.6) k/uL RBC 2.26 L (4.30-5.90) m/uL Hgb 7.2 L (13.0-17.5) gm/dL Hct 23.1 L (39.0-53.0) % MCV 102.2 H (80.0-100.0) fL RDW 19.9 H (11.5-15.5) % Plt Count 29 L* (150-450) k/uL Chloride 94 L (98-107) mmol/L Carbon Dioxide 44 H* (22-30) mmol/L BUN 29 H (9-20) mg/dL POC Glucose (mg/dL) 130 H (75-99) mg/dL 03/27/17 03/27/17 Range/Units 17:00 20:59 WBC (3.8-10.6) k/uL RBC (4.30-5.90) m/uL Hgb (13.0-17.5) gm/dL Hct (39.0-53.0) % MCV (80.0-100.0) fL RDW (11.5-15.5) % Plt Count (150-450) k/uL Chloride (98-107) mmol/L Carbon Dioxide (22-30) mmol/L BUN (9-20) mg/dL POC Glucose (mg/dL) 125 H 123 H (75-99) mg/dL Microbiology - Last 24 Hours (Table) 03/21/17 14:40 Blood Culture - Final Blood No Growth after 144 hours Assessment and Plan (1) Hypoxic encephalopathy Current Visit: Yes Status: Acute SNOMED Code(s): 007721947 (2) Pancytopenia Current Visit: Yes Status: Acute SNOMED Code(s): 824170554 (3) Anemia Current Visit: No Status: Acute SNOMED Code(s): 468423263 (4) Chronic hypoxemic respiratory failure Current Visit: No Status: Acute SNOMED Code(s): 818404360 (5) Pulmonary fibrosis Current Visit: No Status: Acute SNOMED Code(s): 83537961 Plan: This patient is a 81-year-old male with history of chronic pulmonary fibrosis and chronic hypoxic and hypercapnic respiratory failure. He was admitted to hospital with increasing shortness of breath. He was showing increased mental status changes earlier today and for this reason neurology was consulted. He underwent a computed tomography scan of the brain which was negative for any acute changes. He is able to follow simple commands at this time. His recent mental status changes are felt to be secondary to his severe respiratory difficulties from pulmonary fibrosis and hypoxic and hypercapnic respiratory failure. We will obtain a routine EEG for further evaluation for this patient. He is to continue with all current treatment plans as per pulmonary medicine. Patient has been started on BiPAP this evening. He was able to complete a routine EEG which was moderately slow. He has evidence suggesting a diffuse metabolic encephalopathy producing his mild confusional state as well. The patient has been placed back on BiPAP for further management of his poor respiratory status. There is been no significant change in his overall mental status. We will await further recommendations from pulmonary medicine regarding his further management of his respiratory disease. He continues to have waxing and waning of his overall respiratory status. We will await further recommendations from pulmonary medicine regarding his condition. The patient has a history of severe pulmonary fibrosis. he is wishing to be considered for placement into a new ECF. Apparently he was at [facility] previously and did not like the care there. He is requesting possible placement into [facility] the [facility].His overall prognosis at this time remains very guarded. the patient is a DO NOT RESUSCITATE CODE STATUS. He does have rather severe pulmonary fibrosis and worsening hypercapnic respiratory failure. He will require close monitoring of his respiratory status at ECF. His overall neurological status is consistent with a diffuse metabolic encephalopathy secondary to his respiratory failure. this patient continues to make slow progress in terms of improvement in his overall respiratory status. He has continued to have to use the BiPAP at night when sleeping. We will await further recommendations from pulmonary medicine. We will continue close neurological follow-up for this patient during this admission.
[2017-03-28 06:11] LABS: Glucose,Whole Blood 102 mg/dL (75-99)
[2017-03-28] MEDS: INSULIN LISPRO (humaLOG) 300 UNIT/3 ML VIAL SQ SCH ×3 (07:00→16:58)
[2017-03-28] MEDS: LEVOTHYROXINE 25 MCG TAB PO SCH (07:01)
[2017-03-28] MEDS: FUROSEMIDE 20 MG TAB PO SCH ×2 (07:44→16:52)
[2017-03-28] MEDS: acetaZOLAMIDE 250 MG TAB PO SCH (07:45)
[2017-03-28] MEDS: predniSONE 20 MG TAB PO SCH (07:45)
[2017-03-28 08:29] LABS: Blood Urea Nitrogen 28 mg/dL (9-20); Calcium 9.1 mg/dL (8.4-10.2); Chloride 94 mmol/L (98-107); Glucose 114 mg/dL (74-99); Non-African American GFR(MDRD) >60 (>60 ml/min/1.73 sqM); Potassium 3.7 mmol/L (3.5-5.1); Sodium 140 mmol/L (137-145)
[2017-03-28 08:36] LABS: Anion Gap 2 mmol/L
[2017-03-28 08:41] LABS: Anisocytosis Slight; CH 32.7; CHCM 32.4; Carbon Dioxide 44 mmol/L (22-30); HCT 22.2 % (39.0-53.0); HDW 3.11; HGB 7.1 gm/dL (13.0-17.5); MCH 32.5 pg (25.0-35.0); MCHC 32.1 g/dL (31.0-37.0); MCV 101.2 fL (80.0-100.0); Macrocytosis Moderate; Mean Platelet Volume 9.3; RBC 2.19 m/uL (4.30-5.90); RDW 19.7 % (11.5-15.5); WBC 1.7 k/uL (3.8-10.6)
[2017-03-28] MEDS: VANCOMYCIN 1,250 MG in SODIUM CHLORIDE 0.9% 250 ML IVPB SCH (08:58)
--- NOTE | 2017-03-28 09:55 | P.PN ---
Subjective Progress Note Date: 03/28/17 Principal diagnosis: This is a pleasant 81-year-old gentleman who has a significant past medical history of myelodysplasia with pancytopenia and anemia. He was recently discharged from here on 03/04/2017 to [facility] for inpatient rehabilitation. He also has a history of advanced pulmonary fibrosis with FVC of 42% and a total lung capacity of 43% with chronic hypoxic and hypercapnic respiratory failure, chronic obstructive pulmonary disease with secondary pulmonary hypertension. He is oxygen dependent maintained on 3 L/m per nasal cannula in the outpatient setting. He follows with our group for the same. He also has a history of hypothyroidism, hyperlipidemia, osteoarthritis with gait mobility issues, coronary artery disease. He has very poor overall functional performance based on his multiple comorbidities. He was readmitted again yesterday with increasing shortness of breath cough and congestion. He had bilateral lower extremity edema as well. The patient had received a blood transfusion approximately 5-6 days ago. The patient's chest x-ray does reveal evidence of fluid volume overload. There is also some patchy opacities that were similar compared to the previous one in February. White count 2.1. Hemoglobin 7.7. Platelet count 21,000. Creatinine 0.62. CO2 level 47 and it is noted the patient runs in the high 30s to low 40s on previous admissions as well. He is currently maintaining O2 saturations in the high 90s on 4 L/m per nasal cannula. He is afebrile. Hemodynamically stable. He has been initiated on bronchodilators, prednisone along with cefepime and vancomycin. He is being diuresed with Lasix 20 mg IV every 12 hours. He is seen today in consultation on the selective care unit. Currently he is awake and alert in no acute distress. He is somewhat of a poor historian unclear as to why he is here. He does admit to having some shortness of breath with exertion. Loose nonproductive cough. The patient is seen again today 03/28/2017 and follow-up on the selective care unit. He remains awake and alert in no acute distress. He is currently oriented to person place and time. He is maintaining good O2 saturations in the mid 90s on 2.5 L/m per nasal cannula. He is currently afebrile. Hemodynamically stable. He remains on vancomycin and cefepime. Blood cultures reveal no growth to date. White count 1.7, hemoglobin 7.1, platelets 28,000. Objective - Vital Signs Vital signs: Vital Signs Temp 97.6 F 03/28/17 07:43 Pulse 62 03/28/17 07:43 Resp 18 03/28/17 07:43 BP 102/49 03/28/17 07:43 Pulse Ox 97 03/28/17 07:43 Intake & Output 03/27/17 03/28/17 03/28/17 18:59 06:59 18:59 Intake Total 1060 600 Output Total 850 200 Balance 210 400 Weight 83 kg Intake: IV 420 420 .9 @ 10 120 120 Cefepime 2 gm In Sodium 50 50 Chloride 0.9% 50 ml @ 100 mls/hr IVPB Q8HR PHIL Rx# :[id number] Vancomycin 1,500 mg In 250 250 Sodium Chloride 0.9% 250 ml @ 125 mls/hr IVPB BID PHIL Rx#:[id number] Oral 640 180 Output: Urine 850 200 Other: Voiding Method Urinal Urinal Urinal Diaper Incontinent # Voids 3 1 1 # Bowel Movements 1 1 - Exam GENERAL EXAM: More alert today, comfortable in no apparent distress. HEAD: Normocephalic. EYES: Normal reaction of pupils, equal size. NOSE: Clear with pink turbinates. THROAT: No erythema or exudates. NECK: No masses, no JVD. CHEST: No chest wall deformity. LUNGS: Equal air entry with us in the bilateral posterior bases. Diminished. CVS: S1 and S2 normal with no audible murmur, regular rhythm. ABDOMEN: No hepatosplenomegaly, normal bowel sounds, no guarding or rigidity. SPINE: Kyphoscoliosis. SKIN: No rashes CENTRAL NERVOUS SYSTEM: No focal deficits, tone is normal in all 4 extremities. EXTREMITIES: There is no peripheral edema. No clubbing, no cyanosis. Peripheral pulses are intact. - Labs CBC & Chem 7: 03/28/17 07:42 03/28/17 07:42 Labs: Abnormal Lab Results - Last 24 Hours (Table) 03/27/17 03/27/17 03/27/17 Range/Units 11:51 17:00 20:59 WBC (3.8-10.6) k/uL RBC (4.30-5.90) m/uL Hgb (13.0-17.5) gm/dL Hct (39.0-53.0) % MCV (80.0-100.0) fL RDW (11.5-15.5) % Plt Count (150-450) k/uL Chloride (98-107) mmol/L Carbon Dioxide (22-30) mmol/L BUN (9-20) mg/dL Glucose (74-99) mg/dL POC Glucose (mg/dL) 130 H 125 H 123 H (75-99) mg/dL 03/28/17 03/28/17 03/28/17 Range/Units 06:09 07:42 07:42 WBC 1.7 L* (3.8-10.6) k/uL RBC 2.19 L (4.30-5.90) m/uL Hgb 7.1 L (13.0-17.5) gm/dL Hct 22.2 L (39.0-53.0) % MCV 101.2 H (80.0-100.0) fL RDW 19.7 H (11.5-15.5) % Plt Count 28 L* (150-450) k/uL Chloride 94 L (98-107) mmol/L Carbon Dioxide 44 H* (22-30) mmol/L BUN 28 H (9-20) mg/dL Glucose 114 H (74-99) mg/dL POC Glucose (mg/dL) 102 H (75-99) mg/dL Microbiology - Last 24 Hours (Table) 03/21/17 14:40 Blood Culture - Final Blood No Growth after 144 hours Assessment and Plan Assessment: Impression: #1 Acute exacerbation of severe oxygen dependent chronic obstructive pulmonary disease. #2 Acute exacerbation of severe pulmonary fibrosis with restrictive lung disease with a forced vital capacity 42%, total lung capacity 43%. #3 Severe pulmonary hypertension secondary to chronic lung disease with RVSP 60 mmHg. #4 Acute on chronic diastolic congestive heart failure. #5 Acute on chronic hypoxic respiratory failure secondary to above. #6 Acute on chronic hypercapnic respiratory failure secondary to above. #7 Pancytopenia secondary to myelodysplasia. #8 History of coronary disease with previous non-ST segment elevation myocardial infarction. #9 Hypertension. #10 Hyperlipidemia. #11 Overall poor functional performance based on the above-mentioned comorbidities. Plan: The patient was seen and evaluated by Dr. Ayers. She was more awake and alert today. We will continue with his current medications. The plan is for transfer to an extended care facility for inpatient rehabilitation post discharge. The patient's overall prognosis remains quite poor. He is a DO NOT RESUSCITATE/DO NOT INTUBATE CODE STATUS. We will continue to follow and make further recommendations based on his clinical status. I, the cosigning physician, have performed a history and physical examination on the patient. Lung sounds with scattered, crackles in the posterior bases. Diminished throughout. I have discussed the assessment and plan of care with my nurse practitioner, Sheyla Leyva. I attest the above documented note as dictated by her.
[2017-03-28 10:44] VITALS: BMI 27.8
[2017-03-28 11:20] LABS: Glucose,Whole Blood 111 mg/dL (75-99)
[2017-03-28] MEDS ORDERED: FUROSEMIDE 10 MG/ML 2 ML VIAL IV ONE (11:27)
[2017-03-28] MEDS ORDERED: Potassium Replacement Protocol 1 EACH MISC MISCELLANE PRN (11:28)
[2017-03-28] MEDS ORDERED: Magnesium Replacement Protocol 1 EACH MISC MISCELLANE PRN (11:29)
--- NOTE | 2017-03-28 12:23 | P.DS ---
Providers Date of admission: 03/21/17 16:38 Expected date of discharge: 03/28/17 Attending physician: Kemar Joseph Consults: 03/21/17 16:37 Consult Physician Routine Consulting Provider: Adiel Benz Consult Reason/Comments: Healthcare associated pneumonia, pulmonary fibrosis Do you want consulting provider notified?: Yes, Notify in am 03/22/17 17:07 Consult Physician Routine Consulting Provider: Maribeth Sahu Consult Reason/Comments: mental status changes Do you want consulting provider notified?: Yes [facility]: Final Diagnoses: #1 acute hypoxic and hypercapnic respiratory failure due to multifactorial etiology due to CHF and severe pulmonary fibrosis, COPD #2 secondary severe pulmonary hypertension #2 acute COPD exacerbation with history of pulmonary fibrosis #2 acute on chronic CHF with diastolic dysfunction #4 chronic hypoxic and hypercapnic respiratory failure due to pulmonary fibrosis #5 obesity with BMI 27.8 #6 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 CT nonacute. 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 Last blood transfusion prior to admission, 5-6 days ago. Patient has history of myelodysplasia, advanced pulmonary fibrosis, secondary pulmonary hypertension .Pulse ox 75 percent on nasal cannula on admission.Chest x-ray as reviewed per pulmonary reported fluid overload, patchy opacity similar to prior exam in February.Patient was pancytopenic. Evaluated by neurology and pulmonary. Pneumonia ruled out as per pulmonary. Neuro workup completed, EEG reported moderate slowing, with diffuse metabolic encephalopathy. CT non acute. Blood Cultures negative. Received vancomycin, cefepime and nebulized bronchodilators, steroids.diuresed with IV push Lasix .Placed on BiPAP as per pulmonary. Receiving 1 unit of packed RBCs for hemoglobin of 7.1 prior to discharge. Currently on prednisone 20 daily as per pulmonary with further dosing pending. Patient has been cleared by all consults for discharge to subacute rehab. Patient is being discharged to [facility] in a stable condition with guarded prognosis. Overall poor functional performance based on above-mentioned comorbidities. The impression and plan of care has been dictated as directed. : I performed a history and examination of this patient, discussed the same with the dictator. I agree with the dictator's note ,documented as a scribe. Any additional findings or plans will be noted. Patient Condition at Discharge: Stable Plan - Discharge Summary Discharge Rx Participant: Yes New Discharge Prescriptions: New acetaZOLAMIDE [Diamox] 250 mg PO BID tab Furosemide [Lasix] 20 mg PO BID@0900,1600 tab Ipratropium-Albuterol Nebulize [Duoneb 0.5 mg-3 mg/3 ml Soln] 3 ml INHALATION QID ampul.neb predniSONE 20 mg PO DAILY tab Azithromycin [Zithromax] 500 mg PO DAILY #5 tab Continue Levothyroxine Sodium [Synthroid] 25 mcg PO DAILY@0600 Simvastatin [Zocor] 40 mg PO HS@2100 Potassium Chloride ER [K-Dur 20] 40 meq PO DAILY@1700 Discontinued Albuterol Inhaler [Ventolin Hfa Inhaler] 1 - 2 puff INHALATION RT-Q6H PRN PRN Reason: Shortness Of Breath Or Wheezing Furosemide [Lasix] 20 mg PO DAILY@0800 Discharge Medication List Levothyroxine Sodium [Synthroid] 25 mcg PO DAILY@0600 10/22/14 [History] Simvastatin [Zocor] 40 mg PO HS@2100 02/24/17 [History] Potassium Chloride ER [K-Dur 20] 40 meq PO DAILY@1700 03/03/17 [History] Azithromycin [Zithromax] 500 mg PO DAILY #5 tab 03/28/17 [Rx] Furosemide [Lasix] 20 mg PO BID@0900,1600 tab 03/28/17 [Rx] Ipratropium-Albuterol Nebulize [Duoneb 0.5 mg-3 mg/3 ml Soln] 3 ml INHALATION QID ampul.neb 03/28/17 [Rx] acetaZOLAMIDE [Diamox] 250 mg PO BID tab 03/28/17 [Rx] predniSONE 20 mg PO DAILY tab 03/28/17 [Rx] Follow up Appointment(s)/Referral(s): Adiel Benz MD [STAFF PHYSICIAN] - 2 Weeks Coby Sahu MD [STAFF PHYSICIAN] - 2 Weeks [facility], [NON-STAFF] - Gene Lucero DO [Primary Care Provider] - 1 Week (after dc from ECF) Activity/Diet/Wound Care/Special Instructions: prednisone dosing and BiPAP settings as per pulmonary........ oxygen 2.5 L nasal cannula O2 CBC, BMP in 3 days Diet: Cardiac Activity: As tolerated
[2017-03-28 15:40] VITALS: RESP 18; TEMP 96.5
[2017-03-28 16:38] LABS: Glucose,Whole Blood 113 mg/dL (75-99)
[2017-03-28 16:51] VITALS: BP 105/62; PULSE 83
[2017-03-28] MEDS: POTASSIUM CHLORIDE ER 20 MEQ TAB.ER PO SCH (16:52)
[2017-03-29] MEDS ORDERED: VANCOMYCIN TROUGH DUE 1 EACH MISC MISCELLANE ONE (08:00)
== END 2017-03-28 18:20 | DRG 291 ==
LOC: EC 14:05 → 6SEL 16:38
PROVIDERS: ADMIT Internal Medicine; ATTEND Internal Medicine
PROC: 30233N1 Transfusion of Nonautologous Red Blood Cells into Peripheral Vein, Percutaneous Approach (ICD-10-PCS; principal; 2017-03-23)
PROC: 5A09357 Assistance with Respiratory Ventilation, Less than 24 Consecutive Hours, Continuous Positive Airway Pressure (ICD-10-PCS; 2017-03-23)
DX: I11.0 Hypertensive heart disease with heart failure (principal); G93.41 Metabolic encephalopathy; J96.21 Acute and chronic respiratory failure with hypoxia; J96.22 Acute and chronic respiratory failure with hypercapnia; G93.1 Anoxic brain damage, not elsewhere classified; D61.818 Other pancytopenia; J44.1 Chronic obstructive pulmonary disease with (acute) exacerbation; I27.29 Other secondary pulmonary hypertension; D46.9 Myelodysplastic syndrome, unspecified; I50.33 Acute on chronic diastolic (congestive) heart failure; R32 Unspecified urinary incontinence; R26.9 Unspecified abnormalities of gait and mobility; E03.9 Hypothyroidism, unspecified; E66.9 Obesity, unspecified; E78.5 Hyperlipidemia, unspecified; I25.10 Atherosclerotic heart disease of native coronary artery without angina pectoris; I25.2 Old myocardial infarction; J84.10 Pulmonary fibrosis, unspecified; J98.4 Other disorders of lung; M19.90 Unspecified osteoarthritis, unspecified site; Z66 Do not resuscitate; Z79.899 Other long term (current) drug therapy; Z99.81 Dependence on supplemental oxygen; Z68.27 Body mass index [BMI] 27.0-27.9, adult
CPT/HCPCS: 36415; 70450; 71020; 80048; 80053; 80061; 80202; 82374; 82550; 82553; 82803; 83036; 83605; 83735; 84484; 85025; 85027; 85610; 85730; 86850; 86900; 86901; 86920; 87040; 87324; 93005; 94640; 94660; 94760; 95819; 96365; 96375; 99285

== ENCOUNTER → 2017-07-19 | Outpatient (CLI) | payer MEDICARE ==
[~2017-07-19] MED LIST changes: -LACTATED RINGERS 1,000 ML IV SCH; +SODIUM CHLORIDE 0.9% 500 ML in EMPTY BAG 1 BAG IV PRN
[2017-07-19 12:29] VITALS: PULSE 89
[2017-07-19 13:05] VITALS: BP 102/54; RESP 16; TEMP 97.6
== END | disposition home or self-care (01) ==
LOC: PROCWHC3 10:23
PROVIDERS: ATTEND Internal Medicine Hematology & Oncology
DX: D46.9 Myelodysplastic syndrome, unspecified (principal); D69.6 Thrombocytopenia, unspecified
CPT/HCPCS: 36430; P9035